=== PATIENT | female | born 1935 | race Caucasian/White ===

== ENCOUNTER → 2017-06-29 | Outpatient (CLI) | payer MEDICARE, BC, OTHER, SELFPAY | PROVIDERS: Family Provider Family Medicine; Visit Provider Family Medicine | DX: M54.2 Cervicalgia (principal) | CPT/HCPCS: 72050 ==

== ENCOUNTER 2017-06-30 12:55 | Outpatient (RCR) | payer MEDICARE, BC, SELFPAY | END 2017-07-01 | LOC: PT 12:55 | PROVIDERS: PCP Family Medicine; Visit Provider Family Medicine | DX: M54.2 Cervicalgia (principal); S23.9XXD Sprain of unspecified parts of thorax, subsequent encounter | CPT/HCPCS: G8978; G8979; G8980; 97010; 97012; 97014; 97162; G0283 ==

== ENCOUNTER 2017-08-16 09:00 | Outpatient (RCR) | payer MEDICARE, BC, OTHER, SELFPAY | END 2017-08-16 09:01 | disposition home or self-care (01) | LOC: PT 09:00 | PROVIDERS: Family Provider Family Medicine; PCP Family Medicine; Visit Provider Family Medicine | DX: M54.5 Low back pain (principal) | CPT/HCPCS: 97010; 97012; 97014; 97140; G0283 ==

== ENCOUNTER → 2018-08-16 15:26 | Outpatient (CLI) | payer MEDICARE, BC, SELFPAY ==
--- NOTE | 2018-08-16 15:37 | XR_ITS ---
XR knee LT 3V HISTORY: Left knee pain and swelling ITS.REASON: LT KNEE PAIN/SWELLING ORDERING PHYSICIAN: [place] PATIENT AGE: 82 years COMPARISON: None FINDINGS: There are moderate osteoarthritic changes of the medial compartment with decrease in the joint space, osteophyte formation, and osteosclerosis. Mild osteoarthritic changes are present at the lateral compartment and patellofemoral joint. No acute fracture or dislocation is evident. No lytic or blastic change. IMPRESSION: Moderate osteoarthritis of the left knee
== END ==
PROVIDERS: PCP Internal Medicine; Visit Provider Internal Medicine
DX: M25.562 Pain in left knee (principal); M25.462 Effusion, left knee
CPT/HCPCS: 73562

== ENCOUNTER → 2018-08-30 14:36 | Outpatient (CLI) | payer MEDICARE, BC, SELFPAY ==
--- NOTE | 2018-08-30 14:43 | XR_ITS ---
EXAM: XR lumbar spine 2-3V HISTORY: Low back pain, bulging disc ITS.REASON: ap lateral standing ORDERING PHYSICIAN: Yadira Moore MD PATIENT AGE: 82 years COMPARISON: None FINDINGS: Standing AP and lateral views of lumbar spine are obtained. Multilevel degenerative disc disease is present from L2 to S1 with mild lumbar scoliosis convex left in the upper lumbar spine. No fracture or malalignment. IMPRESSION: Scoliosis with degenerative disc disease
== END ==
PROVIDERS: PCP Internal Medicine; Visit Provider Orthopaedic Surgery
DX: M54.9 Dorsalgia, unspecified (principal)
CPT/HCPCS: 72100

== ENCOUNTER → 2018-09-11 14:49 | Outpatient (POV) | payer MEDICARE, BC, SELFPAY ==
[2018-09-11 14:59] VITALS: BP 166/87; PULSE 84; RESP 18; O2SAT 98
--- NOTE | 2018-09-12 13:49 | HMH.PMCON ---
Assessment and Plan (1) Degenerative disc disease Current visit: Yes Status: Chronic Qualifiers: Spinal region: lumbar Qualified Code(s): M51.36 - Other intervertebral disc degeneration, lumbar region Category: Medical (2) Lumbar radiculopathy Current visit: Yes Status: Chronic Category: Medical Code(s): M54.16 - Radiculopathy, lumbar region - Assessment and plan all Dx Assessment and Plan for all problems:: Schedule L4-L5 lumbar epidural steroid injection for the patient. Patient has had this in the past with up to 2 years relief. She is interested in pursuing another one. I will follow-up with her after injection and reassess her symptoms at that time. Dr. Gonzalez has reviewed this note and agrees with this plan of care. This note was dictated using voice recognition software and may contain errors or omissions HPI - Data of Consult Consult date: 09/11/18 Requesting Physician: Jayla Washington APRN Primary Care Provider: Bon [place] - Consult Narrative Reason for consult: Back pain History of present illness: Ms. Pride is a 82 year old female who presents today for consultation in regards to her low back. Patient has patient is a pleasant 82-year-old white female who presents today for consultation in regards to her low back pain. Patient states that increased activity increases her pain while gabapentin decreases it. She has numbness and tingling in her left leg. Patient's done physical therapy in the past with minimal relief she is continuing a home stretching therapy. She rates her pain a 6 out of 10. She is currently doing a home stretching program. She is currently on anti-inflammatories. This is beneficial for her. Patient has had epidural injections in the past with extremely good relief. She would like to repeat these. Patient does have imaging showing multilevel degenerative disc disease CC: Jayla Washington APRN [facility] History I have reviewed the patient's past medical history: Yes Medical History: Reports:: Hyperlipidemia *Have you ever received a pneumonia vaccine?: No *Have you received a flu vaccine this season?: Yes Other Medical History: Reports: Arthritis Other Surgeries: Yes: Appendectomy, Hysterectomy-Total, Tubal Ligation Amputation: No Fractures: No - *Social History Smoking Status: Never smoker Alcohol Intake: never Substance Use Type: denies use *Occupational Status:: retired Housing: house Household Members: family *Travel in the last 8 weeks: None - Psychiatric History Expresses thoughts of harming self/others: None Suicide Plan Description: No Plan Family Hx:: Cancer Review of Systems - Review of Systems ROS General: no recent weight change, no fever, no sleep disturbances Respiratory: no cough, no shortness of air, no recurring pulmonary infections Cardiovascular/Peripheral Vascular: No chest pain, No palpitations, no edema, no shortness of breath. Gastrointestinal: no incontinence, normal bowel movements reported Genitourinary: no incontinence Musculoskeletal: Back pain, left leg pain Psychiatric: normal mood/ affect Neurological: [denies weakness in extremities], [denies balance issues] Meds Home Medications Medication Instructions Recorded Confirmed Type gabapentin 100 mg capsule 200 mg PO QHS cap 09/11/17 08/30/18 History alendronate 35 mg tablet 35 mg PO QWEEK 08/30/18 08/30/18 History celecoxib 200 mg capsule 200 mg PO DAILY 08/30/18 08/30/18 History coenzyme Q 10 10 mg capsule 10 mg PO TID 08/30/18 08/30/18 History donepezil 5 mg tablet 5 mg PO DAILY 08/30/18 08/30/18 History hydrochlorothiazide 12.5 mg capsule 12.5 mg PO DAILY 08/30/18 08/30/18 History sertraline 25 mg tablet 25 mg PO DAILY 08/30/18 08/30/18 History vitamin B complex tablet 1 tab PO DAILY 08/30/18 08/30/18 History Allergies Allergy/AdvReac Type Severity Reaction Status Date / Time No Known Allergies Allergy Verified 08/30/18 13:34
--- NOTE | 2018-09-12 13:55 | P.CONS_ITS ---
Assessment and Plan (1) Degenerative disc disease Current visit: Yes Status: Chronic Qualifiers: Spinal region: lumbar Qualified Code(s): M51.36 - Other intervertebral disc degeneration, lumbar region Category: Medical (2) Lumbar radiculopathy Current visit: Yes Status: Chronic Category: Medical Code(s): M54.16 - Radiculopathy, lumbar region - Assessment and plan all Dx Assessment and Plan for all problems:: Schedule L4-L5 lumbar epidural steroid injection for the patient. Patient has had this in the past with up to 2 years relief. She is interested in pursuing another one. I will follow-up with her after injection and reassess her symptoms at that time. Dr. Gonzalez has reviewed this note and agrees with this plan of care. This note was dictated using voice recognition software and may contain errors or omissions HPI - Data of Consult Consult date: 09/11/18 Requesting Physician: Jayla Washington APRN Primary Care Provider: [place] - Consult Narrative Reason for consult: Back pain History of present illness: Ms. Pride is a 82 year old female who presents today for consultation in regards to her low back. Patient has patient is a pleasant 82-year-old white female who presents today for consultation in regards to her low back pain. Patient states that increased activity increases her pain while gabapentin decreases it. She has numbness and tingling in her left leg. Patient's done physical therapy in the past with minimal relief she is continuing a home stretching therapy. She rates her pain a 6 out of 10. She is currently doing a home stretching program. She is currently on anti-inflammatories. This is beneficial for her. Patient has had epidural injections in the past with extremely good relief. She would like to repeat these. Patient does have imaging showing multilevel degenerative disc disease CC: Jayla Washington APRN [facility] History I have reviewed the patient's past medical history: Yes Medical History: Reports:: Hyperlipidemia *Have you ever received a pneumonia vaccine?: No *Have you received a flu vaccine this season?: Yes Other Medical History: Reports: Arthritis Other Surgeries: Yes: Appendectomy, Hysterectomy-Total, Tubal Ligation Amputation: No Fractures: No - *Social History Smoking Status: Never smoker Alcohol Intake: never Substance Use Type: denies use *Occupational Status:: retired Housing: house Household Members: family *Travel in the last 8 weeks: None - Psychiatric History Expresses thoughts of harming self/others: None Suicide Plan Description: No Plan Family Hx:: Cancer Review of Systems - Review of Systems ROS General: no recent weight change, no fever, no sleep disturbances Respiratory: no cough, no shortness of air, no recurring pulmonary infections Cardiovascular/Peripheral Vascular: No chest pain, No palpitations, no edema, no shortness of breath. Gastrointestinal: no incontinence, normal bowel movements reported Genitourinary: no incontinence Musculoskeletal: Back pain, left leg pain Psychiatric: normal mood/ affect Neurological: [denies weakness in extremities], [denies balance issues] Meds Home Medications Medication Instructions Recorded Confirmed Type gabapentin 100 mg capsule 200 mg PO QHS cap 09/11/17 08/30/18 History alendronate 35 mg tablet 35 mg PO QWEEK 08/30/18 08/30/18 History celecoxib 200 mg capsule 200 mg PO DAILY 08/30/18 08/30/18 Histo
== END ==
PROVIDERS: PCP Internal Medicine; Visit Provider Clinical Nurse Specialist Family Health
DX: M51.16 Intervertebral disc disorders with radiculopathy, lumbar region (principal)
CPT/HCPCS: 99202

== ENCOUNTER → 2018-10-16 13:06 | Outpatient (POV) | payer MEDICARE, BC, SELFPAY ==
[2018-10-16 13:54] VITALS: BP 129/90; PULSE 103; RESP 18; O2SAT 98; BMI 32.1
--- NOTE | 2018-10-17 08:04 | HMH.PAINSOAP ---
[facility] Pain Management SOAP Note Subjective:: Patient is a pleasant 82-year-old white female who presents today for follow-up after her lumbar epidural steroid injection. Patient states she is doing wonderful rating her pain a 1 out of 10. Patient is done extremely well with this. Patient would like to follow-up on an as-needed basis. ROS General: no recent weight change, no fever, no sleep disturbances Respiratory: no cough, no shortness of air, no recurring pulmonary infections Cardiovascular/Peripheral Vascular: No chest pain, No palpitations, no edema, no shortness of breath. Gastrointestinal: no incontinence, normal bowel movements reported Genitourinary: no incontinence Musculoskeletal: Back pain, leg pain Psychiatric: normal mood/ affect Neurological: [denies weakness in extremities], [denies balance issues] Objective:: Physical Exam General: Alert and oriented x3, no acute distress, pleasant and cooperative, [on room air] Lungs: Resps E/U, Symmetrical chest expansion, Eyes: PERRL Musculoskeletal: Flexion and extension of lumbar spine somewhat guarded secondary to pain, deep tendon reflexes normal, strength in upper and lower extremities [5/5], [abnormal gait noted] Neurological: speech clear, mission assessment specialist equal, no gross sensory deficits Assessment:: Degenerative disc disease lumbar spine with lumbar radiculopathy Plan:: We will follow-up with the patient on an as-needed basis. She is been a call us if she would like to repeat her L4-L5 epidural given the efficacy it may be beneficial in the future. She is not on any anticoagulation therapy. She continues a home stretching program. Dr. Gonzalez has reviewed this note and agrees with this plan of care. This note was dictated using voice recognition software and may contain errors or omissions
== END ==
PROVIDERS: PCP Internal Medicine; Visit Provider Clinical Nurse Specialist Family Health
DX: M51.16 Intervertebral disc disorders with radiculopathy, lumbar region (principal)
CPT/HCPCS: 99212

== ENCOUNTER → 2019-01-16 10:01 | Outpatient (POV) | payer MEDICARE, BC, SELFPAY ==
[2019-01-16 10:42] VITALS: BP 133/61; PULSE 69; RESP 18; O2SAT 98; BMI 29.2
--- NOTE | 2019-01-16 11:37 | HMH.PAINSOAP ---
[facility] Pain Management SOAP Note Subjective:: Patient is a pleasant 82-year-old white female who presents today for follow-up. She is being treated for low back pain with radiation to her lower legs. The patient had a lumbar epidural steroid injection at L4 and L5. And she says that she did get 80% relief with this and the pain did return approximately 1 week ago. He does say that she had pain relief for approximately 2 months with the injection. She says that she would like another injection. She is continuing NSAIDs at home along with home stretching program. Patient is not on any anticoagulation therapy. Review of Systems General: No recent weight changes, no fever, no sleep disturbances Respiratory: No cough, no shortness of air, no recurring pulmonary infections Cardiovascular/peripheral vascular: No chest pain, no palpitations, no edema, no shortness of breath Gastrointestinal: No new onset incontinence, normal bowel movements reported Genitourinary: No new onset incontinence Musculoskeletal: Back pain Psychiatric: Normal mood/affect Neurological: [Denies weakness in extremities], [denies balance issues] Objective:: Physical exam General: Alert and oriented x3, no acute distress, pleasant and cooperative, [on room air] Lungs: Respirations even and unlabored, symmetrical chest expansion Eyes: PERRL Musculoskeletal: Flexion and extension of lumbar spine somewhat guarded secondary to pain, deep tendon reflexes normal, strength in upper and lower extremities [5/5], slightly antalgic gait noted Neurological: Speech clear, barrel stave inspector equal, no gross sensory deficit Assessment:: Degenerative disc disease lumbar spine with lumbar radiculopathy Plan:: We will schedule the patient for a lumbar epidural steroid injection at L4 and L5. Patient is not on any anticoagulation therapy she will continue anti-inflammatories and home stretching program. We will follow-up with her after her procedure to reassess her symptoms at that time. She is been instructed to call the office if she has any concerns prior to her next appointment. Dr. Gonzalez has reviewed this note and agrees with this plan of care. This note was dictated using voice recognition software and make contain errors or omissions.
--- NOTE | 2019-01-16 11:40 | P.CONS_ITS ---
[facility] Pain Management SOAP Note Subjective:: Patient is a pleasant 82-year-old white female who presents today for follow-up. She is being treated for low back pain with radiation to her lower legs. The patient had a lumbar epidural steroid injection at L4 and L5. And she says that she did get 80% relief with this and the pain did return approximately 1 week ago. He does say that she had pain relief for approximately 2 months with the injection. She says that she would like another injection. She is continuing NSAIDs at home along with home stretching program. Patient is not on any anticoagulation therapy. Review of Systems General: No recent weight changes, no fever, no sleep disturbances Respiratory: No cough, no shortness of air, no recurring pulmonary infections Cardiovascular/peripheral vascular: No chest pain, no palpitations, no edema, no shortness of breath Gastrointestinal: No new onset incontinence, normal bowel movements reported Genitourinary: No new onset incontinence Musculoskeletal: Back pain Psychiatric: Normal mood/affect Neurological: [Denies weakness in extremities], [denies balance issues] Objective:: Physical exam General: Alert and oriented x3, no acute distress, pleasant and cooperative, [on room air] Lungs: Respirations even and unlabored, symmetrical chest expansion Eyes: PERRL Musculoskeletal: Flexion and extension of lumbar spine somewhat guarded secondary to pain, deep tendon reflexes normal, strength in upper and lower extremities [5/5], slightly antalgic gait noted Neurological: Speech clear, uniform maker equal, no gross sensory deficit Assessment:: Degenerative disc disease lumbar spine with lumbar radiculopathy Plan:: We will schedule the patient for a lumbar epidural steroid injection at L4 and L5. Patient is not on any anticoagulation therapy she will continue anti- inflammatories and home stretching program. We will follow-up with her after her procedure to reassess her symptoms at that time. She is been instructed to call the office if she has any concerns prior to her next appointment. Dr. Gonzalez has reviewed this note and agrees with this plan of care. This note was dictated using voice recognition software and make contain errors or omissions.
== END ==
PROVIDERS: PCP Internal Medicine; Visit Provider Clinical Nurse Specialist Family Health
DX: M51.16 Intervertebral disc disorders with radiculopathy, lumbar region (principal)
CPT/HCPCS: 99212

== ENCOUNTER → 2019-02-02 09:39 | Outpatient (CLI) | payer MEDICARE, BC, SELFPAY ==
--- NOTE | 2019-02-02 09:46 | XR_ITS ---
XR chest 2V HISTORY: Hypertension ITS.REASON: HTN, SYSTOLIC HEART MURMUR ORDERING PHYSICIAN: Bon [place] PATIENT AGE: 83 years COMPARISON: AP supine chest on backboard 03/20/2017 FINDINGS: The cardiomediastinal silhouette and pulmonary vascularity are within normal limits. The lungs are clear without infiltrates, suspicious nodules, or pleural effusions. No acute bony abnormalities. IMPRESSION: Negative chest, no acute finding
== END ==
PROVIDERS: PCP Internal Medicine; Visit Provider Internal Medicine
DX: Z01.818 Encounter for other preprocedural examination (principal)
CPT/HCPCS: 71046; 93005

== ENCOUNTER → 2019-02-05 10:21 | Outpatient (CLI) | payer MEDICARE, BC, SELFPAY ==
--- NOTE | 2019-02-05 | CA_ITS ---
PROCEDURE: 2-D M-mode and color Doppler study INDICATIONS FOR THE TEST: Chest pain COPD Heart MurmurX Tobacco Smoking Palpitations Fatigue Syncope Edema HypertensionXDiabetes Mellitus Rheumatic Fever SOBXDOE Obesity HyperlipidemiaX Family History HD Additional History PATIENT INFORMATION HEIGHT: 63 WEIGHT:160 GENDER: Female B/P:140/70 2-D/M-MODE INTERPRETATION: 2-D MEASUREMENTS OBSERVED VALUES IN CMS Right Ventricular Dimension (RVDd) 2.1 Interventricular Septum (Thickness)(IVsd) .8 Left Ventricular Internal Dimensions(LVIDd) 5.5 Left Ventricular Posterior Wall (Thickness)(LVPWd) 1.2 Aortic Root 3.6 Aortic Cusp Separation 1.6 Left Atrial Dimensions (LAD) 3.1 2D 1. Left atrium is mildly enlarged, left ventricle is normal size, mild concentric left ventricular hypertrophy, visually estimated ejection fraction 55% with no regional wall motion abnormality. 2. The right atrium and right ventricle are normal size and contractility. 3. The aortic valve is thickened and calcified leaflet continue to display mobility. 4. The mitral valve has dense mitral annular calcification, which extends and both anterior and posterior mitral leaflet. 5. The tricuspid valve is grossly normal. 6. The pulmonic valve is poorly visualized. 7. No significant pericardial effusion noted. DOPPLER INTERROGATION: Doppler interrogation of the aortic, mitral and tricuspid valvular presence of mild aortic, mild mitral and tricuspid regurgitation, calculated right ventricular systolic pressure is 45 mmHg consistent with moderate pulmonary hypertension, grade 1 diastolic dysfunction seen with tissue Doppler evidence of raised left atrial pressure, inferior vena cava is normal size with normal inspiratory collapse. CONCLUSION: 1. Mildly enlarged left atrium, normal left ventricular size, mild concentric left ventricular hypertrophy, visually estimated ejection fraction 55% with no regional wall motion abnormality, grade 1 diastolic dysfunction seen with tissue Doppler evidence of raised left atrial pressure. 2. Thickened and calcified aortic valve without Doppler evidence of aortic stenosis, there is mild aortic insufficiency. 3. Mild mitral and tricuspid regurgitation, calculated right ventricular systolic pressure is 45 mmHg consistent with moderate pulmonary hypertension, inferior vena cava is normal size with normal inspiratory collapse. 4. No significant pericardial effusion noted.
== END ==
PROVIDERS: PCP Internal Medicine; Visit Provider Internal Medicine
DX: R00.2 Palpitations (principal); R06.09 Other forms of dyspnea; R01.1 Cardiac murmur, unspecified
CPT/HCPCS: 93306

== ENCOUNTER → 2019-02-26 09:48 | Outpatient (POV) | payer MEDICARE, BC, SELFPAY ==
[2019-02-26 09:51] VITALS: BP 146/67; PULSE 68; RESP 18; O2SAT 98; BMI 28.3
--- NOTE | 2019-02-26 10:01 | HMH.PAINSOAP ---
[facility] Pain Management SOAP Note Subjective:: Patient is a pleasant 83-year-old white female who we are treating for low back pain with lumbar radiculopathy. Patient is status post a second epidural steroid injection. She states that she got 80% relief of her pain after this. Patient is having some left knee pain as well. Patient would like to repeat her epidural steroid injection prior to traveling the end of March beginning of April. She is not on any anticoagulation therapy. She is continuing a home stretching program and staying as active as possible. Given the efficacy of this in the past I believe it would be beneficial for her. ROS General: no recent weight change, no fever, no sleep disturbances Respiratory: no cough, no shortness of air, no recurring pulmonary infections Cardiovascular/Peripheral Vascular: No chest pain, No palpitations, no edema, no shortness of breath. Gastrointestinal: no incontinence, normal bowel movements reported Genitourinary: no incontinence Musculoskeletal: Back pain, leg pain Psychiatric: normal mood/ affect Neurological: [denies weakness in extremities], [denies balance issues] Objective:: Physical Exam General: Alert and oriented x3, no acute distress, pleasant and cooperative, [on room air] Lungs: Resps E/U, Symmetrical chest expansion, Eyes: PERRL Musculoskeletal: Flexion and extension of lumbar spine somewhat guarded secondary to pain, deep tendon reflexes normal, strength in upper and lower extremities [5/5], [abnormal gait noted] Neurological: speech clear, hydrogenation operator equal, no gross sensory deficits Assessment:: Degenerative disc disease lumbar spine with lumbar radiculopathy Plan:: We will schedule repeat L4L5 epidural steroid injection for the patient given the efficacy in the past I believe it would be beneficial. Patient's been instructed to call the office if she has any issues prior to her next appointment. She may also benefit from Voltaren gel for her knee. Dr. Gonzalez has reviewed this note and agrees with this plan of care. This note was dictated using voice recognition software and may contain errors or omissions Pain Management Hx Components *Have you ever received a pneumonia vaccine?: Yes *Have you received a flu vaccine this season?: Yes - *Social History *Occupational Status:: other *Travel in the last 8 weeks: None
== END ==
PROVIDERS: PCP Internal Medicine; Visit Provider Clinical Nurse Specialist Family Health
DX: M51.16 Intervertebral disc disorders with radiculopathy, lumbar region (principal)
CPT/HCPCS: 99212

== ENCOUNTER → 2019-03-14 06:40 | Outpatient (CLI) | payer MEDICARE, BC, SELFPAY ==
--- NOTE | 2019-03-14 | CA_ITS ---
APPROVED REPORT Exam: Pharmacologic Technologist: Tiana Corona, Ht: 5 ft 3 in Wt: 160 lbs BSA: 1.76 m2 HR: 59 bpm BP: 152/68 mmHg Rhythm: NSR,LBBB Indications: Shortness of Breath, Pulmonary Hypertension Medical History Medical History: SOA,PULMONARY HTN Medications: Gabapentin,,,,, Coenzyme,,,,, HCTZ,,,,, ClonAZEPAM,,,,, Celecoxib,,,,, Sertraline,,,,, Potassium,,,,, Stress Test Details Test: LEXISCAN HR Resting HR: 67 bpm Max Heart Rate (APMHR): 136 bpm Max HR Achieved: 107 bpm Target HR (85% APMHR): 115 bpm % of APMHR: 78 Recovery HR: 82 bpm BP Resting BP: 152.0/68.0 mmHg Max BP: 152.0/69.0 mmHg Recovery BP: 137.0/66.0 mmHg ECG Resting ECG: NORMAL SINUS WITH LBBB Clinical Exercise duration: 04:02 min Highest Stage Achieved: Stress ECG Conclusion DURING LEXISCAN PATIENT HAD SOA,MALAISE,CHEST AND BACK PAIN. AMINOPHYLLINE 75 MG SLOW IV PUSH GIVEN. SYMPTOMS: MALAISE,SOA,CHEST PRESSURE/HEAVINESS AND BACK PAIN. OCCASIONAL PAC. FREQUENT PVC'S WITH PERIODS OF V.BIGEMINY. ONE VENTRICULAR COUPLET. EXAGGERATION OF BASELINE ABNORMALITIES. FREQUENT ECTOPY WITH LEXISCAN STRESS. NON-DIAGNOSTIC EKG'S. MYOVIEW IMAGES REPORTED SEPARATELY. Electronically signed by : Devin Pepe, 03/15/2019 16:45:04
== END ==
PROVIDERS: PCP Internal Medicine; Visit Provider Internal Medicine Cardiovascular Disease
DX: R06.02 Shortness of breath (principal); R07.9 Chest pain, unspecified; I27.20 Pulmonary hypertension, unspecified
CPT/HCPCS: 78452; 93017; A9502; J2785

== ENCOUNTER → 2019-03-14 06:42 | Outpatient (CLI) | payer SELFPAY ==
--- NOTE | 2019-03-14 06:52 | CT_ITS ---
PROCEDURE: CT HEART W CALCIUM SCORE CLINICAL HISTORY: sob, chest pain, fam Hx COMPARISON: [facility] CT THORACIC SPINE W/O CONTRAST from 03/20/2017 TECHNIQUE: Axial images obtained with sagittal and coronal reformats. All CT scans at the facility use one or more dose reduction, viz: automated exposure control, ma/kV adjustment per patient size (including targeted exams where dose is matched to indication, i.e. head), or iterative reconstruction technique. FINDINGS: Coronary artery calcium score is 320 a indicating moderate plaque burden and high cardiovascular disease risk. There is calcified granuloma in the left lower lobe. There are mild atelectatic changes in the right middle lobe and the bilateral lower lobes. In the right lower lobe a meeting on image number 17 there is questionable nodule versus partial volume averaging artifact from a vessel with motion artifact. This area measures 13 mm IMPRESSION: Moderate plaque burden with high cardiovascular disease risk Possible right lower lobe nodule versus partial volume averaging artifact from motion. Chest CT may be of further value. Dictated by: Bernardino Bass MD 03/15/2019 04:32 Electronically signed by Bernardino Bass MD in [place] 03/15/2019 04:32
--- NOTE | 2019-03-14 06:52 | NM_ITS ---
APPROVED REPORT Exam: Nuclear Stress Test Indication: soa.pul htn Patient Location: Outpatient Stress Tech: Tiana Corona [place] Tech:Sol Walton CLYDE RT(R)(N) Ht: 5 ft 3 in Wt: 160 lbs BSA: 1.76 m2 HR: 59 bpm BP: 152/68 mmHg BMI: 28.3 History: soa.pul htn Procedure: Patient received a 0.4 mg of intravenous Lexiscan, resting heart rate 59 bpm, resting blood pressure 152/68 mmHg, with Lexiscan maximum heart rate achived was 89 bpm which is Less than 85 % of the maximum predicted heart rate and blood pressure was 136/106 mmHg. With Lexiscan patient complained of chest pressure. Electrocardiogram Resting electrocardiogram shows sinus rhythm left bundle branch block, with Lexiscan there is less than 1.[address] segment depression noted from the baseline EKG. Frequent premature ventricular complexes were present throughout the study. The EKG portion of the Lexiscan Myoview is nondiagnostic. Cardiac Stress and Resting SPECT Images: Cardiac Stress and Resting SPECT images were obtained using technetium 99m Myoview 31.5 mCi stress and 10.64 mCi at rest. Gated SPECT with analysis of segmental wall motion and calculation of ejection fraction also done. Cardiac stress and resting SPECT images show mild fixed defect septally with normal contractility and the gated SPECT is likely secondary to left bundle branch block, no reversible ischemia seen. Computer derived ejection fraction is over 65% with no regional wall motion abnormality, right ventricle is normal size and contractility. Conclusion: 1. The EKG portion of the Lexiscan Myoview is nondiagnostic. 2. No scintigraphic evidence of reversible ischemia seen, computer derived ejection fraction is over 65% with no regional wall motion abnormality, right ventricle is normal size and contractility. 3. Normal Lexiscan Myoview study. Electronically signed by : Devin Pepe, 03/15/2019 15:28:25
--- NOTE | 2019-03-14 10:47 | HMH.ITSHM ---
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 [] cellcoxib gabapentin sertralive
== END ==
PROVIDERS: PCP Internal Medicine; Visit Provider Internal Medicine Cardiovascular Disease
DX: R07.9 Chest pain, unspecified (principal); I27.20 Pulmonary hypertension, unspecified; R06.02 Shortness of breath
CPT/HCPCS: 75571; 78452; A9502; J2785

== ENCOUNTER → 2019-03-22 09:08 | Outpatient (CLI) | payer MEDICARE, BC, SELFPAY ==
[2019-03-22 10:59] LABS: Anion Gap 10.6 mEq/L (5-15); Blood Urea Nitrogen 16 mg/dL (7-18); Calcium 9.7 mg/dL (8.5-10.1); Carbon Dioxide 30 mmol/L (21.0-32.0); Chloride 104 mmol/L (98-107); Estimated Glomerular Filt Rate 68 ml/min (>60); GFR (African American) 83 ML/MIN (>60); Glucose 86 mg/dL (74-106); Sodium 140 mmol/L (136-145)
[2019-03-22 11:05] LABS: Potassium 4.6 mmoL/L (3.5-5.1)
== END ==
PROVIDERS: Visit Provider Internal Medicine Cardiovascular Disease
DX: R06.02 Shortness of breath (principal); I27.20 Pulmonary hypertension, unspecified; R07.9 Chest pain, unspecified
CPT/HCPCS: 36415; 80048; 83880

== ENCOUNTER → 2019-04-13 08:29 | Outpatient (CLI) | payer MEDICARE, BC, SELFPAY ==
[2019-04-13 08:59] LABS: Basophils # 0.1 K/mm3 (0-0.2); Basophils % 1.7 % (0.1-2.0); Eosinophils # 0.2 K/mm3 (0.0-0.4); Hematocrit 35.7 % (37.0-47.0); Hemoglobin 11.4 g/dL (12.2-16.2); Lymphocytes # 1.4 K/mm3 (0.7-4.5); Lymphocytes % 24.7 % (10-50); Mean Corpuscular HGB Conc 31.9 g/dL (31.8-35.4); Mean Corpuscular Hemoglobin 30.7 pg (27.0-31.2); Mean Corpuscular Volume 96.1 fl (81-99); Mean Platelet Volume 7.4 fl (7.4-10.4); Monocytes # 0.5 K/mm3 (0.1-1.0); Monocytes % 8.4 % (1.7-9.3); Neutrophils # 3.3 K/mm3 (1.8-7.8); Neutrophils % 61.1 % (37.0-80.0); Platelet Count 297 K/mm3 (142-424); Red Blood Count 3.72 M/mm3 (4.20-5.40); Red Cell Distribution Width 14.1 % (11.5-17.5); White Blood Count 5.5 K/mm3 (4.8-10.8)
[2019-04-13 09:12] LABS: Anion Gap 12.4 mEq/L (5-15); Blood Urea Nitrogen 20 mg/dL (7-18); Calcium 8.5 mg/dL (8.5-10.1); Carbon Dioxide 27 mmol/L (21.0-32.0); Chloride 105 mmol/L (98-107); Creatinine,Serum 0.82 mg/dL (0.55-1.02); Estimated Glomerular Filt Rate 66 ml/min (>60); GFR (African American) 80 ML/MIN (>60); Glucose 89 mg/dL (74-106); Potassium 4.4 mmoL/L (3.5-5.1); Sodium 140 mmol/L (136-145)
== END ==
PROVIDERS: Visit Provider Internal Medicine
DX: Z95.5 Presence of coronary angioplasty implant and graft (principal); I25.10 Atherosclerotic heart disease of native coronary artery without angina pectoris; E78.2 Mixed hyperlipidemia
CPT/HCPCS: 36415; 80048; 85025

== ENCOUNTER 2019-04-24 08:06 | Outpatient (RCR) | payer MEDICARE, BC, SELFPAY | END 2019-04-24 08:10 | disposition home or self-care (01) | LOC: PT 08:06 | PROVIDERS: Visit Provider Internal Medicine Cardiovascular Disease | DX: I25.10 Atherosclerotic heart disease of native coronary artery without angina pectoris (principal); I27.20 Pulmonary hypertension, unspecified | CPT/HCPCS: 93798 ==

== ENCOUNTER → 2019-05-28 15:45 | Outpatient (CLI) | payer MEDICARE, BC, SELFPAY ==
--- NOTE | 2019-05-28 15:57 | XR_ITS ---
PROCEDURE: XR CHEST 2V CLINICAL HISTORY: COUGH,SPUTUM,SOA Cough, heart disease COMPARISON: CXR1 CHEST-PORTABLE from 03/20/2017 FINDINGS: The cardiomediastinal silhouette and pulmonary vascularity are within normal limits. The lungs are clear without infiltrates, suspicious nodules, or pleural effusions. No acute bony abnormalities. IMPRESSION: No acute findings. Dictated by: Bernardino Bass MD 05/28/2019 16:09 Electronically signed by Bernardino Bass MD in [place] 05/28/2019 16:09
[2019-05-28 15:58] LABS: Basophils # 0.1 K/mm3 (0-0.2); Basophils % 1.5 % (0.1-2.0); Eosinophils # 0.4 K/mm3 (0.0-0.4); Eosinophils % 5.6 % (0.1-12.0); Hematocrit 34.5 % (37.0-47.0); Hemoglobin 11.3 g/dL (12.2-16.2); Lymphocytes # 1.6 K/mm3 (0.7-4.5); Mean Corpuscular HGB Conc 32.8 g/dL (31.8-35.4); Mean Corpuscular Hemoglobin 31.9 pg (27.0-31.2); Mean Corpuscular Volume 97.3 fl (81-99); Mean Platelet Volume 8.3 fl (7.4-10.4); Monocytes # 0.7 K/mm3 (0.1-1.0); Monocytes % 9.2 % (1.7-9.3); Neutrophils # 4.3 K/mm3 (1.8-7.8); Neutrophils % 60.6 % (37.0-80.0); Platelet Count 310 K/mm3 (142-424); Red Blood Count 3.54 M/mm3 (4.20-5.40); Red Cell Distribution Width 13.7 % (11.5-17.5); White Blood Count 7.1 K/mm3 (4.8-10.8)
[2019-05-28 16:06] LABS: Anion Gap 11.7 mEq/L (5-15); Blood Urea Nitrogen 21 mg/dL (7-18); Calcium 9.2 mg/dL (8.5-10.1); Carbon Dioxide 25 mmol/L (21.0-32.0); Chloride 104 mmol/L (98-107); Creatinine,Serum 1.18 mg/dL (0.55-1.02); Estimated Glomerular Filt Rate 44 ml/min (>60); GFR (African American) 53 ML/MIN (>60); Glucose 129 mg/dL (74-106); Potassium 4.7 mmoL/L (3.5-5.1); Sodium 136 mmol/L (136-145)
== END ==
PROVIDERS: Visit Provider Internal Medicine
DX: R06.02 Shortness of breath (principal); R05 Cough; R09.89 Other specified symptoms and signs involving the circulatory and respiratory systems
CPT/HCPCS: 36415; 71046; 80048; 83880; 85025

== ENCOUNTER → 2019-05-29 08:08 | Outpatient (CLI) | payer MEDICARE, BC, SELFPAY ==
[2019-05-29 09:03] LABS: Alanine Aminotransferase 23 U/L (12-78); Albumin Level 3.7 gm/dL (3.4-5.0); Alkaline Phosphatase 89 U/L (46-116); Aspartate Amino Transferase 23 U/L (15-37); Bilirubin,Direct 0.1 mg/dL (0.0-0.2); Bilirubin,Indirect 0.5 mg/dL (0.0-0.9); Bilirubin,Total 0.6 mg/dL (0.2-1.0); Chol/HDL Ratio 1.7 (1-3.5); Cholesterol 154 mg/dL (140-200); HDL Cholesterol 92 mg/dL (29-89); LDL Cholesterol 48 mg/dL (0-130); Total Protein,Serum 6.9 gm/dL (6.4-8.2); Triglycerides 68 mg/dL (30-200); VLDL Cholesterol 14 mg/dL (0-40)
== END ==
PROVIDERS: Visit Provider Internal Medicine Cardiovascular Disease
DX: E78.5 Hyperlipidemia, unspecified (principal); I25.10 Atherosclerotic heart disease of native coronary artery without angina pectoris
CPT/HCPCS: 36415; 80061; 80076

== ENCOUNTER 2019-06-07 11:46 | Observation (INO) ==
--- NOTE | 2019-06-07 13:55 | History & Physical Report ---
*Admission Date: 06/07/19 *Chief complaint: afib, weakness *History of present illness: Ms. Pride is an 83-year-old female with history of coronary artery disease, status post heart cath and stent placement 3 months ago. She presented to cardiology clinic today with complaint of 3 weeks of dizziness, shortness of breath, and chest discomfort. On Interview, she reports feeling more dyspneic with exertion than anything. States she had a normal stress test but abnormal calcium score on CT, this led to her diagnostic and therapeutic heart cath. Denies any previous history of A. fib or abnormal heart rhythms. Upon presentation she was found to have A. fib with RVR. Patient was admitted under medicine service for observation and heparinization overnight. Plan to monitor on telemetry and consider MYKEL and cardioversion in the morning pending clinical response to ángel blockade medication treatment. Denies gladys chest pain, nausea, vomiting, syncope. Not on any beta-blockers after heart cath [facility] History I have reviewed the patient's past medical history: Yes Medical History: Reports:: Hyperlipidemia, Hypertension Denies:: Cancer, Diabetes Mellitus Type 1, Diabetes Mellitus Type 2, MRSA, Seizures *Have you ever received a pneumonia vaccine?: No *Have you received a flu vaccine this season?: No Other Medical History: Reports: Arthritis, Cataracts Other Surgeries: Yes: Appendectomy, Cardiac Catheterization, Coronary Stent, Hysterectomy-Total, Tubal Ligation Amputation: No Fractures: No - *Social History Smoking Status: Never smoker Alcohol Intake: never Alcohol Intake Frequency:: holidays/special occasions only Substance Use Type: denies use *Occupational Status:: retired Housing: house Household Members: family *Travel in the last 8 weeks: None Family Hx:: Cancer, Coronary Artery Disease Review of Systems - Review of Systems Review of systems:: pertinent systems reviewed and negative unless documented below Meds Home Medications Medication Instructions Recorded Confirmed Type alendronate 35 mg tablet 35 mg PO QWEEK 08/30/18 06/07/19 History celecoxib 200 mg capsule 200 mg PO DAILY 08/30/18 06/07/19 History donepezil 5 mg tablet 5 mg PO DAILY 08/30/18 06/07/19 History sertraline 25 mg tablet 25 mg PO DAILY 08/30/18 06/07/19 History vitamin B complex tablet 1 tab PO DAILY 08/30/18 06/07/19 History coenzyme Q10 10 mg capsule 10 mg PO DAILY cap 03/08/19 06/07/19 History gabapentin 100 mg capsule 200 mg PO BID cap 03/08/19 06/07/19 History potassium chloride ER 20 mEq 20 meq PO BID 03/08/19 06/07/19 History tablet,extended release Losartan/Hydrochlorothiazide 1 tab PO DAILY 03/23/19 06/07/19 History [Hyzaar 50-12.5 Tablet] Spironolactone [Spironolactone 25 mg PO Q OTHER DAY 03/23/19 06/07/19 History 25mg Tablet] aspirin 81 mg tablet,delayed 81 mg PO DAILY #90 tab 04/02/19 06/07/19 Rx release ticagrelor 90 mg tablet 90 mg PO BID #60 tab 04/03/19 06/07/19 Rx atorvastatin 40 mg tablet 40 mg PO DAILY #90 tab 04/16/19 06/07/19 Rx Allergies Allergy/AdvReac Type Severity Reaction Status Date / Time No Known Allergies Allergy Verified 06/07/19 10:22 Exam Vital signs and Labs for Last 24 Hours: Temp Pulse Resp BP Pulse Ox 98.0 F 85 17 125/83 100 06/07/19 12:36 06/07/19 12:36 06/07/19 12:36 06/07/19 12:36 06/07/19 12:36 Laboratory Results - last 24 hr 06/07/19 13:00: APTT 24.5 I & O for Last 24 hours: Intake & Output 06/04/19 06/05/19 06/06/19 06/07/19 23:59 23:59 23:59 23:59 Weight 74.531 kg - Constitutional no acute distress - *Routine HEENT Exam Head: Present: normocephalic Eye: Present: EOMI, PERRL ENT: Present: mucous membranes moist - *Routine Neck Exam Present: supple. Absent: lymphadenopathy - *Routine Respiratory Exam Present: CTA bilaterally - *Routine Cardiovascular Exam Present: Normal S1, irregularly irregular. Absent: murmur - *Routine Abdominal Exam Present: soft, normoactive bowel sounds. Absent: tenderness - *Routine Extremities Exam Present: edema (trace). Absent: cyanosis, clubbing - *Routine Skin Exam Present: warm. Absent: rash - *Routine Neurological Exam Present: alert, oriented X3 Assessment and Plan (1) Atrial fibrillation with RVR Current visit: No Status: Acute Category: Medical Code(s): I48.91 - Unspecified atrial fibrillation (2) SOB (shortness of breath) Current visit: No Status: Acute Category: Medical Code(s): R06.02 - Shortness of breath (3) CAD (coronary artery disease) Current visit: No Status: Chronic Qualifiers: Coronary Disease-Associated Artery/Lesion type: [place] artery [place] vs. transplanted heart: [place] heart Associated angina: without angina Qualified Code(s): I25.10 - Atherosclerotic heart disease of [place] coronary artery without angina pectoris Category: Medical Code(s): I25.10 - Atherosclerotic heart disease of [place] coronary artery without angina pectoris - Assessment and plan all Dx Assessment and Plan for all problems:: Admitted to medicine for further management of her A. fib with RVR. Monitor on telemetry overnight in the ICU. Initiated Cardizem drip. Heparin drip initiated. Pending response to Cardizem, anticipate MYKEL and possible cardioversion in the morning. Cardiology consulted, appreciate recommendations.
[2019-06-07 14:39] LABS: Basophils # 0.1 K/mm3 (0-0.2); Basophils % 0.6 % (0.1-2.0); Eosinophils # 0.3 K/mm3 (0.0-0.4); Eosinophils % 2.7 % (0.1-12.0); Hematocrit 34.5 % (37.0-47.0); Hemoglobin 10.9 g/dL (12.2-16.2); Lymphocytes # 1.6 K/mm3 (0.7-4.5); Lymphocytes % 13.4 % (10-50); Mean Corpuscular HGB Conc 31.7 g/dL (31.8-35.4); Mean Corpuscular Volume 98.6 fl (81-99); Mean Platelet Volume 7.8 fl (7.4-10.4); Monocytes # 0.8 K/mm3 (0.1-1.0); Monocytes % 6.2 % (1.7-9.3); Neutrophils # 9.4 K/mm3 (1.8-7.8); Neutrophils % 77.1 % (37.0-80.0); Platelet Count 291 K/mm3 (142-424); Red Cell Distribution Width 13.8 % (11.5-17.5); White Blood Count 12.2 K/mm3 (4.8-10.8)
--- NOTE | 2019-06-07 15:51 | Progress Note ---
Subjective Date: 06/07/19 Time: 13:00 Principal diagnosis: afib with RVR Interval history: Pt was seen in cardiology clinic today, 06.07.19. Please see office note for full cardiology consult. Pt called for appt secondary to dyspnea/chest discomfort for 3 weeks. CAD is likely stable SETH 03/2019. DAPT Brilinta and ASA feeling dizzy and off balance. soa, progressive worsening. with exertion and at rest. worse with exertion. improves with rest. chest pains and discomfort. heart is racing as well. swelling in legs states she feels like she had a knot in her throat and can't get her breath today. she does not feel well. she has no energy. BP low. Weight up 2 lbs. LDL goal is <55, no labs New onset Afib RVR today, HR is 118 in office, very short of breath today, states she can't do any ADL's because of profound symptoms. Offered admission for rate control. will set up for MYKEL with possible Cardioversion tomorrow. Pt is having symptomatic afib with RVR. Will start Cardizem and heparin drips. full labs CXR Plan: 1. Admit with Dr. Sainz Services 2. MYKEL with possible cardioversion tomorrow. 3. RTC post hospitalization Exam Vital signs and Labs for Last 24 Hours: Temp Pulse Resp BP Pulse Ox 98.0 F 74 16 100/56 L 98 06/07/19 12:36 06/07/19 15:30 06/07/19 15:30 06/07/19 15:30 06/07/19 15:30 Laboratory Results - last 24 hr 06/07/19 13:00: APTT 24.5 06/07/19 13:00: WBC 12.2 H, RBC 3.50 L, Hgb 10.9 L, Hct 34.5 L, MCV 98.6, MCH 31.3 H, MCHC 31.7 L, RDW 13.8, Plt Count 291, MPV 7.8, Neut % (Auto) 77.1, Lymph % (Auto) 13.4, [place] % (Auto) 6.2, Eos % (Auto) 2.7, Baso % (Auto) 0.6, Neut # (Auto) 9.4 H, Lymph # (Auto) 1.6, [place] # (Auto) 0.8, Eos # (Auto) 0.3, Baso # (Auto) 0.1 I & O for Last 24 hours: Intake & Output 06/05/19 06/06/19 06/07/19 06/08/19 11:59 11:59 11:59 11:59 Weight 164 lb 5 oz Progress Note: A&P (1) Atrial fibrillation with RVR Status: Acute Current Visit: No (2) SOB (shortness of breath) Status: Acute Current Visit: No (3) CAD (coronary artery disease) Status: Chronic Current Visit: No (4) HLD (hyperlipidemia) Status: Chronic Current Visit: No (5) Pulmonary HTN Status: Chronic Current Visit: No Assessment and Plan for All Diagnoses:: Plan: 1. continue home meds. 2. start cardizem gtt at 5 mg/hr for HR control. 3. start heparin gtt, pharmacy to dose. 4. cbc, bmp, liver panel, tsh, free t4, mag level 5. CXR 6. Plan for MYKEL with possible cardioversion tomorrow, 06.08.19, at noon after being heparinized. 7. the patient has been educated on the risks and benefits of MYKEL with possible cardioversion. the patient verbalizes understanding and is agreeable in proceeding with the procedure. 8. NPO after midnight. 9. further recommendations pending the patient's response to treatment.
--- NOTE | 2019-06-07 15:54 | Pharmacy Consult Notes ---
[facility] Pharmacy VTE Monitoring - Patient Demographics Admission date: 06/07/19 Report Date: 06/07/19 Time: 15:54 Allergies/Adverse Reactions: Patient Allergies No Known Allergies Allergy (Verified 06/07/19 10:22) Height: 1.6 m Weight: 74.531 kg - VTE Risk Labs: VTE Related Lab Results Hgb 10.9 g/dL (12.2-16.2) L 06/07/19 13:00 Hct 34.5 % (37.0-47.0) L 06/07/19 13:00 Plt Count 291 K/mm3 (142-424) 06/07/19 13:00 APTT 24.5 seconds (23.6-34.0) 06/07/19 13:00 VTE Score: 3 VTE Risk Level: Low Risk Clinical Trial Participant: No - Prophylaxis VTE Prophylaxis Ordered?: Yes Types of VTE Prophylaxis: TEDS Knee High, Pharmacological Pharmacologic Type: Other (BRILINTA)
[2019-06-07 16:01] LABS: Albumin Level 3.2 gm/dL (3.4-5.0); Anion Gap 18.1 mEq/L (5-15); Bilirubin,Direct 0.3 mg/dL (0.0-0.2); Bilirubin,Indirect 1.3 mg/dL (0.0-0.9); Bilirubin,Total 1.6 mg/dL (0.2-1.0); Calcium 8.7 mg/dL (8.5-10.1); Free T4 (Free Thyroxine) 1.37 ng/dl (0.76-1.46); Thyroid Stimulating Hormone 1.72 uIU/ml (0.358-3.740); Total Protein,Serum 6.5 gm/dL (6.4-8.2)
--- NOTE | 2019-06-08 07:43 | Progress Note ---
Subjective Date: 06/08/19 Time: 07:38 Principal diagnosis: afib with RVR Interval history: 83-year-old white female in bed in no acute distress. Denies any chest pain, pressure tightness overnight. States her symptoms of fatigue and weakness have improved. Heart rate is in the 60s to 70s beats per minute range. Telemetry shows continued atrial fibrillation. Patient has been on a heparin drip overnight. Exam Vital signs and Labs for Last 24 Hours: Temp Pulse Resp BP Pulse Ox 97.6 F 74 14 133/55 L 98 06/08/19 04:00 06/08/19 06:55 06/08/19 04:00 06/08/19 06:55 06/08/19 06:55 Laboratory Results - last 24 hr 06/07/19 13:00: APTT 24.5 06/07/19 13:00: WBC 12.2 H, RBC 3.50 L, Hgb 10.9 L, Hct 34.5 L, MCV 98.6, MCH 31.3 H, MCHC 31.7 L, RDW 13.8, Plt Count 291, MPV 7.8, Neut % (Auto) 77.1, Lymph % (Auto) 13.4, [place] % (Auto) 6.2, Eos % (Auto) 2.7, Baso % (Auto) 0.6, Neut # (Auto) 9.4 H, Lymph # (Auto) 1.6, [place] # (Auto) 0.8, Eos # (Auto) 0.3, Baso # (Auto) 0.1 06/07/19 13:00: Sodium 139, Potassium 4.1, Chloride 101, Carbon Dioxide 24, Anion Gap 18.1 H, BUN 22 H, Creatinine 0.88, Estimated Creat Clear 49, Estimated GFR 61, Est GFR ( Amer) 74, Glucose 90, Calcium 8.7, Magnesium 2.2, Total Bilirubin 1.6 H, Direct Bilirubin 0.3 H, Indirect Bilirubin 1.3 H, AST 19, ALT 30, Alkaline Phosphatase 73, Total Protein 6.5, Albumin 3.2 L, TSH 1.72, Free T4 1.37 06/07/19 19:24: APTT 95.8 H* D 06/08/19 02:15: APTT 69.6 H* D I & O for Last 24 hours: Intake & Output 12/03/19 12/04/19 12/05/19 12/06/19 11:59 11:59 11:59 11:59 Intake Total 667 / 667 Output Total 700 / 700 Balance -33 / -33 Weight 164 lb 5 oz - *Routine HEENT Exam Head: Present: normocephalic Eye: Present: EOMI, PERRL ENT: Present: mucous membranes moist - *Routine Respiratory Exam Present: CTA bilaterally. Absent: accessory muscle use, rales, rhonchi, wheezes - *Routine Cardiovascular Exam Present: irregularly irregular. Absent: murmur, gallop, rubs - *Routine Extremities Exam Absent: edema, calf tenderness - *Routine Neurological Exam Present: alert, oriented X3, moving all extremities Progress Note: A&P (1) Atrial fibrillation with RVR Status: Acute Current Visit: No (2) SOB (shortness of breath) Status: Acute Current Visit: No (3) CAD (coronary artery disease) Status: Chronic Current Visit: No Assessment and Plan for All Diagnoses:: 1. CAD, stable 2. Atrial fibrillation now controlled rate on low-dose diltiazem drip. Will discontinue diltiazem and start low-dose metoprolol succinate 25 mg daily. Will discuss long-term anticoagulation with Dr. PARSON. 3. Hypertension, will reduce losartan HCT 50/12.5 mg to 1/2 tablet daily 4. Plans for MYKEL/cardioversion later today. Anticipate discharge home later to day.
--- NOTE | 2019-06-08 07:57 | Discharge Summary ---
General - General Admission date:: 06/07/19 Discharge date: 06/08/19 HPI HPI: Ms. Pride is an 83-year-old female with history of coronary artery disease, status post heart cath and stent placement 3 months ago. She presented to cardiology clinic today with complaint of 3 weeks of dizziness, shortness of breath, and chest discomfort. On Interview, she reports feeling more dyspneic with exertion than anything. States she had a normal stress test but abnormal calcium score on CT, this led to her diagnostic and therapeutic heart cath. Denies any previous history of A. fib or abnormal heart rhythms. Upon presentation she was found to have A. fib with RVR. Patient was admitted under medicine service for observation and heparinization overnight. Plan to monitor on telemetry and consider MYKEL and cardioversion in the morning pending clinical response to ángel blockade medication treatment. Denies gladys chest pain, nausea, vomiting, syncope. Not on any beta-blockers after heart cath Hospital Course Hospital Course: Admitted to initiate Cardizem drip. Heparinized overnight. Patient taken for MYKEL and cardioversion today. Converted to normal sinus rhythm. Cardiology naga tionally recommended making some changes to medical management. Discontinued Brilinta, losartan/HCTZ, and aspirin. Initiated Plavix, metoprolol succinate 25 mg, Eliquis, and a PPI. Medically stable at discharge. Plan to follow-up with her PCP and cardiology in the coming weeks. Denies any nausea, vomiting, chest pain, shortness of breath. Objective Vital signs: Temp Pulse Resp BP Pulse Ox 97.6 F 74 14 133/55 L 98 06/08/19 04:00 06/08/19 06:55 06/08/19 04:00 06/08/19 06:55 06/08/19 06:55 Narrative: - Constitutional: no acute distress - *Routine HEENT Exam Head: Present: normocephalic Eye: Present: EOMI, PERRL ENT: Present: mucous membranes moist - *Routine Neck Exam Present: supple. Absent: lymphadenopathy - *Routine Respiratory Exam Present: CTA bilaterally - *Routine Cardiovascular Exam Present: Normal S1, irregularly irregular. Absent: murmur - *Routine Abdominal Exam Present: soft, normoactive bowel sounds. Absent: tenderness - *Routine Extremities Exam Present: edema (trace). Absent: cyanosis, clubbing - *Routine Skin Exam Present: warm. Absent: rash - *Routine Neurological Exam Present: alert, oriented X3 Results Labs on day of discharge: Labs from last 24 hours 06/08/19 06/07/19 06/07/19 02:15 19:24 13:00 WBC RBC Hgb Hct MCV MCH MCHC RDW Plt Count MPV Neut % (Auto) Lymph % (Auto) [place] % (Auto) Eos % (Auto) Baso % (Auto) Neut # (Auto) Lymph # (Auto) [place] # (Auto) Eos # (Auto) Baso # (Auto) APTT 69.6 H* D 95.8 H* D Sodium 139 Potassium 4.1 Chloride 101 Carbon Dioxide 24 Anion Gap 18.1 H BUN 22 H Creatinine 0.88 Estimated Creat Clear 49 Estimated GFR 61 Est GFR ( Amer) 74 Glucose 90 Calcium 8.7 Magnesium 2.2 Total Bilirubin 1.6 H Direct Bilirubin 0.3 H Indirect Bilirubin 1.3 H AST 19 ALT 30 Alkaline Phosphatase 73 Total Protein 6.5 Albumin 3.2 L TSH 1.72 Free T4 1.37 06/07/19 06/07/19 13:00 13:00 WBC 12.2 H RBC 3.50 L Hgb 10.9 L Hct 34.5 L MCV 98.6 MCH 31.3 H MCHC 31.7 L RDW 13.8 Plt Count 291 MPV 7.8 Neut % (Auto) 77.1 Lymph % (Auto) 13.4 [place] % (Auto) 6.2 Eos % (Auto) 2.7 Baso % (Auto) 0.6 Neut # (Auto) 9.4 H Lymph # (Auto) 1.6 [place] # (Auto) 0.8 Eos # (Auto) 0.3 Baso # (Auto) 0.1 APTT 24.5 Sodium Potassium Chloride Carbon Dioxide Anion Gap BUN Creatinine Estimated Creat Clear Estimated GFR Est GFR ( Amer) Glucose Calcium Magnesium Total Bilirubin Direct Bilirubin Indirect Bilirubin AST ALT Alkaline Phosphatase Total Protein Albumin TSH Free T4 DS: Diagnosis - Discharge Diagnosis (1) Atrial fibrillation with RVR Status: Resolved (2) SOB (shortness of breath) Status: Resolved (3) CAD (coronary artery disease) Status: Chronic Discharge Plan - Patient Discharge Instructions Patient Instructions: DI for Angina, DI for Atrial Fibrillation - Follow up Plan Follow up with: [place] [Staff Physician] - Devin Pepe MD [Staff Physician] - Disposition: Home, [facility] Medications: Home Medications Medication Instructions Recorded Confirmed Type alendronate 35 mg tablet 35 mg PO WEEKLY 08/30/18 06/08/19 History celecoxib 200 mg capsule 200 mg PO DAILY 08/30/18 06/07/19 History donepezil 5 mg tablet 5 mg PO HS 08/30/18 06/08/19 History sertraline 25 mg tablet 25 mg PO DAILY 08/30/18 06/07/19 History vitamin B complex tablet 1 tab PO DAILY 08/30/18 06/07/19 History coenzyme Q10 10 mg capsule 10 mg PO DAILY cap 03/08/19 06/07/19 History gabapentin 100 mg capsule 200 mg PO BID cap 03/08/19 06/07/19 History potassium chloride ER 20 mEq 20 meq PO BID 03/08/19 06/07/19 History tablet,extended release Losartan/Hydrochlorothiazide 1 tab PO DAILY 03/23/19 06/08/19 History [Hyzaar 50-12.5 Tablet] aspirin 81 mg tablet,delayed 81 mg PO DAILY #90 tab 04/02/19 06/07/19 Rx release ticagrelor 90 mg tablet 90 mg PO BID #60 tab 04/03/19 06/07/19 Rx atorvastatin 40 mg tablet 40 mg PO DAILY #90 tab 04/16/19 06/07/19 Rx Apixaban [Eliquis 5mg Tablet] 2.5 mg PO BID 30 Days #30 tab 06/08/19 Rx Clopidogrel Bisulfate [Plavix 75mg 75 mg PO DAILY 30 Days #30 tab 06/08/19 Rx Tab] Metoprolol Succinate [Toprol XL 25 mg PO DAILY 30 Days #30 06/08/19 Rx 25mg tablet] tab.er.24h Pantoprazole Sodium [Protonix 20mg 20 mg PO DAILY 30 Days #30 tab 06/08/19 Rx Tab] Prescriptions/Medication Reconciliation: New Apixaban [Eliquis 5mg Tablet] 2.5 mg PO BID 30 Days #30 tab Metoprolol Succinate [Toprol XL 25mg tablet] 25 mg PO DAILY 30 Days #30 tab.er.24h Clopidogrel Bisulfate [Plavix 75mg Tab] 75 mg PO DAILY 30 Days #30 tab Pantoprazole Sodium [Protonix 20mg Tab] 20 mg PO DAILY 30 Days #30 tab Continued celecoxib 200 mg capsule 200 mg PO DAILY donepezil 5 mg tablet 5 mg PO HS alendronate 35 mg tablet 35 mg PO WEEKLY vitamin B complex tablet 1 tab PO DAILY coenzyme Q10 10 mg capsule 10 mg PO DAILY cap gabapentin 100 mg capsule 200 mg PO BID cap potassium chloride ER 20 mEq tablet,extended release 20 meq PO BID sertraline 25 mg tablet 25 mg PO DAILY atorvastatin 40 mg tablet 40 mg PO DAILY #90 tab Discontinued aspirin 81 mg tablet,delayed release 81 mg PO DAILY #90 tab ticagrelor 90 mg tablet 90 mg PO BID #60 tab Losartan/Hydrochlorothiazide [Hyzaar 50-12.5 Tablet] 1 tab PO DAILY - Problem Reconciliation Problems Reviewed?: Yes
--- NOTE | 2019-06-08 13:33 | Pharmacy Consult Notes ---
[facility] Pharmacy Heparin Dosing - Demographic Data Admission date:: 06/07/19 Date: 06/08/19 Time: 13:31 Allergies/Adverse Reactions: Allergies Allergy/AdvReac Type Severity Reaction Status Date / Time No Known Allergies Allergy Verified 06/07/19 10:22 Height: 1.6 m Weight: 75 kg - Indication Medication therapy:: Heparin CVA?: No Bleeding problem?: No Kidney disease?: No MA?: No Desired PTT range:: 60-80 seconds - Labs Anticoagulation Lab Results:: 06/07/19 13:00 Hgb 10.9 L Hct 34.5 L Plt Count 291 - Monitoring Dose Monitor 1 Date: 06/07/19 Time: 13:00 PTT Result:: 24.5 Infusion Rate:: 18 ML/HR = 900 UNITS/HR Comment:: BASELINE PTT 4500 UNIT HEPARIN BOLUS GIVEN [id number] Dose Monitor 2 Date: 06/07/19 Time: 19:30 PTT Result:: 95.8 Infusion Rate:: 15 ML/HR Dose Monitor 3 Date: 06/08/19 Time: 02:00 PTT Result:: 69.6 Infusion Rate:: 15 ML/HR Dose Monitor 4 Date: 06/08/19 Time: 10:00 PTT Result:: 63.6 Infusion Rate:: 15 ML/HR - Core Measures Is INR > or = 2 at discharge?: No Most Recent Labs:: Laboratory Results - last 24 hr 06/07/19 13:00: APTT 24.5 06/07/19 13:00: WBC 12.2 H, RBC 3.50 L, Hgb 10.9 L, Hct 34.5 L, MCV 98.6, MCH 31.3 H, MCHC 31.7 L, RDW 13.8, Plt Count 291, MPV 7.8, Neut % (Auto) 77.1, Lymph % (Auto) 13.4, [place] % (Auto) 6.2, Eos % (Auto) 2.7, Baso % (Auto) 0.6, Neut # (Auto) 9.4 H, Lymph # (Auto) 1.6, [place] # (Auto) 0.8, Eos # (Auto) 0.3, Baso # (Auto) 0.1 06/07/19 13:00: Sodium 139, Potassium 4.1, Chloride 101, Carbon Dioxide 24, Anion Gap 18.1 H, BUN 22 H, Creatinine 0.88, Estimated Creat Clear 49, Estimated GFR 61, Est GFR ( Amer) 74, Glucose 90, Calcium 8.7, Magnesium 2.2, Total Bilirubin 1.6 H, Direct Bilirubin 0.3 H, Indirect Bilirubin 1.3 H, AST 19, ALT 30, Alkaline Phosphatase 73, Total Protein 6.5, Albumin 3.2 L, TSH 1.72, Free T4 1.37 06/07/19 19:24: APTT 95.8 H* D 06/08/19 02:15: APTT 69.6 H* D 06/08/19 09:20: APTT 63.6 H* If INR was < than 2.0 why was therapy stopped?: HEPARIN STOPPED, ELIQUIS STARTED Were Heparin and Warfarin started on the same day?: No If not, why?: ELIQUIS STARTED
--- NOTE | 2019-06-08 13:44 | Progress Note ---
[facility] Anesthesia Checklist - Patient Identification Patient Identification: Arm Band - Structural Data Admitted From: Inpatient Planned Operative Procedure/s: MYKEL/cardioversion Consent for Planned Operative Procedure(s) Verified: Yes Verified Documents: Surgical Consent, History and Physical - NPO Status Verified Time NPO: 00:00 - Additional verifications Anesthesia Reactions: No Hx Blood Transfusions: No - Airway Assessment C-Spine Mobility Assessed: Yes (mp2) TMJ Mobility Assessed: Yes Dentition: Dentures-good fit - Neurological Assessment Level of Consciousness: Awake, Alert - Anesthesia Plan Anesthesia Risk discussed: Yes Anesthesia Plan: Verified ASA Class: III Anesthesia Type: MAC [facility] History I have reviewed the patient's past medical history: Yes Medical History: Reports:: Atrial Fibrillation, Coronary Artery Disease, Gastroesophageal Reflux Disease(GERD), Hyperlipidemia, Hypertension Denies:: Cancer, Diabetes Mellitus Type 1, Diabetes Mellitus Type 2, MRSA, Seizures *Have you ever received a pneumonia vaccine?: Yes *Have you received a flu vaccine this season?: Yes Other Medical History: Reports: Arthritis, Cataracts Anesthesia experience/problems:: nac Other Surgeries: Yes: Appendectomy, Cardiac Catheterization, Coronary Stent, Hysterectomy-Total, Tubal Ligation Amputation: No Fractures: No - *Social History Educational Level: Completed GED/General Educational Development Smoking Status: Never smoker Tobacco Type: cigarettes Alcohol Intake: never Alcohol Intake Frequency:: holidays/special occasions only Substance Use Type: denies use *Occupational Status:: retired Housing: house Household Members: family *Travel in the last 8 weeks: None Family Hx:: Cancer, Coronary Artery Disease
--- NOTE | 2019-06-08 14:27 | Cardiology Report ---
APPROVED REPORT EXAM: Comprehensive 2D, Doppler, and color-flow Echocardiogram Writer: Jacinta Reeves RDCS Ht: 5 ft 3 in Wt: 160lbs BSA: 1.76 BP: 110/70 mmHg Indications: AF MYKEL Procedure After obtaining informed consent, patient underwent transesophageal echo in the ICU. Type of Sedation : Conscious Sedation Sedation was administered by Cornelio Rogers C.R.N.A. Transesophageal probe was inserted and advanced into esophagus without difficulty by Dr. Joe Ryan. The MYKEL was performed without complications. Synchronized Cardioversion attempted: Successful Synchronized Cardioversion acheived with 150 Joules after 1 attempt(s). Rhythm following Synchronized Cardioversion: Normal Sinus Rhythm Throughout the procedure, the blood pressure, pulse oximetry, cardiac rhythm, and rate were monitored. The patient tolerated the procedure without adverse effects. Recovery from conscious sedation was uneventful and vital signs were stable. Left Ventricle Left ventricle is normal size, mild concentric left ventricular hypertrophy, visually estimated ejection fraction 50%, there is abnormal septal motion. Right Ventricle Right atrium and right ventricular normal size and contractility. Atria Left atrium is moderately enlarged, left atrial appendage free of thrombus, there is good appendage flow by spectral Doppler. Right atrium is normal size. Intra-atrial septum is intact, there is patent foramen ovale with [id number] shunt, agitated saline contrast study fails to identify right to left shunt. Aortic Valve Aortic valve is thickened and calcified leaflet chordae display good mobility, there is no aortic stenosis, there is mild aortic insufficiency. Mitral Valve Mitral valve leaflets are minimally thickened, there is no mitral stenosis, there is mild mitral regurgitation. Tricuspid Valve Tricuspid valve is grossly normal, there is mild tricuspid regurgitation. Pulmonic Valve Pulmonic valve is minimally thickened and fibrosed, there is no pulmonic stenosis or pulmonic insufficiency. Great Vessels Aortic root is normal size. Ascending, arch and descending thoracic aorta there is no aneurysm or dissection, nonmobile atheromatous plaque seen in arch and descending thoracic aorta. Pericardium No significant pericardial effusion noted. Conclusion 1. Enlarged left atrium, left atrial appendage free of thrombus, there is good appendage flow by spectral Doppler. 2. Normal left ventricular size, visually estimated ejection fraction 50% with abnormal septal motion. 3. Mild aortic, mild mitral and tricuspid regurgitation. 4. Patent foramen ovale with [id number] shunt. 5. Non-mobile atheromatous plaque seen in the arch and descending thoracic aorta. 6. No significant pericardial effusion noted.
== END 2019-06-08 16:35 | disposition home or self-care (01) ==
LOC: 2ND → ICU 12:08
PROVIDERS: ADMIT Internal Medicine Adolescent Medicine; ATTEND Internal Medicine Adolescent Medicine
CPT/HCPCS: 36415; 71010; 71045; 80048; 80076; 83735; 84439; 84443; 85025; 85730; 92960; 93312; G0378

== ENCOUNTER → 2019-08-13 10:17 | Outpatient (POV) | payer MEDICARE, BC, SELFPAY ==
--- NOTE | 2019-08-13 10:45 | P.CONS_ITS ---
[facility] Pain Management SOAP Note Subjective:: This pleasant 83-year-old white female who presents today to discuss a epidural steroid injection. She had 1 several months ago and did extremely well she gets 80% relief up to 4 months with her injections. Patient's pain is now returned she rates it a 6 out of 10 mostly in her low back and down her legs. Patient is on Plavix however she does have permission to bridge with Lovenox and be off 24 hours prior to her injection. This is per her healthcare consulting manager. ROS General: no recent weight change, no fever, no sleep disturbances Respiratory: no cough, no shortness of air, no recurring pulmonary infections Cardiovascular/Peripheral Vascular: No chest pain, No palpitations, no edema, no shortness of breath. Gastrointestinal: no new onset incontinence, normal bowel movements reported Genitourinary: no new onset incontinence Musculoskeletal: Back pain, leg pain Psychiatric: normal mood/ affect Neurological: [denies new onset weakness in extremities], [denies new onset balance issues] Objective:: Physical Exam General: Alert and oriented x3, no acute distress, pleasant and cooperative, [on room air] Lungs: Resps E/U, Symmetrical chest expansion, Eyes: PERRL Musculoskeletal: Flexion and extension of lumbar spine somewhat guarded secondary to pain, deep tendon reflexes normal, strength in upper and lower extremities [5/5], [abnormal gait noted] Neurological: speech clear, works manager equal, no gross sensory deficits Assessment:: Degenerative disc disease lumbar spine with lumbar radiculopathy Plan:: We will schedule the patient for an L4-L5 lumbar epidural steroid injection given the efficacy of this in the past I do believe it would be beneficial. Patient is going to be off her Plavix and bridge with Lovenox she will be off the Lovenox 24 hours prior to the injection. Patient has been instructed to call the office if she has any issues prior to her next appointment. Dr. Gonzalez has reviewed this note and agrees with this plan of care. This note was dictated using voice recognition software and may contain errors or omissions [facility] History I have reviewed the patient's past medical history: Yes Medical History: Reports:: Atrial Fibrillation, Coronary Artery Disease, Gastroesophageal Reflux Disease(GERD), Hyperlipidemia, Hypertension Denies:: Cancer, Diabetes Mellitus Type 1, Diabetes Mellitus Type 2, MRSA, Seizures *Have you ever received a pneumonia vaccine?: Yes *Have you received a flu vaccine this season?: No Other Medical History: Reports: Arthritis, Cataracts Other Surgeries: Yes: Appendectomy, Cardiac Catheterization, Coronary Stent, Hysterectomy-Total, Tubal Ligation Amputation: No Fractures: No - *Social History Smoking Status: Never smoker Tobacco Type: cigarettes Alcohol Intake: never Alcohol Intake Frequency:: holidays/special occasions only Substance Use Type: denies use *Occupational Status:: retired Housing: house Household Members: family *Travel in the last 8 weeks: None Family Hx:: Cancer, Coronary Artery Disease
[2019-08-13 13:02] VITALS: BP 124/79; PULSE 87; RESP 18; O2SAT 99; BMI 28.3
== END ==
PROVIDERS: PCP Internal Medicine; Visit Provider Clinical Nurse Specialist Family Health
DX: M51.16 Intervertebral disc disorders with radiculopathy, lumbar region (principal)
CPT/HCPCS: 99212

== ENCOUNTER → 2019-08-31 11:20 | Outpatient (CLI) | payer MEDICARE, BC, SELFPAY ==
[2019-08-31 12:33] LABS: Alanine Aminotransferase 23 U/L (12-78); Albumin Level 3.9 g/dl (3.5-5.0); Alkaline Phosphatase 67 U/L (38-126); Anion Gap 9.8 mEq/L (5-15); Aspartate Amino Transferase 22 U/L (14-36); Bilirubin,Indirect 0.6 mg/dL (0.0-0.9); Bilirubin,Total 0.6 mg/dl (0.2-1.3); Bilirubin,Unconjugated 0.6 mg/dL (0.0-1.1); Blood Urea Nitrogen 23 mg/dl (7-17); Calcium 9.2 mg/dl (8.4-10.2); Carbon Dioxide 28 mmol/L (22.0-30.0); Chloride 104 mmol/L (98-107); Estimated Glomerular Filt Rate 53 ml/min (>60); GFR (African American) 64 ML/MIN (>60); Glucose 93 mg/dl (74-100); Potassium 4.8 mmoL/L (3.5-5.1); Sodium 137 mmol/L (136-145); Total Protein,Serum 6.3 g/dl (6.3-8.2)
[2019-08-31 12:42] LABS: NT Pro Brain Natriuretic Pep. 895 pg/mL (0-450)
== END ==
PROVIDERS: Visit Provider Internal Medicine Cardiovascular Disease
DX: E78.5 Hyperlipidemia, unspecified (principal); I11.9 Hypertensive heart disease without heart failure; I25.10 Atherosclerotic heart disease of native coronary artery without angina pectoris; I48.91 Unspecified atrial fibrillation; R06.00 Dyspnea, unspecified
CPT/HCPCS: 36415; 80048; 80076; 83880

== ENCOUNTER → 2019-09-07 09:17 | Outpatient (CLI) | payer MEDICARE, BC, SELFPAY ==
--- NOTE | 2019-09-07 09:27 | XR_ITS ---
PROCEDURE: XR KNEE LT 4V CLINICAL INDICATION: knee pain COMPARISON: No exams were available for comparison FINDINGS: There is marked joint space narrowing medially with almost bone on bone appearance with mild spurring of the medial femoral condyle and medial tibial plateau. There is minor spurring of the tibial spines. There is slight narrowing of the patellofemoral compartment with spurring of the superior border of the patella. There is no fracture or loose body seen and there is no definite effusion. IMPRESSION: Prominent degenerate change primarily involving the medial joint compartment Dictated by: Dr. Celio Lopez MD 09/07/2019 10:[address] Celio Lopez MD in [place] 09/07/2019 10:01
[2019-09-07 10:46] LABS: Chloride 104 mmol/L (98-107); Potassium 4.6 mmoL/L (3.5-5.1); Sodium 137 mmol/L (136-145)
[2019-09-07 10:49] LABS: Anion Gap 11.6 mEq/L (5-15); Blood Urea Nitrogen 15 mg/dl (7-17); Calcium 9.6 mg/dl (8.4-10.2); Carbon Dioxide 26 mmol/L (22.0-30.0); Estimated Glomerular Filt Rate 60 ml/min (>60); GFR (African American) 72 ML/MIN (>60); Glucose 94 mg/dl (74-100)
[2019-09-07 10:56] LABS: NT Pro Brain Natriuretic Pep. 353 pg/mL (0-450)
== END ==
PROVIDERS: Urology; Visit Provider Internal Medicine Cardiovascular Disease
DX: I11.9 Hypertensive heart disease without heart failure (principal); R06.02 Shortness of breath; M25.562 Pain in left knee
CPT/HCPCS: 36415; 73564; 80048; 83880

== ENCOUNTER → 2019-10-19 14:31 | Outpatient (CLI) | payer MEDICARE, BC, SELFPAY ==
--- NOTE | 2019-10-31 11:53 | PC.NURSE ---
Pt called and counseled on when to stop/start eliquis and lovenox bridge due to procedure being rescheduled to november 06 at 1230. PT v/u.
== END ==
LOC: SC.PAINP 14:32 → RT 14:37
PROVIDERS: PCP Internal Medicine; Visit Provider Internal Medicine
DX: R06.83 Snoring (principal); I10 Essential (primary) hypertension; J44.9 Chronic obstructive pulmonary disease, unspecified; G47.33 Obstructive sleep apnea (adult) (pediatric)
CPT/HCPCS: G0399

== ENCOUNTER → 2019-11-05 11:55 | Outpatient (CLI) | payer MEDICARE, BC, SELFPAY ==
[2019-11-06 08:57] LABS: Covid-19 Nasal PCR Sendout Lex NOT DETECTED
--- NOTE | 2019-11-06 09:51 | PC.NURSE ---
Notified patient of negative results. Notified SHIREEN Guillory in pain management as well.
== END ==
PROVIDERS: Visit Provider Anesthesiology
DX: Z03.818 Encounter for observation for suspected exposure to other biological agents ruled out (principal)
CPT/HCPCS: U0003

== ENCOUNTER 2019-11-07 12:20 | Day surgery (SDC) | payer MEDICARE, BC, SELFPAY ==
[2019-11-07 12:56] VITALS: BP 127/80; PULSE 50; RESP 18; TEMP 36.7; O2SAT 99; BMI 28.7
[2019-11-07 13:26] VITALS: BP 132/85; BP 140/85; PULSE 78; PULSE 88; RESP 18; O2SAT 99
--- NOTE | 2019-11-07 13:41 | HMH.PMPROC ---
- Procedure Date: 11/07/19 Time: 13:41 Anesthesiologist:: Stew Gonzalez MD Complications:: None Pre-procedure Diagnosis:: Degenerative disc disease of lumbar spine with lumbar radiculopathy symptoms Post-procedure Diagnosis:: Same Indications for Procedure:: This patient is a pleasant 83-year-old white female who we are treating for low back pain with lumbar radiculopathy symptoms she is done very well with previous lumbar epidural steroid injections her last one was back in March 2019. Her pain is now returned. She has been off of her Eliquis and Plavix. She was bridging with Lovenox. She is been off her Lovenox for 24 hours. We will do a lumbar pleural steroid injection today to help her with her pain symptoms. Procedure Details:: Lumbar epidural steroid injection under fluoroscopy Informed consent was obtained and the risk and benefits of the procedure was explained to the patient. The patient was taken to the procedure room. The patient was placed prone on the procedure table. The patient was prepped and draped in sterile fashion. C-arm fluoroscopy was used to view the lumbar spine. Skin and subcutaneous tissues were anesthetized using lidocaine. I placed an 18-gauge epidural needle and advanced into the L4-L5 interspace using fluoroscopic guidance and [id number]-go-igcdgrotns to air. After confirmation of needle placement in the epidural space with dye I injected 2 mL of lidocaine 1.5% with Depo-Medrol 80 mg. Patient tolerated the procedure well with no complications. Plan and Disposition:: We will follow-up with her in 2 weeks. Will reevaluate symptoms at that time. She can restart her blood thinners tomorrow.
[2019-11-07 13:48] VITALS: BP 134/58; PULSE 50; RESP 18; O2SAT 100
== END 2019-11-07 13:50 | disposition home or self-care (01) ==
LOC: SC.PAINP 12:21
PROVIDERS: PCP Internal Medicine; Visit Provider Anesthesiology
DX: M51.16 Intervertebral disc disorders with radiculopathy, lumbar region (principal)
CPT/HCPCS: 62323; J1040; Q9966

== ENCOUNTER → 2019-11-20 09:52 | Outpatient (POV) | payer MEDICARE, BC, SELFPAY ==
[2019-11-20 10:04] VITALS: BP 120/78; PULSE 68; RESP 18; TEMP 36.7; O2SAT 98; BMI 28.3
--- NOTE | 2019-11-20 10:27 | P.CONS_ITS ---
[facility] Pain Management SOAP Note Subjective:: Is a pleasant 84-year-old white female who we are treating for low back pain. Patient is doing much better after lumbar epidural steroid injection. Her only pain is over her left SI joint. Patient has a positive Han test Vishnu's test and SI joint compression test. She rates her pain today a 2 out of 10. Patient I discussed a left SI joint injection she would like to move forward with this. Patient is on blood thinners however she does not have to be off prior to this injection. ROS General: no recent weight change, no fever, no sleep disturbances Respiratory: no cough, no shortness of air, no recurring pulmonary infections Cardiovascular/Peripheral Vascular: No chest pain, No palpitations, no edema, no shortness of breath. Gastrointestinal: no new onset incontinence, normal bowel movements reported Genitourinary: no new onset incontinence Musculoskeletal: Left SI joint pain Psychiatric: normal mood/ affect Neurological: [denies new onset weakness in extremities], [denies new onset balance issues] Objective:: Physical Exam General: Alert and oriented x3, no acute distress, pleasant and cooperative, [on room air] Lungs: Resps E/U, Symmetrical chest expansion, Eyes: PERRL Musculoskeletal: Flexion and extension of lumbar spine somewhat guarded secondary to pain, deep tendon reflexes normal, strength in upper and lower extremities [5/5], antalgic gait noted Neurological: speech clear, clinical resource manager equal, no gross sensory deficits Assessment:: Sacroiliitis Plan:: We will schedule the patient for left SI joint injection. Patient's been instructed to call the office if she has any issues prior to her next appointment. I will follow-up with her after this reassess her symptoms at that time. Dr. Gonzalez has reviewed this note and agrees with this plan of care. This note was dictated using voice recognition software and may contain errors or omissions [facility] History I have reviewed the patient's past medical history: Yes Medical History: Reports:: Arrhythmia, Atrial Fibrillation, Coronary Artery Disease, Gastroesophageal Reflux Disease(GERD), Hyperlipidemia, Hypertension, Migraine Denies:: Cancer, Diabetes Mellitus Type 1, Diabetes Mellitus Type 2, Internal Pacemaker, MRSA, Seizures *Have you ever received a pneumonia vaccine?: Yes *Have you received a flu vaccine this season?: Yes Other Medical History: Reports: Arthritis, Cataracts. Denies: Blood Transfusion Reaction Other Surgeries: Yes: Appendectomy, Cardiac Catheterization, Coronary Stent, Hysterectomy-Total, Tubal Ligation. No: Pacemaker Amputation: No Fractures: No - *Social History Smoking Status: Never smoker Tobacco Type: cigarettes Alcohol Intake: current Alcohol Intake Frequency:: holidays/special occasions only Substance Use Type: denies use *Occupational Status:: other Housing: house Household Members: none *Travel in the last 8 weeks: None Family Hx:: Cancer, Coronary Artery Disease
== END ==
PROVIDERS: PCP Internal Medicine; Visit Provider Clinical Nurse Specialist Family Health
DX: M46.1 Sacroiliitis, not elsewhere classified (principal)
CPT/HCPCS: 99212

== ENCOUNTER → 2019-11-22 11:14 | Outpatient (CLI) | payer MEDICARE, BC, SELFPAY | PROVIDERS: PCP Internal Medicine; Visit Provider Physician Assistant | DX: R00.2 Palpitations (principal); I48.0 Paroxysmal atrial fibrillation | CPT/HCPCS: 93225; 93226 ==

== ENCOUNTER 2019-11-23 14:54 | Day surgery (SDC) | payer MEDICARE, BC, SELFPAY ==
[2019-11-23 15:09] VITALS: BP 134/63; PULSE 68; RESP 18; TEMP 36.9; O2SAT 98; BMI 27.6
--- NOTE | 2019-11-23 15:29 | HMH.PMPROC ---
- Procedure Date: 11/23/19 Time: 15:29 Anesthesiologist:: Stew Gonzalez MD Complications:: None Pre-procedure Diagnosis:: Sacroiliitis Post-procedure Diagnosis:: Same Indications for Procedure:: This patient is a pleasant 84-year-old white female who we are treating for left-sided hip pain. She is tender over her left SI joint. She has a positive left SI joint compression test. She has a positive Fady's test on left side. She is positive Han test on left side. We will do a left SI joint injection under fluoroscopy today to see if this well with her pain symptoms. Procedure Details:: Left SI joint injection under fluoroscopy Informed consent was obtained and the risks and benefits of the procedure was explained to the patient. Patient was taken to the procedure room. Patient was placed prone on the procedure table. The left hip was prepped using ChloraPrep. The skin and subcutaneous tissues were anesthetized using lidocaine. I placed a 22-gauge spinal needle into the inferior aspect of the left SI joint. Needle placement was confirmed with dye. After this we injected 5 mL bupivacaine 0.25% and Depo-Medrol 40 mg into the left SI joint. The patient tolerated the procedure well with no complication. Plan and Disposition:: We will follow-up with her in 2 weeks. Will reevaluate symptoms at that time.
[2019-11-23 15:36] VITALS: BP 155/85; PULSE 85; RESP 18; O2SAT 99
[2019-11-23 15:40] VITALS: BP 147/57; PULSE 68; RESP 20; O2SAT 98
== END 2019-11-23 15:41 | disposition home or self-care (01) ==
LOC: SC.PAINP 14:55
PROVIDERS: PCP Internal Medicine; Visit Provider Anesthesiology
DX: M46.1 Sacroiliitis, not elsewhere classified (principal); I27.20 Pulmonary hypertension, unspecified; I11.9 Hypertensive heart disease without heart failure; G43.909 Migraine, unspecified, not intractable, without status migrainosus; I25.10 Atherosclerotic heart disease of native coronary artery without angina pectoris; Z82.49 Family history of ischemic heart disease and other diseases of the circulatory system; K21.9 Gastro-esophageal reflux disease without esophagitis; E78.5 Hyperlipidemia, unspecified; I48.91 Unspecified atrial fibrillation
CPT/HCPCS: 27096; G0260; J1040; Q9966

== ENCOUNTER → 2019-11-27 11:52 | Outpatient (CLI) | payer MEDICARE, BC, SELFPAY ==
--- NOTE | 2019-11-27 | CA_ITS ---
APPROVED REPORT Exam: Pharmacologic Technologist: Tiana Corona Ht: 5 ft 3 in Wt: 156 lbs BSA: 1.74 m2 HR: 57 bpm BP: 158/87 mmHg Indications: Palpitations, Shortness of Air, Chest pain Medical History Medications: Amiodarone,,,,, Gabapentin,,,,, Coenzyme,,,,, Losartan,,,,, Pantoprazole,,,,, Atorvastatin,,,,, CloPIdogrel,,,,, SpirOnolactone,,,,, Apixaban,,,,, Potassium,,,,, DONEzepil,,,,, Stress Test Details Test: LEXISCAN HR Resting HR: 59 bpm Max Heart Rate (APMHR): 135 bpm Max HR Achieved: 106 bpm Target HR (85% APMHR): 114 bpm % of APMHR: 78 Recovery HR: 63 bpm BP Resting BP: 158.0/87.0 mmHg Max BP: 158.0/87.0 mmHg Recovery BP: 142.0/62.0 mmHg ECG Clinical Exercise duration: 04:04 min Highest Stage Achieved: Exercise capacity: 1.0 METs Stress ECG Conclusion Resting ECG: Sinus bradycardia, left bundle branch block, ST abnormalities inferiorly. Symptoms: Chest tightness and shortness of air. Also lower back pain. Malaise, mild nausea. Arrhythmias/Ectopy: Rare PAC ST-T Changes: No significant changes compared to baseline abnormalities. Conclusion: Unremarkable Lexiscan stress. Myoview images reported separately. Test Summary REST . . . . . . . Resting REST 12:23 . . 59 . 158/ 87 . . Stage 1 . . . . . . . Myoview Injected Stage 1 01:00 . . 77 . . . . Stage 2 . . . . . . . Shortness of Breath Nausea Stage 2 01:00 . . 103 . . . . Stage 3 01:00 . . 95 . 117/ 63 . . Stage 4 . . . . . . . stomach pain, back pain Stage 4 01:00 . . 86 . 134/ 55 . . Stage 4 01:04 . . 84 . 134/ 55 . Stop exercise at 04:04 RECOVERY 01:00 . . 80 . 130/ 56 . . RECOVERY 02:00 . . 83 . 130/ 56 . . RECOVERY . . . . . . . chest tightness RECOVERY 03:00 . . 74 . 122/ 54 . . RECOVERY 04:00 . . 69 . 124/ 54 . . RECOVERY 05:00 . . 64 . 124/ 54 . . RECOVERY 06:00 . . 63 . 140/ 58 . . RECOVERY 07:00 . . 64 . 140/ 58 . . RECOVERY 08:00 . . 62 . 142/ 62 . . RECOVERY 09:00 . . 71 . 142/ 62 . . RECOVERY 09:25 . . 69 . 142/ 62 . . Electronically signed by : Devin Pepe, 11/27/2019 19:53:10
--- NOTE | 2019-11-27 11:56 | NM_ITS ---
APPROVED REPORT Exam: Nuclear Stress Test Indication: Chest pain, SOB, Palpitations, Fatigue, AFIB, High cholesterol, Family history, CAD Patient Location: Outpatient Stress Tech: Tiana Corona HI Tech:Loyda Connor, ARRT, RT (R)(N) Ht: 5 ft 3 in Wt: 156 lbs Bra Size: 34D HR: 57 bpm BP: 1258/87 mmHg BSA: 1.74 m2 BMI: 27.6 History: Chest pain, SOB, Palpitations, Fatigue, AFIB, High cholesterol, Family history, CAD Procedure: Patient received a 0.4 mg of intravenous Lexiscan, resting heart rate 57 bpm, resting blood pressure 158/87 mmHg, with Lexiscan maximum heart rate achived was 100 bpm which is Less than 85 % of the maximum predicted heart rate and blood pressure was 117/63 mmHg. Electrocardiogram Resting electrocardiogram showed sinus rhythm intraventricular conduction delay nonspecific ST-T changes, with Lexiscan there is less than 1.[address] segment depression noted from the baseline EKG. The EKG portion of the Lexiscan Myoview is nondiagnostic. Cardiac Stress and Resting SPECT Images: Cardiac Stress and Resting SPECT images were obtained using technetium 99m Myoview 32.8 mCi stress and 10.07 mCi at rest. Gated SPECT for analysis of segmental wall motion and calculation of the ejection fraction also done. Cardiac stress and resting SPECT images show mild fixed defect in the septal area with normal contracted gated SPECT is likely secondary to soft tissue attenuation, no reversible ischemia seen. Computer derived ejection fraction is over 65% with no regional wall motion abnormality, right ventricle is normal size and contractility. Conclusion: 1. The EKG portion of the Lexiscan Myoview is nondiagnostic. 2. No scintigraphic evidence of reversible ischemia seen, fixed defect in the septal area likely secondary to soft tissue attenuation, computer derived ejection fraction is over 65% with no regional wall motion abnormality, right ventricle is normal size and contractility. 3. Likely normal Lexiscan Myoview study. Electronically signed by : Devin Pepe, 11/27/2019 19:55:47
--- NOTE | 2019-11-27 13:44 | HMH.ITSHM ---
Current Home Medications as stated by this patient Gillian Pride or retail representative. []VITAMIN B SPIRONOLACTONE SERTRALINE POTASSIUM PANTOPRAZOLE LOSARTAN GABAPENTIN DONEPEZIL COENZYME CELECOXIB METOPROLOL CLOPIDOGREL ATORVASTATIN APIXABAN AMIODARONE
== END ==
PROVIDERS: PCP Internal Medicine; Visit Provider Physician Assistant
DX: I25.10 Atherosclerotic heart disease of native coronary artery without angina pectoris (principal); R07.9 Chest pain, unspecified
CPT/HCPCS: 78452; 93017; A9502; J2785

== ENCOUNTER → 2019-12-06 12:02 | Outpatient (CLI) | payer MEDICARE, BC, SELFPAY ==
--- NOTE | 2019-12-06 12:12 | XR_ITS ---
PROCEDURE: XR CHEST 2V CLINICAL HISTORY: on amio Amiodarone check, heart disease COMPARISON: CXR1 CHEST-PORTABLE from 03/20/2017 CT HEART W CALCIUM SCORE from 03/14/2019 XR CHEST 2V from 05/28/2019 XR CHEST PORTABLE from 06/07/2019 FINDINGS: Heart size is upper limits of normal. There is increased density in the lower pericardiac region which may be related to pericardial fat pad having a similar appearance dating back to 05/28/2019. There is some thickening in the right minor fissure laterally. The remaining lungs are clear. Coronary artery calcifications and/or stents noted. No lobar consolidation or collapse. No acute bony abnormalities. IMPRESSION: No change with no acute finding. No evidence of amiodarone lung toxicity Dictated by: Bernardino Bass MD 12/06/2019 14:31 Electronically signed by Bernardino Bass MD in [place] 12/06/2019 14:31
== END ==
PROVIDERS: PCP Internal Medicine; Visit Provider Internal Medicine Cardiovascular Disease
DX: E78.5 Hyperlipidemia, unspecified (principal); I11.9 Hypertensive heart disease without heart failure; I25.10 Atherosclerotic heart disease of native coronary artery without angina pectoris; I27.20 Pulmonary hypertension, unspecified; I48.91 Unspecified atrial fibrillation; Z79.899 Other long term (current) drug therapy
CPT/HCPCS: 71046

== ENCOUNTER → 2019-12-17 13:53 | Outpatient (POV) | payer MEDICARE, BC, SELFPAY ==
[2019-12-17 14:31] VITALS: BP 122/69; PULSE 52; RESP 18; O2SAT 98; BMI 28.3
--- NOTE | 2019-12-17 15:18 | P.CONS_ITS ---
[facility] Pain Management SOAP Note Subjective:: Patient is a pleasant 84-year-old white female who presents today for follow-up after left SI joint injection. She reports over 50% relief rating her pain a 5 out of 10 however now she is having pain in bilateral SI joints. We discussed repeating 1 more injection bilateral SI joint to see if this helps. She has a positive Han test, SI joint compression test and Fady's test bilaterally. She is done well with injections in the past. ROS General: no recent weight change, no fever, no sleep disturbances Respiratory: no cough, no shortness of air, no recurring pulmonary infections Cardiovascular/Peripheral Vascular: No chest pain, No palpitations, no edema, no shortness of breath. Gastrointestinal: no new onset incontinence, normal bowel movements reported Genitourinary: no new onset incontinence Musculoskeletal: SI joint pain Psychiatric: normal mood/ affect Neurological: [denies new onset weakness in extremities], [denies new onset balance issues] Objective:: Physical Exam General: Alert and oriented x3, no acute distress, pleasant and cooperative, [on room air] Lungs: Resps E/U, Symmetrical chest expansion, Eyes: PERRL Musculoskeletal: Flexion and extension of lumbar spine somewhat guarded secondary to pain, deep tendon reflexes normal, strength in upper and lower extremities [5/5], [abnormal gait noted] Neurological: speech clear, poultry processing supervisor equal, no gross sensory deficits Assessment:: Sacroiliitis Plan:: We will schedule bilateral SI joint injections for the patient. I will follow- up with her after this reassess her symptoms at that time she has been instructed to call the office if she has any issues prior to her next appointment. Dr. Gonzalez has reviewed this note and agrees with this plan of care. This note was dictated using voice recognition software and may contain errors or omissions [facility] History I have reviewed the patient's past medical history: Yes Medical History: Reports:: Arrhythmia, Atrial Fibrillation, Coronary Artery Disease, Gastroesophageal Reflux Disease(GERD), Hyperlipidemia, Hypertension, Migraine Denies:: Cancer, Diabetes Mellitus Type 1, Diabetes Mellitus Type 2, Internal Pacemaker, MRSA, Seizures *Have you ever received a pneumonia vaccine?: Yes *Have you received a flu vaccine this season?: Yes Other Medical History: Reports: Arthritis, Cataracts. Denies: Blood Transfusion Reaction Other Surgeries: Yes: Appendectomy, Cardiac Catheterization, Coronary Stent, Hysterectomy-Total, Tubal Ligation. No: Pacemaker Amputation: No Fractures: No - *Social History Smoking Status: Never smoker Tobacco Type: cigarettes Alcohol Intake: never Alcohol Intake Frequency:: holidays/special occasions only Substance Use Type: denies use *Occupational Status:: other Housing: house Household Members: none *Travel in the last 8 weeks: None Family Hx:: Cancer, Coronary Artery Disease
== END ==
PROVIDERS: PCP Internal Medicine; Visit Provider Clinical Nurse Specialist Family Health
DX: M46.1 Sacroiliitis, not elsewhere classified (principal)
CPT/HCPCS: 99212

== ENCOUNTER → 2019-12-28 12:57 | Day surgery (SDC) | payer MEDICARE, BC, SELFPAY ==
[2019-12-28 13:37] VITALS: BP 128/58; PULSE 52; RESP 18; TEMP 36.5; O2SAT 99; BMI 28.7
[2019-12-28 14:17] VITALS: BP 132/87; PULSE 85; RESP 18; O2SAT 98
[2019-12-28 14:18] VITALS: BP 132/88; PULSE 85; RESP 18; O2SAT 98
--- NOTE | 2019-12-28 14:19 | HMH.PMPROC ---
- Procedure Date: 12/28/19 Time: 14:19 Anesthesiologist:: Stew Gonzalez MD Complications:: None Pre-procedure Diagnosis:: Sacroiliitis Post-procedure Diagnosis:: Same Indications for Procedure:: This patient is a pleasant 84-year-old white female who we are treating for SI joint pain. She is done well after previous left SI joint injection. Now she is having pain over both SI joints. She is tender over both SI joints. She has a positive Fady test bilaterally. She has a positive Han test bilaterally. She has a positive SI joint compression test bilaterally. We will do bilateral SI joint injections under fluoroscopy today to help her with her pain symptoms. Procedure Details:: B/L SI joint injection under fluoroscopy Informed consent was obtained and the risks and benefits of the procedure was explained to the patient. The patient was taken to the procedure room and placed prone on the procedure table. The patient was prepped using ChloraPrep. The skin and subcutaneous tissues overlying the SI joints were anesthetized using lidocaine. I placed a 22-gauge needle first in the left SI joint and second in the right SI joint. Needle placement was confirmed with dye. After this we injected 5 mL bupivacaine 0.25% and Depo-Medrol 40 mg into each SI joint. Patient tolerated the procedure well with no complication. Plan and Disposition:: We will follow-up with her in 2 weeks. Will reevaluate her symptoms at that time.
[2019-12-28 14:25] VITALS: BP 139/55; PULSE 49; RESP 18; O2SAT 99
== END ==
PROVIDERS: PCP Internal Medicine; Visit Provider Anesthesiology
DX: M46.1 Sacroiliitis, not elsewhere classified (principal); I11.9 Hypertensive heart disease without heart failure; E78.5 Hyperlipidemia, unspecified; Z87.442 Personal history of urinary calculi; Z95.818 Presence of other cardiac implants and grafts; Z90.710 Acquired absence of both cervix and uterus; Z80.9 Family history of malignant neoplasm, unspecified; Z83.438 Family history of other disorder of lipoprotein metabolism and other lipidemia; Z82.49 Family history of ischemic heart disease and other diseases of the circulatory system; Z82.3 Family history of stroke; Z79.899 Other long term (current) drug therapy; I25.10 Atherosclerotic heart disease of native coronary artery without angina pectoris
CPT/HCPCS: 27096; G0260; J1030; Q9966

== ENCOUNTER → 2020-01-17 13:50 | Outpatient (POV) | payer MEDICARE, BC, SELFPAY ==
[2020-01-17 14:17] VITALS: BP 135/85; PULSE 85; RESP 18; TEMP 36.8; O2SAT 98; BMI 28.4
--- NOTE | 2020-01-17 14:57 | HMH.PAINSOAP ---
[facility] Pain Management SOAP Note Subjective:: Patient is a pleasant 84-year-old white female who presents today for follow-up after lateral SI joint injections. Patient says that she is continuing to have low back pain that is worse into her left hip. She is also complaining of neck pain that is radiating into her bilateral upper extremities. Patient says her pain is chronic, as she has had this for greater than 5 years. She does report to have a history of degenerative disc disease in her cervical spine along with bone spurs in her neck. Patient says that she would like to proceed with imaging before undergoing any further injective therapy. She does rate her pain a 4 out of 10 today. Review of Systems General: No recent weight changes, no fever, no sleep disturbances Respiratory: No cough, no shortness of air, no recurring pulmonary infections Cardiovascular/peripheral vascular: No chest pain, no palpitations, no edema, no shortness of breath Gastrointestinal: No new onset incontinence, normal bowel movements reported Genitourinary: No new onset incontinence Musculoskeletal: Neck pain, bilateral upper extremity pain, low back pain, with left hip pain Psychiatric: Normal mood/affect Neurological: [Denies weakness in extremities], [denies balance issues] Objective:: Physical exam General: Alert and oriented x3, no acute distress, pleasant and cooperative, [on room air] Lungs: Respirations even and unlabored, symmetrical chest expansion Eyes: PERRL Musculoskeletal: Flexion and extension of cervical and lumbar spine somewhat guarded secondary to pain, deep tendon reflexes normal, strength in upper and lower extremities [5/5], [abnormal gait noted] Neurological: Speech clear, network firewall engineer equal, no gross sensory deficit Assessment:: Neck pain with cervical radiculopathy symptoms, low back pain with lumbar radiculopathy symptoms Plan:: We will proceed with imaging for the patient before proceeding with any further injective therapy. We will get a cervical and lumbar MRI along with a left hip MRI. Patient has requested imaging of all 3 areas. We will see her back in the clinic after her MRI to discuss a further plan of care. She has been instructed to contact the clinic if she has any concerns before next appointment. The patient and I specifically discussed risk factors for COVID19. These risks include, but are not limited to age greater than 60, heart or lung disease, diabetes, immunosuppression, and travel. We also discussed NSAIDs may worsen COVID19 infection or symptoms. Patient should not use NSAIDs to treat COVID19 signs or symptoms. Patient was also informed that any type of corticosteroid of any form (oral or injection) will decrease the patient's immune system response and may increase the likelihood of COVID19 infection [address] symptoms[address] Dr. Gonzalez has reviewed this note and agrees with this plan of care. This note was dictated using voice recognition software and make contain errors or omissions. [facility] History I have reviewed the patient's past medical history: Yes Medical History: Reports:: Arrhythmia, Atrial Fibrillation, Coronary Artery Disease, Gastroesophageal Reflux Disease(GERD), Hyperlipidemia, Hypertension, Migraine Denies:: Cancer, Diabetes Mellitus Type 1, Diabetes Mellitus Type 2, Internal Pacemaker, MRSA, Seizures *Have you ever received a pneumonia vaccine?: Yes *Have you received a flu vaccine this season?: Yes Other Medical History: Reports: Arthritis, Cataracts. Denies: Blood Transfusion Reaction Other Surgeries: Yes: Appendectomy, Cardiac Catheterization, Coronary Stent, Hysterectomy-Total, Tubal Ligation. No: Pacemaker Amputation: No Fractures: No - *Social History Smoking Status: Never smoker Tobacco Type: cigarettes Alcohol Intake: current Alcohol Intake Frequency:: holidays/special occasions only Substance Use Type: denies use *Occupational Status:: other Housing: house Household Members: family *T
== END ==
PROVIDERS: PCP Internal Medicine; Visit Provider Clinical Nurse Specialist Family Health
DX: M54.2 Cervicalgia (principal); M54.12 Radiculopathy, cervical region; M54.5 Low back pain; M54.16 Radiculopathy, lumbar region
CPT/HCPCS: 99212

== ENCOUNTER → 2020-01-24 15:26 | Outpatient (CLI) | payer MEDICARE, BC, SELFPAY ==
--- NOTE | 2020-01-24 15:34 | MR_ITS ---
PROCEDURE: MR HIP LT WO CON CLINICAL INDICATION: HIP PAIN Hip popping, PT states she fells like hip dislocates, pain when walking. Symptoms [id number]. COMPARISON: [facility] XR lumbar spine 2-3V from 08/30/2018 XR PAIN MGT INJ from 12/28/2019 TECHNIQUE: Routine multiplanar multi echo sequences are performed without gadolinium enhancement. FINDINGS: No fracture or dislocation is evident. No lytic or blastic change. No significant osteoarthritic changes. No bone marrow edema no significant effusion. No abnormal fluid collections or soft tissue masses. There is some asymmetric increased T2 signal along the greater trochanter on the left which may be seen with trochanteric bursitis. No evidence of avascular necrosis of the femoral head. There are few small T1 hypointensities of the femoral heads and may be due to incidental small bone islands. There are degenerative changes noted in the lower lumbar spine incompletely imaged IMPRESSION: 1. Increased T2 signal superficial to the left greater trochanter suggesting trochanteric bursitis 2. Otherwise negative MRI of left hip 3. Degenerative changes lower lumbar spine incompletely imaged Dictated by: Bernardino Bass MD 01/25/2020 13:21 Electronically signed by Bernardino Bass MD in [place] 01/25/2020 13:21
== END ==
PROVIDERS: PCP Internal Medicine; Visit Provider Clinical Nurse Specialist Family Health
DX: M25.559 Pain in unspecified hip (principal)
CPT/HCPCS: 73721

== ENCOUNTER → 2020-01-25 13:30 | Outpatient (CLI) | payer MEDICARE, BC, SELFPAY ==
--- NOTE | 2020-01-25 13:40 | MR_ITS ---
PROCEDURE: MR CERVICAL SPINE WO CON CLINICAL INDICATION: NECK AND BACK PAIN NECK PAIN THAT RADIATES BETWEEN SHOULDERS. HEADACHE. PRIOR CT 10/30/2018 COMPARISON: SPCERVWO CT cervical spine wo con from 10/30/2018 TECHNIQUE: Standard multiplanar multiecho sequences are performed without contrast. 3-D MIP and myelographic images are also rendered and reviewed FINDINGS: The craniocervical junction has an unremarkable appearance. There is straightening/mild reversal of cervical lordosis. There is 3 mm anterolisthesis of C2 on C3. Mild left-sided uncovertebral hypertrophy at C2-C3. C3-C4: Degenerative disc disease with bulging disc with endplate osteophytes with moderate right lateral recess and foraminal narrowing. Borderline canal stenosis. C4-C5: Degenerate disc disease with bulging disc and endplate osteophytes with narrowing of the canal at 10 mm. There is minimal effacement of the anterior aspect of the cord. There is moderate left lateral recess and foraminal narrowing and moderate to severe right lateral recess and foraminal narrowing. This is from uncovertebral hypertrophy/disc osteophyte complexes. C5-C6: Degenerate disc disease with bulging disc and uncovertebral hypertrophy with moderate bilateral lateral recess and foraminal narrowing. There is narrowing of the canal at 10 mm. C6-C7: Degenerate disc disease with mild bulging disc. C7-T1: Mild degenerative disc disease. No extruded herniated disc. IMPRESSION: Abnormal MRI of the cervical spine with multilevel cervical spondylosis with degenerative disc disease with endplate osteophytes/disc osteophyte complexes with canal stenosis and lateral recess and foraminal narrowing. Please see above for detailed description at each level. Dictated by: Bernardino Bass MD 01/26/2020 11:23 Electronically signed by Bernardino Bass MD in [place] 01/26/2020 11:23
--- NOTE | 2020-01-25 13:40 | MR_ITS ---
PROCEDURE: MR LUMBAR SPINE WO CON CLINICAL INDICATION: NECK AND BACK PAIN LBP WITH LT HIP PAIN. LT LEG PAIN, NUMBNESS, AND TINGLING. [id number]. PRIOR 08-30-18 COMPARISON: [facility] XR lumbar spine 2-3V from 08/30/2018 TECHNIQUE: Standard multiplanar multiecho sequences are performed without contrast. 3-D MIP and myelographic images are also rendered and reviewed FINDINGS: There is normal alignment. The spinal cord ends at the L1 level. There is mild lumbar scoliosis convex left. 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 T12-L1: Unremarkable. L1-L2: Degenerative disc disease with bulging disc. L2-L3: Degenerate disc disease with bulging disc with mild to moderate right foraminal and mild left foraminal narrowing. L3-L4: Degenerate disc disease with bulging disc. There is a small right paracentral disc herniation with superior extrusion. This does impinge upon the right L4 nerve root. There is severe right lateral recess and foraminal narrowing. The extruded portion of the disc measures approximately 13 mm in length. Facet ligamentum hypertrophy of present at this level as well contributing to lateral recess narrowing. There is mild left lateral recess and foraminal narrowing as well. L4-5: Degenerate disc disease with bulging disc along with moderate facet and ligamentum hypertrophy. There is moderate bilateral lateral recess narrowing slightly greater on the left with severe left-sided foraminal narrowing and mild right foraminal narrowing. L5-S1: Degenerative disc disease with bulging disc with facet ligamentum hypertrophy with moderate to severe bilateral foraminal narrowing. There is mild bulging disc at this level. Incidental note is made of small bilateral renal cysts IMPRESSION: 1. L2-L3: Degenerate disc disease with bulging disc with mild to moderate right foraminal and mild left foraminal narrowing. 2. L3-L4: Degenerate disc disease with bulging disc. There is a small right paracentral disc herniation with superior extrusion. This does impinge upon the right L4 nerve root. There is severe right lateral recess and foraminal narrowing. The extruded portion of the disc measures approximately 13 mm in length. Facet ligamentum hypertrophy of present at this level as well contributing to lateral recess narrowing. There is mild left lateral recess and foraminal narrowing as well. 3. L4-5: Degenerate disc disease with bulging disc along with moderate facet and ligamentum hypertrophy. There is moderate bilateral lateral recess narrowing slightly greater on the left with severe left-sided foraminal narrowing and mild right foraminal narrowing. 4. L5-S1: Degenerative disc disease with bulging disc with facet ligamentum hypertrophy with moderate to severe bilateral foraminal narrowing. There is mild bulging disc at this level. Dictated by: Bernardino Bass MD 01/26/2020 11:31 Electronically signed by Bernardino Bass MD in [place] 01/26/2020 11:31
== END ==
PROVIDERS: PCP Internal Medicine; Visit Provider Clinical Nurse Specialist Family Health
DX: M54.2 Cervicalgia (principal); M54.5 Low back pain
CPT/HCPCS: 72141; 72148; 76376

== ENCOUNTER → 2020-02-04 11:58 | Outpatient (POV) | payer MEDICARE, BC, SELFPAY ==
[2020-02-04 12:39] VITALS: BP 118/89; PULSE 85; RESP 18; TEMP 36.4; O2SAT 98; BMI 28.7
--- NOTE | 2020-02-04 12:57 | HMH.PAINSOAP ---
[facility] Pain Management SOAP Note Subjective:: Patient is a pleasant 84-year-old white female who presents today for follow-up after recent MRI. Patient has had some injections with no success. Patient does have a noted impingement in her lower spine. She also has ligamentum flavum hypertrophy. She is uninterested in seeing a surgeon at her age she states she would like to manage her pain as much as possible in this location. Patient's pain is only when she standing and walking. She has to lean forward to get relief. When she sitting she is having no pain. But when she is walking it is an 8 out of 10. Patient also states that she has weakness in her legs walking. ROS General: no recent weight change, no fever, no sleep disturbances Respiratory: no cough, no shortness of air, no recurring pulmonary infections Cardiovascular/Peripheral Vascular: No chest pain, No palpitations, no edema, no shortness of breath. Gastrointestinal: no new onset incontinence, normal bowel movements reported Genitourinary: no new onset incontinence Musculoskeletal: Back pain, leg pain Psychiatric: normal mood/ affect Neurological: [denies new onset weakness in extremities], [denies new onset balance issues] Objective:: Physical Exam General: Alert and oriented x3, no acute distress, pleasant and cooperative, [on room air] Lungs: Resps E/U, Symmetrical chest expansion, Eyes: PERRL Musculoskeletal: Flexion and extension of lumbar spine somewhat guarded secondary to pain, deep tendon reflexes normal, strength in upper and lower extremities [5/5], [abnormal gait noted] Neurological: speech clear, licensed optical dispenser equal, no gross sensory deficits Assessment:: Degenerative disc disease lumbar spine lumbar radiculopathy, ligamentum flavum hypertrophy, spinal stenosis with neurogenic claudication Plan:: We will set the patient up for an L4-L5 lumbar epidural/epidurogram to see if she is a potential minimally invasive lumbar decompression candidate. Patient rates her pain today at 3 out of 10 however when she standing and walking is an 8 out of 10. She is on blood thinners and will need to bridge with Lovenox prior to her epidurogram. I did give her information in regards to the minimally invasive lumbar decompression procedure. Dr. Gonzalez has reviewed this note and agrees with this plan of care. This note was dictated using voice recognition software and may contain errors or omissions [facility] History I have reviewed the patient's past medical history: Yes Medical History: Reports:: Arrhythmia, Atrial Fibrillation, Coronary Artery Disease, Gastroesophageal Reflux Disease(GERD), Hyperlipidemia, Hypertension, Migraine Denies:: Cancer, Diabetes Mellitus Type 1, Diabetes Mellitus Type 2, Internal Pacemaker, MRSA, Seizures *Have you ever received a pneumonia vaccine?: Yes *Have you received a flu vaccine this season?: Yes Other Medical History: Reports: Arthritis, Cataracts. Denies: Blood Transfusion Reaction Other Surgeries: Yes: Appendectomy, Cardiac Catheterization, Coronary Stent, Hysterectomy-Total, Tubal Ligation. No: Pacemaker Amputation: No Fractures: No - *Social History Smoking Status: Never smoker Tobacco Type: cigarettes Alcohol Intake: current Alcohol Intake Frequency:: holidays/special occasions only Substance Use Type: denies use *Occupational Status:: other Housing: house Household Members: family *Travel in the last 8 weeks: None Family Hx:: Cancer, Coronary Artery Disease, Heart Attack, Hyperlipidemia, Hypertension, Stroke
== END ==
PROVIDERS: PCP Internal Medicine; Visit Provider Clinical Nurse Specialist Family Health
DX: M51.36 Other intervertebral disc degeneration, lumbar region (principal); M46.00 Spinal enthesopathy, site unspecified; M48.062 Spinal stenosis, lumbar region with neurogenic claudication
CPT/HCPCS: 99212

== ENCOUNTER 2020-02-29 15:15 | Day surgery (SDC) | payer MEDICARE, BC, SELFPAY ==
[2020-02-29 15:28] VITALS: BP 127/46; PULSE 50; RESP 20; TEMP 36.1; O2SAT 100; BMI 28.7
[2020-02-29 15:33] VITALS: BP 157/84; PULSE 50; RESP 18; O2SAT 98
[2020-02-29 15:34] VITALS: BP 174/55; PULSE 55; RESP 18; O2SAT 98
--- NOTE | 2020-02-29 15:48 | HMH.PMPROC ---
- Procedure Date: 02/29/20 Time: 15:48 Anesthesiologist:: Stew Gonzalez MD Complications:: None Pre-procedure Diagnosis:: Degenerative disc disease of lumbar spine with lumbar radiculopathy symptoms and spinal stenosis with neurogenic claudication symptoms Post-procedure Diagnosis:: Same Indications for Procedure:: This patient is a pleasant 84-year-old white female who we are treating for low back pain with lumbar radiculopathy symptoms. Pain is worse with walking or standing. She can only walk 100 yards and can only stand for 5 minutes. She has significant pain on her left side. Will do lumbar epidural steroid injection with epidurogram today to assess levels of stenosis and candidacy for minimally invasive lumbar decompression. Procedure Details:: Lumbar epidural steroid injection under fluoroscopy Informed consent was obtained and the risk and benefits of the procedure was explained to the patient. The patient was taken to the procedure room. The patient was placed prone on the procedure table. The patient was prepped and draped in sterile fashion. C-arm fluoroscopy was used to view the lumbar spine. Skin and subcutaneous tissues were anesthetized using lidocaine. I placed an 18-gauge epidural needle and advanced into the L4-L5 interspace using fluoroscopic guidance and [id number] to air. After confirmation of needle placement in the epidural space with dye I injected 2 mL of lidocaine 1.5% with Depo-Medrol 80 mg. Patient tolerated the procedure well with no complications. Plan and Disposition:: Based on epidurogram she has significant stenosis at L3-L4 and L4-L5 bilaterally. We will seek approval and plan on minimally invasive lumbar decompression of L3-4 and L4-L5 bilaterally..
[2020-02-29 15:52] VITALS: BP 165/64; PULSE 50; RESP 20; O2SAT 96
== END 2020-02-29 15:53 | disposition home or self-care (01) ==
LOC: SC.PAINP 15:16
PROVIDERS: PCP Internal Medicine; Visit Provider Anesthesiology
DX: M51.16 Intervertebral disc disorders with radiculopathy, lumbar region (principal); M48.062 Spinal stenosis, lumbar region with neurogenic claudication; K21.9 Gastro-esophageal reflux disease without esophagitis; I48.91 Unspecified atrial fibrillation; I11.9 Hypertensive heart disease without heart failure; E78.5 Hyperlipidemia, unspecified; I25.10 Atherosclerotic heart disease of native coronary artery without angina pectoris; I27.20 Pulmonary hypertension, unspecified; Z79.899 Other long term (current) drug therapy; Z95.818 Presence of other cardiac implants and grafts; Z90.710 Acquired absence of both cervix and uterus
CPT/HCPCS: 62323; J1040; Q9966

== ENCOUNTER → 2020-03-19 17:49 | Outpatient (CLI) | payer MEDICARE, BC, SELFPAY ==
[2020-03-19 18:05] LABS: Basophils # 0.1 K/mm3 (0-0.2); Basophils % 1.7 % (0.1-2.0); Eosinophils # 0.3 K/mm3 (0.0-0.4); Eosinophils % 4.2 % (0.1-12.0); Hematocrit 37.2 % (37.0-47.0); Hemoglobin 12.1 g/dL (12.2-16.2); Lymphocytes # 1.8 K/mm3 (0.7-4.5); Lymphocytes % 29.9 % (10-50); Mean Corpuscular HGB Conc 32.5 g/dL (31.8-35.4); Mean Corpuscular Hemoglobin 32.8 pg (27.0-31.2); Mean Corpuscular Volume 100.9 fl (81-99); Mean Platelet Volume 8.4 fl (7.4-10.4); Monocytes # 0.6 K/mm3 (0.1-1.0); Monocytes % 10.3 % (1.7-9.3); Neutrophils # 3.2 K/mm3 (1.8-7.8); Platelet Count 235 K/mm3 (142-424); Red Blood Count 3.69 M/mm3 (4.20-5.40); Red Cell Distribution Width 12.9 % (11.5-17.5)
[2020-03-19 18:43] LABS: Blood Urea Nitrogen 16 mg/dl (7-17); Carbon Dioxide 28 mmol/L (22.0-30.0); Chloride 100 mmol/L (98-107); Estimated Glomerular Filt Rate 47 ml/min (>60); GFR (African American) 57 ML/MIN (>60)
[2020-03-19 18:52] LABS: Coronavirus 19 IgG Antibody Negative (Negative); Coronavirus 19 IgM Antibody Negative (Negative)
[2020-03-19 19:15] LABS: Sodium 137 mmol/L (136-145)
[2020-03-19 19:18] LABS: Calcium 9.4 mg/dl (8.4-10.2); Glucose 94 mg/dl (74-100)
== END ==
PROVIDERS: Visit Provider Anesthesiology
DX: Z01.818 Encounter for other preprocedural examination (principal); M48.062 Spinal stenosis, lumbar region with neurogenic claudication
CPT/HCPCS: 36415; 80048; 85025; 86328

== ENCOUNTER 2020-03-21 07:34 | Day surgery (SDC) | payer MEDICARE, BC, SELFPAY ==
[2020-03-19 12:14] VITALS: BMI 27.6
[2020-03-21 08:10] VITALS: BP 103/75; PULSE 57; RESP 18; TEMP 36.1; O2SAT 98
--- NOTE | 2020-03-21 10:36 | P.PN_ITS ---
[facility] Anesthesia Checklist - Structural Data Admitted From: Home Planned Operative Procedure/s: mild Consent for Planned Operative Procedure(s) Verified: Yes - Additional verifications Anesthesia Reactions: No Hx Blood Transfusions: No Blood Transfusion Reaction: No - Airway Assessment C-Spine Mobility Assessed: Yes TMJ Mobility Assessed: Yes Dentition: Dentures-good fit - Neurological Assessment Level of Consciousness: Awake, Alert, Appropriate - Anesthesia Plan Anesthesia Risk discussed: Yes Anesthesia Plan: Verified ASA Class: III Anesthesia Type: MAC [facility] History I have reviewed the patient's past medical history: Yes Medical History: Reports:: Arrhythmia, Atrial Fibrillation, Coronary Artery Disease, Depression, Gastroesophageal Reflux Disease(GERD), Hyperlipidemia, Hypertension, Migraine Denies:: Cancer, Diabetes Mellitus Type 1, Diabetes Mellitus Type 2, Internal Pacemaker, MRSA, Seizures *Have you ever received a pneumonia vaccine?: Yes *Have you received a flu vaccine this season?: No Other Medical History: Reports: Arthritis, Cataracts. Denies: Blood Transfusion Reaction Anesthesia experience/problems:: none Laterality Cases: Bilateral: Cataract Other Surgeries: Yes: Appendectomy, Cardiac Catheterization, Coronary Stent, Hysterectomy-Total, Tubal Ligation, Other (cataracts). No: Pacemaker Amputation: No Fractures: No - *Social History Last grade of school completed: GED Smoking Status: Never smoker Tobacco Type: cigarettes Alcohol Intake: never Alcohol Intake Frequency:: holidays/special occasions only Substance Use Type: denies use *Occupational Status:: retired Housing: house Household Members: family *Travel in the last 8 weeks: None - Psychiatric History Pschychiatric History:: Reports:: Depression Family Hx:: Cancer, Coronary Artery Disease, Heart Attack, Hyperlipidemia, Hypertension, Stroke
[2020-03-21 11:15] VITALS: BP 147/63; PULSE 70; RESP 16; TEMP 36.6; O2SAT 99
[2020-03-21 11:30] VITALS: BP 155/70; PULSE 59; RESP 16; TEMP 36.6; O2SAT 98
--- NOTE | 2020-03-21 11:30 | HMH.PMPROC ---
- Procedure Date: 03/21/20 Time: 11:30 Anesthesiologist:: Stew Gonzalez MD Complications:: None Pre-procedure Diagnosis:: Degenerative disc disease of lumbar spine with lumbar radiculopathy symptoms and spinal stenosis with neurogenic claudication symptoms Post-procedure Diagnosis:: Same Indications for Procedure:: This patient is a pleasant 84-year-old white female who we are treating for low back pain with lumbar radiculopathy symptoms. Pain is worse with walking or standing. She can only walk 100 yards and can only stand for 5 minutes. Most of her pain is on the left side. Based on her MRI and epidurogram she does have significant stenosis at L3-L4 and L4-L5. We will do bilateral minimally invasive lumbar decompression of L3-4 and L4-5 today. Procedure Details:: Informed consent was obtained and the risk and benefits of the procedure was explained to the patient. The patient was taken to the operating room and placed prone on the procedure table. The patient was prepped and draped in sterile fashion. C-arm fluoroscopy was used to view the lumbar spine. The skin and subcutaneous tissues were anesthetized using lidocaine. A epidural needle was inserted and advanced into the L3-L4 interspace. After confirmation of needle placement in the epidural space, dye was injected in a contralateral oblique view. There was an epidurogram seen at L3-L4 and L4-L5. Significant stenosis was seen at L3-L4 and L4-L5. The skin and subcutaneous tissues again were anesthetized using lidocaine. An incision was made and a access trocar was inserted and advanced to contact at the superior aspect of the L4 lamina on the left side. And a contralateral oblique view the side was viewed. Using a bone rongeur and tissue sculptor we debulked bone from the L3-L4 and L4-L5 interspace on the left side. We then used the tissue sculptor to debulk ligament at the L3-L4 and L4-L5 interspace on the left side. We then moved over to the right side and debulked bone and ligament from L3-L4 and L4-L5 on the right side. There is opening of the stenosis at L3-L4 and L4-L5 bilaterally. The access trocar was removed. A total of 3 mL's of dye was used. There is good spread of dye above and below this level as well. We injected 80 mg Depo-Medrol through the epidural needle. The epidural needle was removed and dressings were placed. This encounter for exam is for normal comparison and control in a clinical research program Patient was taken to recovery in stable condition. Patient was discharged home neurologically intact and with good relief of pain symptoms. Plan and disposition: We will follow-up with this patient in 2 weeks. Will reevaluate symptoms at that time. Plan and Disposition:: We will follow-up with her in 2 weeks. Will reevaluate her symptoms at that time.
[2020-03-21 11:45] VITALS: BP 131/88; PULSE 57; RESP 16; TEMP 36.6; O2SAT 98
[2020-03-21 12:00] VITALS: BP 133/87; PULSE 56; RESP 16; TEMP 36.6; O2SAT 99
== END 2020-03-21 12:00 | disposition home or self-care (01) ==
PROVIDERS: PCP Internal Medicine; Visit Provider Anesthesiology
PROC: (CPT 0275T; principal; 2020-03-21 09:00)
DX: M48.062 Spinal stenosis, lumbar region with neurogenic claudication (principal); M51.16 Intervertebral disc disorders with radiculopathy, lumbar region; Z00.6 Encounter for examination for normal comparison and control in clinical research program; E78.5 Hyperlipidemia, unspecified; I10 Essential (primary) hypertension; K21.9 Gastro-esophageal reflux disease without esophagitis; I25.10 Atherosclerotic heart disease of native coronary artery without angina pectoris; I48.91 Unspecified atrial fibrillation; I49.9 Cardiac arrhythmia, unspecified; F32.9 Major depressive disorder, single episode, unspecified; G43.909 Migraine, unspecified, not intractable, without status migrainosus; Z90.49 Acquired absence of other specified parts of digestive tract
CPT/HCPCS: 0275T; 96374; C1889; J1040; J3370

== ENCOUNTER → 2020-04-14 10:10 | Outpatient (POV) | payer MEDICARE, BC, SELFPAY ==
[2020-04-14 10:21] VITALS: BP 132/74; PULSE 74; RESP 18; TEMP 36.8; O2SAT 98; BMI 28.7
--- NOTE | 2020-04-14 10:51 | P.CONS_ITS ---
[facility] Pain Management SOAP Note Subjective:: Patient is a pleasant 84-year-old white female who presents today for follow-up after a minimally invasive lumbar decompression. Patient has 90% relief of her symptomology. She rates her pain a 1 out of 10 however she states this is due to a knee pain that she has been having for quite some time. She is following with Ortho in regards to her knee. Patient would like to start addressing her neck. Patient states that she can walk 150 yards and stand for up to 10 minutes. Patient overall doing quite well. Patient is on anticoagulation therapy. ROS General: no recent weight change, no fever, no sleep disturbances Respiratory: no cough, no shortness of air, no recurring pulmonary infections Cardiovascular/Peripheral Vascular: No chest pain, No palpitations, no edema, no shortness of breath. Gastrointestinal: no new onset incontinence, normal bowel movements reported Genitourinary: no new onset incontinence Musculoskeletal: Neck pain, occipital neuralgia Psychiatric: normal mood/ affect Neurological: [denies new onset weakness in extremities], [denies new onset balance issues] Objective:: Physical Exam General: Alert and oriented x3, no acute distress, pleasant and cooperative, [on room air] Lungs: Resps E/U, Symmetrical chest expansion, Eyes: PERRL Musculoskeletal: Flexion and extension of cervical spine somewhat guarded secondary to pain, deep tendon reflexes normal, strength in upper and lower extremities [5/5], [abnormal gait noted] extreme point tenderness over the right occiput Neurological: speech clear, 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 I will follow-up with her after this reassess her symptoms at that time overall the patient is doing well. Patient's been instructed to call the office if she has any issues prior to her next appointment. Dr. Gonzalez has reviewed this note and agrees with this plan of care. This note was dictated using voice recognition software and may contain errors or omissions [facility] History I have reviewed the patient's past medical history: Yes Medical History: Reports:: Arrhythmia, Atrial Fibrillation, Coronary Artery Disease, Depression, Gastroesophageal Reflux Disease(GERD), Hyperlipidemia, Hypertension, Migraine Denies:: Cancer, Diabetes Mellitus Type 1, Diabetes Mellitus Type 2, Internal Pacemaker, MRSA, Seizures *Have you ever received a pneumonia vaccine?: Yes *Have you received a flu vaccine this season?: Yes Other Medical History: Reports: Arthritis, Cataracts. Denies: Blood Transfusion Reaction Other Surgeries: Yes: Appendectomy, Cardiac Catheterization, Coronary Stent, Hysterectomy-Total, Tubal Ligation, Other. No: Pacemaker Amputation: No Fractures: No - *Social History Smoking Status: Never smoker Tobacco Type: cigarettes Alcohol Intake: never Alcohol Intake Frequency:: holidays/special occasions only Substance Use Type: denies use *Occupational Status:: other Housing: house Household Members: family *Travel in the last 8 weeks: None - Psychiatric History Pschychiatric History:: Reports:: Depression Family Hx:: Cancer, Coronary Artery Disease, Heart Attack, Hyperlipidemia, Hypertension, Stroke
== END ==
PROVIDERS: PCP Internal Medicine; Visit Provider Clinical Nurse Specialist Family Health
DX: M25.562 Pain in left knee (principal); M54.81 Occipital neuralgia; M48.062 Spinal stenosis, lumbar region with neurogenic claudication
CPT/HCPCS: 99212

== ENCOUNTER → 2020-04-21 10:17 | Outpatient (CLI) | payer MEDICARE, BC, SELFPAY | PROVIDERS: PCP Internal Medicine; Visit Provider Urology | DX: I11.9 Hypertensive heart disease without heart failure (principal); I27.20 Pulmonary hypertension, unspecified; I48.0 Paroxysmal atrial fibrillation; K21.9 Gastro-esophageal reflux disease without esophagitis; R06.02 Shortness of breath; R07.89 Other chest pain; R93.1 Abnormal findings on diagnostic imaging of heart and coronary circulation; Z79.899 Other long term (current) drug therapy | CPT/HCPCS: 93270 ==

== ENCOUNTER 2020-04-25 16:31 | Emergency (ER) | payer MEDICARE, BC, SELFPAY ==
--- NOTE | 2020-04-25 17:43 | XR_ITS ---
PROCEDURE: XR TIBIA FIBULA RT 2V CLINICAL INDICATION: FALL Posttraumatic pain and bruising COMPARISON: CR XR KNEE LT 3V from 04/25/2020 FINDINGS: There are mild osteoarthritic changes involving all 3 compartments of the knee greatest at the medial compartment and patellofemoral joint. Bony spurring is present about the knee. Small calcific densities are present in the pretibial region consistent with phleboliths. The mid distal aspect of the tibia and fibula have an unremarkable appearance. Other findings:None. IMPRESSION: Osteoarthritic changes of the knee otherwise negative with no acute finding Dictated by: Bernardino Bass MD 04/25/2020 21:21 Bernardino Bass MD in [place] 04/25/2020 21:21
[2020-04-25 17:45] VITALS: BP 135/75; PULSE 64; RESP 18; TEMP 36.7; O2SAT 97; BMI 27.8
--- NOTE | 2020-04-25 18:21 | HMH.EDUTC ---
[facility] Disposition Clinical Impression: Hematoma Right leg injury Qualifiers: Encounter type: initial encounter Qualified Code(s): S89.91XA - Unspecified injury of right lower leg, initial encounter Cellulitis Qualifiers: Site of cellulitis: extremity Site of cellulitis of extremity: lower extremity Laterality: right Qualified Code(s): L03.115 - Cellulitis of right lower limb Disposition: Home, Self-Care Condition on Discharge: Good Instructions: DI for Cellulitis -- Adult Additional Instructions: Keep foot elevated, warm compresses. Take antibiotics as prescribed. Return to [facility] or ER if pain worsens or redness, bleeding, etc Prescriptions: cephALEXin [Keflex 500mg Cap] 500 mg PO Q6H 10 Days #40 cap Transmission Status: Pending to [facility] #[id number] Referrals: [place] [Primary Care Provider] - Time of Disposition: 18:25 Medical Decision Making - Rene Inquiry Pt receiving controlled substance: No Vital Signs: 04/25/20 17:45 Temperature 98.1 F Temperature Source Oral Pulse Rate [Right Brachial] 64 Respiratory Rate 18 Blood Pressure [Right Arm] 135/75 Blood Pressure Mean [Right Arm] 95 Blood Pressure Source [Right Arm] Automatic Cuff Blood Pressure Position [Right Arm] Sitting 02 Sat by Pulse Oximetry 97 Oxygen Delivery Method Room Air Orders (Tests/Meds): ORDERS Category Date Time Status XR knee LT 3V Stat Exams 04/25/20 17:43 Taken XR tibia fibula RT 2V Stat Exams 04/25/20 17:43 Taken - Radiology Data #1 Image(s): Knee, Tib/Fib Image Reviewed: Yes I reviewed the patient's radiology image Preliminary Findings: No Fracture Seen [facility] HPI - General Stated complaint: ao fell 1019 injury to L leg Time Seen by Provider: 04/25/20 18:21 Mode of Arrival: Ambulatory Source of Information: Patient Limitations: No Limitations Description of Symptoms (Recalled from Triage Doc. by RN): PATIENT STATES SHE ROLLED OUT OF BED WHILE REACHING FOR PHONE ON TUESDAY; C/O BRUISING TO BLE AND SWELLING/REDNESS TO LLE HEENT Symptoms (Recalled from RN notes): No Resp Symptoms (Recalled from RN notes): No Skin Symptoms (Recalled from RN notes): No MS Symptoms (Recalled from RN notes): Yes Functional Status (Recalled from RN notes): WNL - History of Present Illness Provider Complaint: Rolled out of bed 4 days ago reaching for phone. Pain and bruising to right lower leg. She is on Plavix and Eliquis. Onset (ago): day(s) (4) Location: right, lower extremity Radiation: non-radiation Relieving factors: none Exacerbating factors: none Associated symptoms: denies other symptoms Treatments prior to arrival: none - Related Data Home Medications Medication Instructions Recorded Confirmed celecoxib 200 mg capsule 200 mg PO DAILY 08/30/18 03/19/20 donepezil 5 mg tablet 5 mg PO HS 08/30/18 03/19/20 sertraline 25 mg tablet 25 mg PO DAILY 08/30/18 03/19/20 vitamin B complex 1 tab PO DAILY 08/30/18 03/19/20 potassium chloride 20 mEq 20 meq PO BID 03/08/19 03/19/20 tablet,extended release Amiodarone HCl 200 mg PO DAILY 11/07/19 03/19/20 Apixaban [Eliquis] 2.5 mg PO BID 11/07/19 03/19/20 Atorvastatin Calcium [Lipitor 40mg 40 mg PO DAILY 11/07/19 03/19/20 Tab] Clopidogrel Bisulfate [Plavix 75mg 75 mg PO DAILY 11/07/19 03/19/20 Tab] Metoprolol Succinate 25 mg PO DAILY 11/07/19 03/19/20 gabapentin 300 mg capsule 300 mg PO BID cap 11/07/19 03/19/20 pantoprazole 40 mg tablet,delayed 1 mg PO DAILY 11/07/19 03/19/20 release coenzyme Q10 10 mg capsule 100 mg PO DAILY cap 11/09/19 03/19/20 alendronate 35 mg tablet 35 mg PO QWEEK 02/14/20 03/19/20 spironolactone 25 mg tablet 25 mg PO DAILY tab 04/21/20 Previous Rx's Medication Instructions Recorded losartan 50 mg-hydrochlorothiazide 1 tab PO DAILY #90 tab 02/04/20 12.5 mg tablet cephALEXin [Keflex 500mg Cap] 500 mg PO Q6H 10 Days #40 cap 04/25/20 Allergies Allergy/AdvReac Type Severity Reaction Statu
[2020-04-25 18:28] VITALS: BP 135/75; PULSE 64; RESP 18; TEMP 36.7; O2SAT 97
== END 2020-04-25 18:30 | disposition home or self-care (01) ==
PROVIDERS: Emergency Provider Physician Assistant; PCP Internal Medicine
DX: S89.91XA Unspecified injury of right lower leg, initial encounter (principal); W06.XXXA Fall from bed, initial encounter; Y92.013 Bedroom of single-family (private) house as the place of occurrence of the external cause; L03.115 Cellulitis of right lower limb; I25.10 Atherosclerotic heart disease of native coronary artery without angina pectoris; I48.20 Chronic atrial fibrillation, unspecified; F33.1 Major depressive disorder, recurrent, moderate; K21.9 Gastro-esophageal reflux disease without esophagitis; E78.5 Hyperlipidemia, unspecified; I10 Essential (primary) hypertension; G43.709 Chronic migraine without aura, not intractable, without status migrainosus; Z79.899 Other long term (current) drug therapy
CPT/HCPCS: G0463; 73562; 73590; 99201

== ENCOUNTER → 2020-05-15 11:56 | Outpatient (CLI) | payer MEDICARE, BC, SELFPAY ==
--- NOTE | 2020-05-15 12:00 | XR_ITS ---
PROCEDURE: XR CHEST 2V CLINICAL HISTORY: on amiodarone heart disease, COMPARISON: CR XR CHEST 2V from 05/28/2019 CR XR CHEST PORTABLE from 06/07/2019 DX XR CHEST 2V from 12/06/2019 FINDINGS: The cardiomediastinal silhouette and pulmonary vascularity are within normal limits. Patchy density is present in the right midlung laterally and may be due to an area scarring or pleural thickening. Right hemidiaphragm is slightly elevated. The remaining lungs are clear. Lumbar scoliosis convex left IMPRESSION: No change with no acute finding. Overall, the findings are not compatible with amiodarone lung toxicity. Dictated by: Bernardino Bass MD 05/15/2020 14:37 Bernardino Bass MD in [place] 05/15/2020 14:37
== END ==
PROVIDERS: PCP Internal Medicine; Visit Provider Internal Medicine Cardiovascular Disease
DX: Z79.899 Other long term (current) drug therapy (principal)
CPT/HCPCS: 71046

== ENCOUNTER → 2020-05-15 12:21 | Outpatient (CLI) | payer MEDICARE, BC, SELFPAY ==
[2020-05-15 13:56] LABS: Alanine Aminotransferase 21 U/L (12-78); Albumin Level 3.9 g/dl (3.5-5.0); Alkaline Phosphatase 71 U/L (38-126); Aspartate Amino Transferase 31 U/L (14-36); Total Protein,Serum 6.5 g/dl (6.3-8.2)
[2020-05-15 14:11] LABS: Free Thyroxine Index 4.1 ug/dL (5.93-13.13); T4 (Thyroxine) 11.8 ug/dl (5.53-11.0); Triiodothryronine (T3) Uptake 35 % (23.5-40.5)
[2020-05-15 14:25] LABS: Thyroid Stimulating Hormone 3.97 uIU/mL (0.465-4.68)
== END ==
PROVIDERS: Visit Provider Internal Medicine Cardiovascular Disease
DX: I11.9 Hypertensive heart disease without heart failure (principal); I27.20 Pulmonary hypertension, unspecified; I48.0 Paroxysmal atrial fibrillation; K21.9 Gastro-esophageal reflux disease without esophagitis; R06.02 Shortness of breath; R07.89 Other chest pain; R93.1 Abnormal findings on diagnostic imaging of heart and coronary circulation; Z79.899 Other long term (current) drug therapy
CPT/HCPCS: 36415; 71046; 80076; 84436; 84443; 84479

== ENCOUNTER 2020-10-03 11:24 | Inpatient (IN) | payer MEDICARE, BC, SELFPAY ==
[2020-10-03] VITALS (34 sets, daily range): BP systolic 94–171; BP diastolic 37–108; PULSE 32–60; RESP 12–20; TEMP 36.3–36.7; O2SAT 93–100; BMI 25.8; BMI 28.5
--- NOTE | 2020-10-03 11:20 | ECG_ITS ---
APPROVED REPORT Exam: Resting ECG HR:33 bpm ECG Measurements Heart Rate 33 AXES QRSd 144 QRS -39 QT 512 T 65 QTc 378 Conclusion Atrial fibrillation with slow ventricular response Left axis deviation Left bundle branch block Abnormal ECG Electronically signed by : Cornelio Red, 10/04/2020 07:41:42
--- NOTE | 2020-10-03 11:31 | XR_ITS ---
PROCEDURE: XR CHEST PORTABLE CLINICAL HISTORY: cough COMPARISON: CR XR CHEST PORTABLE from 06/07/2019 DX XR CHEST 2V from 12/06/2019 CR XR CHEST 2V from 05/15/2020 FINDINGS: The cardiomediastinal silhouette and pulmonary vascularity are within normal limits. The lungs are clear without infiltrates, suspicious nodules, or pleural effusions. Vascular calcification is noted. Degenerative changes of the visualized thoracic spine. IMPRESSION: No acute focal consolidation or pleural effusions. Dictated by: Annamaria Van 10/03/2020 12:14 Annamaria Van in [place] 10/03/2020 12:14
[2020-10-03 11:40] LABS: Basophils # 0.1 K/mm3 (0-0.2); Eosinophils # 0.3 K/mm3 (0.0-0.4); Eosinophils % 3.8 % (0.1-12.0); Hematocrit 36.2 % (37.0-47.0); Hemoglobin 12.1 g/dL (12.2-16.2); Lymphocytes # 2.4 K/mm3 (0.7-4.5); Lymphocytes % 33.7 % (10-50); Mean Corpuscular HGB Conc 33.4 g/dL (31.8-35.4); Mean Corpuscular Hemoglobin 30.5 pg (27.0-31.2); Mean Corpuscular Volume 91.5 fl (81-99); Mean Platelet Volume 7.9 fl (7.4-10.4); Monocytes # 0.7 K/mm3 (0.1-1.0); Monocytes % 9.3 % (1.7-9.3); Neutrophils # 3.6 K/mm3 (1.8-7.8); Neutrophils % 51.2 % (37.0-80.0); Platelet Count 247 K/mm3 (142-424); Red Blood Count 3.96 M/mm3 (4.20-5.40); Red Cell Distribution Width 13.3 % (11.5-17.5); White Blood Count 7.1 K/mm3 (4.8-10.8)
[2020-10-03 11:48] LABS: Chloride 105 mmol/L (98-107); Sodium 134 mmol/L (136-145)
--- NOTE | 2020-10-03 11:48 | HMH.EDARPALP ---
ED Disposition Clinical Impression: Atrial fibrillation with slow ventricular response, Dilated cardiomyopathy, Symptomatic bradycardia Disposition: Admitted As Inpatient Condition on Discharge: Serious Referrals: PCP,No [Primary Care Provider] - - Critical Care Critical Care Time: Yes Attestation: On 10/03/20, the high probability of a clinically significant, sudden or life threatening deterioration of the following system(s) required my full and direct attention, intervention and personal management. The time I documented below is in addition to time spent performing reported procedures but includes the following listed in this critical care notation. Total Critical Care Time: 30 Vital system(s) involved:: Circulatory Failure My critical care processes included: Assessment & monitoring of V/S, Initial and Re-exams, Data Review/Interpretation, Coordinating Care, Medication Orders and management Medical Decision Making - Medical Records Medical records reviewed: Yes: I reviewed the patient's medical records. - Rene Inquiry Pt receiving controlled substance: No Vital Signs: 10/03/20 11:25 10/03/20 11:35 10/03/20 11:45 Pulse Rate 54 L 52 L Pulse Rate [Left Radial] 32 L Respiratory Rate 18 13 12 Blood Pressure 124/57 L 140/59 L Blood Pressure [Right Arm] 129/37 L Blood Pressure Mean Blood Pressure Mean [Right Arm] 67 Blood Pressure Source [Right Arm] Automatic Cuff Blood Pressure Position [Right Arm] Sitting 02 Sat by Pulse Oximetry 99 95 97 Oxygen Delivery Method Room Air 10/03/20 11:55 10/03/20 12:00 10/03/20 12:15 Pulse Rate 51 L 48 L 44 L Pulse Rate [Left Radial] Respiratory Rate 15 16 15 Blood Pressure 140/59 L 133/58 L 133/59 L Blood Pressure [Right Arm] Blood Pressure Mean 86 83 78 Blood Pressure Mean [Right Arm] Blood Pressure Source [Right Arm] Blood Pressure Position [Right Arm] 02 Sat by Pulse Oximetry 96 95 98 Oxygen Delivery Method 10/03/20 12:30 10/03/20 12:46 Pulse Rate 53 L 48 L Pulse Rate [Left Radial] Respiratory Rate Blood Pressure 133/59 L 156/76 H Blood Pressure [Right Arm] Blood Pressure Mean 88 87 Blood Pressure Mean [Right Arm] Blood Pressure Source [Right Arm] Blood Pressure Position [Right Arm] 02 Sat by Pulse Oximetry 100 100 Oxygen Delivery Method - Lab Data Lab Results 10/03/20 11:30: WBC 7.1, RBC 3.96 L, Hgb 12.1 L, Hct 36.2 L, MCV 91.5, MCH 30.5, MCHC 33.4, RDW 13.3, Plt Count 247, MPV 7.9, Neut % (Auto) 51.2, Lymph % (Auto) 33.7, [place] % (Auto) 9.3, Eos % (Auto) 3.8, Baso % (Auto) 2.0, Neut # (Auto) 3.6, Lymph # (Auto) 2.4, [place] # (Auto) 0.7, Eos # (Auto) 0.3, Baso # (Auto) 0.1 10/03/20 11:30: PT 11.9, INR 1.01, APTT 27.6 10/03/20 11:30: Sodium 134 L, Potassium 5.4 H, Chloride 105, Carbon Dioxide 22, Anion Gap 12.4, BUN 22 H, Creatinine 1.60 H, Estimated Creat Clear 27, Estimated GFR 31 L, Est GFR ( Amer) 37 L, Glucose 89, Calcium 9.4, Total Bilirubin 1.3, AST 46 H, ALT 30, Alkaline Phosphatase 59, Troponin I < 0.01, NT-Pro-B Natriuret Pep 355, Total Protein 7.0, Albumin 4.3, Globulin 2.7, Albumin/Globulin Ratio 1.6, TSH 6.12 H Result diagrams: 10/03/20 11:30 10/03/20 11:30 Orders (Tests/Meds): ED MEDICATIONS Generic Name Dose Route Start Last Admin Trade Name Freq PRN Reason Stop Dose Admin Dopamine HCl/Dextrose 250 mls @ 6.209 mls/hr 10/03/20 13:00 Dopamine 400mg/250ml D5w IV 11/02/20 12:59 .Q24H TEMO Protocol 2.5 MCG/KG/MIN Discontinued Medications Generic Name Dose Route Start Last Admin Trade Name Freq PRN Reason Stop Dose Admin Atropine Sulfate 0.5 mg 10/03/20 11:52 10/03/20 11:54 Atropine 1mg/10ml Syringe (Crash Cart) IV 10/03/20 11:53 0.5 mg ONCE ONE Administration Atropine Sulfate 0.5 mg 10/03/20 12:18 10/03/20 12:19 Atropine 1mg/10ml Syringe (Crash Cart) IV 10/03/20 12:19 0.5 mg ONCE ONE Administration ORDERS Category Date Ti
[2020-10-03 11:49] LABS: Potassium 5.4 mmoL/L (3.5-5.1)
[2020-10-03 11:51] LABS: Alanine Aminotransferase 30 U/L (12-78); Albumin Level 4.3 g/dl (3.5-5.0); Albumin/Globulin Ratio 1.6 (1.1-1.8); Alkaline Phosphatase 59 U/L (38-126); Anion Gap 12.4 mEq/L (5-15); Aspartate Amino Transferase 46 U/L (14-36); Bilirubin,Total 1.3 mg/dl (0.2-1.3); Blood Urea Nitrogen 22 mg/dl (7-17); Carbon Dioxide 22 mmol/L (22.0-30.0); Creatinine Clearance Estimated 27 mL/min (50-200); Estimated Glomerular Filt Rate 31 ml/min (>60); GFR (African American) 37 ML/MIN (>60); Globulin 2.7 g/dL (1.3-3.2)
[2020-10-03 11:52] LABS: Calcium 9.4 mg/dl (8.4-10.2); Glucose 89 mg/dl (74-100)
[2020-10-03 11:53] LABS: Activated Partial Thrombo Time 27.6 seconds (22.8-30.6); INR 1.01 (0.9-1.1); Prothrombin Time 11.9 seconds (10.1-12.5)
[2020-10-03 12:01] LABS: NT Pro Brain Natriuretic Pep. 355 pg/mL (0-450)
[2020-10-03 12:09] LABS: Troponin I < 0.01 ng/ml (0.00-0.034)
[2020-10-03 12:22] LABS: Thyroid Stimulating Hormone 6.12 uIU/mL (0.465-4.68)
--- NOTE | 2020-10-03 13:45 | HMH.CNCARD ---
History of Present Illness Consult date: 10/03/20 Requesting physician: Cornelio Smith Chief complaint: Near syncope, marked bradycardia Additional Medical History:: 1. Coronary artery disease A. Left heart catheterization, 03/2019, SETH to LAD, EF 65%, LVEDP of 25 mmHg ANGIOGRAPHIC RESULTS The left main artery Normal The left anterior descending artery Gives rise to a first septal cow puncher and then has a concentric 70 to 80% stenosis followed by an additional 40 to 50% concentric stenosis. The first diagonal artery has mild [id number] plaque. Distal to the first diagonal artery is an additional concentric 40 to 50% stenosis along a tortuous bend The circumflex artery Is a nondominant yet still large vessel and has proximal 30 to 40% [id number] stenosis. A large ramus intermedius originates off the left main artery and has mild 10 to 20% plaque The right coronary artery Is a dominant vessel and has mid vessel 20 to 30% stenosis The ALMEIDA ventriculogram reveals Normal 65% The left ventricular end-diastolic pressure 25 mmHg IMPRESSION Severe proximal LAD disease as described above Successful stenting to proximal LAD severe disease reduced to 0% with one drug-eluting stent Normal ejection fraction Moderately elevated LVEDP PLAN 1. Dual antiplatelet therapy 2. Avoidance of tobacco products 3. Cardiac rehabilitation 4. Standard therapy for ischemic heart disease 5. Treatment of diastolic dysfunction Electronically signed by : Eliseo Zepeda, 04/02/2019 11:38:51 B. Emily Thompson, 11/2019, no ischemia with EF 65%. 2. Paroxysmal atrial fibrillation A. MYKEL and cardioversion, 06/2019, left atrial enlargement, EF 50% with abnormal septal motion, patent foramen ovale with [id number] shunt, mild AR, MR and TR. Successful cardioversion to sinus rhythm B. Amiodarone and eliquis therapy, since at least 2018 due to CHADS-VASC score of at least 4 (age, female, HTN) 3. Hypertension 4. Hyperlipidemia 5. GERD 6. History of migraine headaches 7. History of depression History of present illness: This is a 84-year-old female presented to the emergency department with a near syncopal episode. The patient was actually at routine clinic appointment with orthopedic surgery for her knee. She was waiting to see the physician when she started getting very lightheaded. The patient felt like she was going to pass out. They did check her heart rate and it was found to be significantly low. They did call a rapid response on the patient. Patient was transferred to the ER for further evaluation. Patient states that she has a longstanding history of atrial fibrillation. She states that frequently her heart rate does run low. The patient did not actually pass out today she just felt very lightheaded. She denies any chest pain or shortness of breath. No abdominal pain or vomiting. No diarrhea. No bleeding. Denies any fevers or chills. On reevaluation, the patient continues to have episodes of bradycardia. She does respond to atropine, however this is transient in nature. Cardiology was notified. I do believe the patient will require pacemaker placement. We did patient the patient on dopamine drip for inotropic support. Patient will be admitted to the hospital for further evaluation and treatment. The above per Dr. Ballesteros Patient confirms the above account. She denies any syncope, but does relate a similar near syncopal episode in March of last year. She is on amiodarone, Eliquis and metoprolol for history of atrial fibrillation. EKG in the ER shows what appears to be an idioventricular escape rhythm. During my exam the patient's telemetry exhibited sinus bradycardia in the 50s beats per minute range. She denied any chest pain, pressure or tightness. Her last dose of Eliquis was this morning. Echocardiogram is pending to confirm prior ejection fraction in the nor
[2020-10-03 14:04] LABS: Adenovirus,PCR Not Detected (NotDetected); Bordetella Pertussis Not Detected (NotDetected); Chlamydophila Pneumoniae, PCR Not Detected (NotDetected); Coronavirus 19, PCR Not Detected (NotDetected); Coronavirus 229E Not Detected (NotDetected); Coronavirus NL63 Not Detected (NotDetected); Coronavirus OC43 Not Detected (NotDetected); Coronovirus HKU1,PCR Not Detected (NotDetected); Human Metapneumovirus Not Detected (NotDetected); Influenza A, PCR Not Detected (NotDetected); Influenza AH1, 2009 Not Detected (NotDetected); Influenza AH1, PCR Not Detected (NotDetected); Influenza AH3,PCR Not Detected (NotDetected); Influenza B, PCR Not Detected (NotDetected); Mycoplasma Pneumoniae, PCR Not Detected (NotDetected); Parainfluenza 1, PCR Not Detected (NotDetected); Parainfluenza 2, PCR Not Detected (NotDetected); Parainfluenza 3, PCR Not Detected (NotDetected); Parainfluenza 4, PCR Not Detected (NotDetected); Respiratory Syncytial Virus Not Detected (NotDetected); Rhinovirus/Enterovirus Not Detected (NotDetected)
--- NOTE | 2020-10-03 14:27 | PC.NURSE ---
Per cardiology pacemaker is planned for Tuesday due to pt being on blood thinners. Pt will continue dopamine drip until then. Pt is aware. Will continue to monitor.
[2020-10-03 15:37] LABS: Troponin I < 0.01 ng/ml (0.00-0.034)
--- NOTE | 2020-10-03 15:54 | HMH.PHAVTE ---
[facility] Pharmacy VTE Monitoring - Patient Demographics Admission date: 10/03/20 Report Date: 10/03/20 Time: 15:54 Allergies/Adverse Reactions: Patient Allergies No Known Allergies Allergy (Verified 10/03/20 10:58) Height: 1.6 m Weight: 66.224 kg Patient Problems: Current Active Problems (Last Updated 08/10/19 @ 11:26 by Divine Rowe RN) Atrial fibrillation with slow ventricular response (Acute) Dilated cardiomyopathy (Acute) Symptomatic bradycardia (Acute) History of placement of stent in LAD coronary artery (Acute) Mild chronic anemia (Acute) Hyperkalemia (Acute) Hyponatremia (Acute) CKD (chronic kidney disease) stage 3, GFR 30-59 ml/min (Acute) On amiodarone therapy (Chronic) HHD (hypertensive heart disease) (Chronic) HLD (hyperlipidemia) (Chronic) CAD (coronary artery disease) (Chronic) - VTE Risk Labs: VTE Related Lab Results Hgb 12.1 g/dL (12.2-16.2) L 10/03/20 11:30 Hct 36.2 % (37.0-47.0) L 10/03/20 11:30 Plt Count 247 K/mm3 (142-424) 10/03/20 11:30 PT 11.9 seconds (10.1-12.5) 10/03/20 11:30 INR 1.01 (0.9-1.1) 10/03/20 11:30 APTT 27.6 seconds (22.8-30.6) 10/03/20 11:30 BUN 22 mg/dl (7-17) H 10/03/20 11:30 Creatinine 1.60 mg/dl (0.52-1.04) H 10/03/20 11:30 Estimated Creat Clear 27 mL/min (50-200) 10/03/20 11:30 - Prophylaxis VTE Prophylaxis Ordered?: Yes Types of VTE Prophylaxis: TEDS Knee High, Pharmacological Location of Applied Device: Bilateral Lower Extremeties Pharmacologic Type: Enoxaparin
--- NOTE | 2020-10-03 17:00 | HMH.HP ---
*Admission Date: 10/03/20 *Chief complaint: near syncope *History of present illness: This is a 84-year-old female presented to the emergency department with a near syncopal episode. The patient was actually at routine clinic appointment with orthopedic surgery for her knee. She was waiting to see the physician when she started getting very lightheaded. The patient felt like she was going to pass out. They did check her heart rate and it was found to be significantly low. They did call a rapid response on the patient. Patient was transferred to the ER for further evaluation. Patient states that she has a longstanding history of atrial fibrillation. She states that frequently her heart rate does run low. The patient did not actually pass out today she just felt very lightheaded. She denies any chest pain or shortness of breath. No abdominal pain or vomiting. No diarrhea. No bleeding. Denies any fevers or chills. On reevaluation, the patient continues to have episodes of bradycardia. She does respond to atropine, however this is transient in nature. Cardiology was notified. I do believe the patient will require pacemaker placement. We did patient the patient on dopamine drip for inotropic support. Patient will be admitted to the hospital for further evaluation and treatment. The above per Dr. Ballesteros Patient confirms the above account. She denies any syncope, but does relate a similar near syncopal episode in March of last year. She is on amiodarone, Eliquis and metoprolol for history of atrial fibrillation. EKG in the ER shows what appears to be an idioventricular escape rhythm. During my exam the patient's telemetry exhibited sinus bradycardia in the 50s beats per minute range. She denied any chest pain, pressure or tightness. Her last dose of Eliquis was this morning. Echocardiogram is pending to confirm prior ejection fraction in the normal range. Discussion with the patient and Dr. Zepeda regarding treatment options which include dopamine drip to maintain patient's heart rate above 50 while we allow time for the Eliquis to get out of her system prior to proceeding with pacemaker to reduce risks of complications.. If however patient does not respond well to the dopamine drip we will have to proceed with pacemaker insertion possibly tonight or tomorrow. Patient is aware of the plan and agrees to proceed. The above was taken from ER and cardiology consultation note. This was reviewed and confirmed with the patient [facility] History I have reviewed the patient's past medical history: Yes Medical History: Reports:: Arrhythmia, Atrial Fibrillation, Coronary Artery Disease, Depression, Gastroesophageal Reflux Disease(GERD), Hyperlipidemia, Hypertension, Migraine Denies:: Cancer, Diabetes Mellitus Type 1, Diabetes Mellitus Type 2, Internal Pacemaker, MRSA, Seizures *Have you ever received a pneumonia vaccine?: Yes *Have you received a flu vaccine this season?: Yes Other Medical History: Reports: Arthritis, Cataracts. Denies: Blood Transfusion Reaction Other Surgeries: Yes: No Previous Surgery, Appendectomy, Cardiac Catheterization, Colonoscopy, Coronary Stent, Hysterectomy-Total, Tubal Ligation, Other. No: Pacemaker Amputation: No Fractures: No - *Social History Last grade of school completed: GED Smoking Status: Never smoker Tobacco Type: cigarettes Alcohol Intake: never Alcohol Intake Frequency:: holidays/special occasions only Substance Use Type: denies use *Occupational Status:: retired Housing: house Household Members: family *Travel in the last 8 weeks: None - Psychiatric History Pschychiatric History:: Reports:: Depression Family Hx:: Cancer, Diabetes, Heart Attack Review of Systems - Constitutional Denies anorexia, Denies body ache(s), Denies fever(s) - Eyes Reports blurry vision - ENT Reports poor balance - *Cardiovascular Reports shortness of breath, Reports shortness of breath with activity, Denies chest pain,
[2020-10-03 18:15] LABS: Troponin I < 0.01 ng/ml (0.00-0.034)
--- NOTE | 2020-10-03 18:45 | PC.NURSE ---
Dopamine gtt titrated from 6 ML/HR(2.19MCG) to 10 ML/HR(3.65MCG) at this time.
[2020-10-04] VITALS (18 sets, daily range): BP systolic 89–171; BP diastolic 45–76; PULSE 49–67; RESP 16–20; TEMP 36.4–36.6; O2SAT 92–100; BMI 29.1
--- NOTE | 2020-10-04 04:17 | PC.NURSE ---
2230 heart rate maintaining 48 to 49 dopamine increased to 4 mcq.
--- NOTE | 2020-10-04 04:17 | PC.NURSE ---
0000 heart rate continues to maintain 49, dopamine increased to 5mcq. patient has been asymptomatic this shift, systolic bp has sustained greater than 130.
--- NOTE | 2020-10-04 04:19 | PC.NURSE ---
patient has remained on 5 mcq of dopamine, heart rate has sustained greater than 50 since last increase. patient has also remained asymptomatic.
[2020-10-04 05:33] LABS: Basophils # 0.1 K/mm3 (0-0.2); Basophils % 0.8 % (0.1-2.0); Eosinophils # 0.2 K/mm3 (0.0-0.4); Eosinophils % 1.8 % (0.1-12.0); Hematocrit 39.7 % (37.0-47.0); Hemoglobin 12.7 g/dL (12.2-16.2); Lymphocytes # 1.7 K/mm3 (0.7-4.5); Lymphocytes % 16.8 % (10-50); Mean Corpuscular HGB Conc 31.9 g/dL (31.8-35.4); Mean Corpuscular Hemoglobin 29.5 pg (27.0-31.2); Mean Corpuscular Volume 92.2 fl (81-99); Mean Platelet Volume 7.4 fl (7.4-10.4); Monocytes # 0.7 K/mm3 (0.1-1.0); Monocytes % 7.6 % (1.7-9.3); Neutrophils # 7.2 K/mm3 (1.8-7.8); Platelet Count 254 K/mm3 (142-424); Red Cell Distribution Width 12.9 % (11.5-17.5); White Blood Count 9.8 K/mm3 (4.8-10.8)
[2020-10-04 05:42] LABS: Chloride 103 mmol/L (98-107)
[2020-10-04 05:43] LABS: Potassium 4.8 mmoL/L (3.5-5.1); Sodium 136 mmol/L (136-145)
[2020-10-04 05:45] LABS: Alanine Aminotransferase 30 U/L (12-78); Albumin Level 4.6 g/dl (3.5-5.0); Albumin/Globulin Ratio 1.6 (1.1-1.8); Alkaline Phosphatase 58 U/L (38-126); Anion Gap 12.8 mEq/L (5-15); Aspartate Amino Transferase 41 U/L (14-36); Bilirubin,Total 1.2 mg/dl (0.2-1.3); Blood Urea Nitrogen 18 mg/dl (7-17); Calcium 9.5 mg/dl (8.4-10.2); Carbon Dioxide 25 mmol/L (22.0-30.0); Creatinine Clearance Estimated 44 mL/min (50-200); Estimated Glomerular Filt Rate 47 ml/min (>60); GFR (African American) 57 ML/MIN (>60); Globulin 2.8 g/dL (1.3-3.2); Glucose 118 mg/dl (74-100); Total Protein,Serum 7.4 g/dl (6.3-8.2)
--- NOTE | 2020-10-04 08:19 | HMH.ACPN2 ---
Internal Medicine - PN: Subj *Date: 10/04/20 *Time: 08:19 Interval history: Patient remained stable overnight. She did ambulate with assistance. No presyncope, chest pain, dyspnea on exertion Exam Vital signs and Labs for Last 24 Hours: Temp Pulse Resp BP Pulse Ox 97.5 F L 50 L 16 140/69 94 L 10/04/20 07:46 10/04/20 04:00 10/04/20 02:00 10/04/20 02:00 10/04/20 02:00 Laboratory Results - last 24 hr 10/03/20 11:30: WBC 7.1, RBC 3.96 L, Hgb 12.1 L, Hct 36.2 L, MCV 91.5, MCH 30.5, MCHC 33.4, RDW 13.3, Plt Count 247, MPV 7.9, Neut % (Auto) 51.2, Lymph % (Auto) 33.7, [place] % (Auto) 9.3, Eos % (Auto) 3.8, Baso % (Auto) 2.0, Neut # (Auto) 3.6, Lymph # (Auto) 2.4, [place] # (Auto) 0.7, Eos # (Auto) 0.3, Baso # (Auto) 0.1 10/03/20 11:30: PT 11.9, INR 1.01, APTT 27.6 10/03/20 11:30: Sodium 134 L, Potassium 5.4 H, Chloride 105, Carbon Dioxide 22, Anion Gap 12.4, BUN 22 H, Creatinine 1.60 H, Estimated Creat Clear 27, Estimated GFR 31 L, Est GFR ( Amer) 37 L, Glucose 89, Calcium 9.4, Total Bilirubin 1.3, AST 46 H, ALT 30, Alkaline Phosphatase 59, Troponin I < 0.01, NT-Pro-B Natriuret Pep 355, Total Protein 7.0, Albumin 4.3, Globulin 2.7, Albumin/Globulin Ratio 1.6, TSH 6.12 H 10/03/20 13:57: Chlamy pneumoniae PCR Not detected, Adenovirus (PCR) Not detected, B. pertussis DNA (PCR) Not detected, Coronavirus OC43 (PCR) Not detected, Coronavirus HKU1 (PCR) Not detected, Coronavirus 229E (PCR) Not detected, SARS-CoV-2 (PCR) Not detected, Coronavirus NL63 (PCR) Not detected, Human Metapneumovir PCR Not detected, Influenza A (H1) PCR Not detected, Influ A (H1N1/09) PCR Not detected, Influenza A (H3) PCR Not detected, Influenza Type A (PCR) Not detected, Influenza Type B (PCR) Not detected, M. pneumoniae (PCR) Not detected, Parainfluenza 1 (PCR) Not detected, Parainfluenza 2 (PCR) Not detected, Parainfluenza 3 (PCR) Not detected, Parainfluenza 4 (PCR) Not detected, RSV (PCR) Not detected, Entero/Rhino (PCR) Not detected 10/03/20 15:05: Troponin I < 0.01 10/03/20 17:36: Troponin I < 0.01 10/04/20 05:20: WBC 9.8 D, RBC 4.30, Hgb 12.7, Hct 39.7, MCV 92.2, MCH 29.5, MCHC 31.9, RDW 12.9, Plt Count 254, MPV 7.4, Neut % (Auto) 73.0, Lymph % (Auto) 16.8, [place] % (Auto) 7.6, Eos % (Auto) 1.8, Baso % (Auto) 0.8, Neut # (Auto) 7.2, Lymph # (Auto) 1.7, [place] # (Auto) 0.7, Eos # (Auto) 0.2, Baso # (Auto) 0.1 10/04/20 05:20: Sodium 136, Potassium 4.8, Chloride 103, Carbon Dioxide 25, Anion Gap 12.8, BUN 18 H, Creatinine 1.10 H D, Estimated Creat Clear 44, Estimated GFR 47 L, Est GFR ( Amer) 57 L D, Glucose 118 H D, Calcium 9.5, Total Bilirubin 1.2, AST 41 H, ALT 30, Alkaline Phosphatase 58, Total Protein 7.4, Albumin 4.6, Globulin 2.8, Albumin/Globulin Ratio 1.6 I & O for Last 24 hours: Intake & Output 10/01/20 10/02/20 10/03/20 10/04/20 11:59 11:59 11:59 11:59 Intake Total 1989 Balance 1990 / 1990 Weight 146 lb 164 lb 5 oz Narrative: Patient looks comfortable in bed. No respiratory distress. Lungs are clear. Heart has a regular rate and rhythm with systolic murmur heard at the right second intercostal space. Assessment and Plan (1) Atrial fibrillation with slow ventricular response Status: Acute Category: Medical Code(s): I48.91 - Unspecified atrial fibrillation (2) Symptomatic bradycardia Status: Acute Category: Medical Code(s): R00.1 - Bradycardia, unspecified (3) CAD (coronary artery disease) Status: Chronic Qualifiers: Coronary Disease-Associated Artery/Lesion type: [place] artery [place] vs. transplanted heart: [place] heart Associated angina: with stable angina Qualified Code(s): I25.118 - Atherosclerotic heart disease of [place] coronary artery with other forms of angina pectoris Category: Medical Code(s): I25.10 - Atherosclerotic heart disease of [place] coronary artery without angina pectoris (4) HHD (hypertensive heart disease) Status: Chronic Qualifiers: Heart failure pre
[2020-10-04 08:58] LABS: Free T4 (Free Thyroxine) 1.82 ng/dl (0.78-2.19)
--- NOTE | 2020-10-04 10:56 | P.CONPHA_ITS ---
[facility] Pharmacy VTE Monitoring - Patient Demographics Admission date: 10/03/20 Report Date: 10/04/20 Time: 10:56 Allergies/Adverse Reactions: Patient Allergies No Known Allergies Allergy (Verified 10/03/20 10:58) Height: 1.6 m Weight: 74.531 kg Patient Problems: Current Active Problems (Last Updated 08/10/19 @ 11:26 by Divine Rowe RN) Atrial fibrillation with slow ventricular response (Acute) Dilated cardiomyopathy (Acute) Symptomatic bradycardia (Acute) History of placement of stent in LAD coronary artery (Acute) Mild chronic anemia (Acute) Hyperkalemia (Acute) Hyponatremia (Acute) CKD (chronic kidney disease) stage 3, GFR 30-59 ml/min (Acute) On amiodarone therapy (Chronic) HHD (hypertensive heart disease) (Chronic) HLD (hyperlipidemia) (Chronic) CAD (coronary artery disease) (Chronic) - VTE Risk Labs: VTE Related Lab Results Hgb 12.7 g/dL (12.2-16.2) 10/04/20 05:20 Hct 39.7 % (37.0-47.0) 10/04/20 05:20 Plt Count 254 K/mm3 (142-424) 10/04/20 05:20 PT 11.9 seconds (10.1-12.5) 10/03/20 11:30 INR 1.01 (0.9-1.1) 10/03/20 11:30 APTT 27.6 seconds (22.8-30.6) 10/03/20 11:30 BUN 18 mg/dl (7-17) H 10/04/20 05:20 Creatinine 1.10 mg/dl (0.52-1.04) H D 10/04/20 05:20 Estimated Creat Clear 44 mL/min (50-200) 10/04/20 05:20 Was VTE Risk Assessment Performed: Yes VTE Score: 2 VTE Risk Level: Very Low Risk - Prophylaxis VTE Prophylaxis Ordered?: Yes Types of VTE Prophylaxis: TEDS Knee High, Pharmacological Location of Applied Device: Bilateral Lower Extremeties Pharmacologic Type: Enoxaparin
--- NOTE | 2020-10-04 11:58 | HMH.PHAINT ---
HOME MEDICATIONS RECONCILED FROM RX FILL HISTORY AND PATIENT INTERVIEW.
--- NOTE | 2020-10-04 16:33 | PC.NURSE ---
Pt has been pleasant this shift. Pt has remained on dopamine gtt @ 5mcq this shift. HR has remained between 50-53 bpm majority of this shift, and at times has dropped to 47-49 but quickly comes back up within seconds. Pt has been NSR this shift. Pt has tolerated RA appropriately w/ o2 sats > 93%. Pt has c/o nausea x1 this shift, PRN antiemetic administered per SEP w/ favorable results. Pt continues to get OOB w/ walker and standby assist. No other acute changes or complaints at this time.
--- NOTE | 2020-10-04 22:26 | PC.NURSE ---
Pt is currently resting on (R) lateral side. No complaints stated. Dopamine gtt infusing @ 5 mcg/kg/min. VSS. Will continue to monitor.
--- NOTE | 2020-10-04 23:10 | PC.NURSE ---
Pt got up to [facility] and became tachycardic and c/o soa. HR was noted to be 102. Dopamine gtt titrated. Dopamine is currently infusing @ 3 mcg/kg/min. Will continue to monitor.
--- NOTE | 2020-10-04 23:22 | PC.NURSE ---
Automatic cuff reading was low. Obtained a manual BP on the patient. Readjusted the cuff.
[2020-10-05] VITALS (22 sets, daily range): BP systolic 102–172; BP diastolic 35–100; PULSE 53–70; RESP 14–18; TEMP 36.6–36.8; O2SAT 92–95; BMI 29.2
--- NOTE | 2020-10-05 00:21 | PC.NURSE ---
Dopamine gtt increased to 5 mcg/kg/min
--- NOTE | 2020-10-05 08:19 | P.PN_ITS ---
Internal Medicine - PN: Subj *Date: 10/05/20 *Time: 08:19 Interval history: No acute events overnight. Patient did require up titration of her dopamine drip due to some bradycardia and hypotension. She feels well this morning although admits she did not sleep very well. Exam Vital signs and Labs for Last 24 Hours: Temp Pulse Resp BP Pulse Ox 98.1 F 60 18 120/56 L 93 L 10/05/20 07:52 10/05/20 06:00 10/05/20 04:00 10/05/20 06:00 10/05/20 06:00 Laboratory Results - last 24 hr 10/04/20 05:20: Free T4 1.82 I & O for Last 24 hours: Intake & Output 10/02/20 10/03/20 10/04/20 10/05/20 11:59 11:59 11:59 11:59 Intake Total 1989 1377 / 1377 Balance 1989 1377 / 1377 Weight 146 lb 164 lb 5 oz 165 lb 5 oz - Constitutional no acute distress - *Routine Respiratory Exam Present: CTA bilaterally - *Routine Cardiovascular Exam Present: murmur, irregular rhythm - *Routine Abdominal Exam Present: soft, normoactive bowel sounds. Absent: tenderness Assessment and Plan (1) Atrial fibrillation with slow ventricular response Status: Acute Category: Medical Code(s): I48.91 - Unspecified atrial fibrillation (2) Symptomatic bradycardia Status: Acute Category: Medical Code(s): R00.1 - Bradycardia, unspecified (3) CAD (coronary artery disease) Status: Chronic Qualifiers: Coronary Disease-Associated Artery/Lesion type: [place] artery [place] vs. transplanted heart: [place] heart Associated angina: with stable angina Qualified Code(s): I25.118 - Atherosclerotic heart disease of [place] coronary artery with other forms of angina pectoris Category: Medical Code(s): I25.10 - Atherosclerotic heart disease of [place] coronary artery without angina pectoris (4) HHD (hypertensive heart disease) Status: Chronic Qualifiers: Heart failure presence: without heart failure Qualified Code(s): I11.9 - Hypertensive heart disease without heart failure Category: Medical Code(s): I11.9 - Hypertensive heart disease without heart failure (5) HLD (hyperlipidemia) Status: Chronic Qualifiers: Hyperlipidemia type: mixed hyperlipidemia Qualified Code(s): E78.2 - Mixed hyperlipidemia Category: Medical Code(s): E78.5 - Hyperlipidemia, unspecified (6) On amiodarone therapy Status: Chronic Category: Medical Code(s): Z79.899 - Other supervisor intermediates (current) drug therapy (7) History of placement of stent in LAD coronary artery Status: Acute Category: Medical Code(s): Z95.5 - Presence of coronary angioplasty implant and graft (8) Mild chronic anemia Status: Acute Category: Medical Code(s): D64.9 - Anemia, unspecified (9) Hyperkalemia Status: Acute Category: Medical Code(s): E87.5 - Hyperkalemia (10) Hyponatremia Status: Acute Category: Medical Code(s): E87.1 - Hypo-osmolality and hyponatremia (11) CKD (chronic kidney disease) stage 3, GFR 30-59 ml/min Status: Acute Category: Medical Code(s): N18.30 - Chronic kidney disease, stage 3 unspecified - Assessment and plan all Dx Assessment and Plan for all problems:: 1. Patient will be n.p.o. after midnight in anticipation of pacemaker implantation
--- NOTE | 2020-10-05 18:08 | PC.NURSE ---
No acute changes. Pt remains on 5 mg/kg/min Dopamin IV, HR in 50-60's. Sinus rhythm on tely. Remains on room air. Lungs CTA. Abdomen soft, non-tender w/ active BS. C/o nausea and chronic back pain this shift, treated w/ IV zofran and morphine. Pt did verbalized relief. Ambulates w/ use of rolling walker and standby assistance, she did c/o dizziness this AM. She was educated on that when she gets up from bed to sit on side of bed for a minute or so before standing up abruptly and walking. Pt states dizziness has improved since then. Was assisted w/ shower and linens changed. Family have been to visit throughout day. She is currently sitting up using her laptop in bed. Call donis w/in reach.
[2020-10-06] VITALS (30 sets, daily range): BP systolic 79–157; BP diastolic 41–78; PULSE 60–97; RESP 14–18; TEMP 36.4–36.8; O2SAT 92–98; BMI 29.6
--- NOTE | 2020-10-06 | IR_ITS ---
APPROVED REPORT Patient Location: Inpatient Lab Aide: CLYDE Cruz RT (R) PROCEDURES 1. Pocket formation for Permanent Pacemaker Placement. 2. Placement of an atrial sensing and pacing coil into the right atrial appendage. 3. Placement of a ventricular sensing and pacing coil in the right ventricular apex. 4. Permanent Pacemaker Placement. INDICATION Sinus Bradycardia, Paroxysmal Atrial Tachy Informed consent was obtained prior to the procedure. COMPLICATIONS None Estimated Blood Loss: Less than 10 mls TECHNIQUE 1% Lidocaine with epinephrine used to anesthetized the left anterior aspect of the chest. Scalpel was used to make the initial cutaneous incision while electrocautery was used to dissect down tinto the fascia. The fascia was lifted off the pectoralis muscle and digitally manipulated creating a pocket for the pacemaker. The patient was then placed in Trendelenburg position and the subclavian vein was accessed twice via the Selinger technique, there are two wires in the vein. A 6 [place] sheath was placed under fluoroscopic guidance into the subclavian vein over one of the wires while keeping the other wire in place within the subclavian vein. The dilator was removed from the sheath. Using fluoroscopic guidance, the ventricular lead was placed into the right ventricular apex, screwed and secured into place. Electronic interrogation proved acceptable thresholds and voltage within the lead. Using 3-0 silk, the ventricular lead was then secured into place. Lead was secured to the facia using the 3-0 silk. Following this, the sheath was pealed away. An additional 6 [place] fresh sheath and dilator was placed over the existing wire. Using fluoroscopic guidance, the atrial lead was the placed into the right atrial appendage and screwed and secured in place. Electrical interrogation demonstrated acceptable thresholds and voltage number. The atrial lead was then secured into place using 3-0 silk. 1 gram of Ancef was used to flush the pocket. Following the pacemaker generator being secured to the fascia and in place, Monocryl was used to close the subcutaneous layers while diandra were used to close the cutaneous layer. A pressure dressing was placed and the patient was transferred to the postop holding area in stable condition for postoperative care. INTERROGATION Generator Model number: [address], L311 Generator Serial number: [id number] Atrial lead model number: INGEVITY+ 45cm, 7840 Atrial lead serial number: [id number] P-wave: 2.5mV Impedence: 565ohms Threshold: 1.0V@0.4ms Right Ventricular lead model number: SAMMIEITY+ 52cm, 7841 Right Ventricular lead serial number: [id number] R-wave: 20.0mV Impedence: 850ohms Threshold: 20.0mV@0.4ms Pacing Parameters: Mode: DDDR RYTHMIQ: AAIR with VVI Backup Base/Max Track: 60/130 ppm No diaphragmatic stimulation at 10 volts. IMPRESSION 1. Successful pocket formation for Permanent Pacemaker Placement. 2. Successful placement of an atrial sensing and pacing coil into the right atrial appendage. 3. Successful placement of a ventricular sensing and pacing coil in the right ventricular apex. 4. Successful permanent Pacemaker Placement. PLAN 1. Follow up office visit, Post op wound care Electronically signed by : Eliseo Zepeda, 10/08/2020 12:00:03
--- NOTE | 2020-10-06 05:06 | PC.NURSE ---
Pt has slept at intervals this shift. C/O nausea early in shift. Medicated per sep. Pt [place] [facility]. Has tolerated poorly. Pt tends to become symptomatic when up ambulating. Pt also noted to belch often afterwards. VSS. Pt remains on Dopamine gtt @ 5 mcg/kg/min. Pt is currently NPO for possible pacemaker placement. No other concerns at this time.
[2020-10-06 06:24] LABS: Basophils # 0.1 K/mm3 (0-0.2); Basophils % 1.6 % (0.1-2.0); Eosinophils # 0.2 K/mm3 (0.0-0.4); Eosinophils % 3.2 % (0.1-12.0); Hematocrit 34.2 % (37.0-47.0); Hemoglobin 11.1 g/dL (12.2-16.2); Lymphocytes # 1.7 K/mm3 (0.7-4.5); Lymphocytes % 23.2 % (10-50); Mean Corpuscular HGB Conc 32.5 g/dL (31.8-35.4); Mean Corpuscular Hemoglobin 29.7 pg (27.0-31.2); Mean Corpuscular Volume 91.4 fl (81-99); Mean Platelet Volume 7.9 fl (7.4-10.4); Monocytes # 0.7 K/mm3 (0.1-1.0); Monocytes % 9.3 % (1.7-9.3); Neutrophils # 4.5 K/mm3 (1.8-7.8); Neutrophils % 62.8 % (37.0-80.0); Platelet Count 222 K/mm3 (142-424); Red Blood Count 3.75 M/mm3 (4.20-5.40); Red Cell Distribution Width 12.8 % (11.5-17.5); White Blood Count 7.2 K/mm3 (4.8-10.8)
[2020-10-06 06:38] LABS: Chloride 102 mmol/L (98-107); Sodium 133 mmol/L (136-145)
[2020-10-06 06:39] LABS: Potassium 4.6 mmoL/L (3.5-5.1)
[2020-10-06 06:42] LABS: Anion Gap 10.6 mEq/L (5-15); Blood Urea Nitrogen 22 mg/dl (7-17); Calcium 9.1 mg/dl (8.4-10.2); Carbon Dioxide 25 mmol/L (22.0-30.0); Creatinine Clearance Estimated 35 mL/min (50-200); Estimated Glomerular Filt Rate 36 ml/min (>60); GFR (African American) 43 ML/MIN (>60); Glucose 108 mg/dl (74-100)
--- NOTE | 2020-10-06 07:35 | HMH.ACPN2 ---
Internal Medicine - PN: Subj *Date: 10/06/20 *Time: 07:35 Interval history: Patient had some nausea overnight. Current pulse rate is in the 70s Exam Vital signs and Labs for Last 24 Hours: Temp Pulse Resp BP Pulse Ox 97.9 F 66 16 127/57 L 92 L 10/06/20 04:02 10/06/20 07:00 10/06/20 07:00 10/06/20 07:00 10/06/20 07:00 Laboratory Results - last 24 hr 10/06/20 05:51: WBC 7.2 D, RBC 3.75 L, Hgb 11.1 L, Hct 34.2 L, MCV 91.4, MCH 29.7, MCHC 32.5, RDW 12.8, Plt Count 222, MPV 7.9, Neut % (Auto) 62.8, Lymph % (Auto) 23.2, [place] % (Auto) 9.3, Eos % (Auto) 3.2, Baso % (Auto) 1.6, Neut # (Auto) 4.5, Lymph # (Auto) 1.7, [place] # (Auto) 0.7, Eos # (Auto) 0.2, Baso # (Auto) 0.1 10/06/20 05:51: Sodium 133 L, Potassium 4.6, Chloride 102, Carbon Dioxide 25, Anion Gap 10.6, BUN 22 H, Creatinine 1.40 H D, Estimated Creat Clear 35, Estimated GFR 36 L, Est GFR ( Amer) 43 L D, Glucose 108 H, Calcium 9.1 I & O for Last 24 hours: Intake & Output 10/03/20 10/04/20 10/05/20 10/06/20 11:59 11:59 11:59 11:59 Intake Total 1989 1377 / 1377 526 / 526 Output Total 1000 / 1000 Balance 1989 1377 / 1377 -474 / -474 Weight 146 lb 164 lb 5 oz 165 lb 5 oz 167 lb 2 oz Narrative: Patient is in no distress. Lungs are clear. Heart rate is irregular. Abdomen is soft. Assessment and Plan (1) Atrial fibrillation with slow ventricular response Status: Acute Category: Medical Code(s): I48.91 - Unspecified atrial fibrillation (2) Symptomatic bradycardia Status: Acute Category: Medical Code(s): R00.1 - Bradycardia, unspecified (3) CAD (coronary artery disease) Status: Chronic Qualifiers: Coronary Disease-Associated Artery/Lesion type: [place] artery [place] vs. transplanted heart: [place] heart Associated angina: with stable angina Qualified Code(s): I25.118 - Atherosclerotic heart disease of [place] coronary artery with other forms of angina pectoris Category: Medical Code(s): I25.10 - Atherosclerotic heart disease of [place] coronary artery without angina pectoris (4) HHD (hypertensive heart disease) Status: Chronic Qualifiers: Heart failure presence: without heart failure Qualified Code(s): I11.9 - Hypertensive heart disease without heart failure Category: Medical Code(s): I11.9 - Hypertensive heart disease without heart failure (5) HLD (hyperlipidemia) Status: Chronic Qualifiers: Hyperlipidemia type: mixed hyperlipidemia Qualified Code(s): E78.2 - Mixed hyperlipidemia Category: Medical Code(s): E78.5 - Hyperlipidemia, unspecified (6) On amiodarone therapy Status: Chronic Category: Medical Code(s): Z79.899 - Other bed bug exterminator (current) drug therapy (7) History of placement of stent in LAD coronary artery Status: Acute Category: Medical Code(s): Z95.5 - Presence of coronary angioplasty implant and graft (8) Mild chronic anemia Status: Acute Category: Medical Code(s): D64.9 - Anemia, unspecified (9) Hyperkalemia Status: Acute Category: Medical Code(s): E87.5 - Hyperkalemia (10) Hyponatremia Status: Acute Category: Medical Code(s): E87.1 - Hypo-osmolality and hyponatremia (11) CKD (chronic kidney disease) stage 3, GFR 30-59 ml/min Status: Acute Category: Medical Code(s): N18.30 - Chronic kidney disease, stage 3 unspecified - Assessment and plan all Dx Assessment and Plan for all problems:: 1. Pacemaker implantation today
--- NOTE | 2020-10-06 09:59 | HMH.PNCARD ---
Subjective Date: 10/06/20 Time: 09:45 Principal diagnosis: Symptomatic bradycardia, atrial fibrillation Interval history: This is an 84-year-old female who presented to the emergency department with a near syncopal episode. She started to get really lightheaded and felt as if she were going to pass out. They checked her heart rate and it was found to be significantly low. A rapid response was called on the patient and she was transferred to the emergency department here at [facility]. She does have a longstanding history of atrial fibrillation and frequently her heart rate does run low. Do to her episodes of bradycardia the patient has been set up for permanent pacemaker placement. At this time she has remained on dopamine for heart rate support until permanent pacemaker could be placed. This morning she states that she feels pretty well. She denies any chest pain or pressure. She denies any shortness of breath or edema. She denies any fever, chills, nausea, vomiting, diarrhea, PND or orthopnea today. She states that she was getting a little sick with the dopamine yesterday and they decreased the dose and she has felt much better since that time. Her Eliquis has been stopped in preparation for permanent pacemaker placement. Exam Vital signs and Labs for Last 24 Hours: Temp Pulse Resp BP Pulse Ox 98.0 F 66 16 127/57 L 92 L 10/06/20 08:00 10/06/20 07:00 10/06/20 07:00 10/06/20 07:00 10/06/20 07:00 Laboratory Results - last 24 hr 10/06/20 05:51: WBC 7.2 D, RBC 3.75 L, Hgb 11.1 L, Hct 34.2 L, MCV 91.4, MCH 29.7, MCHC 32.5, RDW 12.8, Plt Count 222, MPV 7.9, Neut % (Auto) 62.8, Lymph % (Auto) 23.2, [place] % (Auto) 9.3, Eos % (Auto) 3.2, Baso % (Auto) 1.6, Neut # (Auto) 4.5, Lymph # (Auto) 1.7, [place] # (Auto) 0.7, Eos # (Auto) 0.2, Baso # (Auto) 0.1 10/06/20 05:51: Sodium 133 L, Potassium 4.6, Chloride 102, Carbon Dioxide 25, Anion Gap 10.6, BUN 22 H, Creatinine 1.40 H D, Estimated Creat Clear 35, Estimated GFR 36 L, Est GFR ( Amer) 43 L D, Glucose 108 H, Calcium 9.1 I & O for Last 24 hours: Intake & Output 10/03/20 10/04/20 10/05/20 10/06/20 23:59 23:59 23:59 23:59 Intake Total 307 / 307 2580 / 2580 1006 / 1006 0 / 0 Output Total 750 / 750 250 / 250 Balance 307 / 307 2580 / 2580 256 / 256 -250 / -250 Weight 161 lb 3 oz 164 lb 5 oz 165 lb 5 oz 167 lb 2 oz Narrative: Telemetry strip shows sinus rhythm with a rate of 60. - Constitutional no acute distress, average body habitus - *Routine HEENT Exam Head: Present: normocephalic, atraumatic Eye: Present: EOMI, PERRL ENT: Present: mucous membranes moist - *Routine Neck Exam Present: supple, normal carotid upstroke. Absent: full ROM, JVD, carotid bruit, lymphadenopathy - *Routine Respiratory Exam Present: CTA bilaterally - *Routine Cardiovascular Exam Present: RRR, Normal S1, Normal S2. Absent: murmur - *Routine Abdominal Exam Present: soft, normoactive bowel sounds. Absent: tenderness, distended, rebound - *Routine Extremities Exam Present: full ROM, pulses intact, normal capillary refill. Absent: cyanosis, clubbing, edema - *Routine Skin Exam Present: intact, warm. Absent: erythema, rash - *Routine Neurological Exam Present: alert, oriented X3, CN II-XII intact. Absent: sensory deficit, motor deficit - Routine Psychiatric Exam Present: normal affect, normal thought process Progress Note: A&P (1) Atrial fibrillation with slow ventricular response Status: Acute (2) Symptomatic bradycardia Status: Acute (3) CAD (coronary artery disease) Status: Chronic (4) HHD (hypertensive heart disease) Status: Chronic (5) HLD (hyperlipidemia) Status: Chronic (6) On amiodarone therapy Status: Chronic (7) History of placement of stent in LAD coronary artery Status: Acute (8) Mild chronic anemia Status: Acute (9) Hyponatremia Status: Acute (10) CKD (chronic kidney disease) stage 3,
--- NOTE | 2020-10-06 15:58 | P.PN_ITS ---
[facility] Anesthesia Checklist - Patient Identification Patient Identification: Arm Band - Structural Data Admitted From: Inpatient Planned Operative Procedure/s: Dual Chamber Pacemaker Consent for Planned Operative Procedure(s) Verified: Yes Verified Documents: Surgical Consent, History and Physical - NPO Status Verified Time NPO: 00:00 - Additional verifications Anesthesia Reactions: No Hx Blood Transfusions: No Blood Transfusion Reaction: No - Airway Assessment C-Spine Mobility Assessed: Yes (mp2) TMJ Mobility Assessed: Yes Dentition: Poor Dentition - Neurological Assessment Level of Consciousness: Awake, Alert - Anesthesia Plan Anesthesia Risk discussed: Yes Anesthesia Plan: Verified ASA Class: III Anesthesia Type: MAC [facility] History I have reviewed the patient's past medical history: Yes Medical History: Reports:: Arrhythmia, Atrial Fibrillation, Coronary Artery Disease, Depression, Gastroesophageal Reflux Disease(GERD), Hyperlipidemia, Hypertension, Migraine Denies:: Cancer, Diabetes Mellitus Type 1, Diabetes Mellitus Type 2, Internal Pacemaker, MRSA, Seizures *Have you ever received a pneumonia vaccine?: Yes *Have you received a flu vaccine this season?: Yes Other Medical History: Reports: Arthritis, Cataracts. Denies: Blood Transfusion Reaction Anesthesia experience/problems:: nac Other Surgeries: Yes: Appendectomy, Cardiac Catheterization, Colonoscopy, Coronary Stent, Hysterectomy-Total, Tubal Ligation, Other. No: Pacemaker Amputation: No Fractures: No - *Social History Last grade of school completed: GED Smoking Status: Never smoker Tobacco Type: cigarettes Alcohol Intake: never Alcohol Intake Frequency:: holidays/special occasions only Substance Use Type: denies use *Occupational Status:: retired Housing: house Household Members: family *Travel in the last 8 weeks: None - Psychiatric History Pschychiatric History:: Reports:: Depression Family Hx:: Cancer, Diabetes, Heart Attack
--- NOTE | 2020-10-06 16:22 | XR_ITS ---
PROCEDURE: XR CHEST PORTABLE CLINICAL HISTORY: lead placement Post pacemaker placement COMPARISON: DX XR CHEST 2V from 12/06/2019 CR XR CHEST 2V from 05/15/2020 CR XR CHEST PORTABLE from 10/03/2020 FINDINGS: Bipolar pacemaker is present from left subclavian approach with 1 lead overlying the region of the right atrium and 1 lead overlying the region of the right ventricle. There is no evidence of pneumothorax. Skin clips are present in the left upper chest. Right diaphragm is elevated as before. Minimal scarring noted in the right midlung. No acute bony abnormalities. IMPRESSION: Status post pacemaker placement as described above with no evidence immediate complications radiographically Dictated by: Bernardino Bass MD 10/06/2020 16:37 Bernardino Bass MD in [place] 10/06/2020 16:37
--- NOTE | 2020-10-06 17:34 | PC.NURSE ---
PT IS SITTING UP IN BED EATING DINNER AT THIS TIME. TOLERATED PROCEDURE WELL. PT REQUESTED PAIN MEDICATION SOON SHE ARRIVED BACK TO THE FOR KNEE DISCOMFORT. DRESSING SITE TO THE LT CHEST IS C/D/I. ALERT AND ORIENTED X4. LUNG SOUNDS CLEAR. ABDOMEN SOFT/NON TENDER WITH ACTIVE BOWEL SOUNDS. VSS. PCP STATED PT COULD BE TRANSFERRED OUT OF STEP DOWN. WILL CONTINUE TO MONITOR.
[2020-10-07] VITALS: BP 100/60; PULSE 70; RESP 16; TEMP 36.8; O2SAT 98
[2020-10-07 03:23] VITALS: BP 100/70; PULSE 83; RESP 16; TEMP 36.8; O2SAT 98
[2020-10-07 04:00] VITALS: PULSE 70
--- NOTE | 2020-10-07 04:07 | PC.NURSE ---
A&OX4. PT TOLERATING RA WELL T/O SHIFT. PT UP TO BATHROOM INDEPENDENTLY THIS SHIFT. PACEMAKER SITE CDI. PT INSTRUCTED NOT TO RAISE ARM ON THAT SIDE. PT STATES THAT THIS IS SOMEWHAT SORE AT TIMES, AND HAS ALSO C/O CHRONIC PAIN IN HER HIP AND KNEE. PAIN TREATED WITH PRN MEDICATION PER SEP. ON REASSESSMENT PT RESTING IN BED WITH EYES CLOSED. NO OTHER C/O THUS FAR. VSS WILL CONTINUE TO MONITOR.
[2020-10-07 05:58] VITALS: BMI 29.0
--- NOTE | 2020-10-07 07:30 | HMH.DCSUM ---
General - General Admission date:: 10/03/20 Discharge date: 10/07/20 HPI HPI: This is a 84-year-old female presented to the emergency department with a near syncopal episode. The patient was actually at routine clinic appointment with orthopedic surgery for her knee. She was waiting to see the physician when she started getting very lightheaded. The patient felt like she was going to pass out. They did check her heart rate and it was found to be significantly low. They did call a rapid response on the patient. Patient was transferred to the ER for further evaluation. Patient states that she has a longstanding history of atrial fibrillation. She states that frequently her heart rate does run low. The patient did not actually pass out today she just felt very lightheaded. She denies any chest pain or shortness of breath. No abdominal pain or vomiting. No diarrhea. No bleeding. Denies any fevers or chills. On reevaluation, the patient continues to have episodes of bradycardia. She does respond to atropine, however this is transient in nature. Cardiology was notified. I do believe the patient will require pacemaker placement. We did patient the patient on dopamine drip for inotropic support. Patient will be admitted to the hospital for further evaluation and treatment. The above per Dr. Ballesteros Patient confirms the above account. She denies any syncope, but does relate a similar near syncopal episode in March of last year. She is on amiodarone, Eliquis and metoprolol for history of atrial fibrillation. EKG in the ER shows what appears to be an idioventricular escape rhythm. During my exam the patient's telemetry exhibited sinus bradycardia in the 50s beats per minute range. She denied any chest pain, pressure or tightness. Her last dose of Eliquis was this morning. Echocardiogram is pending to confirm prior ejection fraction in the normal range. Discussion with the patient and Dr. Zepeda regarding treatment options which include dopamine drip to maintain patient's heart rate above 50 while we allow time for the Eliquis to get out of her system prior to proceeding with pacemaker to reduce risks of complications.. If however patient does not respond well to the dopamine drip we will have to proceed with pacemaker insertion possibly tonight or tomorrow. Patient is aware of the plan and agrees to proceed. The above was taken from ER and cardiology consultation note. This was reviewed and confirmed with the patient Hospital Course Hospital Course: Patient was admitted on a dopamine drip due to her bradycardia. Dopamine was titrated to maintain pulse greater than 50. On October 06 patient underwent pacemaker implantation by Dr. Zepeda. Post procedurally patient did well and had no complications. Patient was discharged home on October 07. Objective Vital signs: Temp Pulse Resp BP Pulse Ox 98.2 F 70 16 100/70 L 98 10/07/20 03:23 10/07/20 04:00 10/07/20 03:23 10/07/20 03:23 10/07/20 03:23 no acute distress - *Routine Respiratory Exam Present: CTA bilaterally - *Routine Cardiovascular Exam Present: RRR - *Routine Abdominal Exam Present: soft, normoactive bowel sounds. Absent: tenderness DS: Diagnosis - Discharge Diagnosis (1) Atrial fibrillation with slow ventricular response Status: Acute (2) Symptomatic bradycardia Status: Acute (3) CAD (coronary artery disease) Status: Chronic (4) HHD (hypertensive heart disease) Status: Chronic (5) HLD (hyperlipidemia) Status: Chronic (6) On amiodarone therapy Status: Chronic (7) History of placement of stent in LAD coronary artery Status: Acute (8) Mild chronic anemia Status: Acute (9) Hyponatremia Status: Acute (10) CKD (chronic kidney disease) stage 3, GFR 30-59 ml/min Status: Acute Discharge Plan - Patient Discharge Instructions ACTIVITY: Continue current activity DIET: continue same d
[2020-10-07 08:00] VITALS: BP 105/46; PULSE 80; PULSE 81; RESP 18; TEMP 36.8; O2SAT 94
--- NOTE | 2020-10-07 08:23 | HMH.PNCARD ---
Subjective Date: 10/07/20 Time: 08:00 Principal diagnosis: Symptomatic bradycardia, atrial fibrillation Interval history: This is an 84 year old female who is status post permanent pacemaker placement for symptomatic bradycardia. She tolerated this procedure well and has no signs of infection at site. Site is clean and healing well. Reviewed LUE restrictions with the patient. Dopamine has been stopped and HR has remained stable. Long standing history of atrial fibrillation. Today she denies any pain at the pacemaker site. Denies chest pain or pressure. She denies shortness of breath or edema. She denies fever, chills, N/V/D, PND or orthopnea. Will resume home medications at this time. Exam Vital signs and Labs for Last 24 Hours: Temp Pulse Resp BP Pulse Ox 98.2 F 81 18 105/46 L 94 L 10/07/20 08:00 10/07/20 08:00 10/07/20 08:00 10/07/20 08:00 10/07/20 08:00 I & O for Last 24 hours: Intake & Output 10/04/20 10/05/20 10/06/20 10/07/20 23:59 23:59 23:59 23:59 Intake Total 2580 / 2580 1006 / 1006 0 / 0 240 / 240 Output Total 750 / 750 250 / 250 Balance 2580 / 2580 256 / 256 -250 / -250 240 / 240 Weight 164 lb 5 oz 165 lb 5 oz 167 lb 2 oz 164 lb 1 oz Narrative: Telemetry strip shows v-pacing with a rate of 74. - Constitutional no acute distress, average body habitus - *Routine HEENT Exam Head: Present: normocephalic, atraumatic Eye: Present: EOMI, PERRL ENT: Present: mucous membranes moist - *Routine Neck Exam Present: supple, full ROM, normal carotid upstroke. Absent: JVD, carotid bruit, lymphadenopathy - *Routine Respiratory Exam Present: CTA bilaterally - *Routine Cardiovascular Exam Present: RRR, Normal S1, Normal S2, murmur Comments: pacemaker site to L chest wall is healing well. 9 diandra intact and no signs of infection. - *Routine Abdominal Exam Present: soft, normoactive bowel sounds. Absent: tenderness, distended - *Routine Extremities Exam Present: full ROM, pulses intact, normal capillary refill. Absent: cyanosis, clubbing, edema - *Routine Skin Exam Present: intact, warm. Absent: erythema, rash - *Routine Neurological Exam Present: alert, oriented X3, CN II-XII intact. Absent: sensory deficit, motor deficit - Routine Psychiatric Exam Present: normal affect, normal thought process Progress Note: A&P (1) Symptomatic bradycardia Status: Acute (2) Atrial fibrillation with slow ventricular response Status: Acute (3) CAD (coronary artery disease) Status: Chronic (4) HHD (hypertensive heart disease) Status: Chronic (5) HLD (hyperlipidemia) Status: Chronic (6) On amiodarone therapy Status: Chronic (7) History of placement of stent in LAD coronary artery Status: Acute (8) Mild chronic anemia Status: Acute (9) Hyponatremia Status: Acute (10) CKD (chronic kidney disease) stage 3, GFR 30-59 ml/min Status: Acute Assessment and Plan for All Diagnoses:: Plan: 1. The patient was admitted to the hospital with a near syncopal episode. She was found to be bradycardic with slow ventricular response versus idioventricular escape rhythm. Patient was set up for PPM placement yesterday due to symptomatic bradycardia. she tolerated the procedure well. 2. PPM site to L chest wall is healing well. no signs of infection. 9 diandra intact. no bleeding noted. slight purple bruising noted to the site. dressing changed. 3. Dopamine has been stopped. HR is stable today. 4. Continue anti-arrhythmics with Toprol and amiodarone. 5. Long standing history of atrial fibrillation. Rate is controlled. Will restart Eliquis for anticoagulation at this time. 6. Official echocardiogram report shows EF 50-55% with mild AI. 7. Coronary artery disease is stable. Denies chest pain or pressure. No plans for invasive left cardiac catheterization at this time. 8. Her blood pressure is well controlled. 9. Her LDL goal is less than 55. 10. She has chronic
[2020-10-07 09:56] LABS: Chol/HDL Ratio 1.7 (1-3.5); Cholesterol 147 mg/dl (140-200); HDL Cholesterol 88 mg/dl (40-60); Triglycerides 64 mg/dl (30-150); VLDL Cholesterol 13 mg/dL (0-40)
[2020-10-07 10:07] LABS: Direct LDL Cholesterol 41.96 mg/dL (100-129)
== END 2020-10-07 10:17 | disposition home or self-care (01) | DRG 243 ==
LOC: ER 13:03 → 2ND 15:22
PROVIDERS: Internal Medicine; Nurse Practitioner Family; Admitting Provider Family Medicine; Emergency Provider Emergency Medicine; PCP Internal Medicine; Visit Provider Family Medicine
PROC: 0JH606Z Insertion of Pacemaker, Dual Chamber into Chest Subcutaneous Tissue and Fascia, Open Approach (ICD-10-PCS; principal; 2020-10-06 10:00)
DX: I49.5 Sick sinus syndrome; E87.1 Hypo-osmolality and hyponatremia; I48.20 Chronic atrial fibrillation, unspecified; I42.0 Dilated cardiomyopathy; F32.9 Major depressive disorder, single episode, unspecified; K21.9 Gastro-esophageal reflux disease without esophagitis; G43.909 Migraine, unspecified, not intractable, without status migrainosus; Z79.01 Long term (current) use of anticoagulants; I25.119 Atherosclerotic heart disease of native coronary artery with unspecified angina pectoris; E87.5 Hyperkalemia; E78.2 Mixed hyperlipidemia; Z95.5 Presence of coronary angioplasty implant and graft; N18.30 Chronic kidney disease, stage 3 unspecified; I12.9 Hypertensive chronic kidney disease with stage 1 through stage 4 chronic kidney disease, or unspecified chronic kidney disease
CPT/HCPCS: 33208; 36415; 71045; 80048; 80053; 80061; 83880; 84439; 84443; 84484; 85025; 85610; 85730; 87581; 87633; 87798; 93005; 93306; 96365; 96367; 99284; C1785; C1898; J2405

== ENCOUNTER → 2020-10-20 09:48 | Outpatient (POV) | payer MEDICARE, BC, SELFPAY ==
[2020-10-20 10:00] VITALS: BP 128/85; PULSE 77; RESP 18; O2SAT 98; BMI 29.0
--- NOTE | 2020-10-20 10:16 | P.CONS_ITS ---
[facility] Pain Management SOAP Note Subjective:: Patient is a pleasant 84-year-old white female who presents today for follow-up. Patient recently had a pacemaker placed. Patient is being seen by Dr. Crowley for knee pain. She states that she was receiving steroid injections however they were no longer beneficial. She states that they were discussing surgical intervention however during this discussion she had a cardiac episode which resulted in emergency placement of pacemaker. Patient still interested in surgery. Patient states that when she called Dr. Crowley's office that she was redirected down to our office. I discussed with her that the injections that we would provide would be the same as the steroid injection she received prior. She states that these are not beneficial. Patient would like to follow-up with Ortho to see if she is a candidate for surgical intervention at this time. ROS General: no recent weight change, no fever, no sleep disturbances Respiratory: no cough, no shortness of air, no recurring pulmonary infections Cardiovascular/Peripheral Vascular: No chest pain, No palpitations, no edema, no shortness of breath. Gastrointestinal: no new onset incontinence, normal bowel movements reported Genitourinary: no new onset incontinence Musculoskeletal: Left knee pain Psychiatric: normal mood/ affect Neurological: [denies new onset weakness in extremities], [denies new onset balance issues] Objective:: Physical Exam General: Alert and oriented x3, no acute distress, pleasant and cooperative, [on room air] Lungs: Resps E/U, Symmetrical chest expansion, Eyes: PERRL Musculoskeletal: Flexion and extension of lumbar spine somewhat guarded secondary to pain, deep tendon reflexes normal, strength in upper and lower extremities [5/5], [abnormal gait noted] Neurological: speech clear, rabies inspector equal, no gross sensory deficits Assessment:: Left knee pain, left knee osteoarthritis Plan:: We will call Dr. Crowley's office and get the patient an appointment for a continuation of the discussion about surgical intervention. She has been instructed to call our office after this visit. Dr. Gonzalez has reviewed this note and agrees with this plan of care. This note was dictated using voice recognition software and may contain errors or omissions [facility] History I have reviewed the patient's past medical history: Yes Medical History: Reports:: Arrhythmia, Atrial Fibrillation, Coronary Artery Disease, Depression, Gastroesophageal Reflux Disease(GERD), Hyperlipidemia, Hypertension, Internal Pacemaker, Migraine Denies:: Cancer, Diabetes Mellitus Type 1, Diabetes Mellitus Type 2, MRSA, Seizures *Have you ever received a pneumonia vaccine?: Yes *Have you received a flu vaccine this season?: Yes Other Medical History: Reports: Arthritis, Cataracts. Denies: Blood Transfusion Reaction Other Surgeries: Yes: No Previous Surgery, Appendectomy, Cardiac Catheterization, Colonoscopy, Coronary Stent, Hysterectomy-Total, Pacemaker, Tubal Ligation, Other Amputation: No Fractures: No - *Social History Smoking Status: Never smoker Tobacco Type: cigarettes Alcohol Intake: never Alcohol Intake Frequency:: holidays/special occasions only Substance Use Type: denies use *Occupational Status:: other Housing: house Household Members: family *Travel in the last 8 weeks: None - Psychiatric History Pschychiatric History:: Reports:: Depression Family Hx:: Cancer, Diabetes, Heart Attack
== END ==
PROVIDERS: PCP Internal Medicine; Visit Provider Clinical Nurse Specialist Family Health
DX: M17.12 Unilateral primary osteoarthritis, left knee (principal)
CPT/HCPCS: 99202; G0463

== ENCOUNTER → 2020-11-03 10:22 | Outpatient (CLI) | payer MEDICARE, BC, SELFPAY ==
--- NOTE | 2020-11-03 10:27 | XR_ITS ---
PROCEDURE: XR KNEE LT 4V CLINICAL INDICATION: Left knee pain COMPARISON: CR [id number] XR knee LT 3V from 08/16/2018 CR XR KNEE LT 4V from 09/07/2019 CR XR KNEE LT 3V from 04/25/2020 FINDINGS: No fracture or dislocation. No lytic or blastic change. There is normal mineralization. There is severe osteoarthritic change of the medial compartment with sclerosis and flattening involving the medial femoral condyle and medial tibial plateau. There is loss of joint space at the medial compartment. There are mild osteoarthritic changes of the patellofemoral joint and lateral compartment with suggestion of a small loose body projecting over the lateral compartment measuring approximately 3 mm. There is lateral translation of the tibia by approximately 6 mm. Small knee joint effusion noted.. Other findings:None. IMPRESSION: Severe osteoarthritic change medial compartment. The joint space appears more narrowed on today's exam compared to 09/07/2019. Mild osteoarthritis lateral compartment and patellofemoral joint with knee joint effusion is suspected small loose body overlying the lateral compartment Dictated by: Bernardino Bass MD 11/03/2020 11:21 Bernardino Bass MD in [place] 11/03/2020 11:21
== END ==
PROVIDERS: PCP Internal Medicine; Visit Provider Orthopaedic Surgery
DX: M25.562 Pain in left knee (principal)
CPT/HCPCS: 73564

== ENCOUNTER → 2020-12-05 16:08 | Outpatient (CLI) | payer MEDICARE, BC, SELFPAY ==
[2020-12-05 16:13] LABS: Microscopic, Urine URINE MICROSCOPIC (MICROSCOPIC)
[2020-12-05 16:54] LABS: Basophils # 0.1 K/mm3 (0-0.2); Basophils % 1.3 % (0.1-2.0); Eosinophils # 0.3 K/mm3 (0.0-0.4); Eosinophils % 4.5 % (0.1-12.0); Hematocrit 33.1 % (37.0-47.0); Hemoglobin 10.9 g/dL (12.2-16.2); Lymphocytes # 1.6 K/mm3 (0.7-4.5); Lymphocytes % 29.4 % (10-50); Mean Corpuscular HGB Conc 33.1 g/dL (31.8-35.4); Mean Corpuscular Volume 93.8 fl (81-99); Mean Platelet Volume 8.1 fl (7.4-10.4); Monocytes # 0.6 K/mm3 (0.1-1.0); Monocytes % 10.4 % (1.7-9.3); Neutrophils % 54.5 % (37.0-80.0); Platelet Count 219 K/mm3 (142-424); Red Blood Count 3.53 M/mm3 (4.20-5.40); Red Cell Distribution Width 13.9 % (11.5-17.5); White Blood Count 5.6 K/mm3 (4.8-10.8)
[2020-12-05 17:09] LABS: Appearance,Urine CLEAR (Clear); Bilirubin,Urine Negative (Negative); Blood, Urine 1+ (Negative); Color,Urine YELLOW (Yellow); Glucose,Urine (UA) Negative (Negative); Ketones,Urine Negative (Negative); Leukocyte Esterase,Urine 1+ (Negative); Nitrate,Urine Negative (Negative); Protein,Urine Negative (Negative); Urobilinogen,Urine 0.2 EU/dl (0.2)
[2020-12-05 17:26] LABS: Chloride 102 mmol/L (98-107); Potassium 4.7 mmoL/L (3.5-5.1); Sodium 136 mmol/L (136-145)
[2020-12-05 17:29] LABS: Alanine Aminotransferase 18 U/L (12-78); Albumin Level 4.1 g/dl (3.5-5.0); Albumin/Globulin Ratio 1.6 (1.1-1.8); Alkaline Phosphatase 77 U/L (38-126); Anion Gap 15.7 mEq/L (5-15); Aspartate Amino Transferase 29 U/L (14-36); Bilirubin,Total 0.6 mg/dl (0.2-1.3); Blood Urea Nitrogen 21 mg/dl (7-17); Calcium 8.9 mg/dl (8.4-10.2); Carbon Dioxide 23 mmol/L (22.0-30.0); Estimated Glomerular Filt Rate 47 ml/min (>60); GFR (African American) 57 ML/MIN (>60); Globulin 2.5 g/dL (1.3-3.2); Glucose 81 mg/dl (74-100); Total Protein,Serum 6.6 g/dl (6.3-8.2)
== END ==
PROVIDERS: Visit Provider Orthopaedic Surgery
DX: Z01.818 Encounter for other preprocedural examination (principal); Z20.822 Contact with and (suspected) exposure to COVID-19; R82.90 Unspecified abnormal findings in urine
CPT/HCPCS: 36415; 80053; 81001; 85025; 86850; 87086; U0003

== ENCOUNTER 2020-12-08 11:16 | Observation (INO) | payer MEDICARE, BC, SELFPAY ==
[2020-12-02 13:38] VITALS: BMI 28.7
[2020-12-08] VITALS (17 sets, daily range): BP systolic 99–157; BP diastolic 53–86; PULSE 59–66; RESP 16–20; TEMP 6.1–43; O2SAT 96–100; BMI 31.4
--- NOTE | 2020-12-08 11:31 | P.PN_ITS ---
[facility] Anesthesia Checklist - Patient Identification Patient Identification: Arm Band - Structural Data Admitted From: Home Planned Operative Procedure/s: Left TKA Consent for Planned Operative Procedure(s) Verified: Yes Verified Documents: Surgical Consent, History and Physical, Cardiac Clearance - NPO Status Verified Time NPO: 00:00 - Additional verifications Anesthesia Reactions: No Hx Blood Transfusions: No Blood Transfusion Reaction: No - Airway Assessment C-Spine Mobility Assessed: Yes (mp2) TMJ Mobility Assessed: Yes Dentition: Dentures-good fit - Neurological Assessment Level of Consciousness: Awake, Alert - Anesthesia Plan Anesthesia Risk discussed: Yes Anesthesia Plan: Verified ASA Class: III Anesthesia Type: MAC w/Spinal (Risks/benefits of SAB vs GA discussed at length with pt and Dr. Van. Decision made by all parties to procede with SAB/MAC. Pt Verbalized understanding of plan of care) [facility] History I have reviewed the patient's past medical history: Yes Medical History: Reports:: Arrhythmia, Atrial Fibrillation, Coronary Artery Disease, Depression, Gastroesophageal Reflux Disease(GERD), Hyperlipidemia, Hypertension, Internal Pacemaker, Migraine Denies:: Cancer, Diabetes Mellitus Type 1, Diabetes Mellitus Type 2, MRSA, Seizures *Have you ever received a pneumonia vaccine?: Yes *Have you received a flu vaccine this season?: Yes Other Medical History: Reports: Arthritis, Cataracts. Denies: Blood Transfusion Reaction Anesthesia experience/problems:: nac Laterality Cases: Bilateral: Cataract Other Surgeries: Yes: Appendectomy, Cardiac Catheterization, Colonoscopy, Coronary Stent, Hysterectomy-Total, Pacemaker, Tubal Ligation, Other Amputation: No Fractures: No - *Social History Smoking Status: Never smoker Tobacco Type: cigarettes Alcohol Intake: never Alcohol Intake Frequency:: holidays/special occasions only Substance Use Type: denies use *Occupational Status:: other Housing: house Household Members: family *Travel in the last 8 weeks: None - Psychiatric History Pschychiatric History:: Reports:: Depression Family Hx:: Cancer, Diabetes, Heart Attack
--- NOTE | 2020-12-08 15:31 | SUR.OPER ---
1525 family updated regarding procedure
--- NOTE | 2020-12-08 16:06 | P.PN_ITS ---
[facility] Anesthesia Record Part I Intake, IV Amount: 800 Estimated blood loss (mL): 50 Urine output (mL): 1,000 Blood Pressure: 102/55 SaO2: 99 Pulse Rate: 66 Respiratory Rate: 16 Temperature: 97.4 F Patient is:: Awake Stable to PACU at:: 16:04
--- NOTE | 2020-12-08 16:11 | XR_ITS ---
PROCEDURE: XR KNEE LT 2V CLINICAL INDICATION: postop Follow-up surgery COMPARISON: CR [id number] XR knee LT 3V from 08/16/2018 CR XR KNEE LT 4V from 09/07/2019 CR XR KNEE LT 3V from 04/25/2020 CR XR KNEE LT 4V from 11/03/2020 FINDINGS: Status post total knee replacement. There is good alignment. Postsurgical intra-articular and subcutaneous gas noted. Small air-fluid levels present at the knee joint anteriorly Other findings:None. IMPRESSION: Good alignment status post total knee replacement Dictated by: Bernardino Bass MD 12/08/2020 17:00 Bernardino Bass MD in [place] 12/08/2020 17:00
--- NOTE | 2020-12-08 16:30 | HMH.OPNOTE ---
Date of procedure: 12/08/20 Pre-op Diagnosis:: Advanced degenerative arthritis, left knee Post-op Diagnosis:: Same Procedure performed:: Cemented total knee arthroplasty, left Surgeon:: Terrance Van MD Complex Director(s):: Nena Walker ORTHOTIC ASSISTANT:: Ildefonso Rodriguez Anesthesia: spinal Estimated blood loss (mL): 50 Clinical Note:: Patient is an 85-year-old female with end-stage tricompartmental osteoarthritis and [id number] changes over the medial compartment with a progressive varus deformity and flexion contracture of her left knee presented with unremitting severe pain not relieved by conservative management. The arthritic process and pain are advanced to the point that it is becoming a hazard for the patient with risk of falling and injuring herself. A total knee arthroplasty is indicated to relieve the pain, improve function, reduce the risk of falls and improve quality of life. Please refer to my office note for full details. Operative findings:: As noted on the preoperative evaluation, the knee joint has a 5 degrees of fixed varus deformity. As seen on the x-rays, the medial and patellofemoral compartments are showing advanced degenerative changes with [id number] appearance. The menisci and cruciate ligaments are significantly degenerate. There is osteophyte formation over all 3 compartments. Bone quality is good. Operative note:: On the day of the surgery the patient and her daughter will admit in the preoperative area. I have again reviewed the clinical and x-ray findings and discussed the diagnosis, natural history and management options in detail including both nonsurgical and surgical. Patient has advanced degenerative arthritis of the left knee and has failed to respond satisfactorily to appropriate conservative management so far and has opted for a total knee arthroplasty. The left knee joint is stiff and painful, and is limiting mobility, ADLs and quality of life. Also the knee gives out and patient is at risk of falls resulting in fractures. I have again discussed the details of the procedure, risks and benefits and alternatives in detail. The complications discussed include but are not limited to infection, injury to nerves and blood vessels including injury to popliteal artery, injury to tendons and ligaments, DVT and PE, fat embolism, intraoperative fracture, limb length inequality, patella fracture, patellofemoral instability, patellar clunk syndrome, quadriceps and patellar tendon rupture, implant failure, component loosening, periprosthetic femur and tibia fractures, stiffness /arthrofibrosis, limp, incomplete relief of pain, incomplete functional recovery, likely need for further surgery in future including revision and anesthetic complications including heart attack, stroke and even . We also discussed about the likely need for blood transfusion and transfusion reactions. We discussed how any of these events can be devastating. We have discussed nonsurgical alternatives as well. Patient understands and wishes to proceed with a left total knee arthroplasty as planned and I believe that he is fully informed as to the risks, benefits, and alternatives including nonsurgical alternatives. We also discussed the postoperative course including the rehab and physical therapy required. A physical examination was performed and documented. Patient understood the risks, agreed to proceed with surgery, signed the consent form and no guarantees or assurances were given or implied. The limb was appropriately marked and initialed by me. The patient was then brought to the operating room and a spinal anesthesia was administered by the gas singer. The patient was then positioned supine on the operating table. All the bony prominences were appropriately padded. A well-padded tourniquet cuff was placed high over the upper thigh. The left knee was then prepped with isopropyl alcohol followed by chlorhexidine and draped in the usual sterile fashion. Prior
--- NOTE | 2020-12-08 16:36 | PC.NURSE ---
Urinary catheter emptied of 400ml teddy colored urine
--- NOTE | 2020-12-08 18:30 | PC.NURSE ---
Pt's daughter said she will bring pt's home meds this evening for pharmacy to label in the morning.
[2020-12-08 23:13] LABS: Microscopic,Cath URINE MICROSCOPIC (MICROSCOPIC)
[2020-12-08 23:17] LABS: Appearance,Urine/Cath CLEAR (Clear); Bilirubin,Cath Negative (Negative); Blood, Urine/Cath Negative (Negative); Color,Urine/Cath YELLOW (Yellow); Glucose,Urine/Cath (UA) Negative (Negative); Ketones,Urine/Cath Negative (Negative); Leukocyte Esterase,Cath Negative (Negative); Nitrate,Cath Negative (Negative); PH,Urine/Cath 6.5 (5.0-8.5); Protein,Urine/Cath Negative (Negative); Specific Gravity, Urine/Cath <= 1.005 (1.005-1.030); Urobilinogen,Cath 0.2 EU/dl (0.2)
[2020-12-08 23:22] LABS: Bacteria,Urine/Cath TRACE /lpf
[2020-12-09] VITALS (7 sets, daily range): BP systolic 111–131; BP diastolic 56–68; PULSE 60–67; RESP 16–17; TEMP 36.4–37.4; O2SAT 95–99; BMI 31.5
--- NOTE | 2020-12-09 06:06 | PC.NURSE ---
Patient has had uncontrolled pain this shift with pain medication administered and repositioning. Provider called and received v.o. for one time dose of Toradol. Continued to assess patient pain level and administer pain medication per MAR. Call light within reach, bed at lowest level, no s/s of acute distress noted; will continue to monitor.
[2020-12-09 07:08] LABS: Basophils # 0.1 K/mm3 (0-0.2); Basophils % 0.7 % (0.1-2.0); Eosinophils # 0.1 K/mm3 (0.0-0.4); Eosinophils % 0.5 % (0.1-12.0); Hemoglobin 9.7 g/dL (12.2-16.2); Lymphocytes # 0.7 K/mm3 (0.7-4.5); Lymphocytes % 7.9 % (10-50); Mean Corpuscular HGB Conc 33.6 g/dL (31.8-35.4); Mean Corpuscular Hemoglobin 31.5 pg (27.0-31.2); Mean Platelet Volume 7.5 fl (7.4-10.4); Monocytes # 0.8 K/mm3 (0.1-1.0); Neutrophils # 7.8 K/mm3 (1.8-7.8); Neutrophils % 82.9 % (37.0-80.0); Platelet Count 183 K/mm3 (142-424); Red Blood Count 3.09 M/mm3 (4.20-5.40); Red Cell Distribution Width 13.7 % (11.5-17.5); White Blood Count 9.4 K/mm3 (4.8-10.8)
[2020-12-09 07:12] LABS: Chloride 99 mmol/L (98-107); Potassium 4.1 mmoL/L (3.5-5.1); Sodium 131 mmol/L (136-145)
[2020-12-09 07:15] LABS: Blood Urea Nitrogen 12 mg/dl (7-17); Calcium 8.1 mg/dl (8.4-10.2); Carbon Dioxide 27 mmol/L (22.0-30.0); Creatinine Clearance Estimated 52 mL/min (50-200); Estimated Glomerular Filt Rate 59 ml/min (>60); GFR (African American) 72 ML/MIN (>60); Glucose 117 mg/dl (74-100)
--- NOTE | 2020-12-09 07:58 | P.PN_ITS ---
[facility] Anesthesia Record Part II Discharge Time: 16:34 Destination: Medical Surgical Department PACU nurse assessment reviewed?: Yes Patient Condition:: Good Anesthesia Complications:: None Swallowing reflex intact?: Yes Cyanosis?: No Blood Pressure: 118/64 Pulse Rate: 60 Temperature: 97.6 F Mental Status: Alert & Oriented Pain level:: 0 Nausea and/or vomitting:: None Intake, IV Amount: 0
--- NOTE | 2020-12-09 08:07 | PC.NURSE ---
Report received from steel roller rn
--- NOTE | 2020-12-09 09:08 | HMH.CONS ---
*Reason for consult:: Left knee replacement *History of present illness: This 85-year-old white female underwent left knee replacement. Dr. Van has asked that I consult on her. I am familiar with this patient, having seen her in past. Currently she is a patient of Dr. Bon Dove. She has experienced some nausea this morning otherwise she is stable. She has had a past history of ulcer disease but states that her gastrointestinal status has been stable as of late. Since I have seen her she has had some cardiac issues. She got a stent over a year ago. She had a pacemaker placed about 9 weeks ago. Both of these were under the purview of Dr. Zepeda. She has a history of hyperlipidemia, depression, osteoporosis and the GI issues as I have mentioned. [facility] History Medical History: Reports:: Arrhythmia, Atrial Fibrillation, Cardiomyopathy, Coronary Artery Disease, Depression, Gastroesophageal Reflux Disease(GERD), Hyperlipidemia, Hypertension, Internal Pacemaker, Migraine Denies:: Cancer, Diabetes Mellitus Type 1, Diabetes Mellitus Type 2, MRSA, Seizures *Have you ever received a pneumonia vaccine?: Yes *Have you received a flu vaccine this season?: Yes Other Medical History: Reports: Arthritis, Cataracts. Denies: Blood Transfusion Reaction Anesthesia experience/problems:: nac Laterality Cases: Bilateral: Cataract Other Surgeries: Yes: Appendectomy, Cardiac Catheterization, Colonoscopy, Coronary Stent, Hysterectomy-Total, Pacemaker, Tubal Ligation, Other Amputation: No Fractures: No - *Social History Smoking Status: Never smoker Alcohol Intake: never Alcohol Intake Frequency:: holidays/special occasions only Substance Use Type: denies use *Occupational Status:: retired Housing: house Household Members: family *Travel in the last 8 weeks: None - Psychiatric History Pschychiatric History:: Reports:: Depression Family Hx:: Cancer, Heart Attack, Hypertension Review of Systems - Constitutional Denies body ache(s), Denies chills, Denies weight loss - Eyes Denies change in vision - ENT Denies dizziness - *Cardiovascular Denies chest pain - *Respiratory Denies chest congestion, Denies cough - *Gastrointestinal Denies abdominal pain, Denies change in bowel habits - *Genitourinary Denies difficulty urinating (Currently with Giordano catheter in place.) - *Musculoskeletal Reports joint pain - Integumentary/Breasts Denies bleeding lesions, Denies changing lesions - *Neurologic Denies abnormal speech, Denies frequent falls - Psychiatric Reports depression (History of, with treatment) Meds Home Medications Medication Instructions Recorded Confirmed Type celecoxib 200 mg capsule 200 mg PO DAILY 08/30/18 12/08/20 History donepezil 5 mg tablet 5 mg PO HS 08/30/18 12/08/20 History vitamin B complex 1 tab PO DAILY 08/30/18 12/08/20 History potassium chloride 20 mEq 20 meq PO BID 03/08/19 12/08/20 History tablet,extended release Apixaban [Eliquis] 2.5 mg PO BID 11/07/19 12/08/20 History Clopidogrel Bisulfate [Plavix 75mg 75 mg PO DAILY 11/07/19 12/08/20 History Tab] gabapentin 300 mg capsule 300 mg PO BID cap 11/07/19 12/08/20 History coenzyme Q10 10 mg capsule 100 mg PO DAILY cap 11/09/19 12/08/20 History Atorvastatin Calcium [Lipitor 40mg 40 mg PO DAILY 10/03/20 12/08/20 History Tab] Losartan/Hydrochlorothiazide 1 tab PO DAILY 10/03/20 12/08/20 History [Losartan-Hctz 50-12.5 mg Tab] Metoprolol Succinate [Metoprolol 25 mg PO DAILY 10/03/20 12/08/20 History Succinate 25mg Tablet*] Spironolactone [Spironolactone 25 mg PO DAILY 10/03/20 12/08/20 History 25mg Tablet] Amiodarone HCl [Cordarone 200mg 200 mg PO DAILY 10/04/20 12/08/20 History tablet] Pantoprazole Sodium [Protonix 40mg 40 mg PO HS 10/04/20 12/08/20 History tablet] Sertraline HCl [Zoloft] 25 mg PO DAILY 10/04/20 12/08/20 History chlorhexidine gluconate 4 % 1 applic TOPICAL Q5M 5 Days #473 ml 11/24/20 12/08/20
--- NOTE | 2020-12-09 09:11 | P.CONPHA_ITS ---
[facility] Pharmacy VTE Monitoring - Patient Demographics Admission date: 12/08/20 Report Date: 12/09/20 Time: 09:11 Allergies/Adverse Reactions: Patient Allergies No Known Allergies Allergy (Verified 12/02/20 13:45) Height: 1.6 m Weight: 80.796 kg - VTE Risk Labs: VTE Related Lab Results Hgb 9.7 g/dL (12.2-16.2) L 12/09/20 06:10 Hct 29.0 % (37.0-47.0) L 12/09/20 06:10 Plt Count 183 K/mm3 (142-424) 12/09/20 06:10 BUN 12 mg/dl (7-17) 12/09/20 06:10 Creatinine 0.90 mg/dl (0.52-1.04) 12/09/20 06:10 Estimated Creat Clear 52 mL/min (50-200) 12/09/20 06:10 VTE Score: 5 VTE Risk Level: Low Risk - Prophylaxis VTE Prophylaxis Ordered?: Yes Types of VTE Prophylaxis: IPCS Thigh High, Pharmacological Location of Applied Device: Bilateral Lower Extremeties Pharmacologic Type: Other (ELIQUIS)
--- NOTE | 2020-12-09 09:29 | HMH.OTEV ---
OT Inpatient Evaluation Rehab OT IP Evaluation Start: 12/08/20 16:21 Freq: ONCE Status: Complete Protocol: [facility]09/20 09[facility] (Rec: 12/09/20 09:28 [facility] [id number]) Rehab OT IP Assessment Subjective History Pt oriented x 3 on arrival. Pt agreeable to engage in therapy evaluation. Pt was admitted on 12/08/20 following a left cemented total knee arthroplasty. Pt has a past medical history of Arrythmia, A-fib, Cardiomyopathy, CAD, depreesion, GERD, hyperlipidemia, HTN, and Internal pacemaker. Pt reports prior to surgery she lived at home. Her daughter and grandson live with her. However, she was completely independent with all ADLS and IADLs. Pt did use a walker during ambulation due to pain at left knee. Subjective I did it all before. Objective Patient Orientation Person,Place,Birthday Upper Extremity Gross ROM WFL Bed Mobility bed mobility-scooting,bed mobility - supine/sit,bed mobility - rolling Assist Level Minimal x 1 (25% assist) Transfer Training Sit/Stand Transfer Assist Level Minimal x 1 (25% assist) Chair Transfer Ability Minimal x 1 (25% assist) Chair Transfer Technique Sit to/from Ambulatory Chair Transfer Assistive Devices Rolling Walker Rehab OT IP prob,goals,plan Problems Date of Evaluation: 12/09/20 OT IP Problems Bed Mobility,Transfers,Gait, Balance,Self care,Safety Rehab Potential Rehab Potential Good Equipment Needs Assistive Devices Rolling / Wheeled Walker Plan OT intervention Plan Bed Mobility,Transfers,Gait, Balance,Self care,Safety, Therapeutic Exercise OT Plan Frequency BID Duration LOS Discharge Goals Bed Mobility Ability Standby Assistance Sit to Stand Chair Transfer Ability Contact Guard/Hand Hold Chair Transfer Ability Contact Guard/Hand Hold Chair Transfer Technique Sit to/from Ambulatory Chair Transfer Assistive Devices Rolling Walker Lower Body Dressing Ability Assistance X1 Upper Body Dressing Ability
--- NOTE | 2020-12-09 09:37 | SW/DCPLANNER ---
Addendum entered by Coby Hagan 12/11/20 09:43: Lourdes with [facility] called and stated they would not be able to service this patient due to low staff. Patient information/order has been faxed to [facility] called and stated they will begin services today or tomorrow for this patient. Addendum entered by Coby [place] 12/10/20 14:43: Germania with [facility] has confirmed that BSC will be delivered to patients home today. Addendum entered by Coby [place] 12/10/20 14:05: Patient information/order has been faxed to [facility] for a bedside commode. Patient already has a rolling walker at home. Patient information will also be faxed to Lourdes at [facility]. I will follow up with Carmen once patient information/order is reviewed. Patient will discharge home today. Original Note: I spoke with this patient and patients daughter this morning regarding discharge plans. Patient stated that she resides at home alone and her daughter is currently in from [place]. Patient stated that her plan is to discharge to [facility] for therapy. I explained to this patient the need for a qualifying stay in order for Medicare to cover expense. I explained that placement is an option under private pay: patient was quick to state this is not an option. I further explained qualifying stay to patient and daughter. I informed patient/daughter of discharge plans: placement under private pay or home with home health services. Patient stated that she would speak with family prior to making any decisions. Discharge date is unknown at this time. I will also follow up with Dr Van.
--- NOTE | 2020-12-09 09:40 | HMH.PTEV ---
Physical Therapy Evaluation Rehab PT IP Evaluation Start: 12/08/20 16:21 Freq: ONCE Status: Active Protocol: Document 12/09/20 09:00 DREW (Rec: 12/09/20 09:40 PHORNE [id number]) Subjective/History History History [address] [facility] for L TKA. She reports she is independent with all mobility at baseline and has limited assistance at home with 2-3 steps to enter the home. Subjective Subjective Pt reports pain in the L knee. I had a really rough night last night. Some N/V with sitting upright this date. Rehab PT IP Eval Objective Appearance Patient Behavior Appropriate Patient Orientation Person,Place,Time Difficulty following instructions none Speech Pattern Clear Ambulation Patient Able to Ambulate Yes Ambulation Observation IP General Gait Pattern Observation Antalgic Gait,Decrease Stride Lngth (R),Decrease Stride Lngth (L) Ambulation Distance (feet) 15 Ambulation Assistive Device Rolling Walker Ambulation Ability Minimal x 1 (25% assist) Balance Ability to Arise Able, uses arms to help Sitting Balance Steady, safe Standing Balance Steady, wide stance Dynamic Sitting Balance Ability Good Dynamic Standing Balance Ability Fair Transfers Bed Transfer Ability Minimal x 1 (25% assist) Chair Transfer Ability Minimal x 1 (25% assist) Sit to Stand Bed Transfer Ability Minimal x 1 (25% assist) Sit to Stand Chair Transfer Ability Minimal x 1 (25% assist) Rehab PT IP prob,goals,plan Problems Date of Evaluation: 12/09/20 PT IP Problems Bed Mobility,Transfers,Gait, Self care Rehab Potential Rehab Potential Good Plan PT Intervention Plan Bed Mobility,Transfers,Gait, Self care,Therapeutic Exercise PT Plan Frequency BID Duration LOS Discharge Goals Bed Transfer Ability Contact Guard/Hand Hold Sit to Stand Chair Transfer Ability Contact Guard/Hand Hold Ambulation Assistive Device Rolling Walker Ambulation Distance (feet) 40 Discharge Plan PT Discharge Plan Pt is most appropriate for rehab placement at this time. G -code Required No Eval Complexity Eval Charge Codes 16573 - Moderate Complexity PHYSICIAN CERTIFICATION: I certify the specified therapy services fo
--- NOTE | 2020-12-09 10:57 | HMH.PHAINT ---
MEDICATION RECONCILIATION COMPLETED ON PATIENT USING EXTERNAL FILL HISTORY FROM PHARMACY. -ROSA STANTON, JORDAND
--- NOTE | 2020-12-09 20:06 | HMH.HP ---
*Admission Date: 12/08/20 *Chief complaint: Osteoarthritis left knee *History of present illness: Patient is an 85 year old female admitted to hospital after an uneventful left total knee arthroplasty on 12/08/2020. She has had chronic left knee pain for several years which has failed to respond satisfactorily to nonsurgical management including NSAIDs, physical therapy and multiple intra-articular steroid injections. Following evaluation in the office, patient elected to proceed with a total knee arthroplasty. X-rays of her knee joint showed fairly advanced degenerative changes predominantly in the medial and patellofemoral compartments. Patient states that weightbearing, walking, bending, standing and sitting for too long periods aggravates her pain. She rates her pain a 1 out of 10 at rest and a 8 out of 10 at its worse. She has history of chronic hip and back pain which is managed by Dr Gonzalez. She reports intermittent knee swelling and sensation of knee giving out. No history of any systemic symptoms like fevers, chills or rigors. No history of any local redness or increased warmth. She walks with a walker for mobilization. Patient says she is finding it difficult to walk without support. She says she is finding it difficult with activities of daily living because of her knee pain. She also reports night pain and sleep disturbance because of the knee pain on a daily basis. No history of any distal tingling or numbness. She is a non smoker. Her medical history includes Arrhythmia, Atrial Fibrillation, Coronary Artery Disease, Depression, Gastroesophageal Reflux Disease(GERD), Hyperlipidemia, Hypertension, Internal Pacemaker and Migraine. She has a pacemaker implanted and her field radio technician is Dr Zepeda. Total knee arthroplasty is indicated to reduce the risk of falls, improve her pain and mobility and quality of life. The surgical and nonsurgical alternatives were discussed in detail with the patient as well as the risks and benefits of the surgery. [facility] History I have reviewed the patient's past medical history: Yes Medical History: Reports:: Arrhythmia, Atrial Fibrillation, Cardiomyopathy, Coronary Artery Disease, Depression, Gastroesophageal Reflux Disease(GERD), Hyperlipidemia, Hypertension, Internal Pacemaker, Migraine Denies:: Cancer, Diabetes Mellitus Type 1, Diabetes Mellitus Type 2, MRSA, Seizures *Have you ever received a pneumonia vaccine?: Yes *Have you received a flu vaccine this season?: Yes Other Medical History: Reports: Arthritis, Cataracts. Denies: Blood Transfusion Reaction Anesthesia experience/problems:: nac Laterality Cases: Bilateral: Cataract Other Surgeries: Yes: No Previous Surgery, Appendectomy, Cardiac Catheterization, Colonoscopy, Coronary Stent, Hysterectomy-Total, Pacemaker, Tubal Ligation, Other Amputation: No Fractures: No - *Social History Smoking Status: Never smoker Tobacco Type: cigarettes Alcohol Intake: never Alcohol Intake Frequency:: holidays/special occasions only Substance Use Type: denies use *Occupational Status:: retired Housing: house Household Members: family *Travel in the last 8 weeks: None - Psychiatric History Pschychiatric History:: Reports:: Depression Family Hx:: Cancer, Heart Attack, Hypertension Review of Systems - Review of Systems Review of systems:: pertinent systems reviewed and negative unless documented below - Constitutional Denies chills, Denies fever(s) - Eyes Denies change in vision - ENT Denies abnormal hearing - *Cardiovascular Denies chest pain, Denies shortness of breath - *Respiratory Denies chest congestion, Denies cough - *Gastrointestinal Denies abdominal pain, Denies change in bowel habits - *Musculoskeletal Reports abnormal walking, Reports joint pain, Reports joint swelling, Reports limited joint movement - *Neurologic Reports abnormal walking, Denies abnormal speech, Denies dizziness, Denies frequent falls, Denies tingling/numbness/burning sens
--- NOTE | 2020-12-09 20:22 | PC.NURSE ---
Pt has rested well this shift. Pt was up to the chair most of the day. Pt has only required pain meds x2 this shift w/ favorable results. Pt did experience some N/V this shift while transferring to her chair, PRN zofran administered. No further c/o N/V this shift. Pt has used IS at times this shift, IS @ best 1000cc's. Daughter has remained at bedside. No other acute changes or complaints at this time.
--- NOTE | 2020-12-09 20:26 | HMH.ORTHPN ---
Subjective Date: 12/09/20 Time: 12:45 Principal diagnosis: Status post total knee arthroplasty, left Interval history: Patient is status post left total knee arthroplasty post op day #1. Patient is sitting out in the chair. Patient says she is doing well now but had a rough night because of pain. She says the pain medication is helping control the pain well. No history of any nausea or vomiting. No history of any cough, chest pain, shortness of breath or palpitations. Patient says she is eating and drinking well. She started mobilization with physical therapy this morning. Her daughter is in the room by her bedside. PN: Obj Ex Vital signs: Temp Pulse Resp BP Pulse Ox 98.2 F 67 17 111/56 L 98 12/09/20 15:51 12/09/20 15:51 12/09/20 15:51 12/09/20 15:51 12/09/20 15:51 Narrative: Laboratory Results - last 24 hr 12/08/20 12:28: Urine Color Yellow, Urine Appearance Clear, Urine pH 6.5, Ur Specific [place] <= 1.005, Urine Protein Negative, Urine Glucose (UA) Negative, Urine Ketones Negative, Urine Blood Negative, Urine Nitrate Negative, Urine Bilirubin Negative, Urine Urobilinogen 0.2, Ur Leukocyte Esterase Negative, Urine RBC 3-5, Urine WBC 3-5, Ur Squamous Epith Cells 3-5, Urine Bacteria Trace 12/09/20 06:10: WBC 9.4, RBC 3.09 L, Hgb 9.7 L, Hct 29.0 L, MCV 94.0, MCH 31.5 H, MCHC 33.6, RDW 13.7, Plt Count 183, MPV 7.5, Neut % (Auto) 82.9 H, Lymph % (Auto) 7.9 L, [place] % (Auto) 8.0, Eos % (Auto) 0.5, Baso % (Auto) 0.7, Neut # (Auto) 7.8, Lymph # (Auto) 0.7, [place] # (Auto) 0.8, Eos # (Auto) 0.1, Baso # (Auto) 0.1 12/09/20 06:10: Sodium 131 L, Potassium 4.1, Chloride 99, Carbon Dioxide 27, Anion Gap 5.0, BUN 12, Creatinine 0.90, Estimated Creat Clear 52, Estimated GFR 59, Est GFR ( Amer) 72, Glucose 117 H, Calcium 8.1 L Intake & Output 12/07/20 12/08/20 12/09/20 12/10/20 11:59 11:59 11:59 11:59 Intake Total 1760 / 1760 840 / 840 Output Total 2500 / 2500 300 / 300 Balance -740 / -740 540 / 540 Weight 178 lb 2 oz Exam General appearance: alert, active, awake, no acute distress Cardiovascular: regular rate & rhythm, normal peripheral pulses Respiratory: No respiratory distress noted, speaks in full sentences ABD: soft and non tender Neuro: alert, awake, oriented x 3 Psych Appropriate mood and affect for the situation On examination of the lower extremities the limb lengths are equal. On examination of the left knee the dressings are clean, dry and intact. Calf is soft and compressible. Distal pulses are 1+. Capillary refill is brisk. She has diffuse swelling of the left foot and ankle. She is actively moving the ankle, foot and the toes. - Urinary Catheter Management Giordano Cath placed during this visit: no Progress Note: A&P (1) Status post left knee replacement Status: Acute (2) Cardiac pacemaker in situ Status: Acute (3) History of placement of stent in LAD coronary artery Status: Acute (4) CAD (coronary artery disease) Status: Chronic (5) HHD (hypertensive heart disease) Status: Chronic (6) HLD (hyperlipidemia) Status: Chronic (7) Lumbar radiculopathy Status: Chronic Assessment and Plan for All Diagnoses:: I have reviewed the clinical findings and progress with the patient. Patient is seen by physical therapy and recommend continuation of standard postoperative rehab for the total knee replacement. Use knee immobilizer when weightbearing and walking until she regains full quadriceps control and is able to actively straight leg raise. Continue DVT prophylaxis. Discontinue IV fluids and DC urinary catheter. Care management looking into discharge planning. Continue medical management as per Dr. Tobar.
[2020-12-10] VITALS: BP 116/63; PULSE 73; RESP 16; TEMP 37; O2SAT 99
[2020-12-10 05:00] VITALS: BP 108/55; PULSE 82; RESP 16; TEMP 36.8; O2SAT 93
[2020-12-10 08:00] VITALS: BP 119/52; PULSE 82; RESP 18; TEMP 37.1; O2SAT 99
--- NOTE | 2020-12-10 09:11 | P.PN_ITS ---
Internal Medicine - PN: Subj *Date: 12/10/20 *Time: 09:11 Interval history: FAMILY MEDICINE CONSULT: She is tired this morning and declined physical therapy. She is in no acute distress. She has a slight cough. Vital signs are stable. Exam Vital signs and Labs for Last 24 Hours: Temp Pulse Resp BP Pulse Ox 98.8 F 82 18 119/52 L 99 12/10/20 08:00 12/10/20 08:00 12/10/20 08:00 12/10/20 08:00 12/10/20 08:00 Laboratory Results - last 24 hr 12/09/20 06:10: Anion Gap 5.0 I & O for Last 24 hours: Intake & Output 12/07/20 12/08/20 12/09/20 12/10/20 11:59 11:59 11:59 11:59 Intake Total 1760 / 1760 1200 / 1200 Output Total 2500 / 2500 300 / 300 Balance -740 / -740 900 / 900 Weight 178 lb 2 oz - Constitutional no acute distress - *Routine Neck Exam Absent: JVD - *Routine Respiratory Exam Present: CTA bilaterally - *Routine Cardiovascular Exam Present: bradycardia - *Routine Abdominal Exam Present: soft. Absent: tenderness - *Routine Extremities Exam Present: edema (Some bilateral edema. Left greater than right. Circulation intact.) - *Routine Neurological Exam Present: oriented X3 Assessment and Plan (1) Status post left knee replacement Status: Acute Category: Surgical Code(s): Z96.652 - Presence of left artificial knee joint (2) Cardiac pacemaker in situ Status: Acute Category: Medical Code(s): Z95.0 - Presence of cardiac pacemaker (3) History of placement of stent in LAD coronary artery Status: Acute Category: Medical Code(s): Z95.5 - Presence of coronary angioplasty implant and graft (4) CAD (coronary artery disease) Status: Chronic Qualifiers: Coronary Disease-Associated Artery/Lesion type: [place] artery [place] vs. transplanted heart: [place]stone heart Associated angina: without angina Qualified Code(s): I25.10 - Atherosclerotic heart disease of [place] coronary artery without angina pectoris Category: Medical Code(s): I25.10 - Atherosclerotic heart disease of [place] coronary artery without angina pectoris (5) HHD (hypertensive heart disease) Status: Chronic Qualifiers: Heart failure presence: without heart failure Qualified Code(s): I11.9 - Hypertensive heart disease without heart failure Category: Medical Code(s): I11.9 - Hypertensive heart disease without heart failure (6) HLD (hyperlipidemia) Status: Chronic Qualifiers: Hyperlipidemia type: mixed hyperlipidemia Qualified Code(s): E78.2 - Mixed hyperlipidemia Category: Medical Code(s): E78.5 - Hyperlipidemia, unspecified (7) Lumbar radiculopathy Status: Chronic Category: Medical Code(s): M54.16 - Radiculopathy, lumbar region - Assessment and plan all Dx Assessment and Plan for all problems:: Continue present regimen. She will have physical therapy this afternoon.
[2020-12-10 09:54] LABS: Basophils % 0.2 % (0.1-2.0); Eosinophils # 0.1 K/mm3 (0.0-0.4); Eosinophils % 0.8 % (0.1-12.0); Hematocrit 28.7 % (37.0-47.0); Hemoglobin 9.4 g/dL (12.2-16.2); Lymphocytes # 0.5 K/mm3 (0.7-4.5); Lymphocytes % 6.6 % (10-50); Mean Corpuscular HGB Conc 32.8 g/dL (31.8-35.4); Mean Corpuscular Hemoglobin 30.8 pg (27.0-31.2); Mean Corpuscular Volume 93.9 fl (81-99); Monocytes # 0.6 K/mm3 (0.1-1.0); Monocytes % 7.6 % (1.7-9.3); Neutrophils # 6.9 K/mm3 (1.8-7.8); Neutrophils % 84.7 % (37.0-80.0); Platelet Count 178 K/mm3 (142-424); Red Blood Count 3.06 M/mm3 (4.20-5.40); Red Cell Distribution Width 13.8 % (11.5-17.5); White Blood Count 8.2 K/mm3 (4.8-10.8)
--- NOTE | 2020-12-10 13:28 | P.PN_ITS ---
Subjective Date: 12/10/20 Time: 12:30 Principal diagnosis: Status post total knee arthroplasty, left Interval history: Patient is status post left total knee arthroplasty post op day #2. Patient is sitting out in the chair. Patient says she is doing well now but says she was not feeling great this morning because she could not get enough sleep. She says she declined physical therapy in the morning and slept for a while and is feeling better now. She says the pain medication is helping control the pain. No history of any distal tingling or numbness. She reports some nausea but no vomiting. Patient says she is eating and drinking well. Patient's daughter is by her bedside. PN: Obj Ex Vital signs: Temp Pulse Resp BP Pulse Ox 98.8 F 82 18 119/52 L 99 12/10/20 08:00 12/10/20 08:00 12/10/20 08:00 12/10/20 08:00 12/10/20 08:00 Narrative: Laboratory Results - last 24 hr 12/10/20 09:35: WBC 8.2, RBC 3.06 L, Hgb 9.4 L, Hct 28.7 L, MCV 93.9, MCH 30.8, MCHC 32.8, RDW 13.8, Plt Count 178, MPV 8.0, Neut % (Auto) 84.7 H, Lymph % (Auto) 6.6 L, [place] % (Auto) 7.6, Eos % (Auto) 0.8, Baso % (Auto) 0.2, Neut # (Auto) 6.9, Lymph # (Auto) 0.5 L, [place] # (Auto) 0.6, Eos # (Auto) 0.1, Baso # (Auto) 0.0 Exam General appearance: alert, active, awake, no acute distress Cardiovascular: regular rate & rhythm, normal peripheral pulses Respiratory: No respiratory distress noted, speaks in full sentences ABD: soft and non tender Neuro: alert, awake, oriented x 3 Psych Appropriate mood and affect for the situation On examination of the lower extremities the limb lengths are equal. On examination of the left knee the dressings are clean, dry and intact. I have changed the surgical dressings and the incision is looking clean and healthy. Some knee swelling noted as to be expected at this stage. No signs of erythema or discharge. Calf is soft and compressible. Distal pulses are 1+ bilaterally. Capillary refill is brisk. Distal sensation is intact to light touch throughout. She is actively moving the ankle, foot and the toes. She has not regained full quadriceps control and is barely able to lift the leg off the chair. Active knee range of motion is 5degrees to 70 degrees of flexion. - Urinary Catheter Management Giordano Cath placed during this visit: no Progress Note: A&P (1) Status post left knee replacement Status: Acute (2) Cardiac pacemaker in situ Status: Acute (3) History of placement of stent in LAD coronary artery Status: Acute (4) CAD (coronary artery disease) Status: Chronic (5) HHD (hypertensive heart disease) Status: Chronic (6) HLD (hyperlipidemia) Status: Chronic (7) Lumbar radiculopathy Status: Chronic Assessment and Plan for All Diagnoses:: I have reviewed the clinical findings and progress with the patient. I have advised her to continue physical therapy and recommend continuation of standard postoperative rehab for the total knee replacement. Use knee immobilizer when weightbearing and walking until she regains full quadriceps control and is able to actively straight leg raise. Patient was on Eliquis prior to surgery and that should suffice for DVT prophylaxis. She is being discharged home today with home health. Follow-up in my office in 2 weeks time. Continue medical management as per Dr. Tobar.
--- NOTE | 2020-12-10 13:39 | HMH.DCSUM ---
General - General Admission date:: 12/08/20 Discharge date: 12/10/20 [facility] HPI: Patient is an 85 year old female admitted to hospital after an uneventful left total knee arthroplasty on 12/08/2020. She has had chronic left knee pain for several years which has failed to respond satisfactorily to nonsurgical management including NSAIDs, physical therapy and multiple intra-articular steroid injections. Following evaluation in the office, patient elected to proceed with a total knee arthroplasty. X-rays of her knee joint showed fairly advanced degenerative changes predominantly in the medial and patellofemoral compartments. Patient states that weightbearing, walking, bending, standing and sitting for too long periods aggravates her pain. She rates her pain a 1 out of 10 at rest and a 8 out of 10 at its worse. She has history of chronic hip and back pain which is managed by Dr Gonzalez. She reports intermittent knee swelling and sensation of knee giving out. No history of any systemic symptoms like fevers, chills or rigors. No history of any local redness or increased warmth. She walks with a walker for mobilization. Patient says she is finding it difficult to walk without support. She says she is finding it difficult with activities of daily living because of her knee pain. She also reports night pain and sleep disturbance because of the knee pain on a daily basis. No history of any distal tingling or numbness. She is a non smoker. Her medical history includes Arrhythmia, Atrial Fibrillation, Coronary Artery Disease, Depression, Gastroesophageal Reflux Disease(GERD), Hyperlipidemia, Hypertension, Internal Pacemaker and Migraine. She has a pacemaker implanted and her director mission is Dr Zepeda. Total knee arthroplasty is indicated to reduce the risk of falls, improve her pain and mobility and quality of life. The surgical and nonsurgical alternatives were discussed in detail with the patient as well as the risks and benefits of the surgery. Hospital Course Hospital Course: Patient underwent an uncomplicated straightforward primary left total knee arthroplasty on 12/08/2020. Following surgery patient was admitted to hospital and progressed well without any complications. The postoperative check x-ray was satisfactory with good alignment and fixation of the components. Patient progressed rapidly with physical therapy and was able to mobilize using a walker. After 2 days of hospital stay for observation, patient was discharged to home with home health services today. At the time of discharge patient has not yet regained good quadriceps control and is not able to actively straight leg raise. Patient has minimal pain and it is well controlled with as needed oral medication. The incision is healthy and healing well. No signs of any erythema, induration or discharge noted. The neurovascular status in both lower extremities is intact. Pedal pulses 2+ bilaterally and fully sensate distally. No clinical evidence of DVT noted. Patient was cleared for discharge by physical therapy. On the day of discharge, the patient has been stable. Patient's vital signs have been stable throughout and patient is afebrile at the time of discharge. She is being discharged home with home health. Condition at discharge: improved and stable. Objective Vital signs: Temp Pulse Resp BP Pulse Ox 98.8 F 82 18 119/52 L 99 12/10/20 08:00 12/10/20 08:00 12/10/20 08:00 12/10/20 08:00 12/10/20 08:00 no acute distress - *Routine HEENT Exam Head: Present: normocephalic Eye: Present: EOMI, PERRL ENT: Present: mucous membranes moist - *Routine Neck Exam Present: supple - *Routine Respiratory Exam Present: CTA bilaterally - *Routine Cardiovascular Exam Present: RRR - *Routine Abdominal Exam Present: soft, normoactive bowel sounds. Absent: tenderness - *Routine Extremities Exam Comments: On examination of the lower extremities the limb lengths a
--- NOTE | 2020-12-10 13:50 | PC.NURSE ---
Patient will need a bedside commode due to distance to restroom in home and knee replacement surgery.
[2020-12-10 15:40] VITALS: BP 132/42; PULSE 65; RESP 16; TEMP 37.1; O2SAT 96
== END 2020-12-10 15:50 | disposition home health service (06) ==
LOC: 2ND 11:20
PROVIDERS: Family Medicine; Admitting Provider Orthopaedic Surgery; PCP Internal Medicine; Visit Provider Orthopaedic Surgery
PROC: (CPT 27447; principal; 2020-12-08 11:00)
DX: M17.12 Unilateral primary osteoarthritis, left knee (principal); I48.91 Unspecified atrial fibrillation; Z79.01 Long term (current) use of anticoagulants; I42.9 Cardiomyopathy, unspecified; I25.10 Atherosclerotic heart disease of native coronary artery without angina pectoris; K21.9 Gastro-esophageal reflux disease without esophagitis; I11.9 Hypertensive heart disease without heart failure; G43.909 Migraine, unspecified, not intractable, without status migrainosus; Z95.0 Presence of cardiac pacemaker; Z95.5 Presence of coronary angioplasty implant and graft; M54.16 Radiculopathy, lumbar region; Z79.899 Other long term (current) drug therapy
CPT/HCPCS: 27447; 36415; 73560; 80048; 81001; 85025; 86850; 96374; 97116; 97162; 97166; 97530; C1776; G0378; J2405; J2704; J3370

== ENCOUNTER → 2020-12-24 09:05 | Outpatient (CLI) | payer MEDICARE, BC, SELFPAY ==
--- NOTE | 2020-12-24 09:11 | XR_ITS ---
PROCEDURE: XR KNEE LT 2V CLINICAL INDICATION: sp LT TKA, dos 12/08/20 COMPARISON: CR XR KNEE LT 4V from 11/03/2020 FINDINGS: No the total knee arthroplasty is noted, the femoral component is in good alignment apposition to the tibial plateau component been resection of the spur of superior border of patella seen on the previous preoperative study along with the opaque plug seen undersurface of the patella IMPRESSION: Satisfactory postop appearance total knee prosthesis Dictated by: Dr. Celio Lopez MD 12/24/2020 10:01 Dr. Celio Lopez MD in [place] 12/24/2020 10:01
== END ==
PROVIDERS: PCP Internal Medicine; Visit Provider Orthopaedic Surgery
DX: Z96.652 Presence of left artificial knee joint (principal); M25.562 Pain in left knee
CPT/HCPCS: 73560

== ENCOUNTER → 2021-01-07 14:37 | Outpatient (CLI) | payer MEDICARE, BC, SELFPAY ==
--- NOTE | 2021-01-07 14:42 | XR_ITS ---
PROCEDURE: XR CHEST 2V CLINICAL HISTORY: DYSPNEA ON EXERTION, CHRONIC DIASTOLIC CHF COMPARISON: CR XR CHEST 2V from 05/15/2020 CR XR CHEST PORTABLE from 10/03/2020 CR XR CHEST PORTABLE from 10/06/2020 FINDINGS: The cardiomediastinal silhouette and pulmonary vascularity are within normal limits. Bipolar pacemaker is present from left subclavian approach with lead position tip at the right atrium and right ventricular region. There is some mild scarring or fissural thickening in the right midlung laterally. No acute bony abnormalities. IMPRESSION: Interval pacemaker insertion. No acute finding Dictated by: Bernardino Bass MD 01/07/2021 15:06 Bernardino Bass MD in [place] 01/07/2021 15:06
== END ==
PROVIDERS: PCP Internal Medicine; Visit Provider Internal Medicine
DX: R06.09 Other forms of dyspnea (principal); I50.32 Chronic diastolic (congestive) heart failure
CPT/HCPCS: 71046

== ENCOUNTER → 2021-01-14 09:25 | Outpatient (CLI) | payer MEDICARE, BC, SELFPAY ==
--- NOTE | 2021-01-14 09:35 | XR_ITS ---
PROCEDURE: XR CHEST 2V CLINICAL HISTORY: feels like ppm moved, heart disease COMPARISON: CR XR CHEST PORTABLE from 10/03/2020 CR XR CHEST PORTABLE from 10/06/2020 CR XR CHEST 2V from 01/07/2021 FINDINGS: Borderline cardiomegaly without failure. Bipolar pacemaker is present from left subclavian approach. The power pack of the pacemaker lies along the left hilar region and is slightly more inferior along the chest wall compared to the previous exam. The pacemaker does not appear twisted and the pacer wires appear intact. The lungs are clear without infiltrates, suspicious nodules, or pleural effusions. No acute bony abnormalities. IMPRESSION: Borderline cardiomegaly. Left sided subclavian placed bipolar pacemaker is present. The power pack appears slightly more inferior compared to the previous exam but does not appear twisted or tilted. Dictated by: Bernardino Bass MD 01/14/2021 09:49 Bernardino Bass MD in [place] 01/14/2021 09:49
[2021-01-14 11:07] LABS: Basophils # 0.1 K/mm3 (0-0.2); Eosinophils # 0.2 K/mm3 (0.0-0.4); Eosinophils % 1.7 % (0.1-12.0); Hematocrit 34.2 % (37.0-47.0); Hemoglobin 11.7 g/dL (12.2-16.2); Lymphocytes # 1.2 K/mm3 (0.7-4.5); Lymphocytes % 12.1 % (10-50); Mean Corpuscular HGB Conc 34.2 g/dL (31.8-35.4); Mean Corpuscular Hemoglobin 31.8 pg (27.0-31.2); Mean Corpuscular Volume 92.9 fl (81-99); Mean Platelet Volume 7.3 fl (7.4-10.4); Monocytes # 0.7 K/mm3 (0.1-1.0); Monocytes % 6.8 % (1.7-9.3); Neutrophils # 7.7 K/mm3 (1.8-7.8); Neutrophils % 78.5 % (37.0-80.0); Platelet Count 264 K/mm3 (142-424); Red Blood Count 3.68 M/mm3 (4.20-5.40); White Blood Count 9.8 K/mm3 (4.8-10.8)
[2021-01-14 11:40] LABS: Chloride 102 mmol/L (98-107); Sodium 134 mmol/L (136-145)
[2021-01-14 11:41] LABS: Potassium 5.8 mmoL/L (3.5-5.1)
[2021-01-14 11:43] LABS: Blood Urea Nitrogen 20 mg/dl (7-17); Estimated Glomerular Filt Rate 33 ml/min (>60); GFR (African American) 40 ML/MIN (>60)
[2021-01-14 11:44] LABS: Anion Gap 14.8 mEq/L (5-15); Calcium 9.8 mg/dl (8.4-10.2); Carbon Dioxide 23 mmol/L (22.0-30.0); Glucose 96 mg/dl (74-100)
== END ==
PROVIDERS: PCP Internal Medicine; Visit Provider Nurse Practitioner Family
DX: Z95.0 Presence of cardiac pacemaker (principal); I10 Essential (primary) hypertension; D64.9 Anemia, unspecified
CPT/HCPCS: 36415; 71046; 80048; 85025

== ENCOUNTER → 2021-01-19 12:29 | Outpatient (CLI) | payer MEDICARE, BC, SELFPAY ==
[2021-01-19 13:11] LABS: Anion Gap 14.2 mEq/L (5-15); Blood Urea Nitrogen 22 mg/dl (7-17); Calcium 8.7 mg/dl (8.4-10.2); Carbon Dioxide 22 mmol/L (22.0-30.0); Chloride 99 mmol/L (98-107); Estimated Glomerular Filt Rate 43 ml/min (>60); GFR (African American) 52 ML/MIN (>60); Glucose 85 mg/dl (74-100); Potassium 4.2 mmoL/L (3.5-5.1); Sodium 131 mmol/L (136-145)
== END ==
PROVIDERS: Visit Provider Urology
DX: E78.5 Hyperlipidemia, unspecified (principal); I11.9 Hypertensive heart disease without heart failure; I25.10 Atherosclerotic heart disease of native coronary artery without angina pectoris; I27.20 Pulmonary hypertension, unspecified; I48.91 Unspecified atrial fibrillation; R06.00 Dyspnea, unspecified; R20.8 Other disturbances of skin sensation; T82.128A Displacement of other cardiac electronic device, initial encounter; Z79.899 Other long term (current) drug therapy; Z95.0 Presence of cardiac pacemaker
CPT/HCPCS: 36415; 80048

== ENCOUNTER → 2021-01-26 08:34 | Outpatient (POV) | payer MEDICARE, BC, SELFPAY ==
[2021-01-26 08:41] VITALS: BP 180/75; PULSE 60; RESP 18; O2SAT 97; BMI 26.5
--- NOTE | 2021-01-26 09:42 | HMH.PAINSOAP ---
[facility] Pain Management SOAP Note Subjective:: Patient is an 85-year-old white female who presents today for follow-up. She is being treated for degenerative disc disease lumbar spine with lumbar radiculopathy symptoms. Patient is complaining of low back pain with intermittent radiation into lower extremity. She previously had severe left low back pain and left knee pain. She did undergo left knee replacement and is doing better to her left leg symptoms. Patient says her pain is worse with standing and walking and improves somewhat with sitting. Her pain is a 6 out of 10 with sitting at this time. She has tried and failed conservative therapies of physical therapy along with continued home stretching. Patient did undergo a pacemaker placement this year. She is currently on Eliquis and Plavix. She has gotten the lumbar epidural steroid injections in the past and has gotten significant relief up to 70 to 80% for 1 to 2 months. She would like to repeat proceed with a repeat lumbar epidural steroid injection at the previous site of L4-L5. Patient is planning to travel in the next 2 to 3 weeks. She understands she will need to hold her anticoagulation therapy before the injection. She is continuing with home stretching. She is unable to take anti-inflammatories due to her anticoagulation therapy. Review of Systems General: No recent weight changes, no fever, no sleep disturbances Respiratory: No cough, [no shortness of air], no recurring pulmonary infections Cardiovascular/peripheral vascular: No chest pain, no palpitations, [no edema], no shortness of breath Gastrointestinal: No new onset incontinence, normal bowel movements reported Genitourinary: No new onset incontinence Musculoskeletal: [Low back pain with radiation into lower extremities intermittently] Psychiatric: [Normal mood/affect] Neurological: [Denies weakness in extremities], [denies balance issues] Objective:: Physical exam General: Alert and oriented x3, no acute distress, pleasant and cooperative, [on room air] Lungs: Respirations even and unlabored, symmetrical chest expansion Eyes: PERRL Musculoskeletal: Flexion and extension of [] lumbar [spine] somewhat guarded secondary to pain, strength in upper and lower extremities [5/5], [antalgic gait noted] Neurological: Speech clear, [stoneworker equal], no gross sensory deficit Assessment:: Degenerative disc disease lumbar spine with lumbar radiculopathy symptoms Plan:: Patient is on Plavix and Eliquis. She does understand she will need to hold these medications prior to the injection. She has had lumbar epidural steroid injections in the past and is gotten between 70 to 80% for 1 to 2 months. We will schedule her for a repeat injection and see her back in the clinic afterwards for reevaluation of symptoms. She has been instructed to contact clinic if she has any concerns for next treatment. Possible side effects of corticosteroids have been discussed with the patient. Risks and benefits of the procedure have been explained to the patient. Patient would like to proceed with the procedure. Patient has been instructed to contact the clinic with any concerns before the next appointment. Dr. Gonzalez has reviewed this note and agrees with this plan of care. This note was dictated using voice recognition software and make contain errors or omissions. [facility] History I have reviewed the patient's past medical history: Yes Medical History: Reports:: Arrhythmia, Atrial Fibrillation, Cardiomyopathy, Coronary Artery Disease, Depression, Gastroesophageal Reflux Disease(GERD), Hyperlipidemia, Hypertension, Internal Pacemaker, Migraine Denies:: Cancer, Diabetes Mellitus Type 1, Diabetes Mellitus Type 2, MRSA, Seizures *Have you ever received a pneumonia vaccine?: Yes *Have you received a flu vaccine this season?: Yes Other Medical History: Reports: Arthritis, Cataracts. Denies: Blood Transfusion Reaction Other Surgeries: Yes: No Pr
[2021-01-26 10:16] LABS: Anion Gap 9.9 mEq/L (5-15); Blood Urea Nitrogen 11 mg/dl (7-17); Calcium 8.6 mg/dl (8.4-10.2); Carbon Dioxide 28 mmol/L (22.0-30.0); Chloride 102 mmol/L (98-107); Creatinine Clearance Estimated 43 mL/min (50-200); Estimated Glomerular Filt Rate 53 ml/min (>60); GFR (African American) 64 ML/MIN (>60); Glucose 56 mg/dl (74-100); Potassium 3.9 mmoL/L (3.5-5.1); Sodium 136 mmol/L (136-145)
--- NOTE | 2021-01-27 09:09 | PC.NURSE ---
With approval from Alexandre Landis, I spoke with patient about stopping her Plavix on 01/29/21 and her Eliquis on 02/02 prior to her scheduled procedure on 02/06/21. Patient was in agreement.
== END ==
PROVIDERS: Urology; Visit Provider Clinical Nurse Specialist Family Health
DX: E87.1 Hypo-osmolality and hyponatremia (principal); M51.16 Intervertebral disc disorders with radiculopathy, lumbar region
CPT/HCPCS: 36415; 80048; 99212; G0463

== ENCOUNTER 2021-02-06 13:32 | Day surgery (SDC) | payer MEDICARE, BC, SELFPAY ==
[2021-02-06 13:46] VITALS: BP 197/69; PULSE 59; RESP 18; TEMP 36.5; O2SAT 97; BMI 27.4
[2021-02-06 14:25] VITALS: BP 121/73; PULSE 60; RESP 18; O2SAT 95
[2021-02-06 14:29] VITALS: BP 198/87; PULSE 60; RESP 18; O2SAT 95
--- NOTE | 2021-02-06 14:43 | P.PCN_ITS ---
- Procedure Date: 02/06/21 Time: 14:43 Anesthesiologist:: Myesha Jean Baptiste MD Complications:: None Pre-procedure Diagnosis:: Degenerative disc disease lumbar spine, lumbar radiculopathy Post-procedure Diagnosis:: Same Indications for Procedure:: Is a very pleasant 85-year-old white female who presents today with chronic low back pain radiating into her left low back and left knee. She states that she recently underwent a left knee replacement and overall is doing better in regards to her left leg pain. She continues to note some pain that is worse with standing and walking and improves with sitting. She is trialed and failed conservative treatment including oral pain medication and home stretching program for greater than 6 weeks. She is currently on Eliquis and Plavix but augustine s held it for the appropriate time.. Of note she has previously undergone lumbar epidural steroid injections in the past and notes about 80% pain relief for about 1 to 2 months. For today is for the patient to undergo repeat lumbar epidural steroid injection under fluoroscopy L4-L5. Procedure Details:: Informed consent was obtained and the risk and benefits of the procedure was explained to the patient. The patient was taken to the procedure room. The patient was placed prone on the procedure table. The patient was prepped and draped in sterile fashion. C-arm fluoroscopy was used to view the lumbar spine. Skin and subcutaneous tissues were anesthetized using lidocaine. I placed an 18-gauge epidural needle and advanced into the L4-L5 interspace using fluor oscopic guidance and [id number] to air and saline. After confirmation of needle placement in the epidural space with dye I injected 1 mL of lidocaine 1.0% with Depo-Medrol 80 mg. Patient tolerated the procedure well with no complications. Plan and Disposition:: We will follow-up with this patient in 2 weeks. Will reevaluate pain symptoms at that time.
--- NOTE | 2021-02-06 15:06 | PC.NURSE ---
1500-MD at bedside, assessing patient.
--- NOTE | 2021-02-06 15:06 | PC.NURSE ---
1458-entered pt's bay to obtain post procedure vital signs. pt reports bruising and swelling to left side of her head. Upon asking, patient reported hitting her head on that glass thing (lead shield) in the procedure room when she lost her footing. pt denies falling to floor. Observed quarter sized area of edema and ecchymosis. VSS, patient alert and oriented. Ice applied the area. notified.
--- NOTE | 2021-02-06 15:15 | PC.NURSE ---
Daisy- at bedside.
[2021-02-06 15:25] VITALS: BP 151/85; PULSE 60; RESP 20; O2SAT 97
--- NOTE | 2021-02-06 15:35 | PC.NURSE ---
Addendum entered by Pastora Ardon RN 02/06/21 15:36: MD cleared pt for discharge. Original Note: 1517-pt resting in chair. continues to hold ice pack to left side of her head. this sports book writer observed area, less swelling observed. pt remains alert and oriented.
== END 2021-02-06 15:25 | disposition home or self-care (01) ==
LOC: SC.PAINP 13:33
PROVIDERS: PCP Internal Medicine; Visit Provider Anesthesiology Pain Medicine
DX: M51.16 Intervertebral disc disorders with radiculopathy, lumbar region (principal); I25.10 Atherosclerotic heart disease of native coronary artery without angina pectoris; Z95.0 Presence of cardiac pacemaker; E78.5 Hyperlipidemia, unspecified; I10 Essential (primary) hypertension; I48.91 Unspecified atrial fibrillation; K21.9 Gastro-esophageal reflux disease without esophagitis; M19.90 Unspecified osteoarthritis, unspecified site; F32.9 Major depressive disorder, single episode, unspecified; F41.9 Anxiety disorder, unspecified; Z79.899 Other long term (current) drug therapy; Z82.49 Family history of ischemic heart disease and other diseases of the circulatory system
CPT/HCPCS: 62323; J1040; Q9966

== ENCOUNTER 2021-02-23 11:04 | Emergency (ER) | payer MEDICARE, BC, SELFPAY ==
[2021-02-23 11:05] VITALS: BP 153/70; PULSE 64; RESP 14; TEMP 36.4; O2SAT 98; BMI 28.0
--- NOTE | 2021-02-23 11:21 | ECG_ITS ---
APPROVED REPORT Exam: Resting ECG HR:63 bpm ECG Measurements Heart Rate 63 AXES OK 166 P 92 QRSd 138 QRS -35 QT 496 T 83 QTc 507 Conclusion Normal sinus rhythm Left axis deviation Left ventricular hypertrophy with QRS widening and repolarization abnormality Abnormal ECG Electronically signed by : Cornelio Red MD 02/23/2021 18:01:17
--- NOTE | 2021-02-23 11:35 | XR_ITS ---
PROCEDURE: XR CHEST 2V CLINICAL HISTORY: pacemaker issues COMPARISON: CR XR CHEST PORTABLE from 10/06/2020 CR XR CHEST 2V from 01/07/2021 CR XR CHEST 2V from 01/14/2021 FINDINGS: There is a bipolar pacemaker present from left subclavian approach. Normal heart size. The lungs are clear without infiltrates, suspicious nodules, or pleural effusions. No acute bony abnormalities. IMPRESSION: No acute findings. Dictated by: Bernardino Bass MD 02/23/2021 12:28 Bernardino Bass MD in [place] 02/23/2021 12:28
--- NOTE | 2021-02-23 11:39 | PC.NURSE ---
paged cardiology for consult
--- NOTE | 2021-02-23 11:50 | HMH.EDGENADL ---
ED Disposition Clinical Impression: Pain in pacemaker pocket due to device Disposition: Home, Self-Care Condition on Discharge: Good Instructions: DI for Pacemaker Insertion Referrals: [place] [Primary Care Provider] - Eliseo Zepeda MD [Staff Physician] - - Critical Care Critical Care Time: No Attestation: On 02/23/21, the high probability of a clinically significant, sudden or life threatening deterioration of the following system(s) required my full and direct attention, intervention and personal management. The time I documented below is in addition to time spent performing reported procedures but includes the following listed in this critical care notation. Medical Decision Making - Medical Records Medical records reviewed: Yes: I reviewed the patient's medical records. - Rene Inquiry Pt receiving controlled substance: No Vital Signs: 02/23/21 11:05 Temperature 97.6 F Temperature Source Oral Pulse Rate [Right Radial] 64 Respiratory Rate 14 Blood Pressure [Right Arm] 153/70 H Blood Pressure Mean [Right Arm] 97 Blood Pressure Source [Right Arm] Automatic Cuff Blood Pressure Position [Right Arm] Sitting 02 Sat by Pulse Oximetry 98 Oxygen Delivery Method Room Air Orders (Tests/Meds): ED MEDICATIONS Discontinued Medications Generic Name Dose Route Start Last Admin Trade Name Freq PRN Reason Stop Dose Admin Hydrocodone Bitart/Acetaminophen 1 tab 02/23/21 13:14 02/23/21 13:22 Hydrocodone/Apap 5/325 Mg Tablet PO 02/23/21 13:15 1 tab ONCE ONE Administration - Radiology Data #1 Image(s): Chest Image Reviewed: Yes I reviewed the patient's radiology results, Yes I reviewed the patient's radiology image, Yes I have reviewed radiologist's interpretation Preliminary Findings: Normal/NAD, No Fracture Seen, No Infiltrates Seen - ECG Data Tracing #1 I reviewed this ECG and interpreted as documented below: Normal ventricular rate of 63 bpm, ND interval 166 ms, normal QTC. Sinus rhythm with left axis deviation ventricular pacemaker. ECG initial impression date: 02/23/21 ECG initial impression time: 11:21 - Reevaluation(s) Time: 13:26 Reevaluation #1: On reevaluation, patient is feeling better. X-ray is unremarkable. Pacer appears to be in appropriate place. We did interrogate the pacemaker and cardiology evaluate the patient. Does not appear to be any malfunction. Patient will follow with Dr. Zepeda. Given strict return precautions verbalized understanding. Medical Decision Narrative: 85-year-old female presented to the emergency department for evaluation of her pacemaker. Patient states that she is felt at stand up on that side. On evaluation appears to be in place. Work-up initiated. Cardiology notified. General Adult HPI - General Chief complaint: Dizziness Stated complaint: pacemaker Time Seen by Provider: 02/23/21 11:10 Mode of Arrival: Ambulatory Limitations: No Limitations Description of Symptoms (Recalled from ER Triage Doc. by RN): Pt advises that she had a pacemaker placed October 2020 and has since had difficulty with it moving . Pt states that when laying on her rt side this AM she felt the pace maker flip and stand straight up . Pt states that since she has c/o dizziness, lightheadedness, SOA, and feels like her heart is racing. Main complaint at this time is dizziness and pain at sight of pacemaker. - History of Present Illness HPI narrative: This is a 85-year-old female presented to the emergency department for pacemaker evaluation. Patient had one placed by Dr. Zepeda back in October. Patient states that she was rolling over in bed when she felt her pacemaker flipped onto its side. She looked down and it was tenting up on the skin. As the patient rolled back over she states that it went back into place. She is having some discomfort in the area. She did not feel any shocks or discharge. He is not having any other chest pain or
--- NOTE | 2021-02-23 12:05 | PC.NURSE ---
SPOKE WITH ROSEY IN CARDIOLOGY HE SAID CALL HIM BACK AFTER CXR
[2021-02-23 13:37] VITALS: BP 172/73; PULSE 68; RESP 20; TEMP 36.9; O2SAT 98
== END 2021-02-23 13:39 | disposition home or self-care (01) ==
PROVIDERS: Emergency Provider Emergency Medicine; PCP Internal Medicine
DX: T82.847A Pain due to cardiac prosthetic devices, implants and grafts, initial encounter (principal); R42 Dizziness and giddiness; Z95.0 Presence of cardiac pacemaker; I48.0 Paroxysmal atrial fibrillation; K21.9 Gastro-esophageal reflux disease without esophagitis; I10 Essential (primary) hypertension; E78.5 Hyperlipidemia, unspecified
CPT/HCPCS: 71046; 93005; 99282

== ENCOUNTER → 2021-03-11 09:50 | Outpatient (CLI) | payer MEDICARE, BC, SELFPAY ==
--- NOTE | 2021-03-11 09:54 | XR_ITS ---
PROCEDURE: XR KNEE LT 2V CLINICAL INDICATION: sp LT TKA, sx 12/08/20 COMPARISON: CR XR KNEE LT 3V from 04/25/2020 CR XR KNEE LT 4V from 11/03/2020 CR XR KNEE LT 2V from 12/08/2020 CR XR KNEE LT 2V from 12/24/2020 FINDINGS: Status post total knee replacement with good alignment no acute fracture or dislocation. IMPRESSION: Good alignment status post total knee replacement with no obvious complications Dictated by: Bernardino Bass MD 03/11/2021 11:57 Bernardino Bass MD in [place] 03/11/2021 11:57
== END ==
PROVIDERS: PCP Internal Medicine; Visit Provider Orthopaedic Surgery
DX: Z96.652 Presence of left artificial knee joint (principal); M25.562 Pain in left knee
CPT/HCPCS: 73560

== ENCOUNTER → 2021-03-12 13:56 | Outpatient (POV) | payer MEDICARE, BC, SELFPAY ==
[2021-03-12 14:03] VITALS: BP 156/67; PULSE 71; RESP 18; O2SAT 96; BMI 27.6
--- NOTE | 2021-03-12 14:30 | HMH.PAINSOAP ---
[facility] Pain Management SOAP Note Subjective:: Patient is an 85-year-old white female who presents today for follow-up after lumbar epidural steroid injection. She did undergo an injection at L4-L5 area. Patient says that she got no relief with the injection. Patient reports that she typically gets 3 to 4 months of relief with her epidural steroid injections. Patient did undergo a left knee replacement and is still currently undergoing physical therapy for the last 12 weeks since her replacement. Patient says that she is now having low back pain that is radiating into her right hip and right knee. Her pain is worse when she is standing, as well as when leaning forward. She says that she is unable to sweep, mop, or change the sheets on her bed due to pain when leaning forward. She also reports that after bending forward and rising to a standing position, her pain is severe. Her pain is a 9 out of 10 today. She is tender to palpation with facet loading. She has tried the epidural steroid injection along with continued home stretching and is also's continue with physical therapy. The patient is on Eliquis and Plavix. Review of Systems General: No recent weight changes, no fever, no sleep disturbances Respiratory: No cough, no shortness of air, no recurring pulmonary infections Cardiovascular/peripheral vascular: No chest pain, no palpitations, no edema, no shortness of breath Gastrointestinal: No new onset incontinence, normal bowel movements reported Genitourinary: No new onset incontinence Musculoskeletal: Low back pain worse with bending forward and rising to a standing position, right hip pain, right knee pain Psychiatric: [Normal mood/affect] Neurological: [Denies weakness in extremities], [denies balance issues] Objective:: Physical exam General: Alert and oriented x3, no acute distress, pleasant and cooperative, [on room air] Lungs: Respirations even and unlabored, symmetrical chest expansion Eyes: PERRL Musculoskeletal: Flexion and extension of lumbar [spine] somewhat guarded secondary to pain, strength in upper and lower extremities [5/5], [antalgic gait noted], positive Kemps test Neurological: Speech clear, [assistant manager pt equal], no gross sensory deficit Assessment:: 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 The patient is on Eliquis and Plavix. She does understand she will need to hold these medications prior to the injection. She has been approved to hold these medicines in the past for injective therapy. She also understands these injections are for diagnostic purposes only. She understands she may not get long-term relief with the injections. She is in agreement to proceed with injective therapy and if greater than 60% relief after 2 injections, we will proceed with RFA to these areas. We will see her back in the clinic after her injections for reevaluation of symptoms. Possible side effects of corticosteroids have been discussed with the patient. Risks and benefits of the procedure have been explained to the patient. Patient would like to proceed with the procedure. Patient has been instructed to contact the clinic with any concerns before the next appointment. Dr. Gonzalez has reviewed this note and agrees with this plan of care. This note was dictated using voice recognition software and make contain errors or omissions. [facility] History I have reviewed the patient's past medical history: Yes Medical History: Reports:: Arrhythmia, Atrial Fibrillation, Cardiomyopathy, Coronary Artery Disease, Depression, Gastroesophageal Reflux Disease(GERD), Hyperlipidemia, Hypertension, Internal Pacemaker, Migraine Denies:: Cancer, Diabetes Mellitus Type 1, Diabetes Mellitus Type 2, MRSA, Seizures *Have you ever received a pneumonia vaccine?: Yes *Have you received a flu vaccine this se
== END ==
PROVIDERS: PCP Internal Medicine; Visit Provider Clinical Nurse Specialist Family Health
DX: M51.36 Other intervertebral disc degeneration, lumbar region (principal); M47.816 Spondylosis without myelopathy or radiculopathy, lumbar region; M54.06 Panniculitis affecting regions of neck and back, lumbar region
CPT/HCPCS: 99212; G0463

== ENCOUNTER 2021-03-27 09:42 | Day surgery (SDC) | payer MEDICARE, BC, SELFPAY ==
[2021-03-27 09:57] VITALS: BP 129/65; PULSE 63; RESP 18; TEMP 36.6; O2SAT 96; BMI 27.8
[2021-03-27 10:29] VITALS: BP 190/72; PULSE 60; RESP 18; O2SAT 99
[2021-03-27 10:31] VITALS: BP 190/72; PULSE 61; RESP 18; O2SAT 98
--- NOTE | 2021-03-27 10:32 | HMH.PMPROC ---
- Procedure Date: 03/27/21 Time: 10:33 Anesthesiologist:: Stew Gonzalez MD Complications:: None Pre-procedure Diagnosis:: Degenerative disc disease of lumbar spine with lumbar spondylosis and lumbar facet arthropathy Post-procedure Diagnosis:: Same Indications for Procedure:: This patient's pleasant 85-year-old white female who we are treating for low back pain with lumbar spondylosis and lumbar facet arthropathy. She had a lumbar epidural steroid injection which did not help her. Most of her pain is in her back at her waist. We will do a lumbar medial branch block/facet joint injection of L4-5 and L5-S1 today to see if this helps with her pain symptoms. Patient has been off of her blood thinner. Procedure Details:: Lumbar medial branch block Informed consent was obtained and the risks and benefits of the procedure was explained to the patient. The back was prepped using ChloraPrep. The skin and subcutaneous tissues were anesthetized using lidocaine. I placed 22-gauge spinal needles into the facet joint/medial branches of L4-L5 and L5-S1 bilaterally. Needle placement was confirmed with dye. After this we injected 3 mL bupivacaine 0.25% and Depo-Medrol 13 mg into each facet joint/medial branch of L4-L5 and L5-S1 bilaterally. We used a total of 80 mg Depo-Medrol both levels bilaterally. The patient tolerated the procedure well with no complications. Plan and Disposition:: We will follow-up with this patient in 2 weeks. Will reevaluate her symptoms at that time. She can continue physical therapy for her knee.
[2021-03-27 10:41] VITALS: BP 146/63; PULSE 60; RESP 20; O2SAT 99
== END 2021-03-27 10:42 | disposition home or self-care (01) ==
LOC: SC.PAINP 09:43
PROVIDERS: PCP Internal Medicine; Visit Provider Anesthesiology
DX: M51.36 Other intervertebral disc degeneration, lumbar region (principal); M47.816 Spondylosis without myelopathy or radiculopathy, lumbar region; M54.06 Panniculitis affecting regions of neck and back, lumbar region; G43.909 Migraine, unspecified, not intractable, without status migrainosus; I25.10 Atherosclerotic heart disease of native coronary artery without angina pectoris; Z95.0 Presence of cardiac pacemaker; E78.5 Hyperlipidemia, unspecified; I48.91 Unspecified atrial fibrillation; I10 Essential (primary) hypertension; K21.9 Gastro-esophageal reflux disease without esophagitis; M19.90 Unspecified osteoarthritis, unspecified site; F32.9 Major depressive disorder, single episode, unspecified
CPT/HCPCS: 64493; 64494; J1040; Q9966

== ENCOUNTER → 2021-04-13 11:51 | Outpatient (POV) | payer MEDICARE, BC, SELFPAY ==
[2021-04-13 11:58] VITALS: BP 188/70; PULSE 65; RESP 18; O2SAT 97; BMI 26.9
--- NOTE | 2021-04-13 12:52 | HMH.PAINSOAP ---
[facility] Pain Management SOAP Note Subjective:: Patient is an 85-year-old white female who presents today for follow-up after medial branch block/facet joint injection at L4-L5 L5-S1. The patient reports that she got 70 to 80% relief following the injections. She has pain when she is standing and bending forward as well as turning and twisting at waist. Patient's pain is 3 out of 10 today with sitting, but does increase to a 6 or 7 out of 10 with standing and with movement. The patient would like to proceed with a #2 sun injection. She does understand if she get significant relief, we would proceed to an RFA. She has tried and failed conservative therapies of physical therapy and continued home stretching. The patient does take Celebrex, but is also noted to be taking Plavix and Eliquis according to the patient's medication report. Patient does says she takes Eliquis and Celebrex but is unsure if she is still taking Plavix. She says that she does have a pacemaker and a cardiac stent. This is prescribed by Dr. Alvarez. Review of Systems General: No recent weight changes, no fever, no sleep disturbances Respiratory: No cough, no shortness of air, no recurring pulmonary infections Cardiovascular/peripheral vascular: No chest pain, no palpitations, no edema, no shortness of breath Gastrointestinal: No new onset incontinence, normal bowel movements reported Genitourinary: No new onset incontinence Musculoskeletal: Low back pain worse with bending forward and turning and twisting at waist Psychiatric: [Normal mood/affect] Neurological: [Denies weakness in extremities], [denies balance issues] Objective:: Physical exam General: Alert and oriented x3, no acute distress, pleasant and cooperative Lungs: Respirations even and unlabored, symmetrical chest expansion Eyes: PERRL Musculoskeletal: Flexion and extension of lumbar [spine] somewhat guarded secondary to pain, [antalgic gait noted], positive Kemps test Neurological: Speech clear, no gross sensory deficit Assessment:: 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 The patient is on Eliquis. Per her medication report, she is also taking Plavix. Patient is unsure if she is continuing to take Plavix. We will contact Dr. Diaz's office to determine what medications the patient is taking. She has been advised she will need to hold both medications if currently taking these medicines. The patient is also taking Celebrex according to the report and according to the patient. I have advised the patient to contact her providers regarding anticoagulation therapy and Celebrex. We will determine what medications a patient is currently taking so that she is able to hold these medications prior to the procedure. We will see her back in the clinic after the injections for reevaluation symptoms. If she gets significant relief greater than 70%, we will proceed with RFA to the areas. Possible side effects of corticosteroids have been discussed with the patient. Risks and benefits of the procedure have been explained to the patient. Patient would like to proceed with the procedure. Patient has been instructed to contact the clinic with any concerns before the next appointment. Dr. Gonzalez has reviewed this note and agrees with this plan of care. This note was dictated using voice recognition software and make contain errors or omissions. [facility] History I have reviewed the patient's past medical history: Yes Medical History: Reports:: Arrhythmia, Atrial Fibrillation, Cardiomyopathy, Coronary Artery Disease, Depression, Gastroesophageal Reflux Disease(GERD), Hyperlipidemia, Hypertension, Internal Pacemaker, Migraine, Myocardial Infarction Denies:: Cancer, Diabetes Mellitus Type 1, Diabetes Mellitus Type 2, MRSA, Seizures *Have you ever received
== END ==
PROVIDERS: Visit Provider Clinical Nurse Specialist Family Health
DX: M51.36 Other intervertebral disc degeneration, lumbar region (principal); M47.816 Spondylosis without myelopathy or radiculopathy, lumbar region; M54.06 Panniculitis affecting regions of neck and back, lumbar region
CPT/HCPCS: 99212; G0463

== ENCOUNTER 2021-04-15 14:00 | Outpatient (RCR) | payer MEDICARE, BC, SELFPAY ==
--- NOTE | 2021-01-28 11:57 | HMH.PTOPEV ---
PT Outpatient Evaluation Rehab PT Outpatient Evaluation Start: 01/28/21 11:23 Freq: Status: Active Protocol: Document 01/28/21 11:23 ARABELLA (Rec: 01/28/21 11:56 ARABELLA [id number]) Electronically Signed By Pola Ramsey, PT 01/28/21 11:23 Outpatient Therapy Subjective History Subjective History Pt presents s/p left TKA on 12/08/20. Pt reports HHPT 'has gone very well'. Pt reports some post-op swelling, pain, and weakness, 'but it's done fine.' Pt reports some medial and lateral area jt line pain and tenderness. Pt also reports chronic issues with balance, and intermittent LBP. Chief Complaint Pain,Stiff,Swelling,Weakness Symptom Type Ache,Sharp,Dull Symptoms Relieved By Rest/Positioning,Ice Symptoms Aggravated By Standing,Physical Activity, Walking Prior Functional Limitations Housework,Standing,Walking, Stairs,Balance Current Functional Limitations Housework,Standing,Walking, Stairs,Balance Symptom Description Constant but Variable Level of pain today (0-10) 3 Pain scale - at its best (0-10) 1 Pain scale - at its worst (0-10) 7 Hip/Knee Eval Gait Observation General Gait Pattern Observation Antalgic Gait Assistive Device Assistive Devices None / NA Palpation Tenderness left Knee Palpation Finding Tenderness Knee Palpation Overall Comment 3/4 medial and lateral jt line MMT Hip Flexion Strength Grade 4- Good- Hip Abduction Strength Grade 4- Good- Hip Adduction Strength Grade 4- Good- Hip Extension Strength Grade 4- Good- Knee Extension Strength Grade 4 Good Knee Flexion Strength Grade 4 Good ROM Knee Flexion Active Range of Motion ( 3-120 degrees) Tinetti Sitting Balance Sitting Balance Steady, safe Arising from Chair Ability to Arise Able, w/o using arms Attempts to Arise Arises on 1st attempt Standing Balance Immediate Standing Balance Steady w/o support Standing Balance Narrow stance w/o support Nudged Response Staggers, catches self Standing with Eyes Closed Unsteady Turning Step Pattern Turning 360 Degrees Continuous steps Stability Turning 360 Degrees Steady Sitting Down Sitting Down Safe, steady Gait and Step Initiation of Gait No hesitancy Right Foot Step Length Does pass stance foot Right Foot Step Height Completely
--- NOTE | 2021-02-27 16:04 | HMH.RHREAS ---
Rehab Reassessment Rehab OP Re-assessment Start: 02/27/21 15:55 Freq: Status: Active Protocol: Document 02/27/21 15:55 ARABELLA (Rec: 02/27/21 16:03 KALYANICÉSARJEANETH [id number]) Electronically Signed By Pola Ramsey, PT 02/27/21 15:55 Rehab Re-assessment Subjective Subjective PT REPORTS 0-1/10 RIGHT KNEE PAIN AND 3/10 LBP ON VAS, AND FEELS 50% BETTER OVERALL SINCE I EVAL Objective Objective Notes AROM: RIGHT KNEE FLX 0-123 MMT: R HIP FLX 4/5, R HIPABD, ADD,EXT 4/5 R KNEE EXT 4+-5/5, R KNEE FLX 4+/5, R DF 5/5 TTP: R KNEE MEDIAL JT LINE 2/4 , SUNNY. LUMBAR PARA 2/4 TINETTI:WFL 28 Assessment Progress Assessment Progressing as Expected Assessment Notes IMPROVED ROM, STRENGTH, TTP Patient goals met STG'S 02/08 LTG'S 10/12 Goals Not Met LTG'S 01/11 Plan Plan PT TO CONT. W/SKILLED P.T. TO MAKE FURTHER IMPROVEMENTS IN STRENGTH, BALANCE, GAIT AND TTP TO ALLOW FOR OPTIMAL FUNCTION Frequency of Therapy 2-3X/WK Duration of therapy 2-4WKS Time and Billing Re-Eval Time 15 Re-Eval Billing Units 0 PHYSICIAN CERTIFICATION: I certify the specified therapy services for Gillian Pride are required, authorized, and reviewed every 30 days.
== END 2021-04-15 14:05 | disposition home or self-care (01) ==
LOC: PT 14:00
PROVIDERS: PCP Internal Medicine; Visit Provider Orthopaedic Surgery
DX: M25.562 Pain in left knee (principal); Z96.652 Presence of left artificial knee joint
CPT/HCPCS: 97010; 97014; 97110; 97112; 97163; 97164; 97530; G0283

== ENCOUNTER → 2021-04-25 10:18 | Outpatient (CLI) | payer MEDICARE, BC, SELFPAY ==
[2021-04-25 11:15] LABS: Basophils # 0.1 K/mm3 (0-0.2); Basophils % 1.7 % (0.1-2.0); Eosinophils # 0.3 K/mm3 (0.0-0.4); Hemoglobin 11.4 g/dL (12.2-16.2); Lymphocytes # 1.3 K/mm3 (0.7-4.5); Lymphocytes % 23.4 % (10-50); Mean Corpuscular HGB Conc 30.8 g/dL (31.8-35.4); Mean Corpuscular Hemoglobin 30.6 pg (27.0-31.2); Mean Corpuscular Volume 99.6 fl (81-99); Mean Platelet Volume 8.1 fl (7.4-10.4); Monocytes # 0.5 K/mm3 (0.1-1.0); Monocytes % 9.5 % (1.7-9.3); Neutrophils # 3.4 K/mm3 (1.8-7.8); Neutrophils % 60.4 % (37.0-80.0); Platelet Count 374 K/mm3 (142-424); Red Blood Count 3.72 M/mm3 (4.20-5.40); White Blood Count 5.6 K/mm3 (4.8-10.8)
[2021-04-25 12:10] LABS: Chloride 102 mmol/L (98-107); Potassium 3.5 mmoL/L (3.5-5.1); Sodium 139 mmol/L (136-145)
[2021-04-25 12:12] LABS: Blood Urea Nitrogen 17 mg/dl (7-17); Estimated Glomerular Filt Rate 68 ml/min (>60); GFR (African American) 82 ML/MIN (>60)
[2021-04-25 12:13] LABS: Alanine Aminotransferase 19 U/L (12-78); Albumin Level 3.5 g/dl (3.5-5.0); Alkaline Phosphatase 85 U/L (38-126); Anion Gap 12.5 mEq/L (5-15); Aspartate Amino Transferase 27 U/L (14-36); Bilirubin,Direct 0.4 mg/dl (0.0-0.4); Bilirubin,Total 0.4 mg/dl (0.2-1.3); Calcium 9.1 mg/dl (8.4-10.2); Carbon Dioxide 28 mmol/L (22.0-30.0); Glucose 143 mg/dl (74-100); Total Protein,Serum 6.1 g/dl (6.3-8.2)
[2021-04-25 12:29] LABS: Triiodothryronine (T3) Uptake 34 % (23.5-40.5)
[2021-04-25 12:30] LABS: Free Thyroxine Index 4.1 ug/dL (5.93-13.13); T4 (Thyroxine) 12.2 ug/dl (5.53-11.0)
[2021-04-25 12:43] LABS: Thyroid Stimulating Hormone 2.75 uIU/mL (0.465-4.68)
== END ==
PROVIDERS: PCP Internal Medicine; Visit Provider Internal Medicine Cardiovascular Disease
DX: Z01.812 Encounter for preprocedural laboratory examination; Z11.52 Encounter for screening for COVID-19; R06.02 Shortness of breath; I20.0 Unstable angina; I11.9 Hypertensive heart disease without heart failure; E78.2 Mixed hyperlipidemia; I27.20 Pulmonary hypertension, unspecified; I48.0 Paroxysmal atrial fibrillation; K21.9 Gastro-esophageal reflux disease without esophagitis; Z79.899 Other long term (current) drug therapy
CPT/HCPCS: 80048; 80076; 84436; 84443; 84479; 85025; C9803; U0003; U0005

== ENCOUNTER 2021-04-27 09:06 | Day surgery (SDC) | payer MEDICARE, BC, SELFPAY ==
[2021-04-27] VITALS (11 sets, daily range): BP systolic 132–188; BP diastolic 65–87; PULSE 60–67; RESP 17–20; TEMP 36.6–36.7; O2SAT 95–99; BMI 27.8
--- NOTE | 2021-04-27 | IR_ITS ---
APPROVED REPORT Patient Location: Outpatient Legal Officer: CLYDE Sotelo RT (R) PROCEDURES Left heart catheterization Left ventriculogram Selective coronary angiogram INDICATION Preoperative evaluation, Known coronary artery disease, Accelerated angina pectoris Informed consent was obtained prior to the procedure. COMPLICATIONS NONE Estimated Blood Loss: LESS THAN 10 ML TECHNIQUE One percent lidocaine used to anesthetize the right anterior aspect of the wrist. The right radial artery was accessed via the Seldinger technique. A 6 Maori sheath was placed in the right radial artery. 2.5 mg of verapamil, 800 mcg of nitroglycerin, 1mg Lidocaine and 5000 U Heparin were given through the arterial sheath. The Poppa catheter was also used to perform left heart catheterization, left ventriculogram and selective coronary angiogram. At the end of the procedure the sheath was removed good hemostasis was achieved using Traclet band, patient was transferred to the postop holding area in stable condition. ANGIOGRAPHIC RESULTS The left main artery Normal The left anterior descending artery Has proximal 10% stenosis followed by a proximal stent which is widely patent free of in-stent restenosis. There is excellent proximal distal transitioning. The mid segment then has a smooth concentric 40% stenosis The circumflex artery Large dominant with mild diffuse 10 to 20% stenoses The right coronary artery Is a large probably codominant vessel with proximal mid vessel 10 to 20% stenoses The ALMEIDA ventriculogram reveals Hyperdynamic at 85% The left ventricular end-diastolic pressure Severely elevated at 30 to 35 mmHg IMPRESSION Widely patent coronary arteries Hyperdynamic ventricle as described above Elevated LVEDP secondary to hypertensive heart disease PLAN 1. Add verapamil 240 sustained release once daily 2. Add bisoprolol 10 mg p.o. daily for severe hypertension 3. Add Lasix 20 mg daily for elevated LVEDP 4. Patient is alone acceptable risk to proceed with elective surgery 5. Patient has severe diastolic heart failure and requires aggressive management Electronically signed by : Eliseo Zepeda MD 04/27/2021 13:48:02
== END 2021-04-27 14:15 | disposition hospice, home (50) ==
LOC: CATHLAB 09:07
PROVIDERS: PCP Internal Medicine; Visit Provider Internal Medicine
DX: I25.118 Atherosclerotic heart disease of native coronary artery with other forms of angina pectoris (principal); Z79.899 Other long term (current) drug therapy; I27.20 Pulmonary hypertension, unspecified; K21.9 Gastro-esophageal reflux disease without esophagitis; I48.0 Paroxysmal atrial fibrillation; I42.9 Cardiomyopathy, unspecified; G43.909 Migraine, unspecified, not intractable, without status migrainosus; Z82.49 Family history of ischemic heart disease and other diseases of the circulatory system; I11.9 Hypertensive heart disease without heart failure; E78.2 Mixed hyperlipidemia; Z95.0 Presence of cardiac pacemaker; Z95.5 Presence of coronary angioplasty implant and graft
CPT/HCPCS: 93458; 99152; C1725; C1769; J1644; Q9967

== ENCOUNTER 2021-05-01 11:40 | Day surgery (SDC) | payer MEDICARE, BC, SELFPAY ==
[2021-05-01 11:46] VITALS: BP 167/71; PULSE 60; RESP 18; TEMP 36; O2SAT 93; BMI 26.9
[2021-05-01 12:45] VITALS: BP 135/72; PULSE 60; RESP 18; O2SAT 96
[2021-05-01 12:47] VITALS: BP 172/78; PULSE 60; RESP 18; O2SAT 96
--- NOTE | 2021-05-01 12:49 | HMH.PMPROC ---
- Procedure Date: 05/01/21 Time: 12:50 Anesthesiologist:: Stew Gonzalez MD Complications:: None Pre-procedure Diagnosis:: Degenerative disc disease of lumbar spine with lumbar facet arthropathy and lumbar spondylosis Post-procedure Diagnosis:: Same Indications for Procedure:: Patient is a pleasant 85-year-old white female who we are treating for low back pain with lumbar spondylosis and lumbar facet arthropathy. Patient did very well with previous medial branch block she was 70 to 80% better. She presents for second round of medial branch blocks today of L4-5 and L5-S1 bilaterally. Procedure Details:: Lumbar medial branch block Informed consent was obtained and the risks and benefits of the procedure was explained to the patient. The back was prepped using ChloraPrep. The skin and subcutaneous tissues were anesthetized using lidocaine. I placed 22-gauge spinal needles into the facet joint/medial branches of L4-L5 and L5-S1 bilaterally. Needle placement was confirmed with dye. After this we injected 3 mL bupivacaine 0.25% and Depo-Medrol 20 mg into each facet joint/medial branch of L4-L5 and L5-S1 bilaterally. We used a total of 80 mg Depo-Medrol for both levels bilaterally. The patient tolerated the procedure well with no complications. Plan and Disposition:: We will follow-up with this patient in 2 weeks. We will plan on RF ablation to the facet joint/medial branches of L4-5 and L5-S1 bilaterally if medial branch blocks are successful again.
[2021-05-01 13:05] VITALS: BP 155/62; PULSE 60; RESP 20; O2SAT 95
== END 2021-05-01 13:05 | disposition home health service (06) ==
LOC: SC.PAINP 11:42
PROVIDERS: PCP Internal Medicine; Visit Provider Anesthesiology
DX: M51.36 Other intervertebral disc degeneration, lumbar region (principal); M47.816 Spondylosis without myelopathy or radiculopathy, lumbar region; M54.06 Panniculitis affecting regions of neck and back, lumbar region; G43.909 Migraine, unspecified, not intractable, without status migrainosus; I25.2 Old myocardial infarction; I25.10 Atherosclerotic heart disease of native coronary artery without angina pectoris; Z95.0 Presence of cardiac pacemaker; E78.5 Hyperlipidemia, unspecified; I48.91 Unspecified atrial fibrillation; I10 Essential (primary) hypertension; K21.9 Gastro-esophageal reflux disease without esophagitis; F32.9 Major depressive disorder, single episode, unspecified
CPT/HCPCS: 64493; 64494; J1040; Q9966

== ENCOUNTER → 2021-05-04 11:08 | Outpatient (CLI) | payer MEDICARE, BC, SELFPAY ==
[2021-05-04 12:55] LABS: Chloride 98 mmol/L (98-107); Potassium 4.1 mmoL/L (3.5-5.1); Sodium 138 mmol/L (136-145)
[2021-05-04 12:58] LABS: Anion Gap 13.1 mEq/L (5-15); Blood Urea Nitrogen 21 mg/dl (7-17); Calcium 8.9 mg/dl (8.4-10.2); Carbon Dioxide 31 mmol/L (22.0-30.0); Estimated Glomerular Filt Rate 59 ml/min (>60); GFR (African American) 72 ML/MIN (>60); Glucose 85 mg/dl (74-100)
== END ==
PROVIDERS: Visit Provider Physician Assistant
DX: E78.5 Hyperlipidemia, unspecified (principal); I11.9 Hypertensive heart disease without heart failure; I25.10 Atherosclerotic heart disease of native coronary artery without angina pectoris; I48.91 Unspecified atrial fibrillation
CPT/HCPCS: 36415; 80048

== ENCOUNTER → 2021-05-21 14:49 | Outpatient (POV) | payer MEDICARE, BC, SELFPAY ==
[2021-05-21 15:08] VITALS: BP 132/72; PULSE 63; RESP 18; O2SAT 96; BMI 27.3
--- NOTE | 2021-05-21 19:05 | HMH.PAINSOAP ---
[facility] Pain Management SOAP Note Subjective:: Patient is an 85-year-old white female who presents today for follow-up after lumbar medial branch block at L4-L5 L5-S1 bilaterally. This is the patient's second round of medial branch blocks. She reports that she got approximately 90% relief with the injections. She is much more mobile since having the injections. She reports about 70 to 80% relief with the first injections. She got up to 2 weeks with 8 round of injections. The patient's pain is slowly returning. She does rate her pain a 2 out of 10 with sitting, and when bending forward or turning and twisting at waist, the patient's pain is a 7 out of 10. She is currently on Eliquis and Plavix. She has been approved to hold her anticoagulation therapy in the past. Patient has tried and failed conservative therapies of physical therapy for more than 6 weeks along with home stretching. She is unable to take anti-inflammatories due to anticoagulation use. Review of Systems General: No recent weight changes, no fever, no sleep disturbances Respiratory: No cough, no shortness of air, no recurring pulmonary infections Cardiovascular/peripheral vascular: No chest pain, no palpitations, no edema, no shortness of breath Gastrointestinal: No new onset incontinence, normal bowel movements reported Genitourinary: No new onset incontinence Musculoskeletal: Low back pain worse with standing turning, twisting at waist Psychiatric: [Normal mood/affect] Neurological: [Denies weakness in extremities], [denies balance issues] Objective:: Physical exam General: Alert and oriented x3, no acute distress, pleasant and cooperative Lungs: Respirations even and unlabored, symmetrical chest expansion Eyes: PERRL Musculoskeletal: Flexion and extension of lumbar [spine] somewhat guarded secondary to pain, [antalgic gait noted], positive Kemps test Neurological: Speech clear, no gross sensory deficit Assessment:: 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 With the initial injections she got 70 to 80% relief. With her second round of injection she got 80 to 90% relief. She got up to 2 weeks with the injections. Patient would like to proceed with an RFA. She has a little pain with sitting. The pain is made worse with movement. She does have a positive Kemps test today. The patient is on Eliquis and Plavix. She does understand she will need to hold this medication before proceeding with injections. Patient is not diabetic. We will schedule her for the RFA at L4-L5 L5-S1 bilaterally. We will see her back after the RFA for further evaluation. Risks and benefits of the procedure have been explained to the patient. Patient would like to proceed with the procedure. Patient has been instructed to contact the clinic with any concerns before the next appointment. Dr. Gonzalez has reviewed this note and agrees with this plan of care. This note was dictated using voice recognition software and make contain errors or omissions. [facility] History I have reviewed the patient's past medical history: Yes Medical History: Reports:: Arrhythmia, Atrial Fibrillation, Cardiomyopathy, Coronary Artery Disease, Depression, Gastroesophageal Reflux Disease(GERD), Hyperlipidemia, Hypertension, Internal Pacemaker, Migraine, Myocardial Infarction Denies:: Cancer, Diabetes Mellitus Type 1, Diabetes Mellitus Type 2, MRSA, Seizures *Have you ever received a pneumonia vaccine?: Yes *Have you received a flu vaccine this season?: Yes Other Medical History: Reports: Arthritis, Cataracts. Denies: Blood Transfusion Reaction Other Surgeries: Yes: No Previous Surgery, Appendectomy, Cardiac Catheterization, Colonoscopy, Coronary Stent, Hysterectomy-Total, Pacemaker, Tubal Ligation, Other (cataracts) Amputation: No Fractures: No - *Socia
== END ==
PROVIDERS: Visit Provider Clinical Nurse Specialist Family Health
DX: M51.36 Other intervertebral disc degeneration, lumbar region (principal); M54.06 Panniculitis affecting regions of neck and back, lumbar region; M47.816 Spondylosis without myelopathy or radiculopathy, lumbar region
CPT/HCPCS: 99212; G0463

== ENCOUNTER 2021-06-24 09:52 | Day surgery (SDC) | payer MEDICARE, BC, SELFPAY ==
[2021-06-24 10:05] VITALS: BP 129/63; BP 138/67; PULSE 61; PULSE 63; RESP 20; TEMP 36.1; O2SAT 96; O2SAT 97; BMI 26.2
[2021-06-24 10:24] VITALS: BP 126/59; PULSE 60; RESP 18; O2SAT 95
[2021-06-24 10:26] VITALS: PULSE 60; RESP 18; O2SAT 95
--- NOTE | 2021-06-24 10:36 | P.PCN_ITS ---
- Procedure Date: 06/24/21 Time: 10:36 Anesthesiologist:: Stew Gonzalez MD Complications:: None Pre-procedure Diagnosis:: Degenerative disc disease of lumbar spine with lumbar facet arthropathy and lumbar spondylosis Post-procedure Diagnosis:: Same Indications for Procedure:: This patient is a pleasant 85-year-old white female who we are treating for low back pain with lumbar spondylosis and lumbar facet arthropathy. She has increasing pain in the lower lumbar spine worse with extension and twisting. She has had good success with medial branch blocks with 80 to 90% relief in her symptoms for short period of time. She presents for RF ablation to the facet joints of L4-5 and L5-S1 bilaterally today. Procedure Details:: Lumbar RFA Lumbar RFA informed consent was obtained and the risk and benefits of the procedure was explained to the patient. Patient was placed prone on the procedure table. The patient was prepped and draped in sterile fashion. C-arm fluoroscopy was used to view the lumbar spine. The skin and subcutaneous tissues were anesthetized using lidocaine. I placed 20-gauge RF needles into the facet joints of L4-5 and L5-S1 bilaterally. We underwent sensory stimulation. There is good sensory stimulation at 0.8 V. We underwent motor stimulation. There is no motor stimulation at 2 V. We then anesthetized these levels with lidocaine and Depo- Medrol. I used a total of 80 mg Depo-Medrol for both levels. I then burned both levels of L4-5 and L5-S1 facet joint/medial branches bilaterally for 4 minutes at 80 ?C. Patient tolerated the procedure well with no complication. Plan and Disposition:: We will follow-up with this patient in 2 weeks. Will reevaluate her symptoms at that time.
== END 2021-06-24 11:05 | disposition home or self-care (01) ==
LOC: SC.PAINP 09:53
PROVIDERS: PCP Internal Medicine; Visit Provider Anesthesiology
DX: M51.36 Other intervertebral disc degeneration, lumbar region (principal); M47.816 Spondylosis without myelopathy or radiculopathy, lumbar region; M54.06 Panniculitis affecting regions of neck and back, lumbar region; I25.2 Old myocardial infarction; Z95.0 Presence of cardiac pacemaker; E78.5 Hyperlipidemia, unspecified; I10 Essential (primary) hypertension; I48.91 Unspecified atrial fibrillation; K21.9 Gastro-esophageal reflux disease without esophagitis; F32.A Depression, unspecified; I25.10 Atherosclerotic heart disease of native coronary artery without angina pectoris; I27.20 Pulmonary hypertension, unspecified
CPT/HCPCS: 64635; 64636; J1040

== ENCOUNTER → 2021-07-14 10:15 | Outpatient (POV) | payer MEDICARE, BC, SELFPAY ==
[2021-07-14 10:27] VITALS: BP 149/68; PULSE 60; RESP 18; O2SAT 99; BMI 27.1
--- NOTE | 2021-07-14 10:33 | HMH.PAINSOAP ---
[facility] Pain Management SOAP Note Subjective:: Patient is an 85-year-old white female who presents today for follow-up after RFA L4-L5 L5-S1 bilaterally. She reports to gotten significant relief at a 2 out of 10 at this time. She says that the pain in her lower extremities have improved immensely since the injections. She is complaining of occasional right hip pain, right knee pain and now having balance issues. She says that she feels as though her balance is off due to pain in her low back and lower extremities. She would like to proceed with repeat physical therapy. Review of Systems General: No recent weight changes, no fever, no sleep disturbances Respiratory: No cough, no shortness of air, no recurring pulmonary infections Cardiovascular/peripheral vascular: No chest pain, no palpitations, no edema, no shortness of breath Gastrointestinal: No new onset incontinence, normal bowel movements reported Genitourinary: No new onset incontinence Musculoskeletal: Intermittent right hip pain, intermittent right knee pain, intermittent low back pain, reported occasional balance issues Psychiatric: [Normal mood/affect] Neurological: Reported occasional balance issues Objective:: Physical exam General: Alert and oriented x3, no acute distress, pleasant and cooperative Lungs: Respirations even and unlabored, symmetrical chest expansion Eyes: PERRL Musculoskeletal: Flexion and extension of [] [spine] none guarded at this time Neurological: Speech clear, no gross sensory deficit Assessment:: 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 We will see her back in a month to see if she is getting relief with physical therapy. She does have improvement since her RFA with bending forward and prolonged standing. Patient has been instructed to contact the clinic with any concerns before the next appointment. Dr. Gonzalez has reviewed this note and agrees with this plan of care. This note was dictated using voice recognition software and make contain errors or omissions. [facility] History I have reviewed the patient's past medical history: Yes Medical History: Reports:: Arrhythmia, Atrial Fibrillation, Cardiomyopathy, Coronary Artery Disease, Depression, Gastroesophageal Reflux Disease(GERD), Hyperlipidemia, Hypertension, Internal Pacemaker, Migraine, Myocardial Infarction Denies:: Cancer, Diabetes Mellitus Type 1, Diabetes Mellitus Type 2, MRSA, Seizures *Have you ever received a pneumonia vaccine?: Yes *Have you received a flu vaccine this season?: Yes Other Medical History: Reports: Arthritis, Cataracts. Denies: Blood Transfusion Reaction Other Surgeries: Yes: No Previous Surgery, Appendectomy, Cardiac Catheterization, Colonoscopy, Coronary Stent, Hysterectomy-Total, Pacemaker, Tubal Ligation, Other (cataracts) Amputation: No Fractures: No - *Social History Smoking Status: Never smoker Tobacco Type: cigarettes Alcohol Intake: never Alcohol Intake Frequency:: holidays/special occasions only Substance Use Type: denies use *Occupational Status:: unemployed Housing: house Household Members: family *Travel in the last 8 weeks: None - Psychiatric History Pschychiatric History:: Reports:: Depression Family Hx:: Cancer, Heart Attack, Hypertension
== END ==
PROVIDERS: Visit Provider Clinical Nurse Specialist Family Health
DX: M51.36 Other intervertebral disc degeneration, lumbar region (principal); M47.816 Spondylosis without myelopathy or radiculopathy, lumbar region; M54.06 Panniculitis affecting regions of neck and back, lumbar region
CPT/HCPCS: 99212; G0463

== ENCOUNTER → 2021-08-13 10:43 | Outpatient (POV) | payer MEDICARE, BC, SELFPAY ==
[2021-08-13 10:59] VITALS: BP 122/67; PULSE 64; RESP 18; O2SAT 97; BMI 26.9
--- NOTE | 2021-08-15 10:37 | HMH.PAINSOAP ---
[facility] Pain Management SOAP Note Subjective:: Patient is an 85-year-old white female who presents today for follow-up. Patient has had injective therapy to lumbar and cervical spine and does not get any significant relief. Patient's pain has returned. She is having pain that is going into her bilateral lower extremities and feet as well as neck pain that is going into bilateral shoulders and arms. Pain is worse to left arm. She is on chronic oxygen. She says the pain is a 7 out of 10 today. She has discussed spinal cord stimulation versus intrathecal therapy in the past. Patient was interested in possible spinal cord stimulation, but due to having pain in neck and low back, she does feel that intrathecal therapy may be a better option for her. The patient is rating her pain a 7 out of 10. She does say that she is unable to take anti-inflammatories due to Plavix use. She has also tried intrathecal therapy. Review of Systems General: No recent weight changes, no fever, no sleep disturbances Respiratory: No cough, no shortness of air, no recurring pulmonary infections Cardiovascular/peripheral vascular: No chest pain, no palpitations, no edema, no shortness of breath Gastrointestinal: No new onset incontinence, normal bowel movements reported Genitourinary: No new onset incontinence Musculoskeletal: Neck pain, low back pain Psychiatric: [Normal mood/affect] Neurological: [Denies weakness in extremities], [denies balance issues] Objective:: Physical exam General: Alert and oriented x3, no acute distress, pleasant and cooperative Lungs: Respirations even and unlabored, symmetrical chest expansion Eyes: PERRL Musculoskeletal: Flexion and extension of cervical lumbar [spine] somewhat guarded secondary to pain, [antalgic gait noted] Neurological: Speech clear, no gross sensory deficit Assessment:: Degenerative disc disease cervical lumbar spine with cervical lumbar radiculopathy symptoms Plan:: Patient did not follow-up for psychological evaluation due to uncertainty if she wanted to proceed with a spinal cord stimulator. She does feel intrathecal therapy is a better option for her. We will schedule her once again for psychological evaluation to see if she is a candidate for intrathecal therapy. Patient is on Plavix therapy. Of note, she does use chronic oxygen. We did discuss that she would likely be a bupivacaine only intrathecal pump candidate. We will see the patient back in the clinic after her evaluation for further discussion. She is also on clonazepam and gabapentin prescribed by Dr. Romero. Patient has been instructed to contact the clinic with any concerns before the next appointment. Dr. Gonzalez has reviewed this note and agrees with this plan of care. This note was dictated using voice recognition software and make contain errors or omissions. [facility] History I have reviewed the patient's past medical history: Yes Medical History: Reports:: Arrhythmia, Atrial Fibrillation, Cardiomyopathy, Coronary Artery Disease, Depression, Gastroesophageal Reflux Disease(GERD), Hyperlipidemia, Hypertension, Internal Pacemaker, Migraine, Myocardial Infarction Denies:: Cancer, Diabetes Mellitus Type 1, Diabetes Mellitus Type 2, MRSA, Seizures *Have you ever received a pneumonia vaccine?: No *Have you received a flu vaccine this season?: Yes Other Medical History: Reports: Arthritis, Cataracts. Denies: Blood Transfusion Reaction Other Surgeries: Yes: No Previous Surgery, Appendectomy, Cardiac Catheterization, Colonoscopy, Coronary Stent, Hysterectomy-Total, Pacemaker, Tubal Ligation, Other (cataracts) Amputation: No Fractures: No - *Social History Smoking Status: Never smoker Tobacco Type: cigarettes Alcohol Intake: never Alcohol Intake Frequency:: holidays/special occasions only Substance Use Type: denies use *Occupational Status:: unemployed Housing: house Household Members: family *Travel in the last 8 weeks: None -
== END ==
PROVIDERS: Visit Provider Clinical Nurse Specialist Family Health
DX: M50.10 Cervical disc disorder with radiculopathy, unspecified cervical region (principal)
CPT/HCPCS: 99212; G0463

== ENCOUNTER → 2021-08-24 10:54 | Outpatient (CLI) | payer MEDICARE, BC, SELFPAY ==
--- NOTE | 2021-08-24 10:55 | CA_ITS ---
FINAL REPORT TECHNIQUE: Real-time imaging was performed of the extracranial carotid arteries in transverse and longitudinal planes, with color duplex evaluation of blood flow velocity. Spectral analysis was performed. The cervical vertebral arteries were also examined. CLINICAL HISTORY: right carotid bruit FINDINGS: NASCET technique is utilized for stenosis evaluation. Right carotid system (centimeters/second): ICA: 149 Vertebral artery: Antegrade ICA/CCA ratio: 2.4 Mild plaque is identified at the bifurcation. Left carotid system (centimeters/second): ICA: 121 Vertebral artery: Antegrade ICA/CCA ratio: 1.7 Mild plaque is identified at the bifurcation. IMPRESSION: 50?69 % right ICA stenosis. 30?49 % left ICA stenosis. Reviewed, Interpreted and Dictated by Pablo Melvin MD Transcribed by Ruth Green Authenticated by Pablo Melvin MD on 08/24/2021 01:15:25 PM [facility]
== END ==
PROVIDERS: PCP Internal Medicine; Visit Provider Physician Assistant
DX: R09.89 Other specified symptoms and signs involving the circulatory and respiratory systems (principal)
CPT/HCPCS: 93880

== ENCOUNTER 2021-08-27 15:00 | Outpatient (RCR) | payer MEDICARE, BC, SELFPAY ==
--- NOTE | 2021-07-17 10:58 | HMH.PTOPEV ---
PT Outpatient Evaluation Rehab PT Outpatient Evaluation Start: 07/17/21 10:40 Freq: Status: Active Protocol: Document 07/17/21 10:40 KARLENE (Rec: 07/17/21 10:58 KARLENE [id number]) Electronically Signed By Eagle Haney, PT 07/17/21 10:40 Outpatient Therapy Subjective History Subjective History Patient is an 85 year old female presenting to outpatient PT with reports of poor balance, LBP and B hip/ knee pain. Patient was previously seen in outpatient PT for L TKA starting 12/2020, followed by an episode of PT to address balance issues. She then continued to with cardiac therapy. Pace maker placement 10/2020 secondary to Afib. Other comorbidities include hx of cardiac stent x 1, cardiac cath, HTN, cataract surgery and lumbar spine surgery. Chief Complaint Pain,Stiff,Weakness,Decreased Coordination Symptom Type Ache,Dull Symptoms Relieved By Rest/Positioning Symptoms Aggravated By Standing,Bending/Stooping, Physical Activity,Walking, Lifting Prior Functional Limitations Lifting,Housework,Standing, Walking,Balance,Bending/ Stooping Current Functional Limitations Lifting,Housework,Standing, Walking,Balance,Bending/ Stooping Symptom Description Constant but Variable Level of pain today (0-10) 3 Pain scale - at its best (0-10) 3 Pain scale - at its worst (0-10) 6 Lumbopelvic Eval Posture Thoracic Spine Posture Standing Position Increased Kyphosis Lumbar Spine Posture Standing Position Decreased Lordosis Assistive device Assistive Devices Rolling / Wheeled Walker Gait Observation General Gait Pattern Observation Wide Based Gait Palapation tenderness bilateral Lumbar/Sacral Palpation Findings Tenderness Lumbar/Sacral Palpation Overall Comment B SIJ 2/4 Range of Motion Lumbar Spine Active Flexion Range of WNL Motion (degrees) Lumbar Spine Active Extension Range of 18 Motion (degrees) Left Lumbar Spine Lateral Flexion Active 18 Range of Motion (degrees) Right Lumbar Spine Lateral Flexion 16 Active Range of Motion (degrees) Lumbar Spine ROM Limitations Soft Tissue Tightness,Bony
--- NOTE | 2021-08-13 12:22 | P.CONS_ITS ---
[facility] Pain Management SOAP Note Subjective:: Patient is an 85-year-old white male who presents today for follow-up. The patient did have previous RFA L4-L5 L5-S1 bilaterally. She is now having low back pain with radiation into bilateral buttock and hips. Pain is slowly worsening with standing and walking. She is tender to palpation. She has been doing physical therapy which is given minimal relief. She does rate her pain 4 out of 10 today. Review of Systems General: No recent weight changes, no fever, no sleep disturbances Respiratory: No cough, no shortness of air, no recurring pulmonary infections Cardiovascular/peripheral vascular: No chest pain, no palpitations, no edema, no shortness of breath Gastrointestinal: No new onset incontinence, normal bowel movements reported Genitourinary: No new onset incontinence Musculoskeletal: Low back pain with radiation into bilateral extremities Psychiatric: [Normal mood/affect] Neurological: [Denies weakness in extremities], [denies balance issues] Objective:: Physical exam General: Alert and oriented x3, no acute distress, pleasant and cooperative Lungs: Respirations even and unlabored, symmetrical chest expansion Eyes: PERRL Musculoskeletal: Flexion and extension of lumbar [spine] somewhat guarded secondary to pain, [antalgic gait noted], positive Fady's test, positive Chad's test, positive distraction test, positive compression test Neurological: Speech clear, no gross sensory deficit Assessment:: 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 We will see her back in clinic afterwards for further eval. She has been instructed to contact clinic if she has any concerns for next morning. Possible side effects of corticosteroids have been discussed with the patient. Risks and benefits of the procedure have been explained to the patient. Patient would like to proceed with the procedure. Patient has been instructed to contact the clinic with any concerns before the next appointment. Dr. Gonzalez has reviewed this note and agrees with this plan of care. This note was dictated using voice recognition software and make contain errors or omissions. [facility] History I have reviewed the patient's past medical history: Yes Medical History: Reports:: Arrhythmia, Atrial Fibrillation, Cardiomyopathy, Coronary Artery Disease, Depression, Gastroesophageal Reflux Disease(GERD), Hyperlipidemia, Hypertension, Internal Pacemaker, Migraine, Myocardial Infarction Denies:: Cancer, Diabetes Mellitus Type 1, Diabetes Mellitus Type 2, MRSA, Seizures *Have you ever received a pneumonia vaccine?: No *Have you received a flu vaccine this season?: Yes Other Medical History: Reports: Arthritis, Cataracts. Denies: Blood Transfusion Reaction Other Surgeries: Yes: No Previous Surgery, Appendectomy, Cardiac Catheterization, Colonoscopy, Coronary Stent, Hysterectomy-Total, Pacemaker, Tubal Ligation, Other (cataracts) Amputation: No Fractures: No - *Social History Smoking Status: Never smoker Tobacco Type: cigarettes Alcohol Intake: never Alcohol Intake Frequency:: holidays/special occasions only Substance Use Type: denies use *Occupational Status:: unemployed Housing: house Household Members: family *Travel in the last 8 weeks: None - Psychiatric History Pschychiatric History:: Reports:: Depression Family Hx:: Cancer, Heart Attack, Hypertension
--- NOTE | 2021-08-27 15:30 | HMH.RHREAS ---
Rehab Reassessment Rehab OP Re-assessment Start: 08/27/21 15:16 Freq: Status: Active Protocol: Document 08/27/21 15:17 KARLENE (Rec: 08/27/21 15:29 KARLENE [id number]) Electronically Signed By Eagle Haney, PT 08/27/21 15:17 Rehab Re-assessment Subjective Subjective Patient reports 50% improvement since start of care. Objective Objective Notes AROM: flx WNL; ext 17; SBr 14; SBl 16; hip abd/add/ext/ER/IR 4/5 grossly MMT: hip flx 4/5 B; knee ext 4 +/5 B; knee flx 4+/5 B; dorsiflexion 4+/5 Neuro: WNL except for R L5 dermatome to the knee TTP: R SIJ 2/4 DGI: 14 Pain: 4/10 currently; 6/10 at worst Assessment Progress Assessment Progressing as Expected Assessment Notes Patient has been seen for 5 treatment visits to date. Rx has consisted of BLE stretching/strengthening, neuromuscular re-ed/ proprioceptive activities and modalities for pain relief. Objective improvements as noted above. No reports of any falls or near falls since start of care. Patient would benefit from continuing skilled PT services to progress strengthening and balance training to address functional limitations with standing/ambulatory activities , as well as saftey concerns. Patient goals met STG 2 Goals Not Met All others Revised Goals NA Plan Plan Continue with current POC. Frequency of Therapy 2x/week Duration of therapy 4 weeks Time and Billing Re-Eval Time 15 Re-Eval Billing Units 1 PHYSICIAN CERTIFICATION: I certify the specified therapy services for Gillian Pride are required, authorized, and reviewed every 30 days.
== END 2021-08-27 15:05 | disposition home or self-care (01) ==
LOC: PT 15:00
PROVIDERS: PCP Internal Medicine; Visit Provider Clinical Nurse Specialist Family Health
DX: M54.50 Low back pain, unspecified (principal); M25.552 Pain in left hip; M25.551 Pain in right hip; M25.562 Pain in left knee; M25.561 Pain in right knee
CPT/HCPCS: 97010; 97110; 97112; 97163; 97164

== ENCOUNTER 2021-09-04 09:34 | Day surgery (SDC) | payer MEDICARE, BC, SELFPAY ==
[2021-09-04 09:40] VITALS: BP 152/68; BP 157/55; PULSE 57; PULSE 60; RESP 17; RESP 18; TEMP 36.6; O2SAT 98; O2SAT 99; BMI 27.4
[2021-09-04 09:53] VITALS: BP 154/71; PULSE 60; RESP 18; O2SAT 98
--- NOTE | 2021-09-04 10:01 | HMH.PMPROC ---
- Procedure Date: 09/04/21 Time: 10:04 Anesthesiologist:: Stew Gonzalez MD Complications:: None Pre-procedure Diagnosis:: Sacroiliitis Post-procedure Diagnosis:: Same Indications for Procedure:: Patient is a pleasant 85-year-old white female who we are treating for bilateral hip pain. She is tender over both SI joints. She has a positive Fady's test bilaterally. She is positive Han test bilaterally. She is positive SI joint compression test bilaterally. We will plan on bilateral SI joint injections under fluoroscopy today. Procedure Details:: B/L SI joint injection under fluoroscopy Informed consent was obtained and the risks and benefits of the procedure was explained to the patient. The patient was taken to the procedure room and placed prone on the procedure table. The patient was prepped using ChloraPrep. The skin and subcutaneous tissues overlying the SI joints were anesthetized using lidocaine. I placed a 22-gauge needle first in the left SI joint and second in the right SI joint. Needle placement was confirmed with dye. After this we injected 5 mL bupivacaine 0.25% and Depo-Medrol 40 mg into each SI joint. Patient tolerated the procedure well with no complication. Plan and Disposition:: We will follow-up with her in 2 weeks. Will reevaluate symptoms at that time.
[2021-09-04 10:05] VITALS: BP 117/47; PULSE 71; RESP 20; O2SAT 95
== END 2021-09-04 10:14 | disposition home or self-care (01) ==
PROVIDERS: PCP Internal Medicine; Visit Provider Anesthesiology
DX: M46.1 Sacroiliitis, not elsewhere classified (principal); I48.91 Unspecified atrial fibrillation; E78.5 Hyperlipidemia, unspecified; I10 Essential (primary) hypertension; K21.9 Gastro-esophageal reflux disease without esophagitis
CPT/HCPCS: 27096; G0260; J1040; Q9966

== ENCOUNTER → 2021-10-01 09:54 | Outpatient (POV) | payer MEDICARE, BC, SELFPAY ==
[2021-10-01 10:02] VITALS: BP 104/61; PULSE 60; RESP 18; TEMP 36.3; O2SAT 95; BMI 26.2
--- NOTE | 2021-10-01 10:44 | P.CONS_ITS ---
[facility] Pain Management SOAP Note Subjective:: Patient is a pleasant 85-year-old female who presents with a for follow-up after her bilateral SI injection on September 04, 2021. We are currently managing this patient for bilateral sacroiliitis. After her procedure, patient had significant relief of about 80 to 90%. She rates her pain today as 3 out of 10. She denies any issues after procedure. She does say that she fell about 1/2 weeks ago but does not think that she broke anything. She said that she fell into her dog broke her fall. As for her injection, patient continues to have relief. For pain, she is taking gabapentin 300 mg 3 times a day that is prescribed by Dr. Mills. Rene #[id number] 90 morphine equivalent of 0. Review of Systems: General: No recent weight changes, no fever, no sleep disturbances Respiratory: No cough, no shortness of air, no recurring pulmonary infections Cardiovascular/peripheral vascular: No chest pain, no palpitations, no edema, no shortness of breath Gastrointestinal: No new onset incontinence, normal bowel movements reported Genitourinary: No new onset incontinence Musculoskeletal: Bilateral hip pain Psychiatric: [Normal mood/affect] Neurological: [Denies weakness in extremities], [denies balance issues] Objective:: Physical Exam: General: Alert and oriented x3, no acute distress, pleasant and cooperative, [on room air] Lungs: Respirations even and unlabored, symmetrical chest expansion Eyes: PERRL Musculoskeletal: Increased range of motion of bilateral hips Neurological: Speech clear, no gross sensory deficit Assessment:: Bilateral sacroiliitis Plan:: Patient continues to have relief after her bilateral SI injection. Patient denies any issues after procedure. We will follow up with the patient in 2 months to see if she needs a repeat SI injections. Patient has been instructed to contact the clinic with any concerns before the next appointment. Dr. Gonzalez has reviewed this note and agrees with this plan of care. This note was dictated using voice recognition software and make contain errors or omissions. [facility] History Medical History: Reports:: Arrhythmia, Atrial Fibrillation, Cardiomyopathy, Coronary Artery Disease, Depression, Gastroesophageal Reflux Disease(GERD), Hyperlipidemia, Hypertension, Internal Pacemaker, Migraine, Myocardial Infarction Denies:: Cancer, Diabetes Mellitus Type 1, Diabetes Mellitus Type 2, MRSA, Seizures *Have you ever received a pneumonia vaccine?: Yes *Have you received a flu vaccine this season?: Yes Other Medical History: Reports: Arthritis, Cataracts. Denies: Blood Transfusion Reaction Other Surgeries: Yes: No Previous Surgery, Appendectomy, Cardiac Catheterization, Colonoscopy, Coronary Stent, Hysterectomy-Total, Pacemaker, Tubal Ligation, Other (cataracts) Amputation: No Fractures: No - *Social History Smoking Status: Never smoker Tobacco Type: cigarettes Alcohol Intake: never Alcohol Intake Frequency:: holidays/special occasions only Substance Use Type: denies use *Occupational Status:: retired Housing: house Household Members: family *Travel in the last 8 weeks: None - Psychiatric History Pschychiatric History:: Reports:: Depression Family Hx:: No significant family history
== END ==
PROVIDERS: Visit Provider Student in an Organized Health Care Education/Training Program
DX: M46.1 Sacroiliitis, not elsewhere classified (principal)
CPT/HCPCS: 99212; G0463

== ENCOUNTER → 2021-10-13 13:31 | Outpatient (CLI) | payer MEDICARE, BC, SELFPAY ==
[2021-10-13 15:09] LABS: Basophils # 0.1 K/mm3 (0-0.2); Basophils % 2.4 % (0.1-2.0); Eosinophils # 0.2 K/mm3 (0.0-0.4); Eosinophils % 4.3 % (0.1-12.0); Hematocrit 37.6 % (37.0-47.0); Hemoglobin 12.2 g/dL (12.2-16.2); Lymphocytes # 1.5 K/mm3 (0.7-4.5); Lymphocytes % 28.5 % (10-50); Mean Corpuscular HGB Conc 32.6 g/dL (31.8-35.4); Mean Corpuscular Hemoglobin 31.5 pg (27.0-31.2); Mean Corpuscular Volume 96.6 fl (81-99); Mean Platelet Volume 8.9 fl (7.4-10.4); Monocytes # 0.5 K/mm3 (0.1-1.0); Monocytes % 8.6 % (1.7-9.3); Neutrophils % 56.3 % (37.0-80.0); Platelet Count 307 K/mm3 (142-424); Red Blood Count 3.89 M/mm3 (4.20-5.40); Red Cell Distribution Width 13.5 % (11.5-17.5); White Blood Count 5.2 K/mm3 (4.8-10.8)
[2021-10-13 15:52] LABS: Chloride 102 mmol/L (98-107); Potassium 4.3 mmoL/L (3.5-5.1); Sodium 137 mmol/L (136-145)
[2021-10-13 15:54] LABS: Blood Urea Nitrogen 18 mg/dl (7-17); Estimated Glomerular Filt Rate 53 ml/min (>60); GFR (African American) 64 ML/MIN (>60)
[2021-10-13 15:55] LABS: Alanine Aminotransferase 20 U/L (12-78); Albumin Level 3.8 g/dl (3.5-5.0); Albumin/Globulin Ratio 1.7 (1.1-1.8); Alkaline Phosphatase 67 U/L (38-126); Anion Gap 9.3 mEq/L (5-15); Aspartate Amino Transferase 31 U/L (14-36); Bilirubin,Total 0.9 mg/dl (0.2-1.3); Calcium 8.7 mg/dl (8.4-10.2); Carbon Dioxide 30 mmol/L (22.0-30.0); Cholesterol 171 mg/dl (140-200); Globulin 2.3 g/dL (1.3-3.2); Glucose 82 mg/dl (74-100); HDL Cholesterol 83 mg/dl (40-60); Total Protein,Serum 6.1 g/dl (6.3-8.2); Triglycerides 100 mg/dl (30-150); VLDL Cholesterol 20 mg/dL (0-40)
[2021-10-13 15:59] LABS: Chol/HDL Ratio 2.1 (1-3.5)
[2021-10-13 16:06] LABS: Direct LDL Cholesterol 63.36 mg/dL (100-129)
== END ==
PROVIDERS: Visit Provider Internal Medicine
DX: I25.10 Atherosclerotic heart disease of native coronary artery without angina pectoris (principal); I10 Essential (primary) hypertension; E78.5 Hyperlipidemia, unspecified
CPT/HCPCS: 80053; 80061; 85025

== ENCOUNTER 2021-12-11 10:09 | Day surgery (SDC) | payer MEDICARE, BC, SELFPAY ==
[2021-12-11 10:21] VITALS: BP 114/59; PULSE 60; RESP 18; TEMP 36.5; O2SAT 96; BMI 26.5
[2021-12-11 10:26] VITALS: BP 140/90; PULSE 60; RESP 18; O2SAT 96
--- NOTE | 2021-12-11 10:26 | P.PCN_ITS ---
- Procedure Date: 12/11/21 Time: 10:26 Anesthesiologist:: Vishnu Crespo CRNA Complications:: None Pre-procedure Diagnosis:: biLateral sacroiliitis. Post-procedure Diagnosis:: Same Indications for Procedure:: Pleasant 85-year-old female that presents to our injection clinic today for bilateral SI joint injections. She describes her pain as constant, dull, aching. She rates the pain 7/10. Patient has extreme point tenderness over the bilateral SI joints. Procedure Details:: Procedure: Bilateral sacroiliac joint injections under fluoroscopy Informed consent was obtained and the risks and benefits of the procedure were explained to the patient.~ The patient was taken to the procedure room and noninvasive monitors were placed including a noninvasive blood pressure cuff and pulse oximeter.~ The patient was placed prone on the procedure table. Both hips were cleansed using Betadine as a cleansing solution. C-arm fluoroscopy was used to view the right sacroiliac joint.~ The skin and subcutaneous tissues were anesthetized using lidocaine 1.5% and a 25-gauge needle.~ After this, a 22-gauge spinal needle was inserted under fluoroscopic guidance into the inferior aspect of the right sacroiliac joint.~ Omnipaque dye was injected and good spread was seen throughout the joint.~ After this, approximately 5 mL of bupivacaine, 0.25% and Depo-Medrol, 40 mg was incrementally injected into the right sacroiliac joint. We then moved to the left sacroiliac joint.~ The skin and subcutaneous tissues were anesthetized using lidocaine 1.5% and a 25-gauge needle.~ After this, a 22- gauge spinal needle was inserted under fluoroscopic guidance into the inferior aspect of the left sacroiliac joint.~ Omnipaque dye was injected and good spread was seen throughout the joint. After this, approximately 5 mL of bupivacaine, 0.25% and Depo-Medrol, 40 mg was incrementally injected into the left sacroiliac joint.~ The patient tolerated the procedure well with no complications. The patient was observed in the Pain Clinic and then was discharged home neurologically intact. Plan and Disposition:: Patient was discharged without incident.
[2021-12-11 10:27] VITALS: BP 175/59; PULSE 60; RESP 18; O2SAT 96
[2021-12-11 10:50] VITALS: BP 110/60; PULSE 60; RESP 20; O2SAT 97
== END 2021-12-11 10:45 | disposition home or self-care (01) ==
LOC: SC.PAINP 10:10
PROVIDERS: PCP Internal Medicine; Visit Provider Nurse Anesthetist, Certified Registered
DX: M46.1 Sacroiliitis, not elsewhere classified (principal)
CPT/HCPCS: 27096; G0260; J1040

== ENCOUNTER → 2021-12-16 13:49 | Outpatient (CLI) | payer MEDICARE, BC, SELFPAY ==
--- NOTE | 2021-12-16 13:52 | XR_ITS ---
FINAL REPORT CLINICAL HISTORY: RT hip pain FINDINGS: 2 views of the right hip and an AP pelvis were obtained. There is no acute fracture or dislocation. There are mild degenerative changes of the right hip. There is moderate and severe degenerative change in the lumbar spine. There are no soft tissue abnormalities. IMPRESSION: Mild right hip degenerative change. Reviewed, Interpreted and Dictated by Corby Acuna III, MD Transcribed by Vick Bolden Authenticated and . [facility]
--- NOTE | 2021-12-16 13:52 | XR_ITS ---
FINAL REPORT CLINICAL HISTORY: RT knee pain FINDINGS: 4 views of the right knee were obtained. There is no acute fracture or dislocation. There are moderate and severe degenerative changes. There is severe lateral compartment narrowing. There is mild valgus angulation. IMPRESSION: Moderate and severe degenerative changes worst in the lateral compartment. Reviewed, Interpreted and Dictated by Corby Acuna III, MD Transcribed by Vick Bolden Authenticated and [facility]
== END ==
PROVIDERS: PCP Internal Medicine; Visit Provider Orthopaedic Surgery
DX: M25.551 Pain in right hip; M25.561 Pain in right knee
CPT/HCPCS: 73502; 73564

== ENCOUNTER → 2022-01-18 11:59 | Outpatient (POV) | payer MEDICARE, BC, SELFPAY ==
--- NOTE | 2022-01-18 12:45 | HMH.PAINSOAP ---
[facility] Pain Management SOAP Note Subjective:: Is a pleasant 86-year-old female who presents today for follow-up. We are currently treating this patient for bilateral sacroiliitis. Patient recently had a bilateral SI injection on December 11, 2021. She states that these injections have helped give her significant relief. She states that she has had 70% improvement. Today she rates her pain a 3 out of 10. Stating that the pain is in her low back and describes it as sharp pain with movement. Patient states that she is in the process of scheduling to have her right knee placement with Dr. Van. She has to see Dr. Galvan for clearance on Tuesday. Patient does manage her pain with gabapentin 300 mg three times daily. Patient denies any problems with this medication. She states that this medication does help relieve the pain. Patient denies any new trauma or injury. Patient denies any change in the location or type of pain. Her Rene is [phone]. It has been reviewed and appropriate. Review of Systems: General: No recent weight changes, no fever, no sleep disturbances Respiratory: No cough, no shortness of air, no recurring pulmonary infections Cardiovascular/peripheral vascular: No chest pain, no palpitations, no edema, no shortness of breath Gastrointestinal: No new onset incontinence, normal bowel movements reported Genitourinary: No new onset incontinence Musculoskeletal: Low back pain, right knee pain Psychiatric: [Normal mood/affect] Neurological: [Denies weakness in extremities], [denies balance issues] Objective:: Physical Exam: General: Alert and oriented x3, no acute distress, pleasant and cooperative Lungs: Respirations even and unlabored, symmetrical chest expansion Eyes: PERRL Musculoskeletal: Flexion and extension of knee, lumbar [spine] somewhat guarded secondary to pain, [antalgic gait noted] Neurological: Speech clear, no gross sensory deficit Assessment:: Bilateral sacroiliitis, knee pain Plan:: Patient has had 70% improvement since her bilateral SI injections. She states that she is still having continued relief with these injections. We will not schedule any injections at this time. Patient will be scheduling her right knee arthroplasty with Dr. Van following cardiac clearance. Patient does feel that her low back pain is from an altered gait due to her right knee. I will order the patient a compounding cream at today's visit. Patient will return to clinic in 1 month for follow-up. Patient has been instructed to contact the clinic with any concerns before the next appointment. Dr. Gonzalez has reviewed this note and agrees with this plan of care. This note was dictated using voice recognition software and make contain errors or omissions. [facility] History I have reviewed the patient's past medical history: Yes Medical History: Reports:: Arrhythmia, Atrial Fibrillation, Cardiomyopathy, Coronary Artery Disease, Depression, Gastroesophageal Reflux Disease(GERD), Hyperlipidemia, Hypertension, Internal Pacemaker, Migraine, Myocardial Infarction Denies:: Cancer, Diabetes Mellitus Type 1, Diabetes Mellitus Type 2, MRSA, Seizures *Have you ever received a pneumonia vaccine?: Yes *Have you received a flu vaccine this season?: Yes Other Medical History: Reports: Arthritis, Cataracts. Denies: Blood Transfusion Reaction Other Surgeries: Yes: No Previous Surgery, Appendectomy, Cardiac Catheterization, Colonoscopy, Coronary Stent, Hysterectomy-Total, Pacemaker, Tubal Ligation, Other (cataracts) Amputation: No Fractures: No - *Social History Smoking Status: Never smoker Tobacco Type: cigarettes Alcohol Intake: former Alcohol Intake Frequency:: holidays/special occasions only Substance Use Type: denies use *Occupational Status:: other Housing: house Household Members: family *Travel in the last 8 weeks: Inside the [place] - Psychiatric History Pschychiatric History:: Reports:: Depression Family Hx:: Coronary Artery Disease
[2022-01-18 13:55] VITALS: BP 134/65; PULSE 63; RESP 20; TEMP 36.6; O2SAT 98; BMI 26.2
== END ==
PROVIDERS: Visit Provider Student in an Organized Health Care Education/Training Program
DX: M46.1 Sacroiliitis, not elsewhere classified (principal); M25.561 Pain in right knee
CPT/HCPCS: 99212; G0463

== ENCOUNTER → 2022-01-27 11:00 | Outpatient (CLI) | payer MEDICARE, BC, SELFPAY ==
--- NOTE | 2022-01-27 11:07 | CA_ITS ---
FINAL REPORT TECHNIQUE: Jaime scale, color and spectral doppler images of the bilateral carotid arteries were obtained. CLINICAL HISTORY: [place], Afib FINDINGS: Peak systolic velocity in the right internal carotid artery is 112 cm/sec. The internal carotid to common carotid artery ratio is 68/12.4. There is no significant carotid artery stenosis and no significant plaque formation. The right vertebral artery is normal in direction. Peak systolic velocity in the left internal carotid artery is 113 cm/sec. The internal carotid to common carotid artery ratio is 125/16. There is no significant carotid artery stenosis and no significant plaque formation. The left vertebral artery is normal in direction. IMPRESSION: No ultrasound evidence of hemodynamically significant carotid artery stenosis. Normal peak systolic velocities and normal internal to common carotid artery ratios bilaterally. Reviewed, Interpreted and Dictated by Yelena Grimm MD Transcribed by Ruth Green Authenticated and [facility]
== END ==
PROVIDERS: PCP Internal Medicine; Visit Provider Internal Medicine Cardiovascular Disease
DX: R09.89 Other specified symptoms and signs involving the circulatory and respiratory systems; I65.23 Occlusion and stenosis of bilateral carotid arteries
CPT/HCPCS: 93880

== ENCOUNTER → 2022-02-18 11:29 | Outpatient (POV) | payer MEDICARE, BC, SELFPAY ==
[2022-02-18 11:35] VITALS: BP 115/61; PULSE 59; RESP 20; BMI 26.0
--- NOTE | 2022-02-18 12:54 | HMH.PAINSOAP ---
[facility] Pain Management SOAP Note Subjective:: Patient is a pleasant 86-year-old female who presents today for follow-up. Patient is current being treated for bilateral sacroiliitis. She had bilateral SI injection on December 11, 2021 that provided 70% relief. She says that this injection has worn off and she is back to baseline. She cannot tolerate any prolonged activity such as sitting, standing, and walking. She has been having trouble getting up from a sitting position. She does not want to proceed with any injective therapy at this time. She is scheduled for a right TKA on March [address] Van. Rates pain today as 6 out of 10. She takes OTC medications for pain. Review of Systems: General: No recent weight changes, no fever, no sleep disturbances Respiratory: No cough, no shortness of air, no recurring pulmonary infections Cardiovascular/peripheral vascular: No chest pain, no palpitations, no edema, no shortness of breath Gastrointestinal: No new onset incontinence, normal bowel movements reported Genitourinary: No new onset incontinence Musculoskeletal: Bilateral hip pain Psychiatric: [Normal mood/affect] Neurological: [Denies weakness in extremities], [denies balance issues] Objective:: Physical Exam: General: Alert and oriented x3, no acute distress, pleasant and cooperative Lungs: Respirations even and unlabored, symmetrical chest expansion Eyes: PERRL Musculoskeletal: Bilateral SI are positive for KAYLEN, Chad's, [place]'s, [place]'s, compression, and distraction. Neurological: Speech clear, no gross sensory deficit Assessment:: Bilateral sacroiliitis Plan:: Patient does have positive SI exam bilaterally today. I discussed with the patient that she could benefit from injective therapy however, she wants to hold off on any injective therapy at this time. She is scheduled to get a right TKA with Dr. Van on March 10. For her pain, I did offer the patient tramadol 50 mg twice a day. Patient states that she does not want to take any more medications at this time. She will continue to manage her pain with Tylenol arthritis. Follow up in 2 months Patient has been instructed to contact the clinic with any concerns before the next appointment. Dr. Gonzalez has reviewed this note and agrees with this plan of care. This note was dictated using voice recognition software and make contain errors or omissions. [facility] History Medical History: Reports:: Arrhythmia, Atrial Fibrillation, Cardiomyopathy, Coronary Artery Disease, Depression, Gastroesophageal Reflux Disease(GERD), Hyperlipidemia, Hypertension, Internal Pacemaker, Migraine, Myocardial Infarction Denies:: Cancer, Diabetes Mellitus Type 1, Diabetes Mellitus Type 2, MRSA, Seizures *Have you ever received a pneumonia vaccine?: Yes *Have you received a flu vaccine this season?: Yes Other Medical History: Reports: Arthritis, Cataracts. Denies: Blood Transfusion Reaction Other Surgeries: Yes: No Previous Surgery, Appendectomy, Cardiac Catheterization, Colonoscopy, Coronary Stent, Hysterectomy-Total, Pacemaker, Tubal Ligation, Other (cataracts) Amputation: No Fractures: No - *Social History Smoking Status: Never smoker Tobacco Type: cigarettes Alcohol Intake: former Alcohol Intake Frequency:: holidays/special occasions only Substance Use Type: denies use *Occupational Status:: retired Housing: house Household Members: family *Travel in the last 8 weeks: None - Psychiatric History Pschychiatric History:: Reports:: Depression Family Hx:: Coronary Artery Disease
== END ==
PROVIDERS: PCP Internal Medicine; Visit Provider Student in an Organized Health Care Education/Training Program
DX: M46.1 Sacroiliitis, not elsewhere classified (principal)
CPT/HCPCS: 99212; G0463

== ENCOUNTER → 2022-03-03 10:39 | Outpatient (CLI) | payer MEDICARE, BC, SELFPAY ==
[2022-03-03 10:58] LABS: Microscopic, Urine URINE MICROSCOPIC (MICROSCOPIC)
[2022-03-03 11:13] LABS: Appearance,Urine CLEAR (Clear); Bilirubin,Urine Negative (Negative); Blood, Urine 1+ (Negative); Color,Urine YELLOW (Yellow); Glucose,Urine (UA) Negative (Negative); Ketones,Urine Negative (Negative); Leukocyte Esterase,Urine Negative (Negative); Nitrate,Urine Negative (Negative); Protein,Urine Negative (Negative); Specific Gravity, Urine 1.015 (1.005-1.030); Urobilinogen,Urine 0.2 EU/dl (0.2)
[2022-03-03 11:26] LABS: Bacteria,Urine Trace /lpf; RBC,Urine Occasional #/hpf (0-3); Squamous Epithelial Cell,Urine Occasional #/hpf (0-5); WBC,Urine Occasional #/hpf (0-3)
[2022-03-03 12:07] LABS: Basophils # 0.2 K/mm3 (0-0.2); Basophils % 2.6 % (0.1-2.0); Eosinophils # 0.4 K/mm3 (0.0-0.4); Eosinophils % 7.1 % (0.1-12.0); Hematocrit 36.2 % (37.0-47.0); Hemoglobin 11.6 g/dL (12.2-16.2); Lymphocytes # 1.7 K/mm3 (0.7-4.5); Lymphocytes % 29.4 % (10-50); Mean Corpuscular Volume 96.9 fl (81-99); Mean Platelet Volume 8.3 fl (7.4-10.4); Monocytes # 0.6 K/mm3 (0.1-1.0); Monocytes % 9.9 % (1.7-9.3); Platelet Count 279 K/mm3 (142-424); Red Blood Count 3.74 M/mm3 (4.20-5.40); Red Cell Distribution Width 13.6 % (11.5-17.5); White Blood Count 5.8 K/mm3 (4.8-10.8)
[2022-03-03 12:44] LABS: Alanine Aminotransferase 18 U/L (12-78); Albumin Level 3.7 g/dl (3.5-5.0); Albumin/Globulin Ratio 1.5 (1.1-1.8); Alkaline Phosphatase 85 U/L (38-126); Anion Gap 8.8 mEq/L (5-15); Aspartate Amino Transferase 30 U/L (14-36); Bilirubin,Total 0.8 mg/dl (0.2-1.3); Blood Urea Nitrogen 16 mg/dl (7-17); Calcium 9.2 mg/dl (8.4-10.2); Carbon Dioxide 31 mmol/L (22.0-30.0); Chloride 104 mmol/L (98-107); Estimated Glomerular Filt Rate 59 ml/min (>60); GFR (African American) 72 ML/MIN (>60); Globulin 2.4 g/dL (1.3-3.2); Glucose 89 mg/dl (74-100); Potassium 3.8 mmoL/L (3.5-5.1); Sodium 140 mmol/L (136-145); Total Protein,Serum 6.1 g/dl (6.3-8.2)
[2022-03-03 15:53] LABS: Erythrocyte Sedimentation Rate 27 mm/hr (0-30)
== END ==
PROVIDERS: PCP Internal Medicine; Visit Provider Orthopaedic Surgery
DX: Z77.22 Contact with and (suspected) exposure to environmental tobacco smoke (acute) (chronic) (principal); Z96.652 Presence of left artificial knee joint; M25.562 Pain in left knee
CPT/HCPCS: 36415; 80053; 81001; 85025; 85651; 86850

== ENCOUNTER → 2022-03-08 08:45 | Outpatient (CLI) | payer MEDICARE, BC, SELFPAY | PROVIDERS: PCP Internal Medicine; Visit Provider Orthopaedic Surgery | DX: Z01.812 Encounter for preprocedural laboratory examination (principal); Z20.822 Contact with and (suspected) exposure to COVID-19; M25.561 Pain in right knee | CPT/HCPCS: C9803; U0003; U0005 ==

== ENCOUNTER → 2022-03-09 10:05 | Outpatient (CLI) | payer MEDICARE, BC, SELFPAY ==
--- NOTE | 2022-03-09 10:20 | ECG_ITS ---
APPROVED REPORT Exam: Resting ECG HR:60 bpm ECG Measurements Heart Rate 60 AXES SD 199 P 91 QRSd 149 QRS -24 QT 447 T 29 QTc 447 Conclusion ELECTRONIC ATRIAL PACEMAKER LEFT BUNDLE BRANCH BLOCK [120+ ms QRS DURATION, 80+ ms Q/S IN V1/V2, 85+ ms R IN I/aVL/V5/V6] ABNORMAL ECG UNCONFIRMED REPORT Electronically signed by : Cornelio Red MD 03/09/2022 13:47:32
--- NOTE | 2022-03-09 10:21 | XR_ITS ---
FINAL REPORT CLINICAL HISTORY: pre op COMPARISON: 02/23/2021 FINDINGS: Two views of the chest were obtained. The heart size and pulmonary vascularity are within normal limits. Left subclavian pacer is present. The mediastinum is normal. No acute pulmonary abnormality is identified. There is no pneumothorax. The bony thorax is intact. IMPRESSION: No active cardiopulmonary disease. Reviewed, Interpreted and Dictated by Corby Acuna III, MD Transcribed by eDsirae Walsh Authenticated and [facility]
== END ==
PROVIDERS: PCP Internal Medicine; Visit Provider Orthopaedic Surgery
DX: Z01.810 Encounter for preprocedural cardiovascular examination (principal); M25.561 Pain in right knee
CPT/HCPCS: 71046; 93005

== ENCOUNTER 2022-03-10 08:38 | Observation (INO) | payer MEDICARE, BC, SELFPAY ==
[2022-03-04 15:11] VITALS: BMI 26.2
--- NOTE | 2022-03-09 13:28 | SW/DCPLANNER ---
Addendum entered by Coby Hagan 03/11/22 10:27: The plan for this patient is to discharge to [facility] today under private pay for today then change to SNF level of care tomorrow. Patient will require a COVID swab prior to discharge. Addendum entered by Coby Hagan 03/11/22 09:26: Updated patient information has been faxed to [facility]/ Charanjit Miguel. Patient has stated that if [facility] does not have any beds she would be willing to go to [facility] (not currently accepting any admissions) or [facility]. I will continue to follow up with patient/family and facilities. Patient is medically stable for discharge today per Jennifer Mendoza Original Note: I contacted this patient regarding discharge plans after surgery tomorrow. Patient stated that she prefers to discharge to [facility] level of care for rehabilitation. I have faxed patient information to Zayda clay/ Charanjit Miguel and I will follow up tomorrow after surgery. Patient is aware that patient information has been faxed to [facility] at this time.
[2022-03-10] VITALS (16 sets, daily range): BP systolic 106–137; BP diastolic 45–72; PULSE 56–67; RESP 14–18; TEMP 36.5–43; O2SAT 94–100; BMI 27.6
[2022-03-10 08:26] LABS: Coronavirus 19, PCR Not Detected (NotDetected); Influenza A, PCR Not Detected (NotDetected); Influenza B, PCR Not Detected (NotDetected)
--- NOTE | 2022-03-10 09:18 | EXP.ANES.CKL ---
[facility] PFS Medical History Acid reflux Angina, class IV Arthritis Bulging discs Cataract Chest pain Crescendo angina Elevated coronary artery calcium score Family history of heart disease History of back pain Migraine Palpitations Right carotid bruit Second hand smoke exposure SOB (shortness of breath) Surgical History History of hysterectomy History of knee replacement Family History Other Family history of cancer Lung cancer Social History Smoking Status: Never smoker second hand exposure: Yes alcohol intake: former substance use type: denies use current occupational status: retired Travel in the last 8 weeks: None household members: family housing: house current occupational exposures/hazards: No caffeine: Yes [facility] Anesthesia Checklist Patient Identification Patient Identification: Arm Band Structural Data Admitted From: Home Planned Operative Procedure/s: Right TKA Consent for Planned Operative Procedure(s) Verified: Yes Verified Documents: Surgical Consent, History and Physical and Cardiac Clearance NPO Status Verified Time NPO: 00:00 Additional verifications Anesthesia Reactions: No Hx Blood Transfusions: No Blood Transfusion Reaction: No Airway Assessment C-Spine Mobility Assessed: Yes TMJ Mobility Assessed: Yes Dentition: Good Dentition Neurological Assessment Level of Consciousness: Awake and Alert Anesthesia Plan Anesthesia Risk discussed: Yes Anesthesia Plan: Verified ASA Class: III Anesthesia Type: MAC w/Spinal
--- NOTE | 2022-03-10 09:30 | HMH.PHAINT1 ---
Pharmacy Intervention Comments: MEDICATION RECONCILIATION COMPLETED ON PATIENT USING EXTERNAL FILL HISTORY FROM PHARMACY. -ROSA STANTON, JORDAND
--- NOTE | 2022-03-10 14:02 | SUR.OPER ---
3332 Dr. Van notified of hour long tourniquet time. family given an update via Yakov Simmons RN
--- NOTE | 2022-03-10 15:03 | SUR.OPER ---
1502 family given update via Jade Landis RN
--- NOTE | 2022-03-10 15:09 | XR_ITS ---
PROCEDURE INFORMATION: Exam: XR Right Knee Exam date and time: 03/10/2022 4:34 PM Age: 86 years old Clinical indication: Screening exam; Evaluation of postoperative total right knee replacement. Exam done with portable x-ray machine. Prior surgery; Surgery date: Post-operative (0-2 days); Additional info: Post operative total knee replacement TECHNIQUE: Imaging protocol: Radiologic exam of the Right knee. Views: 3 views. COMPARISON: CR XR KNEE RT 4V 12/16/2021 1:58 PM FINDINGS: Tubes, catheters and devices: No radiographic evidence of prosthetic loosening or hardware failure. Bones/joints: Postoperative changes consistent with total knee arthroplasty. Soft tissue swelling consistent with relatively recent operative intervention. No evidence of acute osseous injury. Soft tissues: See Bones/joints finding. IMPRESSION: 1. Postoperative changes consistent with total knee arthroplasty. 2. No evidence of acute osseous injury.
--- NOTE | 2022-03-10 16:05 | EXP.OP.NOTE ---
Date of procedure: 03/15/22 Pre-op Diagnosis:: Advanced degenerative arthritis, right knee Post-op Diagnosis:: Same Procedure performed:: Uncemented total knee arthroplasty, right knee Surgeon:: Terrance Van MD Race Car Mechanic(s):: Jennifer Goncalves PA-C CUSTOMER SUPPLY COORDINATOR:: Gilbert Feeback and Other Anesthesia: regional (Adductor canal block) and spinal Estimated blood loss (mL): 20 Clinical Note:: Patient is an 86-year-old female with end-stage activity limiting tricompartmental osteoarthritis of her right knee and [id number] changes over the lateral compartment. She presented with unremitting severe pain not relieved by conservative management. The disease and pain have advanced to the point that it is becoming a hazard for the patient with risk of falling and injuring herself. A total knee arthroplasty is indicated to relieve the pain, improve function, reduce the risk of falls, and improve quality of life.? Please refer to my office note for full details. Operative findings:: As noted on the preoperative evaluation, the knee joint had a correctable valgus deformity of 10 degrees.? As seen on the x-rays, there are tricompartmental degenerative changes with the lateral and patellofemoral compartments showing more advanced changes.? The lateral meniscus and and anterior cruciate ligament are significantly degenerated.? There is extensive osteophyte formation over all 3 compartments.? Bone quality is good. Operative note:: On the day of the surgery the patient and her daughter were met in the preoperative area.? I have again reviewed the clinical and x-ray findings and discussed the diagnosis, natural history and management options in detail including both nonsurgical and surgical.? Patient has advanced degenerative arthritis of the right knee and has failed to respond satisfactorily to appropriate conservative management so far and has opted for a total knee arthroplasty.? The right knee joint is stiff and painful, and is limiting her mobility, ADLs, and quality of life.? Also, the knee gives out and patient is at risk of falls resulting in fractures.? I have again discussed the details of the procedure, risks and benefits and alternatives in detail. The complications discussed include but are not limited to infection, injury to nerves and blood vessels including injury to popliteal artery, injury to tendons and ligaments, DVT and PE, fat embolism, intraoperative fracture, limb length inequality, patella fracture, patellofemoral instability, patellar clunk syndrome, quadriceps and patellar tendon rupture, implant failure, component loosening, periprosthetic femur and tibia fractures, stiffness /arthrofibrosis, limp, incomplete relief of pain, incomplete functional recovery, likely need for further surgery in future including revision and anesthetic complications including heart attack, stroke and even .? We also discussed about the likely need for blood transfusion and transfusion reactions. We discussed how any of these events can be devastating. We have discussed nonsurgical alternatives as well. Patient understands and wishes to proceed with a right total knee arthroplasty as planned and I believe that she is fully informed as to the risks, benefits, and alternatives including nonsurgical alternatives. We also discussed the postoperative course including the rehab and physical therapy required.? A physical examination was performed and documented.? Patient understood the risks, agreed to proceed with surgery, and no guarantees or assurances were given or implied. The limb was appropriately marked and initialed by me. The patient was then brought to the operating room and a spinal anesthesia was administered by the union steward.? After completion of the procedure, patient also had an adductor canal block also performed by the union steward. The patient was then positioned supine on the operating table. All the bony prominences were appropriately padded.? A well-padded tourniquet cu
--- NOTE | 2022-03-10 16:18 | PC.NURSE ---
patient arrived to floor by bed from surgery
[2022-03-10 16:38] LABS: Microscopic,Cath URINE MICROSCOPIC (MICROSCOPIC)
[2022-03-10 16:42] LABS: Appearance,Urine/Cath CLEAR (Clear); Bilirubin,Cath Negative (Negative); Blood, Urine/Cath TRACE-L (Negative); Color,Urine/Cath YELLOW (Yellow); Glucose,Urine/Cath (UA) Negative (Negative); Ketones,Urine/Cath Negative (Negative); Leukocyte Esterase,Cath Negative (Negative); Nitrate,Cath Negative (Negative); Protein,Urine/Cath Negative (Negative); Urobilinogen,Cath 0.2 EU/dl (0.2)
[2022-03-10 17:08] LABS: RBC,Urine/Cath Occasional # /hpf (0-3); WBC,Urine/Cath Occasional #/hpf (0-3)
--- NOTE | 2022-03-10 23:15 | PC.NURSE ---
Addendum entered by Sol Law RN 03/10/22 23:24: right knee/hip Original Note: paged dr kiran regarding pts c/o worsening pain in knee, hip, and lower back after using bsc. lower back assessed and pain appears to be around spinal anesthesia site. pt reports no numbness/tingling in legs. dr kiran gave orders to control/monitor pain t/o the night and page anesthesia if pain becomes uncontrollable, and to make dr. merlos aware in the am.
[2022-03-11 04:00] VITALS: BP 107/62; PULSE 65; RESP 16; TEMP 36.8; O2SAT 97
--- NOTE | 2022-03-11 04:37 | PC.NURSE ---
medicated for pain per mar, she has slept most of this shift. gumaro and polar pack remain in place to right knee. SCD on Left leg. call light wihin reach and no needs at this time.
[2022-03-11 05:00] VITALS: BMI 27.6
[2022-03-11 06:39] LABS: Basophils # 0.1 K/mm3 (0-0.2); Basophils % 0.5 % (0.1-2.0); Eosinophils # 0.1 K/mm3 (0.0-0.4); Eosinophils % 0.5 % (0.1-12.0); Hematocrit 31.3 % (37.0-47.0); Hemoglobin 10.1 g/dL (12.2-16.2); Lymphocytes # 1.3 K/mm3 (0.7-4.5); Lymphocytes % 10.4 % (10-50); Mean Corpuscular HGB Conc 32.3 g/dL (31.8-35.4); Mean Corpuscular Hemoglobin 31.4 pg (27.0-31.2); Mean Corpuscular Volume 97.3 fl (81-99); Mean Platelet Volume 8.3 fl (7.4-10.4); Neutrophils % 80.5 % (37.0-80.0); Platelet Count 238 K/mm3 (142-424); Red Blood Count 3.22 M/mm3 (4.20-5.40); Red Cell Distribution Width 13.6 % (11.5-17.5); White Blood Count 12.5 K/mm3 (4.8-10.8)
[2022-03-11 06:59] LABS: Blood Urea Nitrogen 19 mg/dl (7-17); Calcium 8.2 mg/dl (8.4-10.2); Carbon Dioxide 29 mmol/L (22.0-30.0); Chloride 105 mmol/L (98-107); Creatinine Clearance Estimated 44 mL/min (50-200); Estimated Glomerular Filt Rate 59 ml/min (>60); GFR (African American) 72 ML/MIN (>60); Glucose 95 mg/dl (74-100); Sodium 138 mmol/L (136-145)
--- NOTE | 2022-03-11 07:39 | EXP.PHA.VTE ---
[facility] Pharmacy VTE Monitoring Patient Demographics Report Date: 03/11/22 Time: 07:39 Patient Allergies No Known Allergies Allergy (Verified 03/04/22 15:19) Height: 1.6 m Weight: 70.789 kg VTE Risk Labs: VTE Related Lab Results Hgb 10.1 g/dL (12.2-16.2) L 03/11/22 06:27 Hct 31.3 % (37.0-47.0) L 03/11/22 06:27 Plt Count 238 K/mm3 (142-424) 03/11/22 06:27 BUN 19 mg/dl (7-17) H 03/11/22 06:27 Creatinine 0.90 mg/dl (0.52-1.04) 03/11/22 06:27 Estimated Creat Clear 44 mL/min (50-200) 03/11/22 06:27 Clinical Trial Participant: No Prophylaxis VTE Prophylaxis Ordered?: Yes Types of VTE Prophylaxis: IPCS Knee High (POST OP) Location of Applied Device: Left Leg
--- NOTE | 2022-03-11 07:42 | HMH.PHAINT1 ---
Pharmacy Intervention Comments: home medication list verified using list from outpatient pharmacy
[2022-03-11 08:00] VITALS: BP 139/65; PULSE 61; RESP 17; TEMP 37; O2SAT 100
--- NOTE | 2022-03-11 08:12 | EXP.ANES.II ---
[facility] Anesthesia Record Part II Anesthesia Record Part II Discharge Time: 16:10 Destination: Medical Surgical Department PACU nurse assessment reviewed?: Yes Patient Condition:: Good Anesthesia Complications:: None Swallowing reflex intact?: Yes Cyanosis?: No Blood Pressure: 137/65 Pulse Rate: 60 Temperature: 98 F Mental Status: Alert & Oriented Pain level:: 5 Nausea and/or vomitting:: None Intake, IV Amount: 0
[2022-03-11 08:13] VITALS: BP 137/65; PULSE 60; TEMP 36.6
--- NOTE | 2022-03-11 08:14 | PC.NURSE ---
knight cath removed
--- NOTE | 2022-03-11 08:50 | EXP.HPDC ---
General Admission date:: 03/10/22 Discharge date: 03/11/22 *Admission Date: 03/10/22 *Chief complaint: s/p right total knee arthroplasty *History of present illness: Ms. Pride is an 86 year old female admitted to the inpatient service for observation following an uneventful primary right total knee arthroplasty performed by Dr. Van yesterday 03/10/2022. She has had longstanding chronic right knee pain secondary to degenerative arthritis which she reports has gradually grown worse. She localizes her pain to all around the knee with more severe pain over the anterolateral aspect. She reports that her pain is aggravated with standing, bending, and walking. She rates her pain a 3 out of 10 at rest and an 8 out of 10 at worst. She also reports chronic left hip and back pain which is managed by Dr. Gonzalez. She has tried rest, ice, NSAIDs, and physical therapy with little to no relief. She also reports significant night pain, frequent sleep disturbances, and occasional sensation of the knee giving out. She states that her knee pain is adversely affecting her quality of life and activities of daily living. At baseline she does not use any walking aids. No history of any distal tingling/numbness. She is a non-smoker and her past medical history is significant for coronary artery disease, atrial fibrillation, hyperlipidemia, and cardiomyopathy. She has a pacemaker and is on chronic anticoagulation with Eliquis and clopidogrel, her wagon driver is Dr. Zepeda. She had a primary left total knee arthroplasty performed by Dr. Van on December 2020 and states that she is done well since surgery. This morning the patient is sitting comfortably in a chair at the bedside. She reports some right knee pain as to be expected but states it is well controlled with as needed pain medication and rest. She was able to ambulate to the bedside chair with the assistance of physical therapy this morning and states that this went well. She is eating and drinking well denies any episodes of nausea or vomiting. No history of distal tingling/numbness, fevers, chills, or rigors. She denies any other symptoms or concerns at this time. [facility] Medical History Acid reflux Angina, class IV Arthritis Bulging discs Cataract Chest pain Crescendo angina Elevated coronary artery calcium score Family history of heart disease History of back pain Migraine Palpitations Right carotid bruit Second hand smoke exposure SOB (shortness of breath) Surgical History (Updated 03/11/22 @ 09:02 by JUVE Beyer) History of hysterectomy History of knee replacement Family History Other Family history of cancer Lung cancer Social History Smoking Status: Never smoker second hand exposure: Yes alcohol intake: former substance use type: denies use current occupational status: retired Travel in the last 8 weeks: None household members: family housing: house current occupational exposures/hazards: No caffeine: Yes Review of Systems Review of Systems Review of systems:: pertinent systems reviewed and negative unless documented below Constitutional Constitutional: Reports system reviewed and no additional complaints, except as documented, Denies body ache(s), Denies chills, Denies fatigue, Denies fever(s), Denies headache(s) and Denies night sweats Eyes Eyes: Reports system reviewed and no additional complaints, except as documented and Denies change in vision ENT Ears, Nose, Mouth, and Throat: Reports system reviewed and no additional complaints, except as documented, Denies dizziness, Denies dysphagia, Denies headache(s), Denies nasal congestion, Denies neck mass, Denies neck pain and Denies sore throat *Cardiovascular Cardiovascular: Reports system reviewed and no additional complaints, except as doc
--- NOTE | 2022-03-11 09:09 | HMH.OTEV ---
OT Inpatient Evaluation Rehab OT IP Evaluation Start: 03/10/22 15:48 Freq: ONCE Status: Complete Protocol: Document 03/11/22 09:01 SAGRARIO (Rec: 03/11/22 09:09 [facility] [id number]) Rehab OT IP Assessment Subjective History Pt oriented x 4 on arrival. Pt agreeable to engage in therapy evaluation. Pt was admitted on 03/10/22 following a uneventful Uncemented total knee arthroplasty on right knee. Prior to surgery patient was living in an apartment with her daughter. Pt has 3 stairs to enter her apartment. Pt claims she was independent with ADLs prior to surgery. She also reports she was independent with cooking small microwave meals. She was also able to complete cleaning. Her and her daughter were able to complete grocery shopping by going to [employer] the groceries and her grandson would come and bring the groceries inside. She used a walker at times during functional transfers. Pt was still driving. Subjective I am in about 4/10 pain. Pt resting in bed. Pt required min assist x 2 to complete bed mobility and go from supine to sitting at eob. Pt stood from eob with cga. Pt transferred from bed to chair with cga and rolling walker. Pt sat down in chair with cga. Pt was left sitting in chair with call dykes and all other needs in reach. Pt' s daughter present and supportive of therapy. Objective Patient Orientation Person,Place,Birthday,Year Upper Extremity Gross ROM WFL Bed Mobility bed mobility-scooting,bed mobility - supine/sit,bed mobility - rolling Assist Level Minimal x 2 (25% assist) Transfer Training Sit/Stand Transfer
--- NOTE | 2022-03-11 09:59 | HMH.PTEV ---
Physical Therapy Evaluation Rehab PT IP Evaluation Start: 03/10/22 15:48 Freq: ONCE Status: Active Protocol: Document 03/11/22 09:08 WILLIAMHARLEEN (Rec: 03/11/22 09:58 WILLIAMHARLEEN [id number]) Subjective/History History History This is the initial IP physical therapy evaluation for Gillian Pride, an 86 y/o female s/p R total knee arthroplasty performed on . Pt presented w/ activity limiting OA of R knee w/ pn unrelieved by conservative management. Pt has history of L TKA surgery in 2020 as well. Medical History: Arrhythmia, Atrial Fibrillation, Cardiomyopathy, Coronary Artery Disease, Depression, Gastroesophageal Reflux Disease(GERD), Hyperlipidemia, Hypertension, Internal Pacemaker, Migraine Written by EDU Aguero Subjective Subjective Pt reports she lives in one- story apartment with her 67 y/ o daughter who pt notes is unable to help out a lot. Apartment has a few steps in order to enter and uneven pavement leading to entrance. Pt was using a rollator walker prior to admission and states she has to drag it up the stairs occasionally. Prior to admission, pt reports she was IND w/ all ADLS and able to drive. Rehab PT IP Eval Objective Appearance Patient Behavior Appropriate,Cooperative Patient Orientation Person,Place,Name,Age,Year, Situation Difficulty following instructions none Speech Pattern Clear,Appropriate,Coherent Ambulation Patient Able to Ambulate Yes Ambulation Observation IP General Gait Pattern Observation Antalgic Gait,Wide Based Gait Ambulation Distance (feet) 5 Ambulation Assistive Device Rolling Walker Ambulation Ability Contact Guard/Hand Hold Balance Ability to Arise Able, uses arms to help Sitting Balance Steady, safe Standing Balance Steady, wide stance Dynamic Sitting Balance Ability Good
--- NOTE | 2022-03-11 10:20 | EXP.ANES.I ---
[facility] Anesthesia Record Part I Anesthesia Record I Intake, IV Amount: 2,000 Estimated blood loss (mL): 20 Urine output (mL): 0 Blood Products used (#): none Blood Pressure: 134/61 SaO2: 97 Pulse Rate: 60 Respiratory Rate: 20 Temperature: 97.8 F Patient is:: Drowsy and Stable Stable to PACU at:: 15:41
[2022-03-11 10:23] VITALS: BP 134/61; PULSE 60; RESP 20; TEMP 36.6; O2SAT 97
[2022-03-11 10:55] LABS: Coronavirus 19, PCR Not Detected (NotDetected); Influenza A, PCR Not Detected (NotDetected); Influenza B, PCR Not Detected (NotDetected)
[2022-03-11 11:27] VITALS: BP 133/52; PULSE 61; RESP 17; TEMP 36.4; O2SAT 100
--- NOTE | 2022-03-11 13:53 | PC.NURSE ---
report called to Ana María Lama Glasford
--- NOTE | 2022-03-12 14:16 | CARE MANAGER ---
Patient at [facility] and doing well.
== END 2022-03-11 14:54 ==
LOC: 2ND 08:38
PROVIDERS: Physician Assistant Surgical; Admitting Provider Orthopaedic Surgery; PCP Internal Medicine; Visit Provider Orthopaedic Surgery
PROC: (CPT 27447; principal; 2022-03-10 09:15)
DX: M17.11 Unilateral primary osteoarthritis, right knee (principal); Z96.652 Presence of left artificial knee joint; I48.91 Unspecified atrial fibrillation; I42.9 Cardiomyopathy, unspecified; I25.10 Atherosclerotic heart disease of native coronary artery without angina pectoris; I10 Essential (primary) hypertension; Z82.49 Family history of ischemic heart disease and other diseases of the circulatory system; Z95.0 Presence of cardiac pacemaker; Z79.01 Long term (current) use of anticoagulants; Z79.899 Other long term (current) drug therapy; Z20.822 Contact with and (suspected) exposure to COVID-19
CPT/HCPCS: 27447; G0378; 73562; 80048; 81001; 85025; 86850; 96374; 97116; 97161; 97166; 97535; C1776; C9803; J2405; J3370; U0003; U0005

== ENCOUNTER → 2022-03-18 09:25 | Outpatient (CLI) | payer MEDICARE, BC, SELFPAY ==
--- NOTE | 2022-03-18 09:31 | XR_ITS ---
FINAL REPORT CLINICAL HISTORY: right TKA COMPARISON: March 10, 2022 FINDINGS: RIGHT KNEE Three views of the right knee reveal postoperative changes from knee arthroplasty. There is no acute fracture. The alignment is normal. There is a chronic calcification adjacent to the lateral femoral condyle. There is a moderate joint effusion. No localized soft tissue abnormality is identified. IMPRESSION: Postoperative changes with a moderate joint effusion. Reviewed, Interpreted and Dictated by Corby Acuna III, MD Transcribed by Meliza Pride Authenticated and [facility]
== END ==
PROVIDERS: PCP Internal Medicine; Visit Provider Orthopaedic Surgery
DX: Z96.651 Presence of right artificial knee joint (principal); M25.561 Pain in right knee
CPT/HCPCS: 73562

== ENCOUNTER 2022-03-27 16:20 | Observation (INO) | payer MEDICARE, BC, SELFPAY ==
[2022-03-27] VITALS (12 sets, daily range): BP systolic 119–173; BP diastolic 55–77; PULSE 59–79; RESP 14–28; TEMP 36.4–37.1; O2SAT 96–100; BMI 26.2; BMI 25.7
--- NOTE | 2022-03-27 16:24 | ECG_ITS ---
APPROVED REPORT Exam: Resting ECG HR:64 bpm ECG Measurements Heart Rate 64 AXES KS 177 P 88 QRSd 140 QRS -24 QT 449 T 55 QTc 458 Conclusion SINUS RHYTHM LEFT BUNDLE BRANCH BLOCK [120+ ms QRS DURATION, 80+ ms Q/S IN V1/V2, 85+ ms R IN I/aVL/V5/V6] ABNORMAL ECG UNCONFIRMED REPORT Electronically signed by : Cornelio Red MD 04/01/2022 16:05:19
--- NOTE | 2022-03-27 16:27 | HMH.EDGENADL ---
Discharge Plan Disposition Condition: Fair Chief Complaint: Shortness of Breath/Dyspnea Prescriptions Prescriptions: No Action donepezil 5 mg tablet 5 mg PO HS clopidogrel 75 MG tablet 75 mg PO DAILY sertraline 25 MG tablet 25 mg PO DAILY pantoprazole 40 MG tablet,delayed release (DR/EC) 40 mg PO HS apixaban 2.5 MG tablet 2.5 mg PO BID gabapentin 300 MG capsule 300 mg PO BID bisoprolol fumarate 10 MG tablet 10 mg PO DAILY furosemide 20 MG tablet 20 mg PO DAILY verapamil 240 MG capsule,ext rel. pellets 24 hr 240 mg PO DAILY celecoxib 200 mg capsule 200 mg PO DAILY atorvastatin 40 mg tablet 40 mg PO HS coenzyme Q10 100 mg capsule 100 mg PO DAILY docusate sodium [Stool Softener] 60 mg/15 mL syrup 60 mg PO DAILY Qty: 480 0RF hydrocodone-acetaminophen 5-325 mg tablet 1 tab PO Q4HP PRN (Reason: Moderate To Severe Pain) Qty: 60 0RF Clinical Impressions Clinical Impression: Acute exacerbation of CHF (congestive heart failure), Chest pain Discharge ED Provider: Jed Chacon General Adult HPI General Chief complaint: Shortness of Breath/Dyspnea Stated complaint: Weaknes Time Seen by Provider: 03/27/22 16:27 Mode of Arrival: EMS History of Present Illness HPI narrative: 86-year-old female with history of coronary artery disease, pulmonary hypertension, hyperlipidemia, atrial fibrillation, chronic kidney disease, CHF on diuretic, who had recent knee surgery approximately 3 weeks ago. She presents with gradually worsening shortness of breath over the past few days, states she woke at about 3 AM and has had difficulty getting comfortable since then. She reports difficulty breathing seems to be worse when laying flat, has not noticed marked leg swelling. Denies any overt chest pain, fevers, cough, and is unable to relay if there is anything that seems to help symptoms. Related Data Home Medications Medication Instructions Recorded Confirmed donepezil 5 mg tablet 5 mg PO HS dementia 08/30/18 03/18/22 clopidogrel 75 mg tablet 75 mg PO DAILY platelet inhibitor 11/07/19 03/18/22 pantoprazole 40 mg tablet,delayed 40 mg PO HS acid reflux 10/04/20 03/18/22 release sertraline 25 mg tablet 25 mg PO DAILY Depression 10/04/20 03/18/22 apixaban 2.5 mg tablet 2.5 mg PO BID atrial fib/blood 03/27/21 03/18/22 thinner bisoprolol fumarate 10 mg tablet 10 mg PO DAILY Hypertension 06/24/21 03/18/22 furosemide 20 mg tablet 20 mg PO DAILY Fluid 06/24/21 03/18/22 gabapentin 300 mg capsule 300 mg PO BID nerve pain 06/24/21 03/18/22 verapamil 240 mg 24 hr 240 mg PO DAILY Heart disease 06/24/21 03/18/22 capsule,extended release atorvastatin 40 mg tablet 40 mg PO HS Cholesterol 03/10/22 03/18/22 celecoxib 200 mg capsule 200 mg PO DAILY arthritis pain 03/10/22 03/18/22 coenzyme Q10 100 mg capsule 100 mg PO DAILY Supplement 03/10/22 03/18/22 Previous Rx's Medication Instructions Recorded docusate sodium 60 mg/15 mL oral 60 mg (15 mL) PO DAILY #480 mL 03/11/22 syrup (Stool Softener) hydrocodone 5 mg-acetaminophen 325 1 tab PO Q4HP PRN Moderate To 03/11/22 mg tablet Severe Pain #60 tabs Allergies Allergy/AdvReac Type Severity Reaction Status Date / Time No Known Allergies Allergy Verified 03/18/22 10:55 [facility] Medical History Acid reflux Angina, class IV Arthritis Bulging discs Cataract Cellulitis Chest pain Closed head injury Cough Crescendo angina Elevated coronary artery calcium score Family history of heart disease Hematoma High ankle sprain History of back pain Hyperkalemia Hyponatremia Migraine Multiple contusions On amiodarone therapy Pacemaker displacement Pain in pacemaker pocket due to device Palpitations Right carotid bruit Right leg injury Second hand smoke exposure SOB (shortness of breath) Symptomatic bradycardia Surgical History (Reviewe
--- NOTE | 2022-03-27 16:52 | PC.NURSE ---
PT LYING IN BED, BEEN GETTING HER WARM BLANKETS CAUSE SHE IS COLD
--- NOTE | 2022-03-27 16:53 | XR_ITS ---
PROCEDURE INFORMATION: Exam: XR Chest Exam date and time: 03/27/2022 5:21 PM Age: 86 years old Clinical indication: Shortness of breath; Prior surgery; Surgery type: Stent placement & pacemaker (october 2020); Additional info: SOB TECHNIQUE: Imaging protocol: Radiologic exam of the chest. Views: 1 view. COMPARISON: CR XR CHEST 2V 03/09/2022 10:23 AM FINDINGS: Tubes, catheters and devices: Pacemaker device again demonstrated. Lungs: Unremarkable. No consolidation. Pleural spaces: Unremarkable. No pleural effusion. No pneumothorax. Heart/Mediastinum: Unremarkable. No cardiomegaly. Bones/joints: Unremarkable. IMPRESSION: No acute findings.
--- NOTE | 2022-03-27 16:55 | PC.NURSE ---
PT in room needed to use bedside commode. Obtained Urine sample
[2022-03-27 17:00] LABS: Microscopic, Urine URINE MICROSCOPIC (MICROSCOPIC)
[2022-03-27 17:11] LABS: Appearance,Urine CLEAR (Clear); Bilirubin,Urine Negative (Negative); Blood, Urine TRACE-I (Negative); Color,Urine YELLOW (Yellow); Glucose,Urine (UA) Negative (Negative); Ketones,Urine Negative (Negative); Leukocyte Esterase,Urine Negative (Negative); Nitrate,Urine Negative (Negative); Protein,Urine Negative (Negative)
[2022-03-27 17:16] LABS: Amorphous Sediment,Urine Trace /lpf
[2022-03-27 17:42] LABS: Coronavirus 19, PCR Not Detected (NotDetected); Influenza A, PCR Not Detected (NotDetected); Influenza B, PCR Not Detected (NotDetected)
[2022-03-27 17:43] LABS: Basophils # 0.1 K/mm3 (0-0.2); Basophils % 1.5 % (0.1-2.0); Eosinophils # 0.2 K/mm3 (0.0-0.4); Eosinophils % 3.2 % (0.1-12.0); Hematocrit 29.4 % (37.0-47.0); Hemoglobin 9.6 g/dL (12.2-16.2); Lymphocytes # 1.4 K/mm3 (0.7-4.5); Lymphocytes % 19.4 % (10-50); Mean Corpuscular HGB Conc 32.8 g/dL (31.8-35.4); Mean Corpuscular Hemoglobin 31.1 pg (27.0-31.2); Mean Corpuscular Volume 94.7 fl (81-99); Mean Platelet Volume 7.6 fl (7.4-10.4); Monocytes # 0.5 K/mm3 (0.1-1.0); Monocytes % 6.7 % (1.7-9.3); Neutrophils # 5.1 K/mm3 (1.8-7.8); Neutrophils % 69.2 % (37.0-80.0); Platelet Count 509 K/mm3 (142-424); Red Cell Distribution Width 14.3 % (11.5-17.5); White Blood Count 7.3 K/mm3 (4.8-10.8)
[2022-03-27 17:48] LABS: Chloride 98 mmol/L (98-107); Potassium 4.1 mmoL/L (3.5-5.1); Sodium 136 mmol/L (136-145)
[2022-03-27 17:51] LABS: Alanine Aminotransferase 18 U/L (12-78); Albumin Level 3.8 g/dl (3.5-5.0); Albumin/Globulin Ratio 1.3 (1.1-1.8); Alkaline Phosphatase 130 U/L (38-126); Anion Gap 15.1 mEq/L (5-15); Aspartate Amino Transferase 36 U/L (14-36); Bilirubin,Total 0.6 mg/dl (0.2-1.3); Blood Urea Nitrogen 9 mg/dl (7-17); Calcium 8.7 mg/dl (8.4-10.2); Carbon Dioxide 27 mmol/L (22.0-30.0); Creatinine Clearance Estimated 42 mL/min (50-200); Estimated Glomerular Filt Rate 79 ml/min (>60); GFR (African American) 96 ML/MIN (>60); Globulin 2.9 g/dL (1.3-3.2); Glucose 99 mg/dl (74-100); Total Protein,Serum 6.7 g/dl (6.3-8.2)
[2022-03-27 18:00] LABS: D-Dimer 3.54 ug/mL (0.0-0.5)
[2022-03-27 18:01] LABS: NT Pro Brain Natriuretic Pep. 1760 pg/mL (0-450)
[2022-03-27 18:06] LABS: Troponin I < 0.01 ng/ml (0.00-0.034)
--- NOTE | 2022-03-27 18:09 | CT_ITS ---
PROCEDURE INFORMATION: Exam: CTA Chest With Contrast Exam date and time: 03/27/2022 6:24 PM Age: 86 years old Clinical indication: Dyspnea and wheezing; Additional info: Elevated d-dimer, HX of knee surgery 3 weeks ago TECHNIQUE: Imaging protocol: Computed tomographic angiography of the chest with contrast. 3D rendering (Not supervised by radiologist): MIP and/or 3D reconstructed images were created by the technologist. Radiation optimization: All CT scans at this facility use at least one of these dose optimization techniques: automated exposure control; mA and/or kV adjustment per patient size (includes targeted exams where dose is matched to clinical indication); or iterative reconstruction. Contrast material: ISOVUE 370; Contrast volume: 70 ml; Contrast route: INTRAVENOUS (IV); COMPARISON: CR XR CHEST PORTABLE 03/27/2022 5:21 PM FINDINGS: Pulmonary arteries: There is suboptimal opacification of pulmonary arteries due to contrast bolus timing. There is no large or central pulmonary embolus. Evaluation of the peripheral pulmonary arteries is limited. Aorta: Regions of atherosclerotic vascular calcification involving the aortic arch. Calcified granuloma anteriorly right upper lobe, and in the left upper lobe. Lungs: Nonspecific ground-glass regions of opacification throughout both lungs. Findings may reflect changes of chronic interstitial lung disease. Pleural spaces: Unremarkable. No pneumothorax. No pleural effusion. Heart: Coronary artery calcification. Lymph nodes: Calcified mediastinal lymph nodes. Bones/joints: Unremarkable. No acute fracture. Soft tissues: Unremarkable. Other findings: Study limited secondary to motion artifact. IMPRESSION: 1. No evidence of large or central pulmonary embolus. Peripheral pulmonary arterial evaluation limited secondary to suboptimal bolus timing. 2. Evidence of prior granulomatous disease. 3. Please see above report for discussion of nonacute findings.
--- NOTE | 2022-03-27 18:19 | PC.NURSE ---
pt to RAD
--- NOTE | 2022-03-27 18:19 | ECG_ITS ---
APPROVED REPORT Exam: Resting ECG HR:63 bpm ECG Measurements Heart Rate 63 AXES TX 186 P 92 QRSd 138 QRS -22 QT 439 T 60 QTc 447 Conclusion SINUS RHYTHM INTRAVENTRICULAR CONDUCTION DELAY [130+ ms QRS DURATION] ABNORMAL ECG UNCONFIRMED REPORT Electronically signed by : Cornelio Red MD 04/01/2022 16:05:30
--- NOTE | 2022-03-27 18:25 | PC.NURSE ---
PT LYING IN BED, GOT PT A BEDSIDE COMMODE EARLIER AND HELPED HER TO IT, PT GOT NAUSEATED WHILE ON THE COMMODE ADVISED NURSE
--- NOTE | 2022-03-27 18:35 | PC.NURSE ---
pt back from RAD
--- NOTE | 2022-03-27 18:54 | PC.NURSE ---
tech help pt to bedside commode
--- NOTE | 2022-03-27 18:56 | PC.NURSE ---
HELPED PT TO BESIDE MEGAN
--- NOTE | 2022-03-27 19:18 | PC.NURSE ---
ten Rosales (on-call service pt) for ER
--- NOTE | 2022-03-27 19:21 | PC.NURSE ---
Dr. Chacon is s/w Dr. Rosales
--- NOTE | 2022-03-27 19:28 | PC.NURSE ---
called hydro station supervisor for bed assignment
--- NOTE | 2022-03-27 19:32 | PC.NURSE ---
PATIENT ADMITTED OBSERVATION TO [address] SOLIS WITH DX OF CHEST PAIN AND CHF.
[2022-03-27 20:05] LABS: Troponin I < 0.01 ng/ml (0.00-0.034)
--- NOTE | 2022-03-27 20:15 | PC.NURSE ---
Late Entry- 03/27/22 @1945. Pt was belching and requesting something for gas . Dr. Chacon ordered Mylicon 80mg chewable tab. Pt requested denture cup, gave this to pt & she placed bottom full denture and top partial in the cup.Pt's sticker placed on top lid. Pt requested that I given denture cup to her family at bedside, this RN did comply.
[2022-03-27 23:23] LABS: Troponin I < 0.01 ng/ml (0.00-0.034)
[2022-03-28] VITALS (8 sets, daily range): BP systolic 140–146; BP diastolic 55–78; PULSE 55–70; RESP 16–17; TEMP 36.5–36.9; O2SAT 94–99; BMI 25.3
--- NOTE | 2022-03-28 05:52 | PC.NURSE ---
NO ACUTE CHANGES SINCE PREVIOUS ASSESSMENT. PT HAS NOT RESTED WELL THIS SHIFT. PT HAS C/O SHORTNESS OF AIR AND GAS THIS SHIFT. PT HAD ONE EPISODE OF N/V AND WAS MEDICATED PER SEP. AFTER 80MG OF IV LASIX PT HAS HAD 4 UNMEASURED VOIDS AND 1250ML OUT SO FAR THIS SHIFT. PT HAS HAD A DRY COUGH MOST OF THE SHIFT AND IS UNABLE TO COUGH ANYTHING UP. PT STATES SHE WISHES SHE COULD JUST GET A LITTLE RELIEF. VSS. REMAINS ON ROOM AIR. CALL NIEVES WITHIN REACH. FAMILY AT BEDSIDE.
[2022-03-28 07:48] LABS: Basophils # 0.2 K/mm3 (0-0.2); Basophils % 2.2 % (0.1-2.0); Eosinophils # 0.2 K/mm3 (0.0-0.4); Eosinophils % 2.9 % (0.1-12.0); Hematocrit 31.9 % (37.0-47.0); Hemoglobin 10.5 g/dL (12.2-16.2); Lymphocytes # 1.5 K/mm3 (0.7-4.5); Lymphocytes % 20.3 % (10-50); Mean Corpuscular Hemoglobin 31.2 pg (27.0-31.2); Mean Corpuscular Volume 94.3 fl (81-99); Mean Platelet Volume 7.2 fl (7.4-10.4); Monocytes # 0.7 K/mm3 (0.1-1.0); Monocytes % 9.3 % (1.7-9.3); Neutrophils # 4.9 K/mm3 (1.8-7.8); Neutrophils % 65.4 % (37.0-80.0); Platelet Count 572 K/mm3 (142-424); Red Blood Count 3.39 M/mm3 (4.20-5.40); Red Cell Distribution Width 14.4 % (11.5-17.5); White Blood Count 7.6 K/mm3 (4.8-10.8)
[2022-03-28 07:56] LABS: Anion Gap 16.9 mEq/L (5-15); Blood Urea Nitrogen 11 mg/dl (7-17); Carbon Dioxide 29 mmol/L (22.0-30.0); Chloride 93 mmol/L (98-107); Creatinine Clearance Estimated 41 mL/min (50-200); Estimated Glomerular Filt Rate 59 ml/min (>60); GFR (African American) 72 ML/MIN (>60); Glucose 130 mg/dl (74-100); Potassium 3.9 mmoL/L (3.5-5.1); Sodium 135 mmol/L (136-145)
--- NOTE | 2022-03-28 10:08 | P.CONPHA_ITS ---
[facility] Pharmacy VTE Monitoring Patient Demographics Patient Allergies No Known Allergies Allergy (Verified 03/18/22 10:55) Height: 1.6 m Weight: 64.864 kg Current Active Problems (Updated 03/27/22 @ 22:15 by Maya Ibarra RN) Acute exacerbation of CHF (congestive heart failure) (Acute) Chest pain (Acute) VTE Risk Labs: VTE Related Lab Results Hgb 10.5 g/dL (12.2-16.2) L 03/28/22 07:39 Hct 31.9 % (37.0-47.0) L 03/28/22 07:39 Plt Count 572 K/mm3 (142-424) H 03/28/22 07:39 BUN 11 mg/dl (7-17) 03/28/22 07:39 Creatinine 0.90 mg/dl (0.52-1.04) D 03/28/22 07:39 Estimated Creat Clear 41 mL/min (50-200) 03/28/22 07:39 Was VTE Risk Assessment Performed: Yes VTE Score: 5 VTE Risk Level: Low Risk Clinical Trial Participant: No Prophylaxis VTE Prophylaxis Ordered?: Yes Types of VTE Prophylaxis: TEDS Knee High Location of Applied Device: Bilateral Lower Extremeties
--- NOTE | 2022-03-28 10:58 | EXP.HP ---
History of Present Illness *Admission Date: 03/27/22 *Reason for visit:: shortness of breath *History of present illness: 86-year-old female with history of coronary artery disease, pulmonary hypertension, hyperlipidemia, atrial fibrillation, chronic kidney disease, CHF on diuretic, who had recent knee surgery approximately 3 weeks ago.? She presents with gradually worsening shortness of breath over the past few days, states she woke at about 3 AM and has had difficulty getting comfortable since then.? She reports difficulty breathing seems to be worse when laying flat, has not noticed marked leg swelling.? Denies any overt chest pain, fevers, cough, and is unable to relay if there is anything that seems to help symptoms. (above as per ER physician) Further to the above note, the patient states she has been at [facility] for rehab following her knee surgery. She states she was actually transported from [facility] to [facility] via ambulance yesterday. She says yesterday morning she started with a cough and congestion along with chest tightness and shortness of breath. She also had leg swelling. Her BNP and D-dimer were both elevated. Her chest x-ray was normal and her CTA showed no PE. It did show chronic lung disease. She was admitted and started on Lasix. [facility] Medical History (Updated 03/28/22 @ 11:11 by JUVE Green) Acid reflux Angina, class IV Arthritis Bulging discs Cataract Cellulitis Chest pain Closed head injury Cough Crescendo angina Elevated coronary artery calcium score Family history of heart disease Hematoma High ankle sprain History of back pain History of gastroesophageal reflux (GERD) History of pacemaker Hyperkalemia Hypertension Hyponatremia Kidney stone Migraine Multiple contusions On amiodarone therapy Pacemaker displacement Pain in pacemaker pocket due to device Palpitations Right carotid bruit Right leg injury Second hand smoke exposure SOB (shortness of breath) Symptomatic bradycardia Surgical History (Updated 03/28/22 @ 11:10 by JUVE Green) H/O right heart catheterization History of coronary artery stent placement History of hysterectomy History of knee replacement Family History Family history of GERD Family history of cancer Brother Sister Family history of hypertension Family history of diabetes mellitus type II Family history of migraine headaches Family history of myocardial infarction Lung cancer Family history of hyperlipidemia Social History Smoking Status: Never smoker second hand exposure: Yes alcohol intake: never substance use type: denies use current occupational status: retired Travel in the last 8 weeks: None household members: family housing: house current occupational exposures/hazards: No caffeine: Yes Review of Systems Constitutional Constitutional: Reports fatigue, Denies fever(s), Denies headache(s) and Reports weakness Eyes Eyes: Denies blurry vision and Denies diplopia ENT Ears, Nose, Mouth, and Throat: Denies dizziness, Denies headache(s), Reports nasal congestion and Denies sore throat *Cardiovascular Cardiovascular: Reports chest pain, Reports dyspnea and Reports leg edema *Respiratory Respiratory: Reports cough and Reports dyspnea *Gastrointestinal Gastrointestinal: Denies abdominal pain, Denies diarrhea, Reports nausea and Reports vomiting *Genitourinary Genitourinary: Denies difficulty voiding and Denies dysuria *Musculoskeletal Musculoskeletal: Denies myalgias *Neurologic Neurologic: Denies dizziness, Denies headache(s) and Reports weakness Endocrine Endocrine: Reports fatigue Meds Home Medications and Allergies Home Medications Medication Instructions Recorded Confirmed Type donepezil 5 mg tablet 5 mg PO HS dementia 08/30/18 03/27/22 History clopidogrel 75 mg tablet 75 mg
--- NOTE | 2022-03-28 11:00 | P.CONPHA_ITS ---
Pharmacy Intervention Comments: MEDICATION RECONCILIATION COMPLETE USING MAR FROM [facility].
--- NOTE | 2022-03-28 11:00 | HMH.PHAINT1 ---
Pharmacy Intervention Comments: MEDICATION RECONCILIATION COMPLETE USING MAR FROM [facility].
--- NOTE | 2022-03-28 16:48 | PC.NURSE ---
pt did have an episode of n/v this morning. she was treated with prn zofran per sep with good effectiveness. she has rested well this shift. she has tolerated diet well. has not required o2 support. she has denied chest pain this shift. paced on telemetry.
[2022-03-29] VITALS: BP 110/50; PULSE 65; PULSE 70; RESP 17; TEMP 36.6; O2SAT 98
[2022-03-29 03:43] VITALS: BP 105/55; PULSE 61; RESP 18; TEMP 36.5; O2SAT 98
[2022-03-29 04:00] VITALS: PULSE 60
--- NOTE | 2022-03-29 04:06 | PC.NURSE ---
pt rested well through the night, no acute distress, respiratory: CTA bilaterally, 02 sats 98 on room air, cardiac: denies chest pain, telemetry NSR, paced/NSR w/BBB; hr 55-70, BLE edema 2+; VSS; GI/: wnl; alert and oriented x4; right knee incision with surgical tape/steri strips intact s/p right knee surgery, no drainage or hematoma noted, no other issues or concerns noted at this time.
[2022-03-29 05:00] VITALS: BMI 25.4
[2022-03-29 08:00] VITALS: BP 102/55; PULSE 68; PULSE 70; RESP 20; TEMP 36.8; O2SAT 96
--- NOTE | 2022-03-29 09:38 | EXP.PN ---
Subjective *Date: 03/29/22 *Time: 11:31 Interval history: Patient is doing well. Her daughter has just assisted her with a shower and she tolerated well. She is excited to be going to [place] today for ongoing rehab. She ambulates with help without difficulty. She is eating without problems. She denies chest pain and states her breathing is much improved. Exam Data for Last 24 hours Vital signs and Labs for Last 24 Hours: Temp Pulse Resp BP Pulse Ox 98.2 F 68 20 102/55 L 96 03/29/22 08:00 03/29/22 08:00 03/29/22 08:00 03/29/22 08:00 03/29/22 08:00 I & O for Last 24 hours: Intake & Output 03/26/22 03/27/22 03/28/22 03/29/22 11:59 11:59 11:59 11:59 Intake Total 240 / 240 900 / 900 Output Total 1800 / 1800 800 / 800 Balance -1560 / -1560 100 / 100 Weight 143 lb 143 lb 15.989 oz Constitutional Constitutional: no acute distress *Routine Respiratory Exam Respiratory: Present CTA bilaterally (Anteriorly and posteriorly) *Routine Cardiovascular Exam Cardiovascular: Present RRR *Routine Abdominal Exam Abdominal: Present soft and normoactive bowel sounds; Absent tenderness or distended *Routine Extremities Exam Extremities: Absent edema or calf tenderness *Routine Neurological Exam Neurological: Present alert and oriented X3 Assessment and Plan *Assessment and plan (1) Degenerative disc disease: Status: Chronic Qualifiers: Spinal region: lumbar Qualified Code(s): M51.36 - Other intervertebral disc degeneration, lumbar region Category: Medical (2) Pulmonary HTN: Status: Chronic Category: Medical Code(s): I27.20 - Pulmonary hypertension, unspecified (3) CAD (coronary artery disease): Status: Chronic Qualifiers: Associated angina: with other forms of angina Coronary Disease-Associated Artery/Lesion type: [place] artery [place] vs. transplanted heart: [place] heart Qualified Code(s): I25.118 - Atherosclerotic heart disease of [place] coronary artery with other forms of angina pectoris Category: Medical Code(s): I25.10 - Atherosclerotic heart disease of [place] coronary artery without angina pectoris (4) HLD (hyperlipidemia): Status: Chronic Qualifiers: Hyperlipidemia type: mixed hyperlipidemia Qualified Code(s): E78.2 - Mixed hyperlipidemia Category: Medical Code(s): E78.5 - Hyperlipidemia, unspecified (5) Atrial fibrillation: Status: Chronic Qualifiers: Atrial fibrillation type: paroxysmal Qualified Code(s): I48.0 - Paroxysmal atrial fibrillation Category: Medical Code(s): I48.91 - Unspecified atrial fibrillation (6) HHD (hypertensive heart disease): Status: Chronic Qualifiers: Heart failure presence: without heart failure Qualified Code(s): I11.9 - Hypertensive heart disease without heart failure Category: Medical Code(s): I11.9 - Hypertensive heart disease without heart failure (7) Status post total right knee replacement: Status: Chronic Category: Surgical Code(s): Z96.651 - Presence of right artificial knee joint (8) Acute exacerbation of CHF (congestive heart failure): Status: Acute Category: Medical Code(s): I50.9 - Heart failure, unspecified (9) Chest pain: Status: Acute Category: Medical Code(s): R07.9 - Chest pain, unspecified (10) CKD (chronic kidney disease) stage 3, GFR 30-59 ml/min: Status: Acute Category: Medical Code(s): N18.30 - Chronic kidney disease, stage 3 unspecified Plan Patient to go to [place] for ongoing rehab. She has a follow-up with Dr. Van on 03/31/2022 which she will keep. See discharge orders. Dr. Rosales entry - Saw patient, agree with above note.
--- NOTE | 2022-03-29 09:41 | EXP.DC.SUM ---
General Admission date:: 03/27/22 Discharge date: 03/29/22 HPI HPI HPI: 86-year-old female with history of coronary artery disease, pulmonary hypertension, hyperlipidemia, atrial fibrillation, chronic kidney disease, CHF on diuretic, who had recent knee surgery approximately 3 weeks ago.? She presents with gradually worsening shortness of breath over the past few days, states she woke at about 3 AM and has had difficulty getting comfortable since then.? She reports difficulty breathing seems to be worse when laying flat, has not noticed marked leg swelling.? Denies any overt chest pain, fevers, cough, and is unable to relay if there is anything that seems to help symptoms. (above as per ER physician) Further to the above note, the patient stated she has been at [facility] for rehab following her knee surgery. She stated she was actually transported from [facility] to [facility] via ambulance yesterday. She related that yesterday morning she started with a cough and congestion along with chest tightness and shortness of breath. She also had leg swelling. Her BNP and D-dimer were both elevated. Her chest x-ray was normal and her CTA showed no PE. It did show chronic lung disease. She was admitted and started on Lasix. Hospital Course Hospital Course Hospital Course: On admission patient was started on IV Lasix for diuresis. She did diurese quite well with resolution of her shortness of breath. A.m. of 03/29 patient was feeling quite a bit better. She was even able to take a shower. She denied chest pain and shortness of breath. She was anxious to resume her physical therapy at [facility]. See data for test results. She will be discharged for transfer to [facility]. Condition at transfer was stable and satisfactory. Meds as listed per reconciliation sheet. She will continue with physical therapy. Follow-up will be at [facility]. Exam Data for Last 24 hours Vital signs and Labs for Last 24 Hours: Temp Pulse Resp BP Pulse Ox 98.2 F 68 20 102/55 L 96 03/29/22 08:00 03/29/22 08:00 03/29/22 08:00 03/29/22 08:00 03/29/22 08:00 03/27/22 16:54:?Urine Color Yellow, Urine Appearance Clear, Urine pH 8.0, Ur Specific Sachse 1.010, Urine Protein Negative, Urine Glucose (UA) Negative, Urine Ketones Negative, Urine Blood Trace-i, Urine Nitrate Negative, Urine Bilirubin Negative, Urine Urobilinogen 1.0, Ur Leukocyte Esterase Negative, Urine RBC 3-5, Ur Squamous Epith Cells 3-5, Amorphous Sediment Trace 03/27/22 17:28:?WBC 7.3,?RBC 3.10 L,?Hgb 9.6 L,?Hct 29.4 L, MCV 94.7, MCH 31.1, MCHC 32.8, RDW 14.3,?Plt Count 509 H, MPV 7.6, Neut % (Auto) 69.2, Lymph % (Auto) 19.4, Putnam % (Auto) 6.7, Eos % (Auto) 3.2, Baso % (Auto) 1.5, Neut # (Auto) 5.1, Lymph # (Auto) 1.4, [place]nam # (Auto) 0.5, Eos # (Auto) 0.2, Baso # (Auto) 0.1 03/27/22 17:28:?Sodium 136, Potassium 4.1, Chloride 98, Carbon Dioxide 27,?Anion Gap 15.1 H, BUN 9, Creatinine 0.70, Estimated Creat Clear 42, Estimated GFR 79, Est GFR ( Amer) 96, Glucose 99, Calcium 8.7, Total Bilirubin 0.6, AST 36, ALT 18,?Alkaline Phosphatase 130 H, Troponin I < 0.01, Total Protein 6.7, Albumin 3.8, Globulin 2.9, Albumin/Globulin Ratio 1.3 03/27/22 17:28:?SARS-CoV-2 (PCR) Not detected, Influenza A Untype (PCR) Not detected, Influenza Type B (PCR) Not detected 03/27/22 17:28: D-Dimer 3.54 H 03/27/22 17:28: NT-Pro-B Natriuret Pep 1760 H 03/27/22 19:22:?Troponin I < 0.01 03/27/22 22:50:?Troponin I < 0.01 03/28/22 07:39:?WBC 7.6,?RBC 3.39 L,?Hgb 10.5 L,?Hct 31.9 L, MCV 94.3, MCH 31.2, MCHC 33.0, RDW 14.4,?Plt Count 572 H,?MPV 7.2 L, Neut % (Auto) 65.4, Lymph % (Auto) 20.3, Putnam % (Auto) 9.3, Eos % (Auto) 2.9,?Baso % (Auto) 2.2 H, Neut # (Auto) 4.9, Lymph # (Auto) 1.5, Putnam # (Auto) 0.7, Eos # (Auto) 0.2, Baso # (Auto) 0.2 03/28/22 07:39: Sodium 135 L, Potassium 3.9,?Chloride 93 L, Carbon Dioxide 29,?Anion Gap 16.9 H, BUN 11,?Creatinine 0.90? D, Estimated Creat Clear 41, Estimated
--- NOTE | 2022-03-29 10:10 | PC.NURSE ---
tried calling report to [facility]. they said they would have to call me back.
[2022-03-29 10:51] LABS: Coronavirus 19, PCR Not Detected (NotDetected); Influenza A, PCR Not Detected (NotDetected); Influenza B, PCR Not Detected (NotDetected)
== END 2022-03-29 12:15 ==
LOC: ER 19:29 → 2ND 19:45
PROVIDERS: Admitting Provider Family Medicine; Emergency Provider Emergency Medicine; PCP Internal Medicine; Visit Provider Family Medicine
DX: I13.0 Hypertensive heart and chronic kidney disease with heart failure and stage 1 through stage 4 chronic kidney disease, or unspecified chronic kidney disease (principal); I25.118 Atherosclerotic heart disease of native coronary artery with other forms of angina pectoris; I27.20 Pulmonary hypertension, unspecified; I50.9 Heart failure, unspecified; Z96.651 Presence of right artificial knee joint; I42.0 Dilated cardiomyopathy; Z95.5 Presence of coronary angioplasty implant and graft; Z95.0 Presence of cardiac pacemaker; M51.36 Other intervertebral disc degeneration, lumbar region; I48.0 Paroxysmal atrial fibrillation; Z79.899 Other long term (current) drug therapy; Z20.822 Contact with and (suspected) exposure to COVID-19
CPT/HCPCS: G0378; 36415; 71045; 71275; 80048; 80053; 81001; 83880; 84484; 85025; 85378; 93005; 99285; C9803; J2405; Q9967; U0003; U0005

== ENCOUNTER → 2022-04-01 08:54 | Outpatient (CLI) | payer MEDICARE, BC, SELFPAY ==
--- NOTE | 2022-04-01 08:57 | XR_ITS ---
FINAL REPORT CLINICAL HISTORY: right tka COMPARISON: March 18, 2022 FINDINGS: 3 views of the right knee were obtained. Arthroplasty hardware is unremarkable. Enlarging joint effusion. No acute bony abnormality. IMPRESSION: Enlarging joint effusion without hardware or bony abnormality. Reviewed, Interpreted and Dictated by Yakov Parsons MD Transcribed by Vick Bolden Authenticated and . [facility]
== END ==
PROVIDERS: PCP Internal Medicine; Visit Provider Orthopaedic Surgery
DX: Z96.651 Presence of right artificial knee joint (principal); M25.561 Pain in right knee
CPT/HCPCS: 73562

== ENCOUNTER → 2022-04-13 13:03 | Outpatient (CLI) | payer MEDICARE, BC, SELFPAY | PROVIDERS: PCP Internal Medicine; Visit Provider Internal Medicine | DX: U07.1 COVID-19 (principal) | CPT/HCPCS: C9803; U0003; U0005 ==

== ENCOUNTER → 2022-04-22 08:29 | Outpatient (CLI) | payer MEDICARE, BC, SELFPAY ==
--- NOTE | 2022-04-22 08:37 | XR_ITS ---
FINAL REPORT CLINICAL HISTORY: right TKA COMPARISON: 04/01/2022 FINDINGS: Right knee Three views were obtained. There is no acute fracture or dislocation. There are postoperative changes from right knee arthroplasty. Soft tissue calcifications are again identified. There is a joint effusion, improved since previous. IMPRESSION: Improved joint effusion. Reviewed, Interpreted and Dictated by Corby Acuna III, MD Transcribed by Desirae Walsh Authenticated and [facility]
== END ==
PROVIDERS: PCP Internal Medicine; Visit Provider Family Medicine
DX: Z96.651 Presence of right artificial knee joint (principal); M25.561 Pain in right knee
CPT/HCPCS: 73562

== ENCOUNTER 2022-04-28 09:41 | Emergency (ER) | payer MEDICARE, BC, SELFPAY ==
[2022-04-28] VITALS (12 sets, daily range): BP systolic 112–165; BP diastolic 48–78; PULSE 74–98; RESP 18; TEMP 36.9; O2SAT 96–100; BMI 25.3
--- NOTE | 2022-04-28 09:39 | XR_ITS ---
FINAL REPORT CLINICAL HISTORY: cough COMPARISON: 03/27/2022 FINDINGS: SINGLE-VIEW CHEST The heart size is normal. The mediastinum is normal. Left subclavian pacer is identified. The lungs are clear. There is no pneumothorax. IMPRESSION: No acute cardiopulmonary process. Reviewed, Interpreted and Dictated by Corby Acuna III, MD Transcribed by Desirae Walsh Authenticated and [facility]
--- NOTE | 2022-04-28 09:44 | PC.NURSE ---
XR AT BEDSIDE
--- NOTE | 2022-04-28 09:46 | HMH.EDGENADL ---
Discharge Plan Disposition Patient Disposition: Home, Self-Care Condition: Fair Prescriptions Prescriptions: New guaifenesin [Adult Tussin Chest Congestion] 100 mg/5 mL liquid 200 mg PO Q6H PRN (Reason: congestion) Qty: 473 0RF No Action donepezil 5 mg tablet 5 mg PO HS clopidogrel 75 MG tablet 75 mg PO DAILY sertraline 25 MG tablet 25 mg PO DAILY pantoprazole 40 MG tablet,delayed release (DR/EC) 40 mg PO HS apixaban 2.5 MG tablet 2.5 mg PO BID gabapentin 300 MG capsule 300 mg PO BID bisoprolol fumarate 10 MG tablet 10 mg PO DAILY Label Comments: HOLD FOR SBP<100, DBP<60 OR HR<60 Rx Instructions: HOLD FOR SBP<100, DBP<60 OR HR<60 furosemide 20 MG tablet 20 mg PO DAILY verapamil 240 MG capsule,ext rel. pellets 24 hr 240 mg PO DAILY Label Comments: HOLD FOR SBP<100, DBP<60 OR HR<60 Rx Instructions: HOLD FOR SBP<100, DBP<60 OR HR<60 acetaminophen [Tylenol] 325 mg Tablet 325 mg PO Q6HP PRN (Reason: Breakthrough Pain, Mild) triamcinolone acetonide 0.1 % Cream 1 applic TOPICAL TID Label Comments: APPLY UNTIL RASH ON BACK CLEARS Rx Instructions: APPLY UNTIL RASH ON BACK CLEARS docusate sodium 100 mg Capsule 100 mg PO DAILY hydrocodone-acetaminophen 5-325 mg tablet 1 - 2 tab PO Q4HP PRN (Reason: Moderate To Severe Pain) celecoxib 200 mg capsule 200 mg PO DAILY atorvastatin 40 mg tablet 40 mg PO HS coenzyme Q10 100 mg capsule 100 mg PO DAILY Referrals Follow up/Referrals: Bon Mills MD [Primary Care Provider] - See instructions Activity Restrictions/Add. Instructions Additional Instructions/Restrictions: You have been evaluated for cough, in the setting of recent COVID infection. You likely have inflammation after the virus. Work-up today does not show a blood clot in the lung or evidence of pneumonia. Please continue taking cough medicine at home. Follow-up with your primary care doctor in 1 to 2 days for symptom recheck. Return to the emergency department at once for any new or worsening symptoms, chest pain, difficulty breathing, other concerns Clinical Impressions Clinical Impression: Cough, COVID Instructions Patient Instructions: DI for Cough -- Adult, DI for Acute Bronchitis Discharge ED Provider: Flower,Rachel General Adult HPI General Chief complaint: Shortness of Breath/Dyspnea Stated complaint: diff breathing Time Seen by Provider: 04/28/22 09:46 Mode of Arrival: EMS Source of Information: Patient Limitations: No Limitations History of Present Illness HPI narrative: 86-year-old female presenting to the emergency department with cough and shortness of breath. Symptoms started yesterday evening. She had frequent coughing episodes. [place] very short of breath after the coughing fits. Overnight, was coughing frequently and got very little sleep. This morning she called 911. When EMS arrived her oxygen saturation was in the low 90s. They gave her a DuoNeb and administered Solu-Medrol. In route she had an episode of coughing and oxygen saturation decreased to the 70s. They placed her on CPAP and transported to the emergency department. Patient had COVID-19 2 weeks ago. Says she felt better after her illness. She suffers from CHF, taking Lasix as prescribed. Slight leg swelling. Denies fevers, chills, nausea, vomiting. No chest pain. Related Data Home Medications Medication Instructions Recorded Confirmed donepezil 5 mg tablet 5 mg PO HS dementia 08/30/18 04/22/22 clopidogrel 75 mg tablet 75 mg PO DAILY platelet inhibitor 11/07/19 04/22/22 pantoprazole 40 mg tablet,delayed 40 mg PO HS acid reflux 10/04/20 04/22/22 release sertraline 25 mg tablet 25 mg PO DAILY Depression 10/04/20 04/22/22 apixaban 2.5 mg tablet 2.5 mg PO BID atrial fib/blood 03/27/21 04/22/22 thinner bisoprolol fumarate 10 mg tablet 10 mg PO DAILY Hypertension 1
--- NOTE | 2022-04-28 09:51 | ECG_ITS ---
APPROVED REPORT Exam: Resting ECG HR:75 bpm ECG Measurements Heart Rate 75 AXES AZ 155 P 79 QRSd 137 QRS -46 QT 425 T 94 QTc 454 Conclusion SINUS RHYTHM INTRAVENTRICULAR CONDUCTION DELAY ABNORMAL ECG UNCONFIRMED REPORT Electronically signed by : Cornelio Red MD 04/29/2022 21:09:34
[2022-04-28 09:57] LABS: Basophils # 0.1 K/mm3 (0-0.2); Basophils % 1.3 % (0.1-2.0); Eosinophils # 0.3 K/mm3 (0.0-0.4); Eosinophils % 3.1 % (0.1-12.0); Hematocrit 34.4 % (37.0-47.0); Hemoglobin 11.1 g/dL (12.2-16.2); Lymphocytes # 2.7 K/mm3 (0.7-4.5); Lymphocytes % 27.6 % (10-50); Mean Corpuscular HGB Conc 32.3 g/dL (31.8-35.4); Mean Corpuscular Hemoglobin 31.2 pg (27.0-31.2); Mean Corpuscular Volume 96.6 fl (81-99); Mean Platelet Volume 7.4 fl (7.4-10.4); Monocytes # 0.6 K/mm3 (0.1-1.0); Monocytes % 6.5 % (1.7-9.3); Neutrophils % 61.6 % (37.0-80.0); Platelet Count 372 K/mm3 (142-424); Red Blood Count 3.57 M/mm3 (4.20-5.40); White Blood Count 9.8 K/mm3 (4.8-10.8)
--- NOTE | 2022-04-28 09:59 | PC.NURSE ---
notified RT of vbg order
[2022-04-28 10:04] LABS: VBG Base Excess -1.3 mmol/L (-2.4-2.3); VBG Oxygen Saturation 89.5 % (50-70); VBG PCO2 29.1 mmol/L (35-51); VBG Total CO2 22.9 mmol/L (23-27)
[2022-04-28 10:10] LABS: Alanine Aminotransferase 20 U/L (12-78); Albumin Level 3.9 g/dl (3.5-5.0); Albumin/Globulin Ratio 1.4 (1.1-1.8); Alkaline Phosphatase 122 U/L (38-126); Anion Gap 13.4 mEq/L (5-15); Aspartate Amino Transferase 38 U/L (14-36); Bilirubin,Total 1.1 mg/dl (0.2-1.3); Blood Urea Nitrogen 9 mg/dl (7-17); Calcium 8.8 mg/dl (8.4-10.2); Carbon Dioxide 25 mmol/L (22.0-30.0); Chloride 104 mmol/L (98-107); Creatinine Clearance Estimated 41 mL/min (50-200); Estimated Glomerular Filt Rate 95 ml/min (>60); GFR (African American) 114 ML/MIN (>60); Globulin 2.7 g/dL (1.3-3.2); Glucose 110 mg/dl (74-100); Potassium 3.4 mmoL/L (3.5-5.1); Sodium 139 mmol/L (136-145); Total Protein,Serum 6.6 g/dl (6.3-8.2)
[2022-04-28 10:14] LABS: D-Dimer 3.72 ug/mL (0.0-0.5)
[2022-04-28 10:23] LABS: NT Pro Brain Natriuretic Pep. 2130 pg/mL (0-450); Troponin I < 0.01 ng/ml (0.00-0.034)
--- NOTE | 2022-04-28 10:50 | PC.NURSE ---
assisted pt to restroom and back to room at this time, pt tolerated well.
--- NOTE | 2022-04-28 10:54 | CT_ITS ---
FINAL REPORT TECHNIQUE: Then section axial CT images of the chest were obtained with contrast. Three-D reformatted images were also obtained.This study was performed with techniques to keep radiation doses as low as reasonably achievable (ALARA). Individualized dose reduction techniques using automated exposure control or adjustment of mA and/or kV according to the patient''s size were employed. CLINICAL HISTORY: short of breath, elevated d-dimer COMPARISON: March 2022 FINDINGS: There is a left subclavian pacemaker. There is no evidence of pulmonary embolism. There is no evidence of thoracic aortic aneurysm or dissection. There is no evidence of mediastinal or hilar mass or adenopathy. There is a calcified granuloma in the left upper lobe. There is mild bibasilar atelectasis. Limited images of the upper abdomen re-demonstrate a small right renal cyst. IMPRESSION: 1. No evidence of pulmonary embolism. 2. No mass or localized inflammatory process. Reviewed, Interpreted and Dictated by Corby Acuna III, MD Transcribed by Vick Bolden Authenticated and [facility]
--- NOTE | 2022-04-28 10:59 | PC.NURSE ---
rad notified of CT order
--- NOTE | 2022-04-28 11:01 | PC.NURSE ---
updated pt on POC-CT of chest ordered to check for blood clots
--- NOTE | 2022-04-28 11:17 | PC.NURSE ---
rounded on patient room and patient asked if they could have a warm blanket and an ice pack for the knee was able to get both for her and she was thankful
[2022-04-28 13:16] LABS: Troponin I < 0.01 ng/ml (0.00-0.034)
== END 2022-04-28 14:35 | disposition home or self-care (01) ==
PROVIDERS: Emergency Provider Emergency Medicine; PCP Internal Medicine
DX: U07.1 COVID-19 (principal); Z79.899 Other long term (current) drug therapy; F32.A Depression, unspecified; I48.91 Unspecified atrial fibrillation; F03.90 Unspecified dementia, unspecified severity, without behavioral disturbance, psychotic disturbance, mood disturbance, and anxiety; K21.9 Gastro-esophageal reflux disease without esophagitis; M19.90 Unspecified osteoarthritis, unspecified site; I11.0 Hypertensive heart disease with heart failure; Z95.1 Presence of aortocoronary bypass graft; I50.9 Heart failure, unspecified; Z82.49 Family history of ischemic heart disease and other diseases of the circulatory system; Z83.438 Family history of other disorder of lipoprotein metabolism and other lipidemia; Z83.3 Family history of diabetes mellitus; Z80.9 Family history of malignant neoplasm, unspecified
CPT/HCPCS: 71045; 71275; 80053; 82803; 83880; 84484; 85025; 85378; 93005; 99285; Q9967

== ENCOUNTER → 2022-05-12 11:00 | Outpatient (CLI) | payer MEDICARE, BC, SELFPAY ==
--- NOTE | 2022-05-12 11:08 | ECG_ITS ---
APPROVED REPORT Exam: Resting ECG HR:106 bpm ECG Measurements Heart Rate 106 AXES TX 164 P 69 QRSd 133 QRS 76 QT 395 T -7 QTc 457 Conclusion SINUS TACHYCARDIA WITH OCCASIONAL SUPRAVENTRICULAR PREMATURE COMPLEXES INTRAVENTRICULAR CONDUCTION DELAY [130+ ms QRS DURATION] ABNORMAL ECG Electronically signed by : Bon Mills MD 06/08/2022 13:58:07
--- NOTE | 2022-05-12 12:59 | CA_ITS ---
APPROVED REPORT EXAM: Comprehensive 2D, Doppler, and color-flow Echocardiogram Hat Measurer: Amaya Nuñez, RCS, RVS Ht: 5 ft 3 in Wt: 145lbs BSA: 1.69 HR: 104 bpm BP: 147/71 mmHg Indications: afib, abn ekg, pacer, soa, htn, murmur, CAD, PHTN Echo Enhancing Agent Comments: Technically Limited due to patient extreme sensitivity to touch in PLAX imaging. Poor acoustics throughout. 2D Dimensions IVSd 0.89 cm LVEF (Visual) 67.60 % PWd 0.82 cm LA Volume 36.80 mL LVDd 4.61 cm LA Volume Index 21.80 mL/m2 (M/F) 16-34 LVDs 2.88 cm Aortic Root 2.73 cm Left Atrium 3.01 cm LVOT 2.01 cm (M/F) 1.5-2.5 M-Mode Dimensions LA Diam 3.62 cm (1.9-4.0) Ao Diam 3.09 cm (2.0-3.7) TAPSE 1.33 (<1.7) LV Diastology E Decel Time 240.00 (160-240 msec) E/A Ratio 0.72 MED E' 5.30 (< 7 cm/sec) MED A' 7.80 cm/s E'/MED E' Ratio 16.40 (>14) LAT E' 6.90 (<10 cm/sec) LAT A' 12.60 cm/s E/LAT E' Ratio 12.59 (>14) Aortic Valve LVOT Max 206.00 (70-110 cm/s) LVOT VTI 32.61 cm AoV Peak [place]den. 208.00 (50-130 cm/s) AI PHT 453.00 ms AO Peak GR. 17.20 mmHg AO Mean GR. 8.60 (<5 mmHg) AO VTI 34.57 (18-25 cm) TIA (VTI) 2.99 (2.5-4.5 cm2) Mitral Valve MV A Velocity 122.00 (40-130 cm/s) E/A Ratio 0.72 MV Decel. Time 240.00 (160-240 ms) MV Mean Gr. 3.40 (<2mmHg) MV PHT 77.00 ms Pulmonary Valve PV Peak Velocity 111.00 (50-150 cm/s) Tricuspid Valve TR P. Velocity 241.00 cm/s RAP Estimate 10.00 mmHg RVSP 33.30 mmHg Left Ventricle Left atrium is mildly enlarged, left ventricle is normal size mild concentric left ventricular hypertrophy, estimated ejection fraction 50%, there is abnormal septal motion, grade 1 diastolic dysfunction seen without tissue Doppler evidence of raise left atrial pressure. Right Ventricle Right atrium and right ventricle are normal size and contractility, pacemaker lead seen in right ventricle. Aortic Valve Aortic valve is thickened and calcified without significant aortic stenosis, there is mild aortic insufficiency. Mitral Valve Mitral valve has mitral annular calcification, leaflets are minimally thickened, there is no mitral stenosis, there is mild mitral regurgitation. Tricuspid Valve Tricuspid valve is grossly normal, there is mild tricuspid regurgitation, tricuspid regurgitation jet velocity is inadequate for calculation of the right ventricular systolic pressure. Pulmonic Valve Pulmonic valve is poorly visualized. Great Vessels Aortic root is normal size. Inferior vena cava is poorly visualized. Pericardium No significant pericardial effusion noted. Conclusion 1. Normal left ventricular size, mild concentric left ventricular hypertrophy, estimated ejection fraction 50%, there is abnormal septal motion, grade 1 diastolic dysfunction seen without tissue Doppler evidence of raise left atrial pressure. 2. Thickened and calcified aortic valve without significant aortic stenosis, there is mild aortic insufficiency. 3. Mild mitral and tricuspid regurgitation. 4. No significant pericardial effusion noted. 5. Inferior vena cava is poorly visualized. Electronically signed by : Devin Pepe MD 05/13/2022 06:28:22
== END ==
PROVIDERS: PCP Internal Medicine; Visit Provider Internal Medicine
DX: I48.0 Paroxysmal atrial fibrillation (principal); I25.10 Atherosclerotic heart disease of native coronary artery without angina pectoris; I10 Essential (primary) hypertension
CPT/HCPCS: 93005; 93306

== ENCOUNTER 2022-05-14 08:13 | Day surgery (SDC) | payer MEDICARE, BC, SELFPAY ==
[2022-05-14 08:18] VITALS: BMI 25.0
--- NOTE | 2022-05-14 08:46 | ECG_ITS ---
APPROVED REPORT Exam: Resting ECG HR:78 bpm ECG Measurements Heart Rate 78 AXES MA 144 P 57 QRSd 142 QRS -32 QT 442 T 79 QTc 475 Conclusion SINUS RHYTHM LEFT AXIS DEVIATION [QRS AXIS < -30] LEFT BUNDLE BRANCH BLOCK [120+ ms QRS DURATION, 80+ ms Q/S IN V1/V2, 85+ ms R IN I/aVL/V5/V6] ABNORMAL ECG UNCONFIRMED REPORT Electronically signed by : Cornelio Red MD 05/14/2022 19:59:32
[2022-05-14 08:47] VITALS: BP 126/70; PULSE 79; PULSE 83; RESP 18; O2SAT 99
--- NOTE | 2022-05-14 09:02 | SUR.PREOP ---
Upon arrival to computer lab aide, patient was in sinus rhythm . 12 lead EKG was obtain Dr. PARSON reviewed and canceled case.
== END 2022-05-14 09:18 | disposition home or self-care (01) ==
LOC: CATHLAB 08:14
PROVIDERS: Internal Medicine Cardiovascular Disease; PCP Internal Medicine; Visit Provider Internal Medicine
DX: I48.91 Unspecified atrial fibrillation (principal)
CPT/HCPCS: 93005

== ENCOUNTER 2022-05-20 11:04 | Emergency (ER) | payer MEDICARE, BC, SELFPAY ==
[2022-05-20] VITALS (9 sets, daily range): BP systolic 123–166; BP diastolic 54–74; PULSE 60–71; RESP 16–18; TEMP 36.3–36.5; O2SAT 97–100; BMI 25.1
--- NOTE | 2022-05-20 11:20 | XR_ITS ---
FINAL REPORT CLINICAL HISTORY: eval rectal compaction FINDINGS: A single view of the abdomen was obtained. There is a nonobstructive bowel gas pattern. There are no abnormally dilated loops of small bowel. There is a moderate amount of stool in the rectum. There is mild lumbar scoliosis convex to the left. IMPRESSION: Moderate stool in the rectum. Reviewed, Interpreted and Dictated by Pablo Melvin MD Transcribed by Vick Bolden Authenticated and [facility]
--- NOTE | 2022-05-20 11:33 | PC.NURSE ---
Radiology at bedside.
--- NOTE | 2022-05-20 12:55 | HMH.EDGENADL ---
Discharge Plan Disposition Patient Disposition: Home, Self-Care Prescriptions Prescriptions: No Action donepezil 5 mg tablet 5 mg PO HS verapamil 240 mg capsule,ext rel. pellets 24 hr 240 mg PO BID Qty: 60 5RF bisoprolol fumarate 10 mg tablet 10 mg PO BID Qty: 60 5RF clopidogrel 75 MG tablet 75 mg PO DAILY sertraline 25 MG tablet 25 mg PO DAILY pantoprazole 40 MG tablet,delayed release (DR/EC) 40 mg PO HS apixaban 2.5 MG tablet 2.5 mg PO BID gabapentin 300 MG capsule 300 mg PO BID furosemide 20 MG tablet 20 mg PO DAILY acetaminophen [Tylenol] 325 mg Tablet 325 mg PO Q6HP PRN (Reason: Breakthrough Pain, Mild) triamcinolone acetonide 0.1 % Cream 1 applic TOPICAL TID Label Comments: APPLY UNTIL RASH ON BACK CLEARS Rx Instructions: APPLY UNTIL RASH ON BACK CLEARS docusate sodium 100 mg Capsule 100 mg PO DAILY hydrocodone-acetaminophen 5-325 mg tablet 1 - 2 tab PO Q4HP PRN (Reason: Moderate To Severe Pain) celecoxib 200 mg capsule 200 mg PO DAILY atorvastatin 40 mg tablet 40 mg PO HS coenzyme Q10 100 mg capsule 100 mg PO DAILY guaifenesin [Adult Tussin Chest Congestion] 100 mg/5 mL liquid 200 mg PO Q6H PRN (Reason: congestion) Qty: 473 0RF Referrals Follow up/Referrals: Bon Mills MD [Primary Care Provider] - See instructions Activity Restrictions/Add. Instructions Additional Instructions/Restrictions: Recommend starting a bowel disimpaction. This includes putting 5 capfuls of MiraLAX liquid into a 32 ounce blue Gatorade in the morning. Take a stool softener in the morning at the same time that you start drinking the MiraLAX. When you are finished with the MiraLAX Gatorade take another dose of your stool softener. Please do this for 2 days. After that start using the MiraLAX every other day to help with constipation. Clinical Impressions Clinical Impression: Constipation Instructions Patient Instructions: DI for Constipation Discharge ED Provider: Pola Ulloa General Adult HPI General Chief complaint: PAIN Stated complaint: Severe buttocks pain Time Seen by Provider: 05/20/22 12:00 Mode of Arrival: Ambulatory Source of Information: Patient Limitations: No Limitations Description of Symptoms (Recalled from ER Triage Doc. by RN): pt states she has had rectal pain since last night around 9pm, states she feels constipated, reports last BM 05/18/2022, reports dark brown stool History of Present Illness HPI narrative: Patient is an 86-year-old female with a past medical history of atrial fibrillation, pacemaker placement, pulmonary hypertension, chronic kidney disease who presents with concern for rectal pain. She states that she started having rectal pain around 9 PM. She says that she tried to go to the bathroom but felt constipated. Her last bowel movement was on 05/18. She says that her bowel movement was normal then. She denies any abdominal pain. She says that when she felt constipated she put her finger into her rectum and felt a bone which she believes to be her tailbone so that is why she came in for evaluation today. Denies any hematochezia. Denies any rectal pain currently. No history of hemorrhoids. Related Data Home Medications Medication Instructions Recorded Confirmed donepezil 5 mg tablet 5 mg PO HS dementia 08/30/18 05/14/22 clopidogrel 75 mg tablet 75 mg PO DAILY platelet inhibitor 11/07/19 05/14/22 pantoprazole 40 mg tablet,delayed 40 mg PO HS acid reflux 10/04/20 05/14/22 release sertraline 25 mg tablet 25 mg PO DAILY Depression 10/04/20 05/14/22 apixaban 2.5 mg tablet 2.5 mg PO BID atrial fib/blood 03/27/21 05/14/22 thinner furosemide 20 mg tablet 20 mg PO DAILY Fluid 06/24/21 05/14/22 gabapentin 300 mg capsule 300 mg PO BID nerve pain 06/24/21 05/14/22 atorvastatin 40 mg tablet 40 mg PO HS Cholesterol 03/10/22 05/14/22 celecoxib 200 mg capsule
--- NOTE | 2022-05-20 12:57 | PC.NURSE ---
Assisted pt to restroom with personal walker. Gave verbal instructions on enema procedure. Verbalized understanding. Inserted enema and pt was unable to hold it. MD aware. Cleaned and assisted back to room.
== END 2022-05-20 14:43 | disposition home or self-care (01) ==
PROVIDERS: Emergency Provider Student in an Organized Health Care Education/Training Program; PCP Internal Medicine
DX: K59.00 Constipation, unspecified (principal); Z79.899 Other long term (current) drug therapy; Z79.02 Long term (current) use of antithrombotics/antiplatelets; I25.10 Atherosclerotic heart disease of native coronary artery without angina pectoris; I27.20 Pulmonary hypertension, unspecified; I48.91 Unspecified atrial fibrillation; I42.0 Dilated cardiomyopathy; F03.90 Unspecified dementia, unspecified severity, without behavioral disturbance, psychotic disturbance, mood disturbance, and anxiety; F32.A Depression, unspecified; M19.90 Unspecified osteoarthritis, unspecified site; Z95.0 Presence of cardiac pacemaker; I10 Essential (primary) hypertension; D64.9 Anemia, unspecified; G43.909 Migraine, unspecified, not intractable, without status migrainosus
CPT/HCPCS: 74018; 99283

== ENCOUNTER → 2022-06-03 08:40 | Outpatient (CLI) | payer MEDICARE, BC, SELFPAY ==
--- NOTE | 2022-06-03 08:45 | XR_ITS ---
FINAL REPORT CLINICAL HISTORY: S/p rt TKA FINDINGS: 3 views of the right knee were obtained. There is no acute fracture or dislocation. There is a total joint prosthesis. A small joint effusion is present. IMPRESSION: Total joint arthroplasty with small joint effusion. Reviewed, Interpreted and Dictated by Pablo Melvin MD Transcribed by Vick Bolden Authenticated and [facility]
== END ==
PROVIDERS: PCP Internal Medicine; Visit Provider Orthopaedic Surgery
DX: Z96.651 Presence of right artificial knee joint (principal); M25.561 Pain in right knee
CPT/HCPCS: 73562

== ENCOUNTER → 2022-06-15 15:11 | Outpatient (POV) | payer MEDICARE, BC, SELFPAY ==
[2022-06-15 15:15] VITALS: BP 123/52; PULSE 60; RESP 20; BMI 24.7
--- NOTE | 2022-06-15 15:54 | EXP.PAIN.SOA ---
[facility] Pain Management SOAP Note Subjective:: Patient is a pleasant 86-year-old female who presents today for follow-up. We are currently treating the patient for bilateral sacroiliitis. Today the patient states her pain is a 10 out of 10. Patient states this pain has been going on over the last couple of weeks where it progressively worsened. Patient states she has had prior injections and a SI RFA bilaterally that provided significant improvement of her symptoms. Patient has been on 100% pain free for almost 1 year from her last RFA. Patient denies any new trauma or injury. Patient denies any change location or type of pain that she previously experienced. Patient states she cannot tolerate prolonged walking, standing, sitting due to the pain. Patient does state this caused significant difficulty performing activities of daily living such as cooking and cleaning due to the worsening pain. Patient is prescribed gabapentin 300 mg twice a day from Dr. Bon Mills's office. Patient denies any side effects from this medication. She states this medication does help her neuropathy symptoms. Patient is also prescribed compounding cream that she states provides some additional relief. Patient does use [id number] Tylenol as needed for additional help. Her Rene is [id number]. It is been reviewed and appropriate. Review of Systems: General: No recent weight changes, no fever, no sleep disturbances Respiratory: No cough, no shortness of air, no recurring pulmonary infections Cardiovascular/peripheral vascular: No chest pain, no palpitations, no edema, no shortness of breath Gastrointestinal: No new onset incontinence, normal bowel movements reported Genitourinary: No new onset incontinence Musculoskeletal: Low back pain, bilateral leg pain Psychiatric: [Normal mood/affect] Neurological: [Denies weakness in extremities], [denies balance issues] Objective:: Physical Exam: General: Alert and oriented x3, no acute distress, pleasant and cooperative Lungs: Respirations even and unlabored, symmetrical chest expansion Eyes: PERRL Musculoskeletal: Flexion and extension of lumbar [spine] somewhat guarded secondary to pain, [antalgic gait noted] extreme point tenderness along bilateral SI's and positive bilateral Fady's, Chad's, Gaenslen's, compression and distraction exam Neurological: Speech clear, no gross sensory deficit Assessment:: Bilateral sacroiliitis Plan:: Patient is experiencing significant pain in her low back that radiates into her bilateral lower extremities. Patient has limited range of motion of her lumbar spine during today's visit along with extreme point tenderness along bilateral SI's and positive bilateral Fady's, Chad's, Gaenslen's, compression and distraction exam. Patient previously had multiple SI injections that provided significant relief and bilateral SI RFA that provided 100% relief for approximately 1 year. I have discussed with the patient that she may benefit from repeat SI RFA's. Risk and benefits were discussed with the patient. She would like to proceed forward with this plan of care. We will schedule the patient for bilateral SI RFA. Patient has been instructed to contact the clinic with any concerns before the next appointment. Dr. Gonzalez has reviewed this note and agrees with this plan of care. This note was dictated using voice recognition software and make contain errors or omissions. [facility] Disclaimer: The information contained in this section may have been updated after the patient was seen, as this information can be updated by other users. Medical History Acid reflux Angina, class IV Arthritis Atrial fibrillation with slow ventricular response Atrial flutter with rapid ventricular response Bulging discs Cardiac pacemaker in situ Cataract Cellulitis Chest pain Closed head injury Cough Crescendo angina Degenerative disc disease Elevated coronar
== END ==
PROVIDERS: PCP Internal Medicine; Visit Provider Nurse Practitioner Family
DX: M46.1 Sacroiliitis, not elsewhere classified (principal)
CPT/HCPCS: 99212; G0463

== ENCOUNTER 2022-06-22 13:01 | Day surgery (SDC) | payer MEDICARE, BC, SELFPAY ==
[2022-06-22 13:21] VITALS: BP 133/71; PULSE 60; RESP 18; TEMP 36.2; O2SAT 97; BMI 25.1
[2022-06-22 13:27] VITALS: BP 147/66; PULSE 59; RESP 18; O2SAT 97
[2022-06-22 13:29] VITALS: BP 147/66; PULSE 59; RESP 18; O2SAT 97
[2022-06-22 13:44] VITALS: BP 132/79; PULSE 61; RESP 18; O2SAT 97
--- NOTE | 2022-06-22 13:47 | EXP.PAIN.PRO ---
Procedure Date: 06/22/22 Time: 13:30 Anesthesiologist:: Vishnu Crespo CRNA Complications:: None Pre-procedure Diagnosis:: Chronic bilateral sacroiliitis Post-procedure Diagnosis:: Same. Indications for Procedure:: Patient is a pleasant 86-year-old female comes our clinic today for bilateral sacroiliac joint radiofrequency ablation. Patient had the procedure 1 year ago. She reports significant improvement up until about 2 weeks ago. She request bilateral radiofrequency ablations today. Procedure Details:: Informed consent was obtained and the risk and benefits of the procedure was explained to the patient. Patient was placed prone on the procedure table. The patient was prepped and draped in sterile fashion. C-arm fluoroscopy was used to view the sacral spine. The skin and subcutaneous tissues were anesthetized using lidocaine. I placed 2 20-gauge RF needles at the medial border of the distal sacroiliac joint on the left side. I placed 2 20-gauge RF needles in the same manner on the right sacroiliac joint. we underwent sensory stimulation. There is good sensory stimulation at 0.8 V. We underwent motor stimulation. There is no motor stimulation at 2 V. We then anesthetized these levels with lidocaine and Depo-Medrol. I used a total of 40 mg Depo-Medrol for all levels. I then burned all levels on each side for 4 minutes at 80 ?C. Patient tolerated the procedure well with no complication. Plan and Disposition:: Patient was discharged without incident.
== END 2022-06-22 13:44 | disposition home or self-care (01) ==
LOC: SC.PAINP 13:02
PROVIDERS: PCP Internal Medicine; Visit Provider Nurse Anesthetist, Certified Registered
DX: M46.1 Sacroiliitis, not elsewhere classified (principal)
CPT/HCPCS: 64625; J1040

== ENCOUNTER → 2022-07-07 14:38 | Outpatient (POV) | payer MEDICARE, BC, SELFPAY ==
[2022-07-07 15:42] VITALS: BP 107/50; PULSE 59; RESP 18; O2SAT 98; BMI 24.3
--- NOTE | 2022-07-07 15:50 | EXP.PAIN.SOA ---
[facility] Pain Management SOAP Note Subjective:: Patient is a pleasant 86-year-old female who presents today for follow-up of bilateral SI injections on 06/22/2022. We are currently treating the patient for bilateral sacroiliitis. Today the patient states she has had at least 75% improvement following these injections and feels like they are still continuing to provide additional relief. Patient states she has been able to increase her activity and range of motion with decreased pain. Patient is currently managed with gabapentin 300 mg 2 times a day from her primary care doctor. Patient denies any side effects from this medication. She states this medication does help her pain symptoms. She is also prescribed a compounding cream for additional relief. Her Rene is [id number]. Its been reviewed and appropriate. Review of Systems: General: No recent weight changes, no fever, no sleep disturbances Respiratory: No cough, no shortness of air, no recurring pulmonary infections Cardiovascular/peripheral vascular: No chest pain, no palpitations, no edema, no shortness of breath Gastrointestinal: No new onset incontinence, normal bowel movements reported Genitourinary: No new onset incontinence Musculoskeletal: Low back pain Psychiatric: [Normal mood/affect] Neurological: [Denies weakness in extremities], [denies balance issues] Objective:: Physical Exam: General: Alert and oriented x3, no acute distress, pleasant and cooperative Lungs: Respirations even and unlabored, symmetrical chest expansion Eyes: PERRL Musculoskeletal: Flexion and extension of lumbar [spine] somewhat guarded secondary to pain, [antalgic gait noted] Neurological: Speech clear, no gross sensory deficit Assessment:: Chronic bilateral sacroiliitis Plan:: Patient has had significant improvement of her pain symptoms following this injection and does not need any additional injective therapy at this time. Patient will return to clinic in 1 month for reevaluation of symptoms and follow-up. Patient has been instructed to contact the clinic with any concerns before the next appointment. Dr. Gonzalez has reviewed this note and agrees with this plan of care. This note was dictated using voice recognition software and make contain errors or omissions. [facility] Disclaimer: The information contained in this section may have been updated after the patient was seen, as this information can be updated by other users. Medical History Acid reflux Angina, class IV Arthritis Atrial fibrillation with slow ventricular response Atrial flutter with rapid ventricular response Bulging discs Cardiac pacemaker in situ Cataract Cellulitis Chest pain Closed head injury Cough Crescendo angina Degenerative disc disease Elevated coronary artery calcium score Family history of heart disease Hematoma High ankle sprain History of back pain History of gastroesophageal reflux (GERD) History of pacemaker History of placement of stent in LAD coronary artery Hyperkalemia Hypertension Hyponatremia Kidney stone Lumbar radiculopathy Migraine Mild chronic anemia Multiple contusions On amiodarone therapy Pacemaker displacement Pain in pacemaker pocket due to device Palpitations Right carotid bruit Right leg injury Second hand smoke exposure SOB (shortness of breath) Symptomatic bradycardia Surgical History H/O right heart catheterization History of coronary artery stent placement History of hysterectomy History of knee replacement Family History Brother Family history of cancer Sister Family history of cancer Other Family history of GERD Family history of diabetes mellitus type II Family history of hyperlipidemia Family history of hypertension Family history of migraine headaches Family history of myocardial infarction Lung cancer S
== END ==
PROVIDERS: PCP Internal Medicine; Visit Provider Nurse Practitioner Family
DX: M46.1 Sacroiliitis, not elsewhere classified (principal)
CPT/HCPCS: 99212; G0463

== ENCOUNTER → 2022-07-07 15:34 | Outpatient (CLI) | payer MEDICARE, BC, SELFPAY | PROVIDERS: PCP Internal Medicine; Visit Provider Nurse Practitioner Family | DX: R06.02 Shortness of breath (principal) ==

== ENCOUNTER → 2022-07-14 09:09 | Outpatient (CLI) | payer MEDICARE, BC, SELFPAY ==
[2022-07-14 09:59] LABS: Barbiturates Screen,Urine Negative ng/ml (<200)
[2022-07-14 10:00] LABS: Amphetamine/Metha Screen,Urine Negative ng/ml (<1000); Benzodiazepines Screen,Urine Negative ng/ml (<200)
[2022-07-14 10:01] LABS: Cocaine Screen,Urine Negative ng/ml (<300)
[2022-07-14 10:02] LABS: Cannabinoid Screen,Urine Negative ng/ml (<50); Methadone Screen,Urine Negative ng/ml (<300)
[2022-07-14 10:03] LABS: Opiate Screen,Urine Negative ng/ml (<300)
[2022-07-14 10:04] LABS: Phencyclidine Screen,Urine Negative ng/ml (<25)
--- NOTE | 2022-07-14 10:31 | CT_ITS ---
FINAL REPORT CLINICAL HISTORY: syncope, fell and has knot on back of head from fall FINDINGS: Axial images of the head were obtained without contrast. Coronal reformatted images were also obtained. This study was performed with techniques to keep radiation doses as low as reasonably achievable (ALARA). Individualized dose reduction techniques using automated exposure control or adjustment of mA and/or kV according to the patient's size were employed. There is generalized age-appropriate atrophy. Periventricular low-attenuation areas are seen consistent with mild chronic ischemic changes. There is no evidence of intracranial hemorrhage or mass. There is no evidence of acute infarct. There is no evidence of shift of the midline structures. No skull abnormality is seen on the bone window images. IMPRESSION: Atrophy and mild periventricular chronic ischemic changes. No acute intracranial abnormality identified. Reviewed, Interpreted and Dictated by Corby Acuna III, MD Transcribed by Meliza Pride Authenticated and [facility]
[2022-07-14 10:32] LABS: Chloride 102 mmol/L (98-107); Potassium 3.4 mmoL/L (3.5-5.1); Sodium 138 mmol/L (136-145)
[2022-07-14 10:35] LABS: Blood Urea Nitrogen 16 mg/dl (7-17); Estimated Glomerular Filt Rate 68 ml/min (>60); GFR (African American) 82 ML/MIN (>60)
[2022-07-14 10:36] LABS: Anion Gap 11.4 mEq/L (5-15); Calcium 8.7 mg/dl (8.4-10.2); Carbon Dioxide 28 mmol/L (22.0-30.0); Glucose 56 mg/dl (74-100)
[2022-07-20 16:51] LABS: Opiates Negative (Cutoff=100)
== END ==
PROVIDERS: PCP Nurse Practitioner Family; Visit Provider Nurse Practitioner
DX: I48.0 Paroxysmal atrial fibrillation (principal); R42 Dizziness and giddiness; I20.9 Angina pectoris, unspecified; R06.02 Shortness of breath; R55 Syncope and collapse; Z79.891 Long term (current) use of opiate analgesic
CPT/HCPCS: 36415; 70450; 80048; 80305; 80361; 80365; G0480

== ENCOUNTER → 2022-07-19 11:38 | Outpatient (CLI) | payer MEDICARE, BC, SELFPAY ==
--- NOTE | 2022-07-19 11:38 | NM_ITS ---
APPROVED REPORT Exam: Nuclear Stress Test Indication: CAD, 2 STENTS, HTN, HYPERLIPIDEMIA, FM HX., C.P., SOB, SYNCOPE Patient Location: Outpatient Stress Tech: Tiana Corona RI Tech:Loyda Connor, ARRT, RT (R)(N) Ht: 5 ft 3 in Wt: 138 lbs Bra Size: C HR: 60 bpm BP: 154/68 mmHg BSA: 1.65 m2 TID: 1.00 BMI: 24.4 History: CAD, 2 STENTS, HTN, HYPERLIPIDEMIA, FM HX., C.P., SOB, SYNCOPE Procedure: Patient received a 0.4 mg of intravenous Lexiscan, resting heart rate 60 bpm, resting blood pressure 154/68 mmHg, with Lexiscan maximum heart rate achived was 80 bpm which is Less than 85 % of the maximum predicted heart rate and blood pressure was 135/65 mmHg. With Lexiscan, patient denied any complaint of chest pain. Electrocardiogram Resting electrocardiogram showed likely sinus rhythm with left bundle branch block, with Lexiscan there is less than 1.[address] segment depression noted from the baseline EKG. The EKG portion of the Lexiscan is nondiagnostic. Cardiac Stress and Resting SPECT Images: Cardiac Stress and Resting SPECT images were obtained using technetium 99m Myoview 30.8 mCi stress and 9.64 mCi at rest. Gated SPECT for analysis of segmental wall motion and calculation of the ejection fraction also done. Prone images were also obtained. Cardiac stress and resting SPECT images revealed a fixed defect involving the anteroseptal wall which is likely secondary to intraventricular conduction delay, no reversible ischemia seen, computer derived ejection fraction is over 65% with no regional wall motion abnormality, right ventricle is normal size and contractility. Conclusion: 1. The EKG portion of the Lexiscan is nondiagnostic. 2. No scintigraphic evidence of reversible ischemia seen, computer derived ejection fraction over 65% with no regional wall motion abnormality, right ventricle is normal size and contractility. 3. Likely normal Lexiscan Myoview study. Electronically signed by : Dvein Pepe MD 07/19/2022 18:12:36
--- NOTE | 2022-07-19 11:43 | CA_ITS ---
FINAL REPORT TECHNIQUE: Jaime scale, color and spectral doppler images of the bilateral carotid arteries were obtained. CLINICAL HISTORY: SYNCOPE FINDINGS: The peak systolic velocity of the right common carotid artery is 57 cm/s. The peak systolic velocity of the right internal carotid artery is 117 cm/s and end diastolic velocity 30 cm/s. The ICA/CCA ratio is 2.1. No significant plaque is present. The right external carotid artery is patent. The right vertebral artery is patent with antegrade flow. The peak systolic velocity of the left common carotid artery is 57 cm/s. The peak systolic velocity of the left internal carotid artery is 95 cm/s and end diastolic velocity 18 cm/s. The ICA/CCA ratio is 1.7. No significant plaque is present. The left external carotid artery is patent.The left vertebral artery is patent with antegrade flow. IMPRESSION: Less than 50% bilateral carotid stenosis. Bilateral patent vertebral arteries with antegrade flow. If indicated, CTA or MRA could further evaluate. Reviewed, Interpreted and Dictated by Yelena Grimm MD Transcribed by Meliza Pride Authenticated and [facility]
--- NOTE | 2022-07-19 13:14 | HMH.ITSHM ---
Current Home Medications as stated by this patient Gillian Pride or customer development representative. []VERAPAMIL SERTALINE PANTOPRAZOLE HYDORCODONE GABAPENTIN FUROSEMIDE DONEPEZIL DOXUSATE COQ10 CLOPIDOGREL CELECOXIB BISOPROLOL ATORVASTATIN APIXABAN TYLENOL
--- NOTE | 2022-07-19 14:29 | CA_ITS ---
APPROVED REPORT Exam: Pharmacologic Technologist: Tiana Corona Ht: 5 ft 3 in Wt: 141 lbs BSA: 1.67 m2 HR: 60 bpm BP: 154/68 mmHg Indications: Chest pain, Syncope Medical History Medications: Gabapentin,,,,, Pantoprazole,,,,, Tylenol,,,,, CloPIdogrel,,,,, DONEPEZIL,,,,, BisOPROLOL,,,,, Celecoxib,,,,, Sertraline,,,,, DOcusate,,,,, Apixaban,,,,, Coenzyme Q10,,,,, Furosemide,,,,, Stress Test Details Test: LEXISCAN Reversal agent Aminophyline 125.0 mg, given intravenously for nausea. HR Resting HR: 60 bpm Max Heart Rate (APMHR): 133.289907 bpm Max HR Achieved: 87 bpm Target HR (85% APMHR): 113.314587 bpm % of APMHR: 65.41 Recovery HR: 60 bpm BP Resting BP: 154.0/68.0 mmHg Max BP: 154.0/68.0 mmHg Recovery BP: 128.0/57.0 mmHg ECG Clinical Reason for Termination: Completed Protocol Exercise duration: 04:02 min Highest Stage Achieved: Exercise capacity: 1.0 METs Stress ECG Conclusion Non-diagnostic lexiscan stress test. Patient received the infusion per protocol without chest pain, ST segment changes or arrhythmias. See the nuclear report for further information. Rare PVC noted. IV aminophylline given for nausea and vomiting in recovery. Test Summary REST . . . . . . . Resting REST 07:58 . . 60 . 154/ 68 . . Stage 1 . . . . . . . Myoview Injected Stage 1 01:00 . . 66 . . . . Stage 2 01:00 . . 80 . 135/ 65 . . Stage 3 01:00 . . 78 . 128/ 65 . . Stage 4 01:00 . . 82 . . . . Stage 4 01:02 . . 80 . . . Stop exercise at 04:02 RECOVERY 01:00 . . 77 . 100/ 54 . . RECOVERY 02:00 . . 75 . 100/ 54 . . RECOVERY 03:00 . . 85 . 100/ 54 . . RECOVERY 04:00 . . 62 . 100/ 54 . . RECOVERY 05:00 . . 62 . 100/ 54 . . RECOVERY 06:00 . . 60 . 100/ 54 . . RECOVERY 07:00 . . 60 . 100/ 54 . . RECOVERY 08:00 . . 60 . 128/ 57 . . RECOVERY 09:00 . . 63 . 128/ 57 . . RECOVERY 10:00 . . 60 . 128/ 57 . . RECOVERY 11:00 . . 60 . 128/ 57 . . RECOVERY 12:00 . . 61 . 128/ 57 . . RECOVERY 13:00 . . 60 . 138/ 66 . . RECOVERY 14:00 . . 60 . 138/ 66 . . RECOVERY 15:00 . . 60 . 138/ 66 . . RECOVERY 15:24 . . 60 . 138/ 66 . . Electronically signed by : Devin Pepe MD 07/19/2022 18:10:02
== END ==
PROVIDERS: PCP Nurse Practitioner Family; Visit Provider Nurse Practitioner Family
DX: I27.20 Pulmonary hypertension, unspecified; R06.02 Shortness of breath; R42 Dizziness and giddiness; R55 Syncope and collapse; R09.89 Other specified symptoms and signs involving the circulatory and respiratory systems; R07.9 Chest pain, unspecified; I20.8 Other forms of angina pectoris
CPT/HCPCS: 78452; 93017; 93880; A9502; J0280; J2785

== ENCOUNTER → 2022-08-06 13:17 | Outpatient (CLI) | payer MEDICARE, BC, SELFPAY ==
--- NOTE | 2022-08-06 13:23 | CA_ITS ---
APPROVED REPORT EXAM: Comprehensive 2D, Doppler, and color-flow Echocardiogram Business Management Associate: Lola Sandhu RVT Ht: 5 ft 3 in Wt: 145lbs BSA: 1.69 BP: 132/69 mmHg Indications: MURMUR,CAD,A-FIB,PHTN,PACER,CM,GERD,CP,EDEMA,HTN,HLD 2D Dimensions LVOT 1.91 cm (M/F) 1.5-2.5 LA Volume 30.60 mL LA Volume Index 18.11 mL/m2 (M/F) 16-34 M-Mode Dimensions RVDd 2.27 cm (0.9-2.6) LA Diam 3.41 cm (1.9-4.0) LVDd 4.08 cm (3.5-5.7) Ao Diam 2.90 cm (2.0-3.7) LVDs 2.84 cm (3.5-5.7) IVSd 0.95 cm (0.6-1.1) PWd 0.95 cm (0.6-1.1) EF (Teich) 58.30% FS 30.40% EDV (Teich) 73.40 mL TAPSE 1.75 (<1.7) ESV (Teich) 30.60 mL LV Diastology E Decel Time 310.00 (160-240 msec) MED E' 4.10 (< 7 cm/sec) E'/MED E' Ratio 28.10 (>14) LAT E' 6.30 (<10 cm/sec) E/LAT E' Ratio 18.29 (>14) Aortic Valve AI PHT 768.00 ms AO Peak GR. 9.10 mmHg Mitral Valve MV E Max Arden. 115.00 (40-130 cm/s) MV Decel. Time 310.00 (160-240 ms) MV Mean Gr. 2.90 (<2mmHg) MV PHT 91.00 ms Pulmonary Valve PV Peak Velocity 72.00 (50-150 cm/s) Tricuspid Valve TR P. Velocity 279.00 cm/s RAP Estimate 10.00 mmHg RVSP 41.20 mmHg Left Ventricle Left atrium is moderately enlarged, left ventricle is normal size, mild concentric left ventricular hypertrophy, estimated ejection fraction 55% with no regional wall motion abnormality, grade 2 diastolic dysfunction seen with tissue Doppler evidence of raise left atrial pressure. Right Ventricle Right atrium and right ventricle are normal size and contractility, pacemaker lead seen in right ventricle. Aortic Valve Aortic valve is thickened and calcified without Doppler evidence of aortic stenosis, there is mild aortic insufficiency. Mitral Valve Mitral valve has mitral annular calcification which extends in both anterior posterior mitral leaflet, there is no significant mitral stenosis, there is mild mitral regurgitation. Tricuspid Valve Tricuspid grossly normal, there is mild tricuspid regurgitation, calculated right ventricular systolic pressure is 41 mmHg. Pulmonic Valve Pulmonic valve is poorly visualized. Great Vessels Aortic root is normal size. Inferior vena cava is normal size with normal inspiratory collapse. Pericardium No significant pericardial effusion noted. Conclusion 1. Moderately enlarged left atrium, normal left ventricular size, mild concentric left ventricular hypertrophy, estimated ejection fraction 55% with no regional wall motion abnormality, grade 2 diastolic dysfunction seen with tissue Doppler evidence of raise left atrial pressure. 2. Thickened and calcified aortic valve without aortic stenosis, there is mild aortic insufficiency. 3. Mild mitral and tricuspid regurgitation, calculated right ventricular systolic pressure is 41 mmHg. 4. No significant pericardial effusion noted. 5. Inferior vena cava is normal size with normal inspiratory collapse. Electronically signed by : Devin Pepe MD 08/09/2022 08:36:14
== END ==
PROVIDERS: PCP Nurse Practitioner Family; Visit Provider Internal Medicine
DX: R01.1 Cardiac murmur, unspecified (principal)
CPT/HCPCS: 93306

== ENCOUNTER → 2022-08-09 13:10 | Outpatient (POV) | payer MEDICARE, BC, SELFPAY ==
--- NOTE | 2022-08-09 13:34 | EXP.PAIN.SOA ---
[facility] Pain Management SOAP Note Subjective:: Patient is a pleasant 86-year-old female who presents today for follow-up. We are currently treating the patient for bilateral sacroiliitis. Today she rates her pain a 2 out of 10. Patient states her pain is primarily in her neck and bilateral shoulders. Patient states she is in the process of moving and may have aggravated her symptoms or slept funny. Patient does describe this as a aching sensation that is worse with increased activity and it does limit her range of motion. Patient previously had bilateral SI RFA on 06/22/2022. Patient states she is still continuing to get relief from these injections. Patient is currently managed with gabapentin 300 mg twice a day from her primary care doctor. Patient denies any side effects from this medication. She states this medication does help her pain symptoms. She is also prescribed compounding cream that she states she has been using on her neck for additional relief. Her Rene is [id number]. Its been reviewed and appropriate. Review of Systems: General: No recent weight changes, no fever, no sleep disturbances Respiratory: No cough, no shortness of air, no recurring pulmonary infections Cardiovascular/peripheral vascular: No chest pain, no palpitations, no edema, no shortness of breath Gastrointestinal: No new onset incontinence, normal bowel movements reported Genitourinary: No new onset incontinence Musculoskeletal: Neck pain, shoulder pain Psychiatric: [Normal mood/affect] Neurological: [Denies weakness in extremities], [denies balance issues] Objective:: Physical Exam: General: Alert and oriented x3, no acute distress, pleasant and cooperative Lungs: Respirations even and unlabored, symmetrical chest expansion Eyes: PERRL Musculoskeletal: Flexion and extension of cervical [spine] somewhat guarded secondary to pain, [antalgic gait noted] extreme point tenderness at bilateral cervical paraspinous and bilateral trapezius muscles Neurological: Speech clear, no gross sensory deficit Assessment:: Bilateral sacroiliitis, myofascial pain of bilateral cervical paraspinous and bilateral trapezius muscles Plan:: Patient is experiencing significant pain in her neck and shoulders with limited range of motion. Patient did have limited range of motion of her cervical spine during today's visit along with extreme point tenderness along her bilateral cervical paraspinous and bilateral trapezius muscles. I have discussed with the patient that she may benefit from trigger point injections at these locations. Risk and benefits were discussed with the patient. She would like to proceed forward with this plan of care. We will schedule her for diagnostic trigger point injections of bilateral cervical paraspinous and bilateral trapezius muscles. Patient has been instructed to contact the clinic with any concerns before the next appointment. Dr. Gonzalez has reviewed this note and agrees with this plan of care. This note was dictated using voice recognition software and make contain errors or omissions. [facility] Disclaimer: The information contained in this section may have been updated after the patient was seen, as this information can be updated by other users. Medical History Acid reflux Angina pectoris Angina, class IV Arthritis Atrial fibrillation with slow ventricular response Atrial flutter with rapid ventricular response Bulging discs Cardiac pacemaker in situ Cataract Cellulitis Chest pain Closed head injury Cough Crescendo angina Degenerative disc disease Elevated coronary artery calcium score Family history of heart disease Hematoma High ankle sprain History of back pain History of gastroesophageal reflux (GERD) History of pacemaker History of placement of stent in LAD coronary artery Hyperkalemia Hypertension Hyponatremia Kidney stone Lumbar radiculopathy Migraine Mild chronic anemia Multiple c
[2022-08-09 13:36] VITALS: BP 122/70; PULSE 59; RESP 18; O2SAT 98; BMI 24.6
== END ==
PROVIDERS: PCP Internal Medicine; Visit Provider Nurse Practitioner Family
DX: M46.1 Sacroiliitis, not elsewhere classified (principal); M79.18 Myalgia, other site
CPT/HCPCS: 99212; G0463

== ENCOUNTER 2022-08-10 13:24 | Day surgery (SDC) | payer MEDICARE, BC, SELFPAY ==
[2022-08-10 13:44] VITALS: BP 120/60; PULSE 60; RESP 18; TEMP 36.6; O2SAT 97; BMI 24.6
[2022-08-10 14:08] VITALS: BP 156/87; PULSE 57; RESP 18; O2SAT 98
[2022-08-10 14:09] VITALS: BP 156/87; PULSE 57; RESP 18; O2SAT 98
[2022-08-10 14:13] VITALS: BP 124/67; PULSE 60; RESP 18; O2SAT 97
--- NOTE | 2022-08-10 14:21 | EXP.PAIN.PRO ---
Procedure Date: 08/10/22 Time: 14:10 Anesthesiologist:: Vishnu Crespo CRNA Complications:: None Pre-procedure Diagnosis:: Bilateral posterior cervical paraspinous myofascial pain. Bilateral trapezius muscle myofascial pain Post-procedure Diagnosis:: Same. Indications for Procedure:: This patient is a pleasant 86-year-old female comes our clinic today for trigger point injections of the bilateral posterior cervicals paraspinous muscles as well as bilateral trapezius muscles. She has pain in these areas she describes as constant, dull and aching. She rates the pain 7/10 today. Procedure Details:: Details of the procedure were explained to the patient. The patient taken the procedure room placed in the sitting position. The area of the posterior cervical spine was cleaned using chlorhexidine cleansing solution. Also, bilateral trapezius muscles were cleaned using chlorhexidine. Using a 25-gauge inch and half needle 2 separate areas of the left distal posterior cervical paraspinous muscle was injected using 2 cc of a solution containing 0.25% Marcaine +1% lidocaine and 20 mg of Depo-Medrol. The same was carried out on the right cervical posterior paraspinous muscle. The bilateral trapezius muscles were injected into separate areas using 3 cc at each site of the same solution bilaterally. Patient tolerated procedure without difficulty. There were no complications. Plan and Disposition:: Patient was discharged without incident.
== END 2022-08-10 14:13 | disposition home or self-care (01) ==
LOC: SC.PAINP 13:24
PROVIDERS: PCP Internal Medicine; Visit Provider Nurse Anesthetist, Certified Registered
DX: M79.18 Myalgia, other site (principal)
CPT/HCPCS: 20552; J1040

== ENCOUNTER → 2022-09-02 15:03 | Outpatient (POV) | payer MEDICARE, BC, SELFPAY ==
[2022-09-02 15:32] VITALS: BP 108/59; PULSE 60; RESP 18; O2SAT 98; BMI 24.3
--- NOTE | 2022-09-02 15:34 | EXP.PAIN.SOA ---
[facility] Pain Management SOAP Note Subjective:: Patient is a pleasant 86-year-old female who presents today for follow-up of trigger point injections of bilateral trapezius muscles on 08/10/2022. We are currently treating the patient for myofascial pain, bilateral sacroiliitis. Today she states that she has had at least 75% improvement following these injections and feels like they are still providing additional relief. She does rate her pain a 5 out of 10 today and states that she has recently been moving and may have aggravated her right hip. Patient does describe this as a achy sensation like a muscle was pulled that does radiate into her low back along that same side. Patient states she does notice it more with increased activity or certain range of motion movements. Patient does state it has been affecting her ability to perform activities of daily living such as simple sweeping and mopping. Patient is prescribed gabapentin 300 mg twice a day from her primary care doctor. Patient denies any side effects from this medication. She is also prescribed compounding cream that she states provides additional relief. Her Rene is [id number]. Its been reviewed and appropriate. Review of Systems: General: No recent weight changes, no fever, no sleep disturbances Respiratory: No cough, no shortness of air, no recurring pulmonary infections Cardiovascular/peripheral vascular: No chest pain, no palpitations, no edema, no shortness of breath Gastrointestinal: No new onset incontinence, normal bowel movements reported Genitourinary: No new onset incontinence Musculoskeletal: Low back pain, left hip pain Psychiatric: [Normal mood/affect] Neurological: [Denies weakness in extremities], [denies balance issues] Objective:: Physical Exam: General: Alert and oriented x3, no acute distress, pleasant and cooperative Lungs: Respirations even and unlabored, symmetrical chest expansion Eyes: PERRL Musculoskeletal: Flexion and extension of lumbar [spine] somewhat guarded secondary to pain, [antalgic gait noted] extreme point tenderness along left SI and left greater trochanteric bursa with positive left Fady's, Chad's, Gaenslen's, compression and distraction exam Neurological: Speech clear, no gross sensory deficit Assessment:: Myofascial pain, bilateral sacroiliitis, left greater trochanteric bursitis Plan:: Patient is experiencing significant pain in her low back along the left side with radiating symptoms into her left hip. Patient did have limited range of motion of her lumbar spine along with extreme point tenderness at her left SI and left greater trochanteric bursa. She did also have a positive left Fady's, Chad's, Gaenslen's, compression and distraction exam. I have discussed with the patient that she may benefit from repeat left SI injections and left bursa injection. Risk and benefits were discussed with the patient and she would like to proceed forward with this plan of care. We will schedule the patient for a left SI and left bursa injection. Patient has been instructed to contact the clinic with any concerns before the next appointment. Dr. Gonzalez has reviewed this note and agrees with this plan of care. This note was dictated using voice recognition software and make contain errors or omissions. [facility] Disclaimer: The information contained in this section may have been updated after the patient was seen, as this information can be updated by other users. Medical History Acid reflux Angina pectoris Angina, class IV Arthritis Atrial fibrillation with slow ventricular response Atrial flutter with rapid ventricular response Bulging discs Cardiac pacemaker in situ Cataract Cellulitis Chest pain Closed head injury Cough Crescendo angina Degenerative disc disease Elevated coronary artery calcium score Family history of heart disease Hematoma High ankle sprain History of back pain History of gastro
== END ==
PROVIDERS: PCP Internal Medicine; Visit Provider Nurse Practitioner Family
DX: M46.1 Sacroiliitis, not elsewhere classified (principal); M79.18 Myalgia, other site; M70.62 Trochanteric bursitis, left hip
CPT/HCPCS: 99212; G0463

== ENCOUNTER 2022-09-14 09:23 | Day surgery (SDC) | payer MEDICARE, BC, SELFPAY ==
[2022-09-14 09:54] VITALS: BP 138/66; PULSE 82; RESP 18; TEMP 36.1; O2SAT 98; BMI 25.0
[2022-09-14 10:25] VITALS: BP 148/65; PULSE 73; RESP 18; O2SAT 98
[2022-09-14 10:26] VITALS: BP 148/65; PULSE 73; RESP 18; O2SAT 98
[2022-09-14 10:30] VITALS: BP 124/68; PULSE 77; RESP 18; O2SAT 98
--- NOTE | 2022-09-14 11:12 | P.PCN_ITS ---
Procedure Date: 09/14/22 Time: 10:30 Anesthesiologist:: Vishnu Crespo CRNA Complications:: None Pre-procedure Diagnosis:: Left sacroiliitis. Left trochanteric bursitis. Post-procedure Diagnosis:: Same. Indications for Procedure:: Patient is a pleasant 86-year-old female comes our clinic today for left sacroiliac joint injection as well as left trochanteric bursa injection. Patient has extreme point tenderness over both areas upon examination. She rates her pain 7/10. Procedure Details:: Procedure: Left sacroiliac injection under fluoroscopy Informed consent was obtained and the risk and benefits of the procedure were explained to the patient.~ The patient was taken to the procedure room and noninvasive monitors were placed including noninvasive blood pressure cuff and pulse oximeter.~ The patient was placed prone on the procedure table.~ The~ left hip was cleansed using Betadine as a cleansing solution.~ C-arm fluorosocpy was used to view the left SI joint.~ The skin and subcutaneous tissues were anesthetized using Lidocaine 1.5% and a 25-gauge needle.~ After this, a 22-gauge spinal needle was inserted under fluoroscopic guidance into the inferior aspect of the left SI joint.~ Omnipaque dye was injected and a good spread was seen throughout the joint.~ After this, approximately 5 mL of bupivacaine 0.25% and Depo-Medrol 40 mg was incrementally injected into the sacroiliac joint.~ The patient tolerated the procedure well with no complications.~ The patient was observed in the Pain Clinic for a period of 30-45 minutes, then discharged home neurologically intact.~ Procedure:Left trochanteric bursa injection under fluoroscopy We then moved to the left trochanteric bursa.~ C-arm fluoroscopy was used to view the left greater trochanter.~ The skin and subcutaneous tissues overlying the left greater trochanter were anesthetized using lidocaine, 1.5% and a 25- gauge needle.~ After this, a 22-gauge spinal needle was inserted and advanced until it contacted the left greater trochanter.~ Dye was injected and good spread was seen throughout the left trochanteric bursa. After this, approximately 5 mL of bupivacaine, 0.25% and Depo-Medrol, 40 mg was incrementally injected into the left trochanteric bursa.~ The patient tolerated the procedure well with no complications. Plan and Disposition:: Patient was discharged without incident.
== END 2022-09-14 10:30 | disposition home or self-care (01) ==
PROVIDERS: PCP Internal Medicine; Visit Provider Nurse Anesthetist, Certified Registered
DX: M46.1 Sacroiliitis, not elsewhere classified (principal); M70.62 Trochanteric bursitis, left hip
CPT/HCPCS: 20610; 27096; 77002; G0260; J1040

== ENCOUNTER → 2022-11-16 11:25 | Outpatient (CLI) | payer MEDICARE, BC, SELFPAY ==
[2022-11-16 14:13] LABS: Basophils # 0.1 K/mm3 (0-0.2); Basophils % 1.4 % (0.1-2.0); Eosinophils # 0.4 K/mm3 (0.0-0.4); Eosinophils % 6.1 % (0.1-12.0); Hematocrit 41.3 % (37.0-47.0); Hemoglobin 13.4 g/dL (12.2-16.2); Lymphocytes # 1.6 K/mm3 (0.7-4.5); Lymphocytes % 23.5 % (10-50); Mean Corpuscular HGB Conc 32.5 g/dL (31.8-35.4); Mean Corpuscular Hemoglobin 31.3 pg (27.0-31.2); Mean Corpuscular Volume 96.3 fl (81-99); Mean Platelet Volume 8.7 fl (7.4-10.4); Monocytes # 0.6 K/mm3 (0.1-1.0); Monocytes % 8.7 % (1.7-9.3); Neutrophils # 4.1 K/mm3 (1.8-7.8); Neutrophils % 60.2 % (37.0-80.0); Platelet Count 274 K/mm3 (142-424); Red Blood Count 4.29 M/mm3 (4.20-5.40); Red Cell Distribution Width 12.9 % (11.5-17.5); White Blood Count 6.8 K/mm3 (4.8-10.8)
[2022-11-16 14:37] LABS: Alanine Aminotransferase 16 U/L (12-78); Albumin/Globulin Ratio 1.7 (1.1-1.8); Alkaline Phosphatase 90 U/L (38-126); Anion Gap 18.8 mEq/L (5-15); Aspartate Amino Transferase 29 U/L (14-36); Bilirubin,Total 0.9 mg/dl (0.2-1.3); Blood Urea Nitrogen 25 mg/dl (7-17); Calcium 9.2 mg/dl (8.4-10.2); Carbon Dioxide 31 mmol/L (22.0-30.0); Chloride 94 mmol/L (98-107); Chol/HDL Ratio 1.9 (1-3.5); Cholesterol 165 mg/dl (140-200); Estimated Glomerular Filt Rate 52 ml/min (>60); GFR (African American) 63 ML/MIN (>60); Globulin 2.4 g/dL (1.3-3.2); Glucose 84 mg/dl (74-100); HDL Cholesterol 89 mg/dl (40-60); Potassium 3.8 mmoL/L (3.5-5.1); Sodium 140 mmol/L (136-145); Total Protein,Serum 6.4 g/dl (6.3-8.2); Triglycerides 104 mg/dl (30-150); VLDL Cholesterol 21 mg/dL (0-40)
[2022-11-16 14:49] LABS: Direct LDL Cholesterol 70.71 mg/dL (100-129)
[2022-11-16 14:54] LABS: Free T4 (Free Thyroxine) 1.58 ng/dl (0.78-2.19)
[2022-11-16 15:08] LABS: Thyroid Stimulating Hormone 2.82 uIU/mL (0.465-4.68)
== END ==
PROVIDERS: PCP Internal Medicine; Visit Provider Internal Medicine
DX: I25.10 Atherosclerotic heart disease of native coronary artery without angina pectoris (principal); I50.32 Chronic diastolic (congestive) heart failure; I49.5 Sick sinus syndrome; E78.5 Hyperlipidemia, unspecified; R63.4 Abnormal weight loss; G47.33 Obstructive sleep apnea (adult) (pediatric)
CPT/HCPCS: 80053; 80061; 84439; 84443; 85025

== ENCOUNTER → 2022-12-06 14:59 | Outpatient (CLI) | payer MEDICARE, BC, SELFPAY ==
--- NOTE | 2022-12-06 15:08 | XR_ITS ---
FINAL REPORT CLINICAL HISTORY: FALL11/30/22 LT LATERAL CHEST PAIN, SOA, CHEST PAIN WHEN TAKING DEEP BREATH, STENT PLACEMENT 4 YRS AGO, PACEMAKER PLACED 3 YRS AGO FINDINGS: Three views of the left ribs: Three views of the left ribs do not reveal an acute fracture. An atrioventricular pacemaker is noted in the chest. No pneumothorax is seen. IMPRESSION: No acute fracture identified. Reviewed, Interpreted and Dictated by Yelena Grimm MD Transcribed by Luisa Xavier Authenticated and [facility]
--- NOTE | 2022-12-06 15:08 | XR_ITS ---
FINAL REPORT CLINICAL HISTORY: FALL11/30/22 LT LATERAL CHEST PAIN, SOA, CHEST PAIN WHEN TAKING DEEP BREATH, STENT PLACEMENT 4 YRS AGO, PACEMAKER PLACED 3 YRS AGO FINDINGS: PA and lateral views of the chest are obtained. There is no prior exam for comparison. An atrioventricular pacemaker is identified. The cardiac and mediastinal silhouettes are within normal limits. The lungs are clear. There is no pleural effusion, pneumothorax, or acute osseous abnormality. IMPRESSION: No radiographic evidence of acute cardiac or pulmonary disease. Reviewed, Interpreted and Dictated by Yelena Grimm MD Transcribed by Luisa Xavier Authenticated and . [facility]
== END ==
PROVIDERS: PCP Internal Medicine; Visit Provider Internal Medicine
DX: R07.89 Other chest pain (principal); W19.XXXA Unspecified fall, initial encounter
CPT/HCPCS: 71046; 71100

== ENCOUNTER → 2023-05-13 11:46 | Outpatient (POV) | payer MEDICARE, BC, SELFPAY ==
[2023-05-13 11:55] VITALS: BP 126/66; PULSE 60; RESP 18; O2SAT 98; BMI 23.6
--- NOTE | 2023-05-13 12:11 | EXP.PAIN.SOA ---
[facility] Pain Management SOAP Note Subjective:: This patient is a very pleasant 87-year-old female comes our clinic today for follow-up visit regarding low back pain she describes as constant, dull, aching. Patient has difficulty with flexion, extension, left and right rotation. Patient also reports some bilateral hip radicular symptoms. Her gait is normal. Patient is a very active 87-year-old. Patient reports 2 years ago she had medial branch block lumbar L4-5, L5-S1 followed by radiofrequency ablation of the same levels. She reports 2 years of significant improvement terms of her overall low back pain. Today she rates her pain 6/10. Objective:: Patient is awake alert [place] x3. In no acute distress. Flexion-extension cervical lumbar spine guarded secondary to pain. Deep tendon reflexes upper and lower extremities normal. Motor strength upper lower extremities normal. There is no gross sensory deficit. Gait is normal. Assessment:: Degenerative disc lumbar spine multilevels. Lumbar radiculopathy. Lumbar spondylosis. Multilevel lumbar facet arthropathy. Plan:: I discussed treatment options with the patient. She has failed conservative measures such as physical therapy, home exercise program, NSAIDs, Tylenol. Patient requesting medial branch blocks/facet injections lumbar L4-5, L5-S1 bilaterally. Patient also requesting subsequent radiofrequency ablation of the same levels. I think this is reasonable treatment for her. Surgery is not an option at her current age. [facility] Disclaimer: The information contained in this section may have been updated after the patient was seen, as this information can be updated by other users. Medical History Acid reflux Angina pectoris Angina, class IV Arthritis Atrial fibrillation with slow ventricular response Atrial flutter with rapid ventricular response Bulging discs Cardiac pacemaker in situ Cataract Cellulitis Chest pain Closed head injury Cough Crescendo angina Degenerative disc disease Elevated coronary artery calcium score Family history of heart disease Hematoma High ankle sprain History of back pain History of gastroesophageal reflux (GERD) History of pacemaker History of placement of stent in LAD coronary artery Hyperkalemia Hypertension Hyponatremia Kidney stone Lumbar radiculopathy Migraine Mild chronic anemia Multiple contusions On amiodarone therapy Pacemaker displacement Pain in pacemaker pocket due to device Palpitations Right carotid bruit Right leg injury Second hand smoke exposure SOB (shortness of breath) SOB (shortness of breath) Symptomatic bradycardia Syncope Surgical History H/O right heart catheterization History of coronary artery stent placement History of hysterectomy History of knee replacement Family History Brother Family history of cancer Sister Family history of cancer Other Family history of GERD Family history of diabetes mellitus type II Family history of hyperlipidemia Family history of hypertension Family history of migraine headaches Family history of myocardial infarction Lung cancer Social History Smoking Status: Never smoker second hand exposure: Yes alcohol intake: never substance use type: denies use current occupational status: retired Travel in the last 8 weeks: None household members: family housing: house current occupational exposures/hazards: No caffeine: Yes
== END ==
PROVIDERS: PCP Internal Medicine; Visit Provider Nurse Anesthetist, Certified Registered
DX: M51.16 Intervertebral disc disorders with radiculopathy, lumbar region (principal); M47.896 Other spondylosis, lumbar region
CPT/HCPCS: 99212; G0463

== ENCOUNTER → 2023-05-30 14:09 | Outpatient (CLI) | payer MEDICARE, BC, SELFPAY ==
[2023-05-30 14:38] LABS: Basophils % 0.6 % (0.1-2.0); Eosinophils # 0.1 K/mm3 (0.0-0.4); Eosinophils % 2.4 % (0.1-12.0); Hematocrit 35.2 % (37.0-47.0); Hemoglobin 11.8 g/dL (12.2-16.2); Lymphocytes # 1.3 K/mm3 (0.7-4.5); Lymphocytes % 20.7 % (10-50); Mean Corpuscular HGB Conc 33.5 g/dL (31.8-35.4); Mean Corpuscular Hemoglobin 31.3 pg (27.0-31.2); Mean Corpuscular Volume 93.5 fl (81-99); Mean Platelet Volume 8.7 fl (7.4-10.4); Monocytes # 0.4 K/mm3 (0.1-1.0); Monocytes % 7.1 % (1.7-9.3); Neutrophils # 4.2 K/mm3 (1.8-7.8); Neutrophils % 69.2 % (37.0-80.0); Platelet Count 240 K/mm3 (142-424); Red Blood Count 3.76 M/mm3 (4.20-5.40); Red Cell Distribution Width 13.7 % (11.5-17.5); White Blood Count 6.1 K/mm3 (4.8-10.8)
[2023-05-30 15:36] LABS: Alanine Aminotransferase 19 U/L (12-78); Albumin/Globulin Ratio 1.5 (1.1-1.8); Alkaline Phosphatase 70 U/L (38-126); Anion Gap 10.8 mEq/L (5-15); Aspartate Amino Transferase 30 U/L (14-36); Bilirubin,Total 0.8 mg/dl (0.2-1.3); Blood Urea Nitrogen 19 mg/dl (7-17); Calcium 8.6 mg/dl (8.4-10.2); Carbon Dioxide 30 mmol/L (22.0-30.0); Chloride 96 mmol/L (98-107); Chol/HDL Ratio 2.2 (1-3.5); Cholesterol 157 mg/dl (140-200); Estimated Glomerular Filt Rate 39 ml/min (>60); GFR (African American) 47 ML/MIN (>60); Globulin 2.6 g/dL (1.3-3.2); Glucose 82 mg/dl (74-100); HDL Cholesterol 73 mg/dl (40-60); Potassium 3.8 mmoL/L (3.5-5.1); Sodium 133 mmol/L (136-145); Total Protein,Serum 6.6 g/dl (6.3-8.2); Triglycerides 103 mg/dl (30-150); VLDL Cholesterol 21 mg/dL (0-40)
== END ==
PROVIDERS: PCP Internal Medicine; Visit Provider Internal Medicine
DX: I10 Essential (primary) hypertension (principal); I25.10 Atherosclerotic heart disease of native coronary artery without angina pectoris; I50.22 Chronic systolic (congestive) heart failure; I48.0 Paroxysmal atrial fibrillation; E78.5 Hyperlipidemia, unspecified; G47.33 Obstructive sleep apnea (adult) (pediatric); M17.12 Unilateral primary osteoarthritis, left knee
CPT/HCPCS: 80053; 80061; 85025

== ENCOUNTER → 2023-06-22 10:31 | Outpatient (POV) | payer MEDICARE, BC, SELFPAY ==
--- NOTE | 2023-06-22 11:05 | EXP.PAIN.SOA ---
[facility] Pain Management SOAP Note Subjective:: Patient is a pleasant 87-year-old female who presents today for insurance denial. We are currently treating the patient for degenerative disc disease of lumbar spine multilevels with lumbar radiculopathy symptoms, lumbar spondylosis and lumbar facet arthropathy, myofascial pain, bilateral sacroiliitis. Today she rates her pain a 9 out of 10. Patient states she continues to experience significant pain all throughout her low back and that she has been experiencing pain in her right knee due to having her right knee replaced 2 weeks ago. Patient does describe her pain as a constant aching, throbbing sensation that stays in her low back. Patient states that it is aggravated by certain movements such as bending, twisting or lifting. Patient states the pain does interfere with her ability to perform activities of daily living such as cooking and cleaning. Patient does have a significant heart history and chronic kidney disease with history of syncope and shortness of breath. Patient is unable to tolerate extensive physical therapy due to these comorbidities. Patient has tried and failed conservative treatment such as oral medication, heat and ice, topicals, at home stretching and exercising. Patient is very limited on the activity she can do related to her increasing pain. Patient has previously had a lumbar radiofrequency ablation back 2 years ago that did provide significant improvement of more than 50% lasting for over a year if not longer. Patient was previously submitted for a lumbar medial branch block however was denied by insurance. Patient is still very interested in repeating this injection because it did do so well for her symptoms. Patient denies any new falls or injuries since our last visit. Patient denies any radiating symptoms into her legs from her low back. Patient is prescribed gabapentin 300 mg twice a day from her primary care doctor. Patient denies any side effects from this medication. She is also prescribed compounding cream from our office. Her Rene has been reviewed and is appropriate. Review of Systems: General: No recent weight changes, no fever, no sleep disturbances Respiratory: No cough, no shortness of air, no recurring pulmonary infections Cardiovascular/peripheral vascular: No chest pain, no palpitations, no edema, no shortness of breath Gastrointestinal: No new onset incontinence, normal bowel movements reported Genitourinary: No new onset incontinence Musculoskeletal: Low back pain Psychiatric: [Normal mood/affect] Neurological: [Denies weakness in extremities], [denies balance issues] Objective:: Physical Exam: General: Alert and oriented x3, no acute distress, pleasant and cooperative Lungs: Respirations even and unlabored, symmetrical chest expansion Eyes: PERRL Musculoskeletal: Flexion and extension of lumbar [spine] somewhat guarded secondary to pain, [antalgic gait noted] positive Kemps test Neurological: Speech clear, no gross sensory deficit FINDINGS: There is normal alignment. The spinal cord ends at the L1 level. There is mild lumbar scoliosis convex left. 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 T12-L1: Unremarkable. L1-L2: Degenerative disc disease with bulging disc. L2-L3: Degenerate disc disease with bulging disc with mild to moderate right foraminal and mild left foraminal narrowing. L3-L4: Degenerate disc disease with bulging disc. There is a small right paracentral disc herniation with superior extrusion. This does impinge upon the right L4 nerve root. There is severe right lateral recess and foraminal narrowing. The extruded portion of the disc measures approximately 13 mm in length. Facet ligamentum hypertrophy of present at this level as well contributing to lateral recess narrowing. There is mild left lateral recess and foraminal narrowing as well. L4-5: Degenerate disc disease with bulging disc along with moderate facet and li
[2023-06-22 12:53] VITALS: BP 106/52; PULSE 60; RESP 18; O2SAT 98; BMI 23.6
== END ==
PROVIDERS: PCP Internal Medicine; Visit Provider Nurse Practitioner Family
DX: M51.16 Intervertebral disc disorders with radiculopathy, lumbar region (principal); M47.26 Other spondylosis with radiculopathy, lumbar region; M79.10 Myalgia, unspecified site; M46.1 Sacroiliitis, not elsewhere classified; M25.561 Pain in right knee
CPT/HCPCS: 99212; G0463

== ENCOUNTER 2023-07-26 09:37 | Day surgery (SDC) | payer MEDICARE, BC, SELFPAY ==
[2023-07-26 09:54] VITALS: BP 105/54; PULSE 60; RESP 16; TEMP 36.4; O2SAT 97; BMI 23.2
[2023-07-26] MEDS: BUPIVACAINE 0.25% 10ML INJ 25 MG IJ (10:06)
[2023-07-26] MEDS: methylPREDNISolone ACETATE 80MG/ML VIAL 80 MG (10:06)
[2023-07-26] MEDS: LIDOCAINE 1% 5ML PF VIAL 5 ML (10:06)
[2023-07-26 10:07] VITALS: BP 144/58; PULSE 60; RESP 18; O2SAT 96
[2023-07-26 10:10] VITALS: BP 144/58; PULSE 60; RESP 18; O2SAT 98
[2023-07-26 10:14] VITALS: BP 100/58; PULSE 60; RESP 16; O2SAT 97
--- NOTE | 2023-07-26 10:14 | P.PCN_ITS ---
Procedure Date: 07/26/23 Time: 10:10 Anesthesiologist:: Vishnu Crespo CRNA Complications:: None Pre-procedure Diagnosis:: Degenerative disc lumbar spine multilevels. Lumbar radiculopathy. Lumbar spondylosis. Multilevel lumbar facet arthropathy. Post-procedure Diagnosis:: Same Indications for Procedure:: Patient is a very pleasant 87-year-old female comes our clinic today for bilateral lumbar medial branch blocks/facet injection at the L4-5 and L5-S1 level. Patient reports low back pain that she describes as constant, dull, aching, sharp, stabbing. She rates the pain 8/10. Patient also reports pain intensifies with sitting and/or standing for any length of time. Procedure Details:: Informed consent was obtained and the risk and benefits of the procedure was explained to the patient. Patient was taken to the procedure room where noninvasive monitors were placed, including noninvasive blood pressure cuff as well as pulse oximeter. The area over the lumbar spine was cleansed using chlorhexidine as a cleansing solution. I anesthetized the skin and subcutaneous tissues with 1% Lidocaine. I placed 22-gauge spinal needles into the facet joint/ medial branches of L4-L5, and L5-S1 bilaterally. Needle placement was confirmed with fluoroscopy. After confirmation of needle placement, each site was injected with 1 mL of 1% lidocaine and 0.25 % Marcaine and 10 mg of Depo- Medrol. A total of 80 mg of depo medrol was used for bilateral medial branch blocks of L4-L5, and L5-S1 bilaterally. Patient tolerated the procedure without difficulty. There were no complications. Plan and Disposition:: Patient was discharged without incident.
== END 2023-07-26 10:14 | disposition home or self-care (01) ==
PROVIDERS: PCP Internal Medicine; Visit Provider Nurse Anesthetist, Certified Registered
DX: M47.896 Other spondylosis, lumbar region (principal); M51.16 Intervertebral disc disorders with radiculopathy, lumbar region
CPT/HCPCS: 64493; 64494; J1040

== ENCOUNTER 2023-08-30 12:35 | Outpatient (CLI) | payer MEDICARE, BC, SELFPAY ==
[2023-08-30 16:10] LABS: Basophils # 0.1 K/mm3 (0-0.2); Basophils % 0.9 % (0.1-2.0); Eosinophils # 0.1 K/mm3 (0.0-0.4); Eosinophils % 2.1 % (0.1-12.0); Hematocrit 36.3 % (37.0-47.0); Hemoglobin 11.9 g/dL (12.2-16.2); Lymphocytes # 1.6 K/mm3 (0.7-4.5); Lymphocytes % 26.1 % (10-50); Mean Corpuscular HGB Conc 32.7 g/dL (31.8-35.4); Mean Platelet Volume 8.9 fl (7.4-10.4); Monocytes # 0.6 K/mm3 (0.1-1.0); Monocytes % 9.5 % (1.7-9.3); Neutrophils # 3.7 K/mm3 (1.8-7.8); Neutrophils % 61.4 % (37.0-80.0); Platelet Count 270 K/mm3 (142-424); Red Blood Count 3.71 M/mm3 (4.20-5.40); Red Cell Distribution Width 13.6 % (11.5-17.5)
[2023-08-30 17:18] LABS: Anion Gap 10.6 mEq/L (5-15); Blood Urea Nitrogen 18 mg/dl (7-17); Calcium 9.2 mg/dl (8.4-10.2); Carbon Dioxide 30 mmol/L (22.0-30.0); Chloride 100 mmol/L (98-107); Estimated Glomerular Filt Rate 47 ml/min (>60); GFR (African American) 57 ML/MIN (>60); Potassium 3.6 mmoL/L (3.5-5.1); Sodium 137 mmol/L (136-145)
[2023-08-30 18:45] LABS: Glucose 50 mg/dl (74-100)
== END 2023-08-30 23:59 ==
PROVIDERS: PCP Internal Medicine; Visit Provider Internal Medicine
DX: I10 Essential (primary) hypertension (principal); I50.32 Chronic diastolic (congestive) heart failure; I48.0 Paroxysmal atrial fibrillation; I95.1 Orthostatic hypotension; E78.5 Hyperlipidemia, unspecified; M54.42 Lumbago with sciatica, left side; G47.33 Obstructive sleep apnea (adult) (pediatric)
CPT/HCPCS: 80048; 85025

== ENCOUNTER 2023-10-31 08:37 | Outpatient (POV) | payer MEDICARE, BC, SELFPAY ==
--- NOTE | 2023-10-31 08:54 | EXP.PAIN.SOA ---
[facility] Pain Management SOAP Note Subjective:: Patient is a pleasant 88-year-old female who presents today for follow-up after lumbar medial branch block bilaterally L4-L5 and L5-S1 on 07/26/2023. We are currently treating the patient for degenerative disc disease of lumbar spine multilevels with lumbar radiculopathy symptoms, lumbar spondylosis and lumbar facet arthropathy, myofascial pain, bilateral sacroiliitis. Today she rates her pain a 5 out of 10. Patient denies any new trauma or injury. She does state that this injection provided at least 75% relief and lasted about a month. Patient states during that time she was able to increase her activity with decreased pain symptoms and felt overall more functional. Patient does state today that she is going back towards her baseline. Patient does state in the past when she did the lumbar ablation that it did provide significant improvement lasting over a year. Patient would like to repeat this procedure in the future. Her pain continues to be a constant aching, throbbing sensation that stays in her low back. Patient states that it is aggravated by certain movements such as bending, twisting or lifting. Patient states the pain does interfere with her ability to perform activities of daily living such as cooking and cleaning. Patient does have significant comorbidities related to her heart and kidneys and is not able to do current physical therapy. Patient has tried and failed conservative treatment such as oral medication, heat and ice, topicals, at home stretching and exercising. Patient is prescribed gabapentin 300 mg twice a day from her primary care doctor. Patient denies any side effects from this medication. She is also prescribed compounding cream from our office. Her Rene has been reviewed and is appropriate. Review of Systems: General: No recent weight changes, no fever, no sleep disturbances Respiratory: No cough, no shortness of air, no recurring pulmonary infections Cardiovascular/peripheral vascular: No chest pain, no palpitations, no edema, no shortness of breath Gastrointestinal: No new onset incontinence, normal bowel movements reported Genitourinary: No new onset incontinence Musculoskeletal: Low back pain Psychiatric: [Normal mood/affect] Neurological: [Denies weakness in extremities], [denies balance issues] Objective:: Physical Exam: General: Alert and oriented x3, no acute distress, pleasant and cooperative Lungs: Respirations even and unlabored, symmetrical chest expansion Eyes: PERRL Musculoskeletal: Flexion and extension of lumbar [spine] somewhat guarded secondary to pain, [antalgic gait noted] positive Kemps test Neurological: Speech clear, no gross sensory deficit Assessment:: Degenerative disc disease of lumbar spine with lumbar facet arthropathy, lumbar spondylosis Plan:: Patient is experiencing worsening pain in her low back with limited range of motion and a positive Kemps test. Patient did have a successful lumbar medial branch block with 75% relief and lasting 1 month. I have discussed with the patient that she may benefit repeat lumbar medial branch block #2. Risk and benefits were discussed with patient and she would like to proceed forward with this plan of care. If the patient does get significant relief with her second block we will plan for a lumbar RFA at a later date. Patient will be submitted for a lumbar medial branch block bilaterally L4-L5 and L5-S1 under fluoroscopy. Patient has tried and failed conservative treatment. Patient has been instructed to contact the clinic with any concerns before the next appointment. Dr. Gonzalez has reviewed this note and agrees with this plan of care. This note was dictated using voice recognition software and make contain errors or omissions. [facility] Disclaimer: The information contained in this section may have been updated after the patient was seen, as this information can be updated by other users. Medical History SOB (shortness of breath) Angina pectoris Syncope Atrial flutter with rapid ventricular response History of pacemaker Kidney stone History of gastroesophageal reflux (GERD) Hypertension Arthritis Migraine Bulging discs History of back pain Cataract Right carotid bruit Crescendo angina Pain in pacemaker pocket due to device Pacemaker displacement Cardiac pacemaker in situ Hyponatremia Hyperkalemia Mild chronic anemia History of placement of stent in LAD coronary artery Symptomatic bradycardia Atrial fibrillation with slow ventricular response Hematoma Cellulitis Right leg injury Palpitations Chest pain On amiodarone therapy Elevated coronary artery calcium score Acid reflux Family history of heart disease Second hand smoke exposure Angina, class IV SOB (shortness of breath) High ankle sprain Closed head injury Multiple contusions Lumbar radiculopathy Degenerative disc disease Cough Surgical History History of coronary artery stent placement H/O right heart catheterization History of knee replacement History of hysterectomy Family History Brother Family history of cancer Sister Family history of cancer Other Family history of GERD Family history of diabetes mellitus type II Family history of hyperlipidemia Family history of hypertension Family history of migraine headaches Family history of myocardial infarction Lung cancer Social History Smoking Status: Never smoker second hand exposure: Yes alcohol intake: never substance use type: denies use current occupational status: retired Travel in the last 8 weeks: None household members: family housing: house current occupational exposures/hazards: No caffeine: Yes
[2023-10-31 09:13] VITALS: BP 123/56; PULSE 59; RESP 18; TEMP 36.7; O2SAT 99; BMI 22.8
== END 2023-10-31 23:59 | disposition home or self-care (01) ==
LOC: SC.PAIN 08:38
PROVIDERS: PCP Internal Medicine; Visit Provider Nurse Practitioner Family
DX: M51.36 Other intervertebral disc degeneration, lumbar region (principal); M47.816 Spondylosis without myelopathy or radiculopathy, lumbar region
CPT/HCPCS: 99212; G0463

== ENCOUNTER 2023-11-25 11:28 | Outpatient (POV) | payer MEDICARE, BC, SELFPAY ==
--- NOTE | 2023-11-25 11:40 | EXP.PAIN.SOA ---
[facility] Pain Management SOAP Note Subjective:: Patient is a pleasant 88-year-old female who presents today for insurance denial of her second lumbar medial branch block. Patient rates her pain today a 10 out of 10. Patient denies any new trauma or injury. She states she continues to have pain all across her low back. She does describe this as an aching, throbbing sensation that does interfere with her ability perform activities of daily living such as cooking and cleaning. The pain is more present with certain movements such as bending, twisting or lifting. Patient does have significant heart issues and has a pacemaker in place. Patient denies any kidney or liver issues. Patient is prescribed gabapentin from her primary care provider. She denies any side effects from this medication or the compounded cream from our office. Her Rene has been reviewed and is appropriate. Review of Systems: General: No recent weight changes, no fever, no sleep disturbances Respiratory: No cough, no shortness of air, no recurring pulmonary infections Cardiovascular/peripheral vascular: No chest pain, no palpitations, no edema, no shortness of breath Gastrointestinal: No new onset incontinence, normal bowel movements reported Genitourinary: No new onset incontinence Musculoskeletal: Low back pain Psychiatric: [Normal mood/affect] Neurological: [Denies weakness in extremities], [denies balance issues] Objective:: Physical Exam: General: Alert and oriented x3, no acute distress, pleasant and cooperative Lungs: Respirations even and unlabored, symmetrical chest expansion Eyes: PERRL Musculoskeletal: Flexion and extension of lumbar [spine] somewhat guarded secondary to pain, [antalgic gait noted] positive Kemps test Neurological: Speech clear, no gross sensory deficit FINDINGS: LUMBOSACRAL SPINE SERIES Five views of the lumbosacral spine were obtained. There is no fracture present. There is no malalignment. There are advanced hypertrophic changes of degenerative disc disease at L2-3 through L5-S1. There is significant disc space narrowing. Advanced facet sclerosis is noted. There is mild lumbar scoliosis convex to the left measuring proximally 20 degrees. IMPRESSION: Advanced hypertrophic changes without acute process. 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 I did review over the denial reason that they were requesting imaging. I will proceed forward and order an x-ray and CT without contrast of her lumbar spine. Patient is agreeable to this plan of care. Due to her chronic pain I will send in a 2-week supply of Fox 5 mg daily. Patient will return to clinic in 1 month following her imaging for reevaluation of symptoms and plan of care. Risks and benefits of the medication have been explained in detail to the patient. The patient does understand the risk of dependence on the medication when given over a prolonged period. Patient has been advised of risks of oversedation with the prescribed medication. Narcan has been offered to the paitent in the event of oversedation. Patient has been advised that a family member should also be educated regarding administration of Narcan. The patient has been advised to consult with his/her primary care provider and pharmacist regarding drug-drug interaction of medications currently prescribed. Patient has been prescribed a controlled substance after being counseled on the medication, medication safety, and possible side effects. Opioid contract was reviewed and signed by the patient, and that they have agreed to all of the terms set forth by our compliance program. Patient has been instructed to contact the clinic with any concerns before the next appointment. Dr. Gonzalez has reviewed this note and agrees with this plan of care. This note was dictated using voice recognition software and make contain errors or omissions. [facility] Disclaimer: The information contained in this section may have been updated after the patient was seen, as this information can be updated by other users. Medical History SOB (shortness of breath) Angina pectoris Syncope Atrial flutter with rapid ventricular response History of pacemaker Kidney stone History of gastroesophageal reflux (GERD) Hypertension Arthritis Migraine Bulging discs History of back pain Cataract Right carotid bruit Crescendo angina Pain in pacemaker pocket due to device Pacemaker displacement Cardiac pacemaker in situ Hyponatremia Hyperkalemia Mild chronic anemia History of placement of stent in LAD coronary artery Symptomatic bradycardia Atrial fibrillation with slow ventricular response Hematoma Cellulitis Right leg injury Palpitations Chest pain On amiodarone therapy Elevated coronary artery calcium score Acid reflux Family history of heart disease Second hand smoke exposure Angina, class IV SOB (shortness of breath) High ankle sprain Closed head injury Multiple contusions Lumbar radiculopathy Degenerative disc disease Cough Surgical History History of coronary artery stent placement H/O right heart catheterization History of knee replacement History of hysterectomy Family History Brother Family history of cancer Sister Family history of cancer Other Family history of GERD Family history of diabetes mellitus type II Family history of hyperlipidemia Family history of hypertension Family history of migraine headaches Family history of myocardial infarction Lung cancer Social History Smoking Status: Never smoker second hand exposure: Yes alcohol intake: never substance use type: denies use current occupational status: other Travel in the last 8 weeks: None household members: family housing: house current occupational exposures/hazards: No caffeine: Yes
[2023-11-25 11:45] VITALS: BP 127/55; PULSE 61; RESP 16; O2SAT 100; BMI 22.6
--- NOTE | 2023-11-25 11:56 | XR_ITS ---
FINAL REPORT CLINICAL HISTORY: LOW BACK PAIN COMPARISON: None FINDINGS: LUMBOSACRAL SPINE SERIES Five views of the lumbosacral spine were obtained. There is no fracture present. There is no malalignment. There are advanced hypertrophic changes of degenerative disc disease at L2-3 through L5-S1. There is significant disc space narrowing. Advanced facet sclerosis is noted. There is mild lumbar scoliosis convex to the left measuring proximally 20 degrees. IMPRESSION: Advanced hypertrophic changes without acute process. Reviewed, Interpreted and Dictated by Pablo Melvin MD Transcribed by Lourdes Fierro Authenticated and [facility]
== END 2023-11-25 23:59 | disposition home or self-care (01) ==
PROVIDERS: PCP Internal Medicine; Visit Provider Nurse Practitioner Family
DX: M47.896 Other spondylosis, lumbar region (principal); M51.36 Other intervertebral disc degeneration, lumbar region; G89.4 Chronic pain syndrome
CPT/HCPCS: 72110; 99212; G0463

== ENCOUNTER 2023-11-30 16:18 | Outpatient (CLI) | payer MEDICARE, BC, SELFPAY ==
[2023-11-30 17:40] LABS: Hematocrit 37.8 % (37.0-47.0)
[2023-11-30 18:17] LABS: Alanine Aminotransferase 17 U/L (12-78); Albumin Level 3.9 g/dl (3.5-5.0); Albumin/Globulin Ratio 1.6 (1.1-1.8); Alkaline Phosphatase 80 U/L (38-126); Aspartate Amino Transferase 32 U/L (14-36); Bilirubin,Total 0.9 mg/dl (0.2-1.3); Blood Urea Nitrogen 15 mg/dl (7-17); Calcium 9.5 mg/dl (8.4-10.2); Carbon Dioxide 31 mmol/L (22.0-30.0); Chloride 100 mmol/L (98-107); Cholesterol 168 mg/dl (140-200); Estimated Glomerular Filt Rate 59 ml/min (>60); GFR (African American) 71 ML/MIN (>60); Globulin 2.5 g/dL (1.3-3.2); Glucose 72 mg/dl (74-100); Sodium 139 mmol/L (136-145); Total Protein,Serum 6.4 g/dl (6.3-8.2); Triglycerides 98 mg/dl (30-150); VLDL Cholesterol 20 mg/dL (0-40)
[2023-11-30 18:27] LABS: Direct LDL Cholesterol 57.34 mg/dL (100-129)
[2023-11-30 18:32] LABS: Chol/HDL Ratio 1.6 (1-3.5); HDL Cholesterol 103 mg/dl (40-60)
[2023-11-30 19:54] LABS: Anion Gap 12.4 mEq/L (5-15); Potassium 4.4 mmoL/L (3.5-5.1)
== END 2023-11-30 23:59 | disposition home or self-care (01) ==
LOC: LAB.DROPOF 16:19
PROVIDERS: PCP Internal Medicine; Visit Provider Internal Medicine
DX: I10 Essential (primary) hypertension (principal); I48.91 Unspecified atrial fibrillation; I50.32 Chronic diastolic (congestive) heart failure; I25.10 Atherosclerotic heart disease of native coronary artery without angina pectoris; E78.5 Hyperlipidemia, unspecified; M17.12 Unilateral primary osteoarthritis, left knee; M54.42 Lumbago with sciatica, left side; G47.33 Obstructive sleep apnea (adult) (pediatric)
CPT/HCPCS: 80053; 80061; 85014

== ENCOUNTER 2023-12-13 09:33 | Outpatient (CLI) | payer MEDICARE, BC, SELFPAY ==
--- NOTE | 2023-12-13 09:37 | XR_ITS ---
FINAL REPORT CLINICAL HISTORY: Nonspecific cough COMPARISON: 12/06/2022 FINDINGS: Two views of the chest were obtained. There is a left subclavian pacer present. The heart size and pulmonary vascularity are within normal limits. The mediastinum is normal. No acute pulmonary abnormality is identified. There is no pneumothorax. The bony thorax is intact. IMPRESSION: No active cardiopulmonary disease. Reviewed, Interpreted and Dictated by Corby Acuna III, MD Transcribed by Lourdes Fierro Authenticated and [facility]
[2023-12-17 11:15] LABS: Bordetella parapertussis DNA NEGATIVE; Bordetella pertussis DNA NEGATIVE
== END 2023-12-13 23:59 | disposition home or self-care (01) ==
LOC: LAB 09:34
PROVIDERS: PCP Internal Medicine; Visit Provider Internal Medicine
DX: R05.9 Cough, unspecified (principal); R06.02 Shortness of breath
CPT/HCPCS: 71046; 87635; 87798

== ENCOUNTER 2023-12-16 11:02 | Outpatient (CLI) | payer MEDICARE, BC, SELFPAY | END 2023-12-16 23:59 | disposition home or self-care (01) | LOC: RAD 11:02 | PROVIDERS: PCP Internal Medicine; Visit Provider Nurse Practitioner Family | DX: M54.9 Dorsalgia, unspecified (principal) ==

== ENCOUNTER 2023-12-26 11:23 | Outpatient (POV) | payer MEDICARE, BC, SELFPAY ==
[2023-12-26 11:35] VITALS: BP 103/51; PULSE 59; RESP 18; TEMP 36.8; O2SAT 98; BMI 23.2
--- NOTE | 2023-12-26 12:15 | EXP.PAIN.SOA ---
[facility] Pain Management SOAP Note Subjective:: Patient is a pleasant 88-year-old female who presents today for follow-up of lumbar MRI. Today she rates her pain a 9 out of 10. She denies any new trauma or injury. She does state that she still continues to have chronic pain throughout her low back and denies any radiating symptoms into her legs today. Patient does state the pain is constant and interferes with activities of daily living such as cooking and cleaning. Patient states she can even go grocery shopping for long peers of time due to the worsening pain throughout her back. Patient does state in the past she has had a lumbar epidural RFA that did work for nearly a year and she is interested in repeating this. Patient did just have her first lumbar medial branch block back in July that did provide about 75 to 80% relief lasting a month. She does state that she would like to proceed forward with trying to get the RFA in future. Patient was tried on [place] 5 mg however states that she really did not like the way it made her feel so she discontinued Xanax. Patient has also been prescribed compounded cream and gabapentin from her PCP. Her Rene has been reviewed and is appropriate. Review of Systems: General: No recent weight changes, no fever, no sleep disturbances Respiratory: No cough, no shortness of air, no recurring pulmonary infections Cardiovascular/peripheral vascular: No chest pain, no palpitations, no edema, no shortness of breath Gastrointestinal: No new onset incontinence, normal bowel movements reported Genitourinary: No new onset incontinence Musculoskeletal: Low back pain Psychiatric: [Normal mood/affect] Neurological: [Denies weakness in extremities], [denies balance issues] Objective:: Physical Exam: General: Alert and oriented x3, no acute distress, pleasant and cooperative Lungs: Respirations even and unlabored, symmetrical chest expansion Eyes: PERRL Musculoskeletal: Flexion and extension of lumbar [spine] somewhat guarded secondary to pain, [antalgic gait noted] positive Kemps test Neurological: Speech clear, no gross sensory deficit Assessment:: 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 I have reviewed over the risk and benefits of repeat lumbar medial branch block. Patient has already had her first lumbar medial branch block earlier this year with 75 to 80% relief lasting approximately 1 month. Patient would like to proceed forward with the second block. I did also review over the risk and benefits of the lumbar RFA and that if she has significant relief we will proceed forward with in future. Patient is agreeable to this option. I have also discussed with patient in future she may benefit from pump trial if she does not get significant relief with the ablation. We will follow-up with this at future visits. Patient has tried and failed conservative therapy including continued at home exercise and stretching between injections. We will submit to insurance for her second lumbar medial branch block bilaterally L4-L5 and L5-S1 under fluoroscopy. Patient has been instructed to contact the clinic with any concerns before the next appointment. Dr. Gonzalez has reviewed this note and agrees with this plan of care. This note was dictated using voice recognition software and make contain errors or omissions. [facility] Disclaimer: The information contained in this section may have been updated after the patient was seen, as this information can be updated by other users. Medical History SOB (shortness of breath) Angina pectoris Syncope Atrial flutter with rapid ventricular response History of pacemaker Kidney stone History of gastroesophageal reflux (GERD) Hypertension Arthritis Migraine Bulging discs History of back pain Cataract Right carotid bruit Crescendo angina Pain in pacemaker pocket due to device Pacemaker displacement Cardiac pacemaker in situ Hyponatremia Hyperkalemia Mild chronic anemia History of placement of stent in LAD coronary artery Symptomatic bradycardia Atrial fibrillation with slow ventricular response Hematoma Cellulitis Right leg injury Palpitations Chest pain On amiodarone therapy Elevated coronary artery calcium score Acid reflux Family history of heart disease Second hand smoke exposure Angina, class IV SOB (shortness of breath) High ankle sprain Closed head injury Multiple contusions Lumbar radiculopathy Degenerative disc disease Cough Surgical History History of coronary artery stent placement H/O right heart catheterization History of knee replacement History of hysterectomy Family History Brother Family history of cancer Sister Family history of cancer Other Family history of GERD Family history of diabetes mellitus type II Family history of hyperlipidemia Family history of hypertension Family history of migraine headaches Family history of myocardial infarction Lung cancer Social History Smoking Status: Never smoker second hand exposure: Yes alcohol intake: never substance use type: denies use current occupational status: other Travel in the last 8 weeks: None household members: family housing: house current occupational exposures/hazards: No caffeine: Yes
== END 2023-12-26 23:59 | disposition home or self-care (01) ==
LOC: SC.PAIN 11:24
PROVIDERS: PCP Internal Medicine; Visit Provider Nurse Practitioner Family
DX: G89.4 Chronic pain syndrome (principal); M51.36 Other intervertebral disc degeneration, lumbar region; M47.816 Spondylosis without myelopathy or radiculopathy, lumbar region
CPT/HCPCS: 99212; G0463

== ENCOUNTER 2024-03-29 14:33 | Outpatient (POV) | payer MEDICARE, BC, SELFPAY ==
[2024-03-29 14:58] VITALS: BP 111/64; PULSE 62; RESP 16; O2SAT 96; BMI 23.3
--- NOTE | 2024-03-29 16:09 | A.OFFVIS_ITS ---
[facility] Disclaimer: The information contained in this section may have been updated after the patient was seen, as this information can be updated by other users. Medical History SOB (shortness of breath) Angina pectoris Syncope Atrial flutter with rapid ventricular response History of pacemaker Kidney stone History of gastroesophageal reflux (GERD) Hypertension Arthritis Migraine Bulging discs History of back pain Cataract Right carotid bruit Crescendo angina Pain in pacemaker pocket due to device Pacemaker displacement Cardiac pacemaker in situ Hyponatremia Hyperkalemia Mild chronic anemia History of placement of stent in LAD coronary artery Symptomatic bradycardia Atrial fibrillation with slow ventricular response Hematoma Cellulitis Right leg injury Palpitations Chest pain On amiodarone therapy Elevated coronary artery calcium score Acid reflux Family history of heart disease Second hand smoke exposure Angina, class IV SOB (shortness of breath) High ankle sprain Closed head injury Multiple contusions Lumbar radiculopathy Degenerative disc disease Cough Surgical History History of coronary artery stent placement H/O right heart catheterization History of knee replacement History of hysterectomy Family History Brother Family history of cancer Sister Family history of cancer Other Family history of GERD Family history of diabetes mellitus type II Family history of hyperlipidemia Family history of hypertension Family history of migraine headaches Family history of myocardial infarction Lung cancer Social History Smoking Status: Never smoker second hand exposure: Yes alcohol intake: never substance use type: denies use current occupational status: other Travel in the last 8 weeks: None household members: family housing: house current occupational exposures/hazards: No caffeine: Yes PM Subjective & Objective Subjective Subjective:: Patient is a pleasant 88-year-old female who presents today for insurance denial of her second lumbar medial branch block. Today she rates her pain a 10 out of 10. Patient states that she is having pain still throughout her low back and denies any radiating symptoms into her lower extremities as well as constant pain into her neck that does do numbness and tingling down both of her upper arms however states the left side is worse. Patient states that she constantly feels like her arms are on fire and numb. She does state the pain interferes with her ability perform activities of daily living such as cooking and cleaning. Patient does state that she is interested in injection therapy for this. She states this pain is actually worse than the overall low back pain. Patient is prescribed Watson 5 mg from our office however she states that she tries to not really take this medication unless absolutely needed. Patient does state that she has been cutting it in half and does not need any refills. Patient does however state that she did have to take 1 of these pills last night because it was so bad. Patient is prescribed compounded cream from our office as well along with gabapentin and Xanax from her PCP. Her Rene has been reviewed and is appropriate. Review of Systems: General: No recent weight changes, no fever, no sleep disturbances Respiratory: No cough, no shortness of air, no recurring pulmonary infections Cardiovascular/peripheral vascular: No chest pain, no palpitations, no edema, no shortness of breath Gastrointestinal: No new onset incontinence, normal bowel movements reported Genitourinary: No new onset incontinence Musculoskeletal: Neck pain, bilateral arm numbness tingling Psychiatric: [Normal mood/affect] Neurological: [Denies weakness in extremities], [denies balance issues] Pain at rest (0-10 scale): 10 Objective Objective:: Physical Exam: General: Alert and oriented x3, no acute distress, pleasant and cooperative Lungs: Respirations even and unlabored, symmetrical chest expansion Eyes: PERRL Musculoskeletal: Flexion and extension of cervical [spine] somewhat guarded secondary to pain, [antalgic gait noted] positive Spurling's test Neurological: Speech clear, no gross sensory deficit Has patient had previous pain injection?: No Conservative treatment options previously tried: Home exercise plan Length of treatment: Longer than 12 weeks Meds Home Medications and Allergies Home Medications ?Medication ?Instructions ?Recorded ?Confirmed ?Type pantoprazole 40 mg tablet,delayed 40 mg PO HS acid reflux 10/04/20 03/29/24 History release coenzyme Q10 100 mg capsule 100 mg PO DAILY Supplement 03/10/22 03/29/24 History acetaminophen 325 mg tablet 325 mg PO Q6HP PRN Breakthrough 03/28/22 03/29/24 History (Tylenol) Pain, Mild aspirin 81 mg tablet,delayed 81 mg PO DAILY #30 tabs 09/28/23 03/29/24 Rx release (Adult Aspirin Regimen) bisoprolol fumarate 10 mg tablet 10 mg PO DAILY 09/28/23 03/29/24 History furosemide 40 mg tablet (Lasix) 40 mg PO .three times weekly 90 09/28/23 03/29/24 Rx days #90 tabs hydrocodone 5 mg-acetaminophen 325 1 tab PO DAILY PRN Pain (Scale 12/13/23 03/29/24 History mg tablet Score 7-10) verapamil 240 mg 24 hr 240 mg PO DAILY #90 caps 01/13/24 03/29/24 Rx capsule,extended release donepezil 5 mg tablet 5 mg PO HS dementia #90 tabs 03/07/24 03/29/24 Rx gabapentin 300 mg capsule 300 mg PO BID nerve pain #60 caps 03/07/24 03/29/24 Rx celecoxib 200 mg capsule See Rx Instructions .Route 03/08/24 03/29/24 Rx .COMPLEX #90 caps sertraline 25 mg tablet See Rx Instructions .Route 03/08/24 03/29/24 Rx .COMPLEX #90 tabs atorvastatin 40 mg tablet See Rx Instructions .Route 03/09/24 03/29/24 Rx .COMPLEX #90 tabs New Prescriptions to Start Prescriptions: Allergies Allergy/AdvReac Type Severity Reaction Status Date / Time No Known Allergies Allergy Verified 03/22/24 08:55 Assessment and Plan *Assessment and plan (1) Degenerative disc disease, cervical: Status: Acute Category: Medical Code(s): M50.30 - Other cervical disc degeneration, unspecified cervical region (2) Cervical radiculopathy: Status: Acute Category: Medical Code(s): M54.12 - Radiculopathy, cervical region Plan Patient is experiencing significant pain throughout her neck with radiating numbness and tingling into her upper extremities. Patient did have limited range of motion of her cervical spine with a positive Spurling's test. I did discuss with patient that I do believe she would benefit from cervical epidural steroid injection. Risk and benefits were discussed with the patient and she would like to proceed forward with this plan of care. I did also discuss at [facility] with the patient that in future we will try and resubmit for the lumbar medial branch block as she has had these in the past with significant improvement and got over a year with her lumbar radiofrequency ablation of relief. Patient agrees with this plan of care. Patient will be scheduled for a CORBY C5-C6 under fluoroscopy. Patient has been instructed to contact the clinic with any concerns before the next appointment. Dr. Gonzalez has reviewed this note and agrees with this plan of care. This note was dictated using voice recognition software and make contain errors or omissions. All injections are used with Lidocaine or Bupivacaine and Depo Medrol.
== END 2024-03-29 23:59 | disposition home or self-care (01) ==
LOC: SC.PAIN 14:35
PROVIDERS: PCP Internal Medicine; Visit Provider Nurse Practitioner Family
DX: M50.10 Cervical disc disorder with radiculopathy, unspecified cervical region (principal); Z95.0 Presence of cardiac pacemaker; Z96.659 Presence of unspecified artificial knee joint; Z73.89 Other problems related to life management difficulty
CPT/HCPCS: 99212; G0463

== ENCOUNTER 2024-04-24 14:09 | Day surgery (SDC) | payer MEDICARE, BC, SELFPAY ==
[2024-04-24 14:31] VITALS: BP 130/53; PULSE 60; RESP 16; O2SAT 98; BMI 22.6
[2024-04-24 14:44] VITALS: BP 141/77; PULSE 60; RESP 18; O2SAT 97
[2024-04-24] MEDS: methylPREDNISolone ACETATE 80MG/ML VIAL 80 MG (14:44)
[2024-04-24 14:45] VITALS: BP 141/71; PULSE 60; RESP 18; O2SAT 97
[2024-04-24] MEDS: IOPAMIDOL-200 (41%);10ML VIAL 10 ML IV (14:52)
[2024-04-24 14:57] VITALS: BP 138/67; PULSE 59; RESP 16; O2SAT 96
--- NOTE | 2024-04-24 15:01 | P.PCN_ITS ---
Procedure Date: 04/24/24 Time: 15:00 Anesthesiologist:: Vishnu Crespo CRNA Complications:: None Pre-procedure Diagnosis:: Degenerative disc cervical spine multilevels. Cervical radiculopathy. Post-procedure Diagnosis:: Same. Indications for Procedure:: Patient is a very pleasant 88-year-old female who comes our clinic today for cervical epidural steroid injection. Patient describes posterior cervical neck pain as constant, dull, aching. She also reports bilateral arm and hand radicul opathy. She rates her pain 8/10. Procedure Details:: Procedure:Cervical epidural steroid injection Informed consent was obtained and the risks and benefits of the procedure were explained to the patient. The patient was taken to the procedure room and noninvasive monitors placed, including noninvasive blood pressure cuff and pulse oximeter. The neck was prepped using Chloraprep as a cleansing solution. The C6- C7 interspace was viewed using fluroscopy. The skin and subcutaneous tissues were anesthetized using lidocaine 1.5% and a 25-gauge needle. After this an 18- gauge Touhy epidural needle was placed into the C6-C7 interspace under fluroscopy guidance and advanced using loss of resistance to air until the epidural space was encountered. After confirmation of needle placement in the epidural space using contrast dye, a solution containing normal saline, 2 mL and Depo-Medrol 80 mg was incrementally injected into the cervical epidural space.~ The patient tolerated the procedure well with no complications. The patient was observed in the Pain Clinic and then discharged home neurologically intact. Plan and Disposition:: Patient was discharged without incident.
== END 2024-04-24 14:57 | disposition home or self-care (01) ==
LOC: SC.PAINP 14:10
PROVIDERS: PCP Internal Medicine; Visit Provider Nurse Anesthetist, Certified Registered
DX: M50.30 Other cervical disc degeneration, unspecified cervical region (principal); M54.12 Radiculopathy, cervical region
CPT/HCPCS: 62321; J1010; Q9966

== ENCOUNTER 2024-05-10 14:39 | Outpatient (POV) | payer MEDICARE, BC, SELFPAY ==
[2024-05-10 15:06] VITALS: BP 110/53; PULSE 60; RESP 16; O2SAT 96; BMI 22.3
--- NOTE | 2024-05-10 15:07 | A.OFFVIS_ITS ---
[facility] Disclaimer: The information contained in this section may have been updated after the patient was seen, as this information can be updated by other users. Medical History SOB (shortness of breath) Angina pectoris Syncope Atrial flutter with rapid ventricular response History of pacemaker Kidney stone History of gastroesophageal reflux (GERD) Hypertension Arthritis Migraine Bulging discs History of back pain Cataract Right carotid bruit Crescendo angina Pain in pacemaker pocket due to device Pacemaker displacement Cardiac pacemaker in situ Hyponatremia Hyperkalemia Mild chronic anemia History of placement of stent in LAD coronary artery Symptomatic bradycardia Atrial fibrillation with slow ventricular response Hematoma Cellulitis Right leg injury Palpitations Chest pain On amiodarone therapy Elevated coronary artery calcium score Acid reflux Family history of heart disease Second hand smoke exposure Angina, class IV SOB (shortness of breath) High ankle sprain Closed head injury Multiple contusions Lumbar radiculopathy Degenerative disc disease Cough Surgical History History of coronary artery stent placement H/O right heart catheterization History of knee replacement History of hysterectomy Family History Brother Family history of cancer Sister Family history of cancer Other Family history of GERD Family history of diabetes mellitus type II Family history of hyperlipidemia Family history of hypertension Family history of migraine headaches Family history of myocardial infarction Lung cancer Social History Smoking Status: Never smoker second hand exposure: Yes alcohol intake: never substance use type: denies use current occupational status: other Travel in the last 8 weeks: None household members: family housing: house current occupational exposures/hazards: No caffeine: Yes PM Subjective & Objective Subjective Subjective:: Patient is a pleasant 88-year-old female who presents today for follow-up of cervical epidural steroid injection of C6-C7 on 04/24/2024. She does state that she has had at least a 75% improvement there in her neck and feels like it is still helping. Patient states she really only notices more issues when she is laying down at night along the left side. She states that this pain has been much more manageable. She does however right her pain today a 10 out of 10 and states that pain is all in her low back. Patient does state that she forgot th at we have moved locations so that she has had to walk all over the hospital today and aggravated her overall back pain. Patient is asking today whether or not if we can try and proceed forward with the lumbar injections to get back to the lumbar RFA that she had in the past. Patient states this was the only thing that really seem to give her improved function and lasted over 1 year. Patient states she is miserable currently with her low back and cannot tolerate much activity whatsoever due to the chronic pain. She states that she has very little quality of life and she would just like to be able to stand up and make dinner for Thanksgiving this year. Patient states the chronic pain does interfere with her ability perform activities of daily living such as cooking and cleaning. Patient has had significant improvement with her prior lumbar medial branch blocks with her last 1 being in July that did provide 80% relief and lasted approximately a week and a half. Patient does state that it brought her pain down to about a 1 out of 10 however when she came into see our office that it was increased at the 2-week elbert due to having worsening pain in her low back and neck and then rated it a 5 out of 10. Patient has tried and failed conservative therapy including continued at home stretching exercise for longer than 12 weeks. Her Rene has been reviewed and is appropriate. Injections: 07/26/2023 lumbar medial branch block #1 L4-L5 and L5-S1 bilaterally?80% improvement lasting 1.5 weeks 09/14/2022?left SI 08/10/2022 trigger point injections 06/22/2022 SI RFA 06/24/2021 lumbar RFA bilaterally L4-L5 L5-S1?80% lasting over 1 year 05/01/2021?lumbar medial branch block #2 bilaterally L4-L5 and L5-S1?90% lasting longer than 1 month 03/07/2021 lumbar medial branch block #1 bilaterally L4-L5 and L5-S1?70-80% lasting longer than 3 weeks 02/06/2021 lumbar epidural steroid injection L4-L5 Review of Systems: General: No recent weight changes, no fever, no sleep disturbances Respiratory: No cough, no shortness of air, no recurring pulmonary infections Cardiovascular/peripheral vascular: No chest pain, no palpitations, no edema, no shortness of breath Gastrointestinal: No new onset incontinence, normal bowel movements reported Genitourinary: No new onset incontinence Musculoskeletal: Low back pain Psychiatric: [Normal mood/affect] Neurological: [Denies weakness in extremities], [denies balance issues] Pain at rest (0-10 scale): 10 Objective Objective:: Physical Exam: General: Alert and oriented x3, no acute distress, pleasant and cooperative Lungs: Respirations even and unlabored, symmetrical chest expansion Eyes: PERRL Musculoskeletal: Flexion and extension of lumbar [spine] somewhat guarded secondary to pain, [antalgic gait noted] positive Kemps test Neurological: Speech clear, no gross sensory deficit Has patient had previous pain injection?: Yes Percent improvement in pain since last injection: 75% Conservative treatment options previously tried: Home exercise plan Length of treatment: Longer than 12 weeks Meds Home Medications and Allergies Home Medications ?Medication ?Instructions ?Recorded ?Confirmed ?Type pantoprazole 40 mg tablet,delayed 40 mg PO HS acid reflux 10/04/20 05/10/24 History release coenzyme Q10 100 mg capsule 100 mg PO DAILY Supplement 03/10/22 05/10/24 History acetaminophen 325 mg tablet 325 mg PO Q6HP PRN Breakthrough 03/28/22 05/10/24 History (Tylenol) Pain, Mild aspirin 81 mg tablet,delayed 81 mg PO DAILY #30 tabs 09/28/23 05/10/24 Rx release (Adult Aspirin Regimen) bisoprolol fumarate 10 mg tablet 10 mg PO DAILY 09/28/23 05/10/24 History furosemide 40 mg tablet (Lasix) 40 mg PO .three times weekly 90 09/28/23 05/10/24 Rx days #90 tabs hydrocodone 5 mg-acetaminophen 325 1 tab PO DAILY PRN Pain (Scale 12/13/23 05/10/24 History mg tablet Score 7-10) verapamil 240 mg 24 hr 240 mg PO DAILY #90 caps 01/13/24 05/10/24 Rx capsule,extended release donepezil 5 mg tablet 5 mg PO HS dementia #90 tabs 03/07/24 05/10/24 Rx gabapentin 300 mg capsule 300 mg PO BID nerve pain #60 caps 03/07/24 05/10/24 Rx celecoxib 200 mg capsule See Rx Instructions .Route 03/08/24 05/10/24 Rx .COMPLEX #90 caps sertraline 25 mg tablet See Rx Instructions .Route 03/08/24 05/10/24 Rx .COMPLEX #90 tabs atorvastatin 40 mg tablet See Rx Instructions .Route 03/09/24 05/10/24 Rx .COMPLEX #90 tabs New Prescriptions to Start Prescriptions: Allergies Allergy/AdvReac Type Severity Reaction Status Date / Time No Known Allergies Allergy Verified 05/07/24 11:30 Assessment and Plan *Assessment and plan (1) Lumbar facet arthropathy: Status: Acute Category: Medical Code(s): M47.816 - Spondylosis without myelopathy or radiculopathy, lumbar region (2) Low back pain: Status: Acute Category: Medical Code(s): M54.50 - Low back pain, unspecified Plan Patient is experiencing significant pain throughout her low back with limited range of motion and a positive Kemps test. Patient has tried and failed conservative therapy including oral medication, heat and ice, physical therapy and continued at home stretching exercise for longer than 12 weeks. Patient was counseled that I do believe she would still benefit from the second lumbar medial branch block with the plan to proceed to the lumbar RFA. Patient agrees with this plan of care and even states that the RFA of her low back was the only thing that gave her improved function and lasted over 1 year. Patient has had significant relief with her prior lumbar medial branch blocks as stated previously. Patient has had these injections in the past with her first set of lumbar medial branch blocks providing 70 to 80% with the first lumbar MBB and 90% with her second lumbar procedure. Patient then went on to have the lumbar RFA that lasted over a year providing more than 80% relief if not more. Patient had improved function and decreased pain overall. Patient did start the process over again when the pain started back earlier this year with her first lumbar medial branch block to repeat and did get 80% improvement however it only lasted about 1.5 weeks. On the day of this procedure she did rate her pain at 8 out of 10 and by the 2-week visit she came in and rated her pain a 5 out of 10. Patient gave this rating because the pain was already returning and she does also have chronic neck pain. Patient did state while the injection was really working it had gave the 80% and that she was rating her low back pain overall a 1 out of 10. I have again reviewed over the risk and benefits of the repeat injections with the plan to move forward to the repeat RFA with the patient and she would like to proceed forward. Patient will be resubmitted for her second lumbar medial branch block bilaterally L4-L5 and L5-S1 under fluoroscopy. If she again gets significant relief again like she did in July we will proceed forward with the lumbar RFA at a later date. Patient agrees with this plan of care. I did previously discuss with the patient that there is always the option of a intrathecal pain pump trial in the future and she does state that if she does not get this injection approved she would like to get the ball rolling on the pump trial. Patient states she has very little quality of life and that she cannot do anything due to the chronic low back pain that disrupts every function of her life. Patient has been instructed to contact the clinic with any concerns before the next appointment. Dr. Gonzalez has reviewed this note and agrees with this plan of care. This note was dictated using voice recognition software and make contain errors or omissions. All injections are used with Lidocaine or Bupivacaine and Depo Medrol.
== END 2024-05-10 23:59 | disposition home or self-care (01) ==
LOC: SC.PAIN 14:40
PROVIDERS: PCP Internal Medicine; Visit Provider Nurse Practitioner Family
DX: M47.816 Spondylosis without myelopathy or radiculopathy, lumbar region (principal); M54.50 Low back pain, unspecified; Z73.89 Other problems related to life management difficulty
CPT/HCPCS: 99212; G0463

== ENCOUNTER 2024-05-21 15:01 | Outpatient (CLI) | payer MEDICARE, BC, SELFPAY ==
--- NOTE | 2024-05-21 15:07 | XR_ITS ---
FINAL REPORT CLINICAL HISTORY: pain and swelling of lateral ankle COMPARISON: None FINDINGS: LEFT ANKLE: 2 views of the left ankle were obtained. There is no acute fracture or dislocation. The mortise appears intact. The joint spaces are intact. There is soft tissue swelling noted about the ankle. IMPRESSION: Soft tissue swelling without acute bony abnormality. Reviewed, Interpreted and Dictated by Pablo Melvin MD Transcribed by Elif Stone Authenticated and [facility]
== END 2024-05-21 23:59 | disposition home or self-care (01) ==
LOC: RAD 15:03
PROVIDERS: PCP Internal Medicine; Visit Provider Internal Medicine
DX: S93.402A Sprain of unspecified ligament of left ankle, initial encounter (principal)
CPT/HCPCS: 73600

== ENCOUNTER 2024-06-12 09:50 | Day surgery (SDC) | payer MEDICARE, BC, SELFPAY ==
[2024-06-12 10:07] VITALS: BP 111/48; PULSE 69; RESP 16; TEMP 36.4; O2SAT 95; BMI 22.1
[2024-06-12 10:18] VITALS: BP 120/50; PULSE 65; RESP 18; O2SAT 98
[2024-06-12] MEDS: methylPREDNISolone ACETATE 80MG/ML VIAL 80 MG (10:18)
[2024-06-12] MEDS: BUPIVACAINE 0.25% 10ML INJ 25 MG IJ (10:18)
[2024-06-12] MEDS: LIDOCAINE 1% 5ML PF VIAL 5 ML (10:18)
[2024-06-12 10:19] VITALS: BP 120/50; PULSE 65; RESP 18; O2SAT 97
--- NOTE | 2024-06-12 10:23 | P.PCN_ITS ---
Procedure Date: 06/12/24 Time: 10:00 Anesthesiologist:: Vishnu Crespo CRNA Complications:: None Pre-procedure Diagnosis:: Degenerative disc lumbar spine multilevels. Lumbar radiculopathy. Lumbar spondylosis. Multilevel lumbar facet arthropathy Post-procedure Diagnosis:: Same. Indications for Procedure:: Patient is a pleasant 88-year-old female who comes our clinic today for ROUND TWO of lumbar medial branch blocks/facet injections at the L4-5 and L5-S1 level. Patient describes low lumbar back pain as constant, dull, aching. She reports difficulty with lumbar flexion, extension, left and right rotation. She rates her pain 10/10. Patient reports responding very well to previous injection same level. Procedure Details:: Informed consent was obtained and the risk and benefits of the procedure was explained to the patient. Patient was taken to the procedure room where noninvasive monitors were placed, including noninvasive blood pressure cuff as well as pulse oximeter. The area over the lumbar spine was cleansed using chlorh exidine as a cleansing solution. I anesthetized the skin and subcutaneous tissues with 1% Lidocaine. I placed 22-gauge spinal needles into the facet joint/ medial branches of L4-L5, and L5-S1] bilaterally. Needle placement was confirmed with fluoroscopy. After confirmation of needle placement, each site was injected with 1 mL of 1% lidocaine and 0.25 % Marcaine and 10 mg of Depo- Medrol. A total of 80 mg of depo medrol was used for bilateral medial branch blocks of L4-L5, and L5-S1] bilaterally. Patient tolerated the procedure without difficulty. There were no complications. Plan and Disposition:: Patient was discharged without incident.
[2024-06-12 10:33] VITALS: BP 105/44; PULSE 56; RESP 16; O2SAT 96
== END 2024-06-12 10:33 | disposition home or self-care (01) ==
PROVIDERS: PCP Internal Medicine; Visit Provider Nurse Anesthetist, Certified Registered
DX: M47.816 Spondylosis without myelopathy or radiculopathy, lumbar region (principal); M51.369 Other intervertebral disc degeneration, lumbar region without mention of lumbar back pain or lower extremity pain
CPT/HCPCS: 64493; 64494; J1010

== ENCOUNTER 2024-08-27 13:40 | Outpatient (POV) | payer MEDICARE, BC, SELFPAY ==
[2024-08-27 14:26] VITALS: BP 102/47; PULSE 61; O2SAT 96; BMI 21.7
--- NOTE | 2024-08-27 14:28 | A.OFFVIS_ITS ---
[facility] Disclaimer: The information contained in this section may have been updated after the patient was seen, as this information can be updated by other users. Medical History SOB (shortness of breath) Angina pectoris Syncope Atrial flutter with rapid ventricular response History of pacemaker Kidney stone History of gastroesophageal reflux (GERD) Hypertension Arthritis Migraine Bulging discs History of back pain Cataract Right carotid bruit Crescendo angina Pain in pacemaker pocket due to device Pacemaker displacement Cardiac pacemaker in situ Hyponatremia Hyperkalemia Mild chronic anemia History of placement of stent in LAD coronary artery Symptomatic bradycardia Atrial fibrillation with slow ventricular response Hematoma Cellulitis Right leg injury Palpitations Chest pain On amiodarone therapy Elevated coronary artery calcium score Acid reflux Family history of heart disease Second hand smoke exposure Angina, class IV SOB (shortness of breath) High ankle sprain Closed head injury Multiple contusions Lumbar radiculopathy Degenerative disc disease Cough Surgical History History of coronary artery stent placement H/O right heart catheterization History of knee replacement History of hysterectomy Family History Brother Family history of cancer Sister Family history of cancer Other Family history of GERD Family history of diabetes mellitus type II Family history of hyperlipidemia Family history of hypertension Family history of migraine headaches Family history of myocardial infarction Lung cancer Social History Smoking Status: Never smoker second hand exposure: Yes alcohol intake: never substance use type: denies use current occupational status: other Travel in the last 8 weeks: None household members: family housing: house current occupational exposures/hazards: No caffeine: Yes PM Subjective & Objective Subjective Subjective:: Patient is a pleasant 88-year-old female who presents today for follow-up of her second lumbar medial branch block bilaterally L4-L5 and L5-S1 on 06/12/2024. Patient does rate her pain today a 6 out of 10. She denies any new falls or injuries. Patient does state that she did have 100% relief from this injection initially and states that the pain was not as severe and not as frequent. Patient does rate that she is still getting improvement currently however rates it more along the lines of 50% now. She does also state that she is having more significant pain in and around her bilateral shoulders. She describes it as an aching, throbbing sensation that is worse with increased activity or certain movements. She states that she does even have numbness into these joints. Patient denies any prior shoulder surgery or replacement. Patient has continued conservative treatment with minimal relief. Patient does state the pain is interfering with her ability perform activities of daily living such as cooking and cleaning. Patient does state that the shoulder symptoms do seem worse than her low back currently. Patient has also previously had cervical epidurals that she states did help some with the pain in her neck and shoulders. Patient does also make mention that she feels like her balance is affected currently. She states whenever she goes to get up that it does seem to be very bothersome. She is asking for any recommendations regarding this. Her Rene has been reviewed and is appropriate. Review of Systems: General: No recent weight changes, no fever, no sleep disturbances Respiratory: No cough, no shortness of air, no recurring pulmonary infections Cardiovascular/peripheral vascular: No chest pain, no palpitations, no edema, no shortness of breath Gastrointestinal: No new onset incontinence, normal bowel movements reported Genitourinary: No new onset incontinence Musculoskeletal: Bilateral shoulder pain, leg weakness/balance problems Psychiatric: [Normal mood/affect] Neurological: [Denies weakness in extremities], [denies balance issues] Pain at rest (0-10 scale): 6 Objective Objective:: Physical Exam: General: Alert and oriented x3, no acute distress, pleasant and cooperative Lungs: Respirations even and unlabored, symmetrical chest expansion Eyes: PERRL Musculoskeletal: Flexion and extension of bilateral shoulders somewhat guarded secondary to pain, [antalgic gait noted] Neurological: Speech clear, no gross sensory deficit Has patient had previous pain injection?: Yes Percent improvement in pain since last injection: 100% Conservative treatment options previously tried: Home exercise plan Length of treatment: Longer than 12 weeks Meds Home Medications and Allergies Home Medications ?Medication ?Instructions ?Recorded ?Confirmed ?Type acetaminophen 325 mg tablet 325 mg PO Q6HP PRN Breakthrough 03/28/22 08/27/24 History (Tylenol) Pain, Mild aspirin 81 mg tablet,delayed 81 mg PO DAILY #30 tabs 09/28/23 08/27/24 Rx release (Adult Aspirin Regimen) bisoprolol fumarate 10 mg tablet 10 mg PO DAILY 09/28/23 08/27/24 History verapamil 240 mg 24 hr 240 mg PO DAILY #90 caps 01/13/24 08/27/24 Rx capsule,extended release coenzyme Q10 100 mg capsule 100 mg PO DAILY Supplement #90 caps 05/16/24 08/27/24 Rx hydrocodone 5 mg-acetaminophen 325 1 tab PO DAILY PRN Pain (Scale 05/16/24 08/27/24 Rx mg tablet Score 7-10) #30 tabs furosemide 40 mg tablet See Rx Instructions .Route 06/11/24 08/27/24 Rx .COMPLEX #90 tabs pantoprazole 40 mg tablet,delayed See Rx Instructions .Route 06/12/24 08/27/24 Rx release .COMPLEX #90 tabs donepezil 5 mg tablet 5 mg PO HS dementia #90 tabs 06/19/24 08/27/24 Rx atorvastatin 40 mg tablet See Rx Instructions .Route 08/03/24 08/27/24 Rx .COMPLEX #90 tabs celecoxib 200 mg capsule See Rx Instructions .Route 08/03/24 08/27/24 Rx .COMPLEX #90 caps sertraline 25 mg tablet See Rx Instructions .Route 08/03/24 08/27/24 Rx .COMPLEX #90 tabs gabapentin 300 mg capsule 300 mg PO BID #180 caps 08/16/24 08/27/24 Rx New Prescriptions to Start Prescriptions: Allergies Allergy/AdvReac Type Severity Reaction Status Date / Time No Known Allergies Allergy Verified 05/21/24 14:41 Assessment and Plan *Assessment and plan (1) Bilateral shoulder pain: Status: Acute Category: Medical Code(s): M25.511 - Pain in right shoulder; M25.512 - Pain in left shoulder Plan Patient is having increased pain with her bilateral shoulders with limited range of motion. I did review over risk and benefit of bilateral shoulder intra- articular injections. Patient would like to proceed forward with this plan of care. Patient has tried and failed oral medication, heat and ice, topicals, at home stretching exercise for longer than 12 weeks and between injections. I will also order the patient home health for her low back pain and weakness in her legs. Patient will be scheduled for bilateral shoulder intra-articular injections. These will be done without fluoroscopic or ultrasound guidance. Patient has been instructed to contact the clinic with any concerns before the next appointment. Dr. Gonzalez has reviewed this note and agrees with this plan of care. This note was dictated using voice recognition software and make contain errors or omissions. All injections are used with Lidocaine, Bupivacaine and Depo Medrol. Occasionally urine drug screen is needed to verify patient's compliance with our office pain contract. This is ordered based off specific treatments related to chronic pain with the potential to abuse certain medications.
== END 2024-08-27 23:59 | disposition home or self-care (01) ==
LOC: SC.PAIN 13:44
PROVIDERS: PCP Internal Medicine; Visit Provider Nurse Practitioner Family
DX: M25.511 Pain in right shoulder (principal); M25.512 Pain in left shoulder; Z73.89 Other problems related to life management difficulty; Z96.659 Presence of unspecified artificial knee joint
CPT/HCPCS: 99212; G0463

== ENCOUNTER 2024-09-14 08:20 | Outpatient (CLI) | payer MEDICARE, BC, SELFPAY ==
--- NOTE | 2024-09-14 08:27 | CA_ITS ---
FINAL REPORT TECHNIQUE: Color Doppler, duplex Doppler and cramer scale sonography of the bilateral neck arterial vasculature was performed. Velocities were measured in the carotid arteries. Stenosis evaluation based on the validated velocity criteria. CLINICAL HISTORY: DIZZINESS,HLD,CAMILLE FINDINGS: The peak systolic velocity of the right common carotid artery is 63 cm/s. The peak systolic velocity of the right internal carotid artery is 118 cm/s and end diastolic velocity 33 cm/s. The ICA/CCA ratio is 2.3. A mild to moderate amount of plaque is present. The right external carotid artery is patent. The right vertebral artery is patent with antegrade flow. The peak systolic velocity of the left common carotid artery is 77 cm/s. The peak systolic velocity of the left internal carotid artery is 142 cm/s and end diastolic velocity 26 cm/s. The ICA/CCA ratio is 2.4. A mild to moderate amount of plaque is present. The left external carotid artery is patent.The left vertebral artery is patent with antegrade flow. IMPRESSION: Less than 50% bilateral carotid stenoses. Bilateral patent vertebral arteries with antegrade flow. If indicated, CTA or MRA could further evaluate. Reviewed, Interpreted and Dictated by Pablo Melvin MD Transcribed by Desirae Walsh Authenticated and [facility]
--- NOTE | 2024-09-14 08:27 | CA_ITS ---
APPROVED REPORT EXAM: Comprehensive 2D, Doppler, and color-flow Echocardiogram Pain Coordinator: Lola Sandhu RVT Ht: 5 ft 3 in Wt: 128lbs BSA: 1.60 BP: 123/56 mmHg Indications: CP,A-FIB,SOA,PACER,ABN EKG,HLD 2D Dimensions IVSd 1.25 cm F: 0.6-1.0 LVEF (Visual) 75.90 % PWd 0.99 cm F: 0.6 - 1.0 LA Volume 38.20 mL LVDd 3.18 cm F: 3.9 - 5.3 LA Volume Index 23.88 mL/m2 (M/F) 16-34 LVDs 1.80 cm F: 2.2 - 3.5 M-Mode Dimensions LA Diam 3.17 cm (1.9-4.0) TAPSE 1.94 (<1.7) LV Diastology E Decel Time 250 (160-240 msec) E/A Ratio 1.3 Aortic Valve TIA Index 2.21 cm2/m2 AoV Peak Arden. 167.0 (50-130 cm/s) AI PHT 906.00 ms AO Peak GR. 11.20 mmHg AO Mean GR. 6.00 (<5 mmHg) AO VTI 36.3 (18-25 cm) TIA (VTI) 3.63 (2.5-4.5 cm2) Mitral Valve MV E Max Arden. 118.0 (40-130 cm/s) MV A Velocity 88.0 (40-130 cm/s) E/A Ratio 1.33 MV Mean Gr. 3.10 (<2mmHg) MV PHT 73.0 ms Pulmonary Valve PV Peak Velocity 86.0 (50-150 cm/s) Tricuspid Valve TR P. Velocity 275.00 cm/s RAP Estimate 10.00 mmHg RVSP 40.30 mmHg Left Ventricle The left ventricle is normal size. The left ventricular systolic function is low-normal. There is increased LV wall thickness. There is normal LV segmental wall motion. Diastolic function is indeterminate. LVEF is 50%. Right Ventricle The right ventricle is normal size. The right ventricular systolic function is normal. Atria Left atrium is mildly dilated. The right atrium size is normal. There is no Doppler evidence of interatrial shunt. Aortic Valve The aortic valve is mildly thickened. Mild aortic regurgitation. There is no aortic valvular stenosis. Mitral Valve Mild mitral annular calcification is present. The mitral valve leaflets are mildly thickened. No evidence of mitral valve stenosis. Mild mitral regurgitation. Tricuspid Valve The tricuspid valve leaflets are thin and pliable.Mild to moderate tricuspid regurgitation. RVSP is 30-35 mmHg. Pulmonic Valve The pulmonary valve is normal in structure. Trace pulmonic regurgitation. Great Vessels The aortic root is normal in size. IVC is normal in size and collapses >50% with inspiration. Pericardium There is no pericardial effusion. Other Information Study Quality: Fair Conclusion Low normal LV systolic function (LVEF 50%). Mild biatrial dilation. Mild to moderate TR. Mild AI, mild MR. Electronically signed by : Sofiya Morales MD 09/19/2024 01:53:28
== END 2024-09-14 23:59 | disposition home or self-care (01) ==
LOC: RT 08:21
PROVIDERS: PCP Internal Medicine; Visit Provider Physician Assistant
DX: I51.7 Cardiomegaly (principal); I34.0 Nonrheumatic mitral (valve) insufficiency; I35.1 Nonrheumatic aortic (valve) insufficiency; I36.1 Nonrheumatic tricuspid (valve) insufficiency; R42 Dizziness and giddiness; R06.02 Shortness of breath; R07.89 Other chest pain; I27.20 Pulmonary hypertension, unspecified; I48.0 Paroxysmal atrial fibrillation
CPT/HCPCS: 93306; 93880

== ENCOUNTER 2024-09-18 10:26 | Day surgery (SDC) | payer MEDICARE, BC, SELFPAY ==
[2024-09-18 10:36] VITALS: BP 116/51; PULSE 61; RESP 16; TEMP 36.4; O2SAT 100; BMI 21.4
[2024-09-18 10:40] VITALS: RESP 18
[2024-09-18] MEDS: methylPREDNISolone ACETATE 80MG/ML VIAL 80 MG (10:40)
[2024-09-18] MEDS: BUPIVACAINE 0.25% 10ML INJ 25 MG IJ (10:40)
[2024-09-18] MEDS: LIDOCAINE 1% 5ML PF VIAL 5 ML (10:40)
[2024-09-18 10:43] VITALS: BP 114/59; PULSE 60; RESP 16; O2SAT 97
--- NOTE | 2024-09-18 10:59 | EXP.PAIN.PRO ---
Procedure Date: 09/18/24 Time: 09:50 Anesthesiologist:: Vishnu Crespo CRNA Complications:: None Pre-procedure Diagnosis:: DJD bilateral shoulder. Chronic bilateral shoulder pain. Post-procedure Diagnosis:: Same. Indications for Procedure:: Patient very pleasant 88-year-old female who comes our clinic today for bilateral intra-articular shoulder injections cortisone local anesthetic. Patient describes bilateral shoulder pain as constant, dull, aching. Patient has 5/5 strength in the bilateral arm. However of limited range of motion secondary bilateral shoulder pain. Patient reports pain intensifies at night. Procedure Details:: Procedure Details: Left shoulder intra-articular injection Informed consent was obtained risk and benefits of the procedure were explained to the patient. Patient was taken to the procedure room. The Left shoulder was prepped using ChloraPrep. A 25-gauge needle was used posteriorly to inject 10 mL bupivacaine 0.25% and Depo-Medrol 40 mg. Patient tolerated procedure well with no complications. Procedure Details: Right shoulder intra-articular injection Informed consent was obtained risk and benefits of the procedure were explained to the patient. Patient was taken to the procedure room. The right shoulder was prepped using ChloraPrep. A 25-gauge needle was used posteriorly to inject 10 mL bupivacaine 0.25% and Depo-Medrol 40 mg. Patient tolerated procedure well with no complications. Plan and Disposition:: Patient was discharged without incident.
== END 2024-09-18 10:43 | disposition home or self-care (01) ==
LOC: SC.PAINP 10:28
PROVIDERS: PCP Internal Medicine; Visit Provider Nurse Anesthetist, Certified Registered
DX: M19.011 Primary osteoarthritis, right shoulder (principal); M19.012 Primary osteoarthritis, left shoulder; M25.511 Pain in right shoulder; M25.512 Pain in left shoulder; G89.29 Other chronic pain
CPT/HCPCS: 20610; J1010

== ENCOUNTER 2024-09-20 11:21 | Observation (INO) | payer MEDICARE, BC, SELFPAY ==
[2024-09-20] VITALS (31 sets, daily range): BP systolic 103–174; BP diastolic 54–91; PULSE 60–70; RESP 12–22; TEMP 36.7; O2SAT 94–100; BMI 22.6; BMI 22.7
--- NOTE | 2024-09-20 07:09 | IR_ITS ---
APPROVED REPORT Patient Location: Outpatient Recycling Attendant: Stuart Berry, RT (R) PROCEDURES Left heart catheterization Left ventriculogram Selective coronary angiogram Intravascular ultrasound to the proximal LAD Drug-eluting stent deployment to the proximal LAD INDICATION Coronary artery disease, Angiographic ambiguity, Accelerated angina pectoris, MLA in the proximal LAD of 2.2 mm??? Informed consent was obtained prior to the procedure. COMPLICATIONS NONE Estimated Blood Loss: LESS THAN 10 ML TECHNIQUE One percent lidocaine was used to anesthetize the right groin. The right femoral artery was accessed via the Seldinger technique. A 4-[place] sheath was placed in the right femoral artery. The JL-4 and JR-4 catheter was also used to perform left heart catheterization left ventriculogram and selective coronary angiogram. At the end the diagnostic angiogram therapeutic heparin was administered giving a therapeutic ACT and the 4 [place] sheath was exchanged for a 6 [place] sheath. A JL 4 guide catheter was placed in left main artery followed by Choice PT extra-support wire placed down the LAD. Intravascular ultrasound probe was advanced with significant difficulty passing through the proximal portion proximal to the previous stent. Eventually the IVUS was advanced and the MLA in the proximal LAD was 2.2 mm???. The remaining stent seem to have good stent apposition and expansion. Distally there was moderate disease which did not meet MLA criteria. Because of this a 3 mm x 18 mm [place] frontier stent was placed in the proximal LAD and deployed at 20 antonette reducing the severe to critical stenosis to 0%. CARLENE-3 flow was present before and after the procedure. At the end the procedure the apparatus was removed the groin is reprepped closure change sheath was removed initial good hemostasis was achieved using Perclose device however the stitch caught the subcutaneous tissue causing a dimpling of the epidermal layer. The site was then manipulated to break the stitch away from the subcutaneous tissue and the stitch broke causing rebleeding and the artery out of the site. Hemostasis was quickly achieved with manual pressure and due to the patient being fully anticoagulated it was decided to place a FemoStop for postoperative care and hemostasis ANGIOGRAPHIC RESULTS The left main artery Normal The left anterior descending artery Has a proximal calcified 90% stenosis by IVUS criteria followed by a stent which is widely patent with hazy mid vessel in-stent restenosis. Distally there is 40% stenosis with diffuse 40% stenosis throughout a tortuous distal LAD The circumflex artery Large and dominant gives rise to a large ramus intermedius which has proximal 30% stenoses. The circumflex artery itself is widely patent and has 20 and 30% nonflow limiting stenoses The right coronary artery Nondominant and large with diffuse 20% stenoses The ALMEIDA ventriculogram reveals Preserved at 60% The left ventricular end-diastolic pressure 20 mmHg IMPRESSION Severe disease in the proximal LAD as described above with an MLA of 2.2 mm??? Successful stenting the proximal ID severe disease reduced to 0% with 1 drug-eluting stent Preserved ejection fraction Mildly elevated LVEDP Successful placement of FemoStop to achieve hemostasis PLAN 1. Dual antiplatelet therapy 2. Patient requires admission overnight due to manual pressure and advanced age with complex stenting 3. LDL less than 55 to achieve that high intensity statin 4. Avoidance of tobacco products 5. Risk factor modification 6. Cardiac rehabilitation Electronically signed by : Eliseo Zepeda MD 09/20/2024 10:56:13
[2024-09-20 08:27] LABS: Basophils # 0.1 K/mm3 (0-0.2); Basophils % 1.6 % (0.1-2.0); Eosinophils # 0.2 K/mm3 (0.0-0.4); Hematocrit 34.4 % (37.0-47.0); Hemoglobin 11.4 g/dL (12.2-16.2); Lymphocytes % 23.5 % (10-50); Mean Corpuscular HGB Conc 33.1 g/dL (31.8-35.4); Mean Corpuscular Hemoglobin 31.4 pg (27.0-31.2); Mean Corpuscular Volume 94.8 fl (81-99); Mean Platelet Volume 9.7 fl (7.4-10.4); Monocytes # 0.7 K/mm3 (0.1-1.0); Monocytes % 8.2 % (1.7-9.3); Neutrophils # 5.5 K/mm3 (1.8-7.8); Neutrophils % 64.5 % (37.0-80.0); Platelet Count 263 K/mm3 (142-424); Red Blood Count 3.63 M/mm3 (4.20-5.40); Red Cell Distribution Width 13.4 % (11.5-17.5); White Blood Count 8.5 K/mm3 (4.8-10.8)
[2024-09-20 08:48] LABS: Anion Gap 7.7 mEq/L (5-15); Blood Urea Nitrogen 17 mg/dl (7-17); Calcium 9.3 mg/dl (8.4-10.2); Carbon Dioxide 29 mmol/L (22.0-30.0); Chloride 104 mmol/L (98-107); Creatinine Clearance Estimated 35 mL/min (50-200); Estimated Glomerular Filt Rate 59 ml/min (>60); GFR (African American) 71 ML/MIN (>60); Glucose 97 mg/dl (74-100); Potassium 3.7 mmoL/L (3.5-5.1); Sodium 137 mmol/L (136-145)
[2024-09-20] MEDS: diphenhydrAMINE 50MG/ML VIAL 50 MG IV (09:35)
[2024-09-20] MEDS: LIDOCAINE 1% 10ML MDV 20 ML IJ (09:35)
[2024-09-20] MEDS: HEPARIN 1,000 UNITS/ML 10ML VIAL (CATH LAB) 10000 UNIT IV (09:35)
[2024-09-20] MEDS: NITROGLYCERIN 800MCG/8ML SYR (CATH LAB) 800 MCG IA (09:36)
[2024-09-20] MEDS: VERAPAMIL 2.5MG/ML 2ML VIAL 2.5 MG IV (09:36)
[2024-09-20] MEDS: MIDAZOLAM HCL 1MG/ML 5ML VIAL 1 MG IV (09:41)
[2024-09-20] MEDS: 0.9 % SODIUM CHLORIDE 500 ML 25 ML IV (09:41)
[2024-09-20] MEDS: HEPARIN 1,000 UNITS/500ML NS (CATH LAB) 3000 UNIT IV (09:41)
[2024-09-20] MEDS: FENTANYL 100MCG/2ML VIAL 50 MCG IV (09:42)
--- NOTE | 2024-09-20 10:40 | SUR.PHASEII ---
fem stop applied to right groin, pumped up to 160 pressure. Pedal pulses present, no bleeding noted.
[2024-09-20] MEDS: CLOPIDOGREL 300MG TABLET 600 MG PO (10:43)
--- NOTE | 2024-09-20 10:48 | SUR.PHASEII ---
fem stop to right groin at 140 at this time.
--- NOTE | 2024-09-20 11:12 | SUR.PHASEII ---
pt at 30 mmhg at this time per Ayan Blakely RN. pulses palpable.
--- NOTE | 2024-09-20 11:20 | PC.NURSE ---
Admission from [facility], room 261. all staff notified
--- NOTE | 2024-09-20 11:33 | P.HP_ITS ---
History of Present Illness *Admission Date: 09/20/24 *Reason for visit:: Post cath, unable to Perclose *History of present illness: 88-year-old female with past medical history of cervical radiculopathy, CAD, pulmonary hypertension, CKD, dilated cardiomyopathy, and A-fib. She presented for left heart cath and left ventriculogram due to CAD and accelerated angina pectoris. Patient found to have 90% proximal calcification of LAD. Received 1 drug-eluting stent. Had mild elevation of LVEDP. Attempted Perclose that was unsuccessful, FemoStop was placed to achieve hemostasis. Due to need for FemoStop, cardiology consulted medicine for admission and further management overnight. Patient stable on room air. In no acute distress. I agreed to admit for further management. [facility] Disclaimer: The information contained in this section may have been updated after the patient was seen, as this information can be updated by other users. Medical History Carotid artery stenosis Abnormal ECG SOB (shortness of breath) Angina pectoris Syncope Atrial flutter with rapid ventricular response History of pacemaker Kidney stone History of gastroesophageal reflux (GERD) Hypertension Arthritis Migraine Bulging discs History of back pain Cataract Right carotid bruit Crescendo angina Pain in pacemaker pocket due to device Pacemaker displacement Cardiac pacemaker in situ Hyponatremia Hyperkalemia Mild chronic anemia History of placement of stent in LAD coronary artery Symptomatic bradycardia Atrial fibrillation with slow ventricular response Hematoma Cellulitis Right leg injury Palpitations Chest pain On amiodarone therapy Elevated coronary artery calcium score Acid reflux Family history of heart disease Second hand smoke exposure Angina, class IV SOB (shortness of breath) High ankle sprain Closed head injury Multiple contusions Lumbar radiculopathy Degenerative disc disease Cough Surgical History History of coronary artery stent placement H/O right heart catheterization History of knee replacement History of hysterectomy Family History Brother Family history of cancer Sister Family history of cancer Other Family history of GERD Family history of diabetes mellitus type II Family history of hyperlipidemia Family history of hypertension Family history of migraine headaches Family history of myocardial infarction Lung cancer Social History Smoking Status: Never smoker second hand exposure: Yes alcohol intake: never substance use type: denies use current occupational status: other Travel in the last 8 weeks: Inside the [place] household members: family housing: house current occupational exposures/hazards: No caffeine: Yes Have you lived/traveled outside [place] in past 30 days?: No Contact w/someone who lives/traveled outside [place] past 30 days?: No Exposure to someone with infectious disease in past 14 days?: No Do you have a fever (greater than 100.4 F or 38 C)?: No Have you tested positive for COVID-19: No Exposed to someone with COVID-19 in past 14 days?: No Do you have a sore throat?: No Do you have a cough?: No Do you have any weakness?: No Are you experiencing any nausea/vomitting?: No Do you have any diarrhea?: No Are you experiencing any unusual bleeding?: No Do you have any muscle aches/pain?: No Do you have any abdominal pain?: No Are you experiencing loss of taste or smell?: No Other Medical History Have you received the Flu Vaccine for this season: No Have you received the Pneumonia Vaccine: No Review of Systems Review of Systems Review of systems (narrative): 14 point review of systems performed, pertinent positives and negatives as per HPI Meds Home Medications and Allergies Home Medications ?Medication ?Instructions ?Recorded ?Confirmed ?Type acetaminophen 325 mg tablet 325 mg PO Q6HP PRN Breakthrough 03/28/22 09/20/24 History (Tylenol) Pain, Mild aspirin 81 mg tablet,delayed 81 mg PO DAILY #30 tabs 09/28/23 09/20/24 Rx release (Adult Aspirin Regimen) verapamil 240 mg 24 hr 240 mg PO DAILY #90 caps 01/13/24 09/20/24 Rx capsule,extended release coenzyme Q10 100 mg capsule 100 mg PO DAILY Supplement #90 caps 05/16/24 09/20/24 Rx hydrocodone 5 mg-acetaminophen 325 1 tab PO DAILY PRN Pain (Scale 05/16/24 Rx mg tablet Score 7-10) #30 tabs furosemide 40 mg tablet See Rx Instructions .Route 06/11/24 09/20/24 Rx .COMPLEX #90 tabs pantoprazole 40 mg tablet,delayed See Rx Instructions .Route 06/12/24 09/20/24 Rx release .COMPLEX #90 tabs atorvastatin 40 mg tablet See Rx Instructions .Route 08/03/24 09/20/24 Rx .COMPLEX #90 tabs celecoxib 200 mg capsule See Rx Instructions .Route 08/03/24 09/20/24 Rx .COMPLEX #90 caps sertraline 25 mg tablet See Rx Instructions .Route 08/03/24 09/20/24 Rx .COMPLEX #90 tabs gabapentin 300 mg capsule 300 mg PO BID #180 caps 08/16/24 09/20/24 Rx bisoprolol fumarate 10 mg tablet 10 mg PO DAILY #90 tabs 09/18/24 09/20/24 Rx donepezil 5 mg tablet 5 mg PO HS dementia #90 tabs 09/18/24 09/20/24 Rx clopidogrel 75 mg tablet (Plavix) 75 mg PO DAILY #30 tabs 09/20/24 Rx New Prescriptions to Start Prescriptions: clopidogrel [Plavix] Eliseo Zepeda Allergies Allergy/AdvReac Type Severity Reaction Status Date / Time No Known Allergies Allergy Verified 09/20/24 15:53 Exam Data for Last 24 hours Vital signs and Labs for Last 24 Hours: Pulse Resp BP Pulse Ox O2 Del Method 60 16 167/91 H 97 Room Air 09/20/24 11:14 09/20/24 11:14 09/20/24 11:14 09/20/24 11:14 09/20/24 11:14 Laboratory Results - last 24 hr 09/20/24 08:15: WBC 8.5, RBC 3.63 L, Hgb 11.4 L, Hct 34.4 L, MCV 94.8, MCH 31.4 H, MCHC 33.1, RDW 13.4, Plt Count 263, MPV 9.7, Neut % (Auto) 64.5, Lymph % (Auto) 23.5, [place] % (Auto) 8.2, Eos % (Auto) 2.0, Baso % (Auto) 1.6, Neut # (Auto) 5.5, Lymph # (Auto) 2.0, [place] # (Auto) 0.7, Eos # (Auto) 0.2, Baso # (Auto) 0.1, Sodium 137, Potassium 3.7, Chloride 104, Carbon Dioxide 29, Anion Gap 7.7, BUN 17, Creatinine 0.90, Estimated Creat Clear 35, Estimated GFR 59, Est GFR ( Amer) 71, Glucose 97, Calcium 9.3 I & O for Last 24 hours: Intake & Output 09/17/24 09/18/24 09/19/24 09/20/24 23:59 23:59 23:59 23:59 Weight 58.06 kg Constitutional Constitutional: no acute distress, thin, chronically ill appearing and cooperative *Routine HEENT Exam Head: Present normocephalic Eye: Present EOMI and PERRL ENT: Present mucous membranes moist *Routine Neck Exam Neck: Present supple; Absent lymphadenopathy *Routine Respiratory Exam Respiratory: Present CTA bilaterally; Absent rhonchi, wheezes or crackles *Routine Cardiovascular Exam Cardiovascular: Present RRR *Routine Abdominal Exam Abdominal: Present soft and normoactive bowel sounds; Absent tenderness *Routine Rectal Exam Rectal:: deferred *Routine Genitalia Exam Genitalia:: normal female Comment:: FemStop on right femoral artery *Routine Extremities Exam Extremities: Absent cyanosis, clubbing or edema *Routine Skin Exam Skin: Present warm; Absent rash *Routine Neurological Exam Neurological: Present alert, oriented X3 and moving all extremities; Absent altered mental status Routine Psychiatric Exam Psychiatric: Present normal affect Assessment and Plan *Assessment and plan (1) CAD (coronary artery disease): Status: Acute Qualifiers: Coronary Disease-Associated Artery/Lesion type: [place] artery [place] vs. transplanted heart: [place] heart Associated angina: with other forms of angina Qualified Code(s): I25.118 - Atherosclerotic heart disease of [place] coronary artery with other forms of angina pectoris Category: Medical Code(s): I25.10 - Atherosclerotic heart disease of [place] coronary artery without angina pectoris (2) Carotid artery stenosis: Status: Acute Qualifiers: Laterality: unspecified laterality Qualified Code(s): I65.29 - Occlusion and stenosis of unspecified carotid artery Category: Medical Code(s): I65.29 - Occlusion and stenosis of unspecified carotid artery (3) Pulmonary HTN: Status: Chronic Category: Medical Code(s): I27.20 - Pulmonary hypertension, unspecified (4) HLD (hyperlipidemia): Status: Chronic Qualifiers: Hyperlipidemia type: mixed hyperlipidemia Qualified Code(s): E78.2 - Mixed hyperlipidemia Category: Medical Code(s): E78.5 - Hyperlipidemia, unspecified (5) CKD (chronic kidney disease) stage 3, GFR 30-59 ml/min: Status: Acute Qualifiers: Chronic kidney disease stage 3 subtype: unspecified whether 3a or 3b Qualified Code(s): N18.30 - Chronic kidney disease, stage 3 unspecified Category: Medical Code(s): N18.30 - Chronic kidney disease, stage 3 unspecified (6) Dilated cardiomyopathy: Status: Chronic Category: Medical Code(s): I42.0 - Dilated cardiomyopathy Plan 88-year-old female who presented for elective heart cath. Found to have 90% stenosis of proximal LAD. Underwent successful stenting. Due to need for FemoS top, discussed case with cardiology and they requested admission for further management overnight. I agreed to admit for further care. Stable at time of admission. Problems addressed as follows: CAD Status post left heart cath with stent to the left main artery -Tolerated procedure well. Received 1 stent to left main. Discussed case with cardiology, request admission overnight. Continue DAPT therapy. Will evaluate in the morning. - Continue aspirin 81 mg daily, continue Plavix 75 mg daily. -Resume home bisoprolol 10 mg daily, Lasix 40 mg daily, verapamil 240 mg daily, Lipitor 40 mg hs -Unable to Perclose. Continue FemoStop. Will need observation overnight - White count normal 8.5, hemoglobin 11.4. Chemistry normal with BUN 17, creatinine 0.9. Sodium 137. Potassium 3.7. Repeat CBC, CMP, magnesium ordered for the morning. -Continue donepezil 5 mg nightly for memory impairment Continue Zoloft 25 mg daily for mood gabapentin 300 mg twice daily neuropathy Continue pantoprazole 40 mg nightly for GERD Full code Heparinized in Cat[facility] Generator Cardiac diet
[2024-09-20] MEDS: ONDANSETRON 4MG/2ML VIAL 4 MG IV (12:07)
[2024-09-20] MEDS: MORPHINE 2MG/ML SYRINGE 2 MG IV ×2 (12:07→14:10)
--- NOTE | 2024-09-20 12:39 | PC.NURSE ---
1230 - Attempted to remove fem stop from pt's R groin, site noted to still be oozing and manual pressure re-applied. Hematoma noted below site, pressure applied to this w/ noted improvement. Site continued to ooze and filll up a sterile 4x4. Fem stop re-applied @ 50. Ayan Chase RN spoke to Ayan Blakely RN in labor and delivery nurse to notify of findings and states to keep fem stop in place and attempt to remove again in 30 min. Palpable +1 pulses noted in BLE.
--- NOTE | 2024-09-20 14:21 | PC.NURSE ---
DR WRIGHT AT BEDSIDE
--- NOTE | 2024-09-20 14:28 | PC.NURSE ---
1400 - clinical laboratory director notified that staff attempted to remove fem stop again and pt's right fem site continues to bleed, manual pressure applied and still noted to fill sterile 4x4. clinical laboratory director staff to bedside. Manual pressure applied again by Zahira Diaz RN for about 5 min. Bleeding from site noted to have stopped. New # 20 started in [facility], labs obtained. 1421 - Dr Zepeda at bedside to assess pt. Circumference of right thigh measure and noted to be 21 inches. 1435 - Cath site reassessed. No s/s of active bleeding. Pt awake, alert resting in bed. Pt remains flat, may try sitting pt up @ 2029.
[2024-09-20 14:30] LABS: Basophils # 0.1 K/mm3 (0-0.2); Basophils % 1.4 % (0.1-2.0); Eosinophils # 0.1 K/mm3 (0.0-0.4); Hematocrit 31.8 % (37.0-47.0); Hemoglobin 10.4 g/dL (12.2-16.2); Lymphocytes # 2.1 K/mm3 (0.7-4.5); Lymphocytes % 21.3 % (10-50); Mean Corpuscular HGB Conc 32.7 g/dL (31.8-35.4); Mean Corpuscular Volume 94.6 fl (81-99); Mean Platelet Volume 10.1 fl (7.4-10.4); Monocytes # 0.8 K/mm3 (0.1-1.0); Neutrophils # 6.6 K/mm3 (1.8-7.8); Neutrophils % 67.8 % (37.0-80.0); Platelet Count 253 K/mm3 (142-424); Red Blood Count 3.36 M/mm3 (4.20-5.40); Red Cell Distribution Width 13.5 % (11.5-17.5); White Blood Count 9.7 K/mm3 (4.8-10.8)
--- NOTE | 2024-09-20 14:35 | PC.NURSE ---
1400 - yard laborer notified that staff attempted to remove fem stop again and pt's right fem site continues to bleed, manual pressure applied and still noted to fill sterile 4x4. yard laborer staff to bedside. Manual pressure applied again by Zahira Diaz RN for about 5 min. Bleeding from site noted to have stopped. New # 20 started in [facility], labs obtained. 1421 - Dr Zepeda at bedside to assess pt. Circumference of right thigh measure and noted to be 22 inches. 1435 - Cath site reassessed. No s/s of active bleeding. Pt awake, alert resting in bed. Pt remains flat, may try sitting pt up @ 2029.
[2024-09-20 14:38] LABS: Chloride 104 mmol/L (98-107); Sodium 136 mmol/L (136-145)
[2024-09-20 14:39] LABS: Potassium 4.6 mmoL/L (3.5-5.1)
[2024-09-20 14:41] LABS: Blood Urea Nitrogen 15 mg/dl (7-17); Creatinine Clearance Estimated 35 mL/min (50-200); Estimated Glomerular Filt Rate 79 ml/min (>60); GFR (African American) 95 ML/MIN (>60)
[2024-09-20 14:42] LABS: Anion Gap 9.6 mEq/L (5-15); Calcium 8.7 mg/dl (8.4-10.2); Carbon Dioxide 27 mmol/L (22.0-30.0); Glucose 111 mg/dl (74-100)
[2024-09-20] MEDS: IOPAMIDOL-370 (76%);100ML BOTTLE 100 ML IV (14:47)
[2024-09-20 14:49] LABS: CATHL Activated Clotting Time 195 SEC (74-125)
[2024-09-20 14:58] LABS: INR 1.01 (0.9-1.1); Prothrombin Time 11.3 seconds (10.1-12.5)
[2024-09-20 15:08] LABS: Activated Partial Thrombo Time 78.6 seconds (22.8-30.6)
--- NOTE | 2024-09-20 15:15 | PC.NURSE ---
notified pt primary rn that critical lab value was received. PTT 78.6
--- NOTE | 2024-09-20 17:34 | PC.NURSE ---
Dressing to R groin remains C/D/I. Circumference of right thigh remains unchanged @ 22 inches. Pt on room air. Paced @ 60 on tele. Currently resting comfortably, no needs voiced @ this time. Family remains @ bedside. Call dykes w/in reach. Bed alarm in place. Pt continues to be supine until 2029 r/t prev recurrent bleeding from cath site. Pt and family verbalized understanding. POC ongoing.
[2024-09-20 18:16] LABS: Activated Partial Thrombo Time 32.7 seconds (22.8-30.6)
[2024-09-20] MEDS: PANTOPRAZOLE 40MG TABLET 40 MG PO (21:50)
[2024-09-20] MEDS: DONEPEZIL 5MG TAB 5 MG PO (21:50)
[2024-09-20] MEDS: ATORVASTATIN 40MG TABLET 40 MG PO (21:50)
[2024-09-20] MEDS: GABAPENTIN 300MG CAPSULE 300 MG PO (21:50)
[2024-09-21] VITALS (8 sets, daily range): BP systolic 95–116; BP diastolic 47–55; PULSE 59–70; RESP 12–18; TEMP 36.7–36.9; O2SAT 96–97; BMI 21.9
[2024-09-21 06:12] LABS: Basophils # 0.1 K/mm3 (0-0.2); Basophils % 1.4 % (0.1-2.0); Eosinophils # 0.1 K/mm3 (0.0-0.4); Eosinophils % 0.8 % (0.1-12.0); Hematocrit 27.8 % (37.0-47.0); Lymphocytes # 1.6 K/mm3 (0.7-4.5); Lymphocytes % 17.7 % (10-50); Mean Corpuscular HGB Conc 33.1 g/dL (31.8-35.4); Mean Corpuscular Hemoglobin 31.4 pg (27.0-31.2); Mean Corpuscular Volume 94.9 fl (81-99); Mean Platelet Volume 10.1 fl (7.4-10.4); Monocytes % 11.3 % (1.7-9.3); Neutrophils # 6.1 K/mm3 (1.8-7.8); Neutrophils % 68.5 % (37.0-80.0); Platelet Count 222 K/mm3 (142-424); Red Blood Count 2.93 M/mm3 (4.20-5.40); Red Cell Distribution Width 13.6 % (11.5-17.5)
[2024-09-21 06:23] LABS: Hemoglobin 9.2 g/dL (12.2-16.2)
[2024-09-21 06:24] LABS: Alanine Aminotransferase 23 U/L (12-78); Albumin Level 3.5 g/dl (3.5-5.0); Albumin/Globulin Ratio 1.6 (1.1-1.8); Alkaline Phosphatase 55 U/L (38-126); Anion Gap 8.2 mEq/L (5-15); Aspartate Amino Transferase 37 U/L (14-36); Bilirubin,Total 0.8 mg/dl (0.2-1.3); Blood Urea Nitrogen 16 mg/dl (7-17); Calcium 8.5 mg/dl (8.4-10.2); Carbon Dioxide 27 mmol/L (22.0-30.0); Chloride 105 mmol/L (98-107); Creatinine Clearance Estimated 34 mL/min (50-200); Estimated Glomerular Filt Rate 68 ml/min (>60); GFR (African American) 82 ML/MIN (>60); Globulin 2.2 g/dL (1.3-3.2); Glucose 83 mg/dl (74-100); Magnesium 2.2 mg/dl (1.6-2.3); Potassium 4.2 mmoL/L (3.5-5.1); Sodium 136 mmol/L (136-145); Total Protein,Serum 5.7 g/dl (6.3-8.2)
--- NOTE | 2024-09-21 07:36 | P.DS_ITS ---
General Admission date:: 09/20/24 Discharge date: 09/21/24 HPI HPI HPI: 88-year-old female with past medical history of cervical radiculopathy, CAD, pulmonary hypertension, CKD, dilated cardiomyopathy, and A-fib. She presented for left heart cath and left ventriculogram due to CAD and accelerated angina pectoris. Patient found to have 90% proximal calcification of LAD. Received 1 drug-eluting stent. Had mild elevation of LVEDP. Attempted Perclose that was unsuccessful, FemoStop was placed to achieve hemostasis. Due to need for FemoStop, cardiology consulted medicine for admission and further management overnight. Patient stable on room air. In no acute distress. I agreed to admit for further management. Hospital Course Hospital Course Hospital Course: 88-year-old female who presented for elective heart cath. Found to have 90% stenosis of proximal LAD. Underwent successful stenting. Due to need for FemoStop, discussed case with cardiology and they requested admission for further management overnight. I agreed to admit for further care. Stable at time of admission. Bleeding stopped and FemoStop able to be removed. Doing well in the morning. Stable to discharge home with close follow-up as an outpatient. Problems addressed as follows: CAD Status post left heart cath with stent to the left main artery -Elective heart cath performed 09/20/24. Tolerated procedure well. Received 1 stent to proximal LAD, Discussed case with cardiology, request admission overnight. Continue DAPT therapy during admission. FemoStop was monitored and removed per protocol. Bleeding ceased in right femoral access site. Remained stable overnight. Had slight drop in hemoglobin. Hemoglobin acceptable however at 9.2 on morning of discharge. Will continue aspirin 81 mg daily and Plavix 75 mg daily. Continue home bisoprolol 10 mg daily, Lasix 40 mg daily, verapamil 240 mg daily, Lipitor 40 mg hs. follow-up with cardiology as an outpatient as scheduled. Continue donepezil 5 mg nightly for memory impairment Continue Zoloft 25 mg daily for mood gabapentin 300 mg twice daily neuropathy Continue pantoprazole 40 mg nightly for GERD Exam Data for Last 24 hours Vital signs and Labs for Last 24 Hours: Temp Pulse Resp BP Pulse Ox O2 Del Method O2 Flow Rate 98.4 F 60 12 116/53 L 96 Room Air 4 09/21/24 04:00 09/21/24 06:00 09/21/24 06:00 09/21/24 06:00 09/21/24 06:00 09/21/24 06:46 09/21/24 01:00 Laboratory Results - last 24 hr 09/20/24 08:15: WBC 8.5, RBC 3.63 L, Hgb 11.4 L, Hct 34.4 L, MCV 94.8, MCH 31.4 H, MCHC 33.1, RDW 13.4, Plt Count 263, MPV 9.7, Neut % (Auto) 64.5, Lymph % (Auto) 23.5, [place] % (Auto) 8.2, Eos % (Auto) 2.0, Baso % (Auto) 1.6, Neut # (Auto) 5.5, Lymph # (Auto) 2.0, [place] # (Auto) 0.7, Eos # (Auto) 0.2, Baso # (Auto) 0.1, Sodium 137, Potassium 3.7, Chloride 104, Carbon Dioxide 29, Anion Gap 7.7, BUN 17, Creatinine 0.90, Estimated Creat Clear 35, Estimated GFR 59, Est GFR ( Amer) 71, Glucose 97, Calcium 9.3 09/20/24 10:20: Activated Clotting Time 195 H* 09/20/24 14:15: WBC 9.7, RBC 3.36 L, Hgb 10.4 L, Hct 31.8 L, MCV 94.6, MCH 31.0, MCHC 32.7, RDW 13.5, Plt Count 253, MPV 10.1, Neut % (Auto) 67.8, Lymph % (Auto) 21.3, [place] % (Auto) 8.0, Eos % (Auto) 1.0, Baso % (Auto) 1.4, Neut # (Auto) 6.6, Lymph # (Auto) 2.1, [place] # (Auto) 0.8, Eos # (Auto) 0.1, Baso # (Auto) 0.1, PT 11.3, INR 1.01, APTT 78.6 H* D, Sodium 136, Potassium 4.6 D, Chloride 104, Carbon Dioxide 27, Anion Gap 9.6, BUN 15, Creatinine 0.70 D, Estimated Creat Clear 35, Estimated GFR 79, Est GFR ( Amer) 95 D, Glucose 111 H, Calcium 8.7 09/20/24 17:52: APTT 32.7 H 09/21/24 05:27: WBC 9.0, RBC 2.93 L, Hgb 9.2 L D, Hct 27.8 L, MCV 94.9, MCH 31.4 H, MCHC 33.1, RDW 13.6, Plt Count 222, MPV 10.1, Neut % (Auto) 68.5, Lymph % (Auto) 17.7, [place] % (Auto) 11.3 H, Eos % (Auto) 0.8, Baso % (Auto) 1.4, Neut # (Auto) 6.1, Lymph # (Auto) 1.6, [place] # (Auto) 1.0, Eos # (Auto) 0.1, Baso # (Auto) 0.1, Sodium 136, Potassium 4.2, Chloride 105, Carbon Dioxide 27, Anion Gap 8.2, BUN 16, Creatinine 0.80, Estimated Creat Clear 34, Estimated GFR 68, Est GFR ( Amer) 82, Glucose 83 D, Calcium 8.5, Magnesium 2.2, Total Bilirubin 0.8, AST 37 H, ALT 23, Alkaline Phosphatase 55, Total Protein 5.7 L, Albumin 3.5, Globulin 2.2, Albumin/Globulin Ratio 1.6 I & O for Last 24 hours: Intake & Output 09/18/24 09/19/24 09/20/24 09/21/24 23:59 23:59 23:59 23:59 Intake Total 120 / 120 Output Total 580 / 580 50 / 50 Balance -460 / -460 -50 / -50 Weight 58.258 kg 56.291 kg Constitutional Constitutional: no acute distress, average body habitus and cooperative *Routine HEENT Exam Head: Present normocephalic Eye: Present EOMI and PERRL ENT: Present mucous membranes moist *Routine Neck Exam Neck: Present supple; Absent lymphadenopathy *Routine Respiratory Exam Respiratory: Present CTA bilaterally; Absent respiratory distress, rhonchi or stridor *Routine Cardiovascular Exam Cardiovascular: Present RRR and murmur *Routine Abdominal Exam Abdominal: Present soft and normoactive bowel sounds; Absent tenderness *Routine Rectal Exam Patient deferred: visual exam *Routine Exam Comments: Ecchymosis in right groin, no large hematoma. No active bleeding. *Routine Extremities Exam Extremities: Absent cyanosis, clubbing or edema *Routine Skin Exam Skin: Present intact and warm; Absent rash *Routine Neurological Exam Neurological: Present alert, oriented X3 and moving all extremities; Absent altered mental status Results Data Completed and Pending Labs on day of discharge: Labs from last 24 hours 09/21/24 09/20/24 09/20/24 05:27 17:52 14:15 WBC 9.0 9.7 RBC 2.93 L 3.36 L Hgb 9.2 L D 10.4 L Hct 27.8 L 31.8 L MCV 94.9 94.6 MCH 31.4 H 31.0 MCHC 33.1 32.7 RDW 13.6 13.5 Plt Count 222 253 MPV 10.1 10.1 Neut % (Auto) 68.5 67.8 Lymph % (Auto) 17.7 21.3 [place] % (Auto) 11.3 H 8.0 Eos % (Auto) 0.8 1.0 Baso % (Auto) 1.4 1.4 Neut # (Auto) 6.1 6.6 Lymph # (Auto) 1.6 2.1 [place] # (Auto) 1.0 0.8 Eos # (Auto) 0.1 0.1 Baso # (Auto) 0.1 0.1 PT 11.3 INR 1.01 APTT 32.7 H 78.6 H* D Activated Clotting Time Sodium 136 136 Potassium 4.2 4.6 D Chloride 105 104 Carbon Dioxide 27 27 Anion Gap 8.2 9.6 BUN 16 15 Creatinine 0.80 0.70 D Estimated Creat Clear 34 35 Estimated GFR 68 79 Est GFR ( Amer) 82 95 D Glucose 83 D 111 H Calcium 8.5 8.7 Magnesium 2.2 Total Bilirubin 0.8 AST 37 H ALT 23 Alkaline Phosphatase 55 Total Protein 5.7 L Albumin 3.5 Globulin 2.2 Albumin/Globulin Ratio 1.6 09/20/24 09/20/24 10:20 08:15 WBC 8.5 RBC 3.63 L Hgb 11.4 L Hct 34.4 L MCV 94.8 MCH 31.4 H MCHC 33.1 RDW 13.4 Plt Count 263 MPV 9.7 Neut % (Auto) 64.5 Lymph % (Auto) 23.5 [place] % (Auto) 8.2 Eos % (Auto) 2.0 Baso % (Auto) 1.6 Neut # (Auto) 5.5 Lymph # (Auto) 2.0 [place] # (Auto) 0.7 Eos # (Auto) 0.2 Baso # (Auto) 0.1 PT INR APTT Activated Clotting Time 195 H* Sodium 137 Potassium 3.7 Chloride 104 Carbon Dioxide 29 Anion Gap 7.7 BUN 17 Creatinine 0.90 Estimated Creat Clear 35 Estimated GFR 59 Est GFR ( Amer) 71 Glucose 97 Calcium 9.3 Magnesium Total Bilirubin AST ALT Alkaline Phosphatase Total Protein Albumin Globulin Albumin/Globulin Ratio DS: Diagnosis Discharge Diagnosis (1) CAD (coronary artery disease): Status: Acute Code(s): I25.10 - Atherosclerotic heart disease of [place] coronary artery without angina pectoris Qualifiers: Associated angina: with other forms of angina Coronary Disease- Associated Artery/Lesion type: [place] artery [place] vs. transplanted heart: [place] heart Qualified Code(s): I25.118 - Atherosclerotic heart disease of [place] coronary artery with other forms of angina pectoris (2) Carotid artery stenosis: Status: Acute Code(s): I65.29 - Occlusion and stenosis of unspecified carotid artery Qualifiers: Laterality: unspecified laterality Qualified Code(s): I65.29 - Occlusion and stenosis of unspecified carotid artery (3) Pulmonary HTN: Status: Chronic Code(s): I27.20 - Pulmonary hypertension, unspecified (4) HLD (hyperlipidemia): Status: Chronic Code(s): E78.5 - Hyperlipidemia, unspecified Qualifiers: Hyperlipidemia type: mixed hyperlipidemia Qualified Code(s): E78.2 - Mixed hyperlipidemia (5) CKD (chronic kidney disease) stage 3, GFR 30-59 ml/min: Status: Acute Code(s): N18.30 - Chronic kidney disease, stage 3 unspecified Qualifiers: Chronic kidney disease stage 3 subtype: unspecified whether 3a or 3b Qualified Code(s): N18.30 - Chronic kidney disease, stage 3 unspecified (6) Dilated cardiomyopathy: Status: Chronic Code(s): I42.0 - Dilated cardiomyopathy Meds Home Medications and Allergies Home Medications ?Medication ?Instructions ?Recorded ?Confirmed ?Type acetaminophen 325 mg tablet 325 mg PO Q6HP PRN Breakthrough 03/28/22 09/20/24 History (Tylenol) Pain, Mild aspirin 81 mg tablet,delayed 81 mg PO DAILY #30 tabs 09/28/23 09/20/24 Rx release (Adult Aspirin Regimen) verapamil 240 mg 24 hr 240 mg PO DAILY #90 caps 01/13/24 09/20/24 Rx capsule,extended release coenzyme Q10 100 mg capsule 100 mg PO DAILY Supplement #90 caps 05/16/24 09/20/24 Rx hydrocodone 5 mg-acetaminophen 325 1 tab PO DAILY PRN Pain (Scale 05/16/24 09/20/24 Rx mg tablet Score 7-10) #30 tabs furosemide 40 mg tablet See Rx Instructions .Route 06/11/24 09/20/24 Rx .COMPLEX #90 tabs pantoprazole 40 mg tablet,delayed See Rx Instructions .Route 06/12/24 09/20/24 Rx release .COMPLEX #90 tabs atorvastatin 40 mg tablet See Rx Instructions .Route 08/03/24 09/20/24 Rx .COMPLEX #90 tabs celecoxib 200 mg capsule See Rx Instructions .Route 08/03/24 09/20/24 Rx .COMPLEX #90 caps sertraline 25 mg tablet See Rx Instructions .Route 08/03/24 09/20/24 Rx .COMPLEX #90 tabs gabapentin 300 mg capsule 300 mg PO BID #180 caps 08/16/24 09/20/24 Rx bisoprolol fumarate 10 mg tablet 10 mg PO DAILY #90 tabs 09/18/24 09/20/24 Rx donepezil 5 mg tablet 5 mg PO HS dementia #90 tabs 09/18/24 09/20/24 Rx clopidogrel 75 mg tablet (Plavix) 75 mg PO DAILY #30 tabs 09/20/24 Rx New Prescriptions to Start Prescriptions: clopidogrel [Plavix] Eliseo Zepeda Allergies Allergy/AdvReac Type Severity Reaction Status Date / Time No Known Allergies Allergy Verified 09/20/24 15:53 Discharge Plan Disposition Patient Disposition: Home, Self-Care Condition: Fair Follow up Plan Follow up with: Bon Mills MD [Primary Care Provider] - 10/04/24 11:30 am Eliseo Zepeda MD [Staff Physician] - 09/27/24 10:00 am Prescriptions/Medication Reconciliation: New clopidogrel [Plavix] 75 mg Tablet 75 mg PO DAILY Qty: 30 6RF Continued aspirin [Adult Aspirin Regimen] 81 mg tablet,delayed release (DR/EC) 81 mg PO DAILY Qty: 30 2RF verapamil 240 mg capsule,ext rel. pellets 24 hr 240 mg PO DAILY Qty: 90 3RF coenzyme Q10 100 mg capsule 100 mg PO DAILY Qty: 90 1RF furosemide 40 mg tablet See Rx Instructions .ROUTE .COMPLEX Qty: 90 3RF Dose Instruction: TAKE 1 TABLET EVERY DAY Rx Instructions: TAKE 1 TABLET EVERY DAY pantoprazole 40 mg tablet,delayed release (DR/EC) See Rx Instructions .ROUTE .COMPLEX Qty: 90 1RF Dose Instruction: TAKE 1 TABLET EVERY MORNING FOR GERD Rx Instructions: TAKE 1 TABLET EVERY MORNING FOR GERD atorvastatin 40 mg tablet See Rx Instructions .ROUTE .COMPLEX Qty: 90 1RF Dose Instruction: TAKE 1 TABLET EVERY DAY Rx Instructions: TAKE 1 TABLET EVERY DAY sertraline 25 mg tablet See Rx Instructions .ROUTE .COMPLEX Qty: 90 1RF Dose Instruction: TAKE 1 TABLET EVERY DAY Rx Instructions: TAKE 1 TABLET EVERY DAY celecoxib 200 mg capsule See Rx Instructions .ROUTE .COMPLEX Qty: 90 1RF Dose Instruction: TAKE 1 CAPSULE EVERY DAY Rx Instructions: TAKE 1 CAPSULE EVERY DAY gabapentin 300 mg capsule 300 mg PO BID Qty: 180 0RF bisoprolol fumarate 10 mg tablet 10 mg PO DAILY Qty: 90 1RF donepezil 5 mg tablet 5 mg PO HS Qty: 90 1RF acetaminophen [Tylenol] 325 mg Tablet 325 mg PO Q6HP PRN (Reason: Breakthrough Pain, Mild) hydrocodone-acetaminophen 5-325 mg tablet 1 tab PO DAILY PRN (Reason: Pain (Scale Score 7-10)) Qty: 30 0RF Other Ambulatory Orders: Basic Metabolic Panel (Routine) Timeframe: 1 Week Facility: [facility] - Location: Laboratory Ordered By: Eliseo Zepeda Complete Blood Count Auto Diff (Routine) Timeframe: 1 Week Facility: [facility] - Location: Laboratory Ordered By: Eliseo Zepeda Problem Reconciliation Problems Reviewed?: Yes Patient Discharge Instructions ACTIVITY: Continue current activity DIET: continue same diet Patient Instructions: DI for Cardiac Catheterization, DI for Surgical Site Infection, DI for Moderate Sedation, DI for Post-Surgical Bleeding Print Language: Tajik Providers Primary Care Provider: Bon [place] Admit Provider: Alexi Sainz Attending Provider: Eliseo Zepeda
[2024-09-21] MEDS: FUROSEMIDE 40 MG TABLET PO (08:08)
[2024-09-21] MEDS: VERAPAMIL SR 120MG TABLET 240 MG PO (08:08)
[2024-09-21] MEDS: BISOPROLOL 5MG TABLET 10 MG PO (08:08)
[2024-09-21] MEDS: SERTRALINE 50MG TABLET 25 MG PO (08:08)
[2024-09-21] MEDS: ASPIRIN EC 81MG TABLET 81 MG PO (08:08)
[2024-09-21] MEDS: CLOPIDOGREL 75MG TAB 75 MG PO (08:08)
[2024-09-21] MEDS: GABAPENTIN 300MG CAPSULE 300 MG PO (08:08)
--- NOTE | 2024-09-24 10:44 | SW/DCPLANNER ---
Spoke with patient on the phone. Patient stated that she is doing well. Patient stated that she is aware of her appointments and that she has not written it down on her calender. Patient stated that she was able to get her medicine from clinic pharmacy. Patient stated that she has no concerns or questions at this time. Román Gonzalez
== END 2024-09-21 11:26 | disposition home or self-care (01) ==
LOC: ICU 11:22
PROVIDERS: Physician Assistant; Admitting Provider Internal Medicine Adolescent Medicine; PCP Internal Medicine; Visit Provider Internal Medicine
DX: I25.118 Atherosclerotic heart disease of native coronary artery with other forms of angina pectoris (principal); R94.31 Abnormal electrocardiogram [ECG] [EKG]; Z95.5 Presence of coronary angioplasty implant and graft; I65.29 Occlusion and stenosis of unspecified carotid artery; I27.20 Pulmonary hypertension, unspecified; E78.5 Hyperlipidemia, unspecified; N18.30 Chronic kidney disease, stage 3 unspecified; I42.0 Dilated cardiomyopathy; Z95.0 Presence of cardiac pacemaker; I13.0 Hypertensive heart and chronic kidney disease with heart failure and stage 1 through stage 4 chronic kidney disease, or unspecified chronic kidney disease; I48.0 Paroxysmal atrial fibrillation; I50.30 Unspecified diastolic (congestive) heart failure; I77.1 Stricture of artery; Z79.82 Long term (current) use of aspirin; Z82.49 Family history of ischemic heart disease and other diseases of the circulatory system; Z79.899 Other long term (current) drug therapy; Z83.3 Family history of diabetes mellitus; Z80.1 Family history of malignant neoplasm of trachea, bronchus and lung
CPT/HCPCS: 36415; 80048; 80053; 83735; 85025; 85347; 85610; 85730; 92928; 92978; 93458; 99152; 99153; C1725; C1760; C1769; C1874; C9600; G0378; J1200; J1644; J2270; J2405; J3010; Q9967

== ENCOUNTER 2024-10-01 13:42 | Outpatient (POV) | payer MEDICARE, BC, SELFPAY ==
[2024-10-01 14:06] VITALS: BP 113/61; PULSE 60; RESP 16; O2SAT 100; BMI 21.6
--- NOTE | 2024-10-01 15:41 | A.OFFVIS_ITS ---
[facility] Disclaimer: The information contained in this section may have been updated after the patient was seen, as this information can be updated by other users. Medical History Carotid artery stenosis Abnormal ECG SOB (shortness of breath) Angina pectoris Syncope Atrial flutter with rapid ventricular response History of pacemaker Kidney stone History of gastroesophageal reflux (GERD) Hypertension Arthritis Migraine Bulging discs History of back pain Cataract Right carotid bruit Crescendo angina Pain in pacemaker pocket due to device Pacemaker displacement Cardiac pacemaker in situ Hyponatremia Hyperkalemia Mild chronic anemia History of placement of stent in LAD coronary artery Symptomatic bradycardia Atrial fibrillation with slow ventricular response Hematoma Cellulitis Right leg injury Palpitations Chest pain On amiodarone therapy Elevated coronary artery calcium score Acid reflux Family history of heart disease Second hand smoke exposure Angina, class IV SOB (shortness of breath) High ankle sprain Closed head injury Multiple contusions Lumbar radiculopathy Degenerative disc disease Cough Surgical History Status post total right knee replacement Status post left knee replacement History of coronary artery stent placement H/O right heart catheterization History of knee replacement History of hysterectomy Family History Brother Family history of cancer Sister Family history of cancer Other Family history of GERD Family history of diabetes mellitus type II Family history of hyperlipidemia Family history of hypertension Family history of migraine headaches Family history of myocardial infarction Lung cancer Social History Smoking Status: Never smoker second hand exposure: Yes alcohol intake: never substance use type: denies use current occupational status: other Travel in the last 8 weeks: None household members: family housing: house current occupational exposures/hazards: No caffeine: Yes PM Subjective & Objective Subjective Subjective:: Patient is a pleasant 88-year-old female who presents today for follow-up of bilateral intra-articular shoulder injections on 09/18/2024. She does state that she has had 60% improvement following those injections and that her shoulders are doing wonderful. Patient does rate her pain today a 6 out of 10 and states that pain is all related to her low back. Patient states an aching, throbbing sensation that is fairly constant and does interfere with her ability to perform activities of daily living such as cooking and cleaning. Patient did previously had 2 diagnostic longer than 2 months. She does state that she would like to see about additional injections for this pain as it has increased in intensity and severity. Her Rene has been reviewed and is appropriate. Review of Systems: General: No recent weight changes, no fever, no sleep disturbances Respiratory: No cough, no shortness of air, no recurring pulmonary infections Cardiovascular/peripheral vascular: No chest pain, no palpitations, no edema, no shortness of breath Gastrointestinal: No new onset incontinence, normal bowel movements reported Genitourinary: No new onset incontinence Musculoskeletal: Low back pain Psychiatric: [Normal mood/affect] Neurological: [Denies weakness in extremities], [denies balance issues] Pain at rest (0-10 scale): 6 Objective Objective:: Physical Exam: General: Alert and oriented x3, no acute distress, pleasant and cooperative Lungs: Respirations even and unlabored, symmetrical chest expansion Eyes: PERRL Musculoskeletal: Flexion and extension of lumbar [spine] somewhat guarded secondary to pain, [antalgic gait noted] positive Kemps test Neurological: Speech clear, no gross sensory deficit Has patient had previous pain injection?: Yes Percent improvement in pain since last injection: 60% Conservative treatment options previously tried: Home exercise plan Length of treatment: Longer than 12 weeks Meds Home Medications and Allergies Home Medications ?Medication ?Instructions ?Recorded ?Confirmed ?Type acetaminophen 325 mg tablet 325 mg PO Q6HP PRN Breakthrough 03/28/22 10/01/24 History (Tylenol) Pain, Mild aspirin 81 mg tablet,delayed 81 mg PO DAILY #30 tabs 09/28/23 10/01/24 Rx release (Adult Aspirin Regimen) verapamil 240 mg 24 hr 240 mg PO DAILY #90 caps 01/13/24 10/01/24 Rx capsule,extended release coenzyme Q10 100 mg capsule 100 mg PO DAILY Supplement #90 caps 05/16/24 10/01/24 Rx hydrocodone 5 mg-acetaminophen 325 1 tab PO DAILY PRN Pain (Scale 05/16/24 10/01/24 Rx mg tablet Score 7-10) #30 tabs pantoprazole 40 mg tablet,delayed See Rx Instructions .Route 06/12/24 10/01/24 Rx release .COMPLEX #90 tabs atorvastatin 40 mg tablet See Rx Instructions .Route 08/03/24 10/01/24 Rx .COMPLEX #90 tabs celecoxib 200 mg capsule See Rx Instructions .Route 08/03/24 10/01/24 Rx .COMPLEX #90 caps sertraline 25 mg tablet See Rx Instructions .Route 08/03/24 10/01/24 Rx .COMPLEX #90 tabs gabapentin 300 mg capsule 300 mg PO BID #180 caps 08/16/24 10/01/24 Rx bisoprolol fumarate 10 mg tablet 10 mg PO DAILY #90 tabs 09/18/24 10/01/24 Rx donepezil 5 mg tablet 5 mg PO HS dementia #90 tabs 09/18/24 10/01/24 Rx clopidogrel 75 mg tablet (Plavix) 75 mg PO DAILY #30 tabs 09/20/24 10/01/24 Rx furosemide 20 mg tablet 20 mg PO DAILY #30 tabs 09/28/24 10/01/24 Rx New Prescriptions to Start Prescriptions: Allergies Allergy/AdvReac Type Severity Reaction Status Date / Time No Known Allergies Allergy Verified 09/27/24 09:48 Assessment and Plan *Assessment and plan (1) Lumbar facet arthropathy: Status: Acute Category: Medical Code(s): M47.816 - Spondylosis without myelopathy or radiculopathy, lumbar region (2) Low back pain: Status: Acute Category: Medical Code(s): M54.50 - Low back pain, unspecified Plan Patient is experiencing significant pain in her low back that is worse with bending, twisting or lifting. Patient did have limited range of motion of her lumbar spine with a positive Kemps test during today's visit. I did discuss with the patient that I do believe she would benefit from a lumbar radiofrequency ablation. Risk and benefits were discussed with the patient and she would like to proceed forward with this plan of care. Patient has tried and failed conservative therapy including oral medications, heat and ice, topicals, at home stretching exercise for longer than 12 weeks. Patient has been experiencing chronic low back pain for years. Patient has had 2 successful lumbar medial branch blocks with her last 1 on June 12 providing 100% relief and lasting longer than 2 months. Patient will be scheduled for her lumbar RFA bilaterally L4-L5 and L5-S1 under fluoroscopy. This will be a thermal burn at 80 ?C. Patient has been instructed to contact the clinic with any concerns before the next appointment. Dr. Bux has reviewed this note and agrees with this plan of care. This note was dictated using voice recognition software and make contain errors or omissions. All injections are used with Lidocaine, Bupivacaine and Depo Medrol. Occasionally urine drug screen is needed to verify patient's compliance with our office pain contract. This is ordered based off specific treatments related to chronic pain with the potential to abuse certain medications.
== END 2024-10-01 23:59 | disposition home or self-care (01) ==
LOC: SC.PAIN 13:45
PROVIDERS: PCP Internal Medicine; Visit Provider Nurse Practitioner Family
DX: M47.816 Spondylosis without myelopathy or radiculopathy, lumbar region (principal); M54.50 Low back pain, unspecified; Z96.653 Presence of artificial knee joint, bilateral; Z73.89 Other problems related to life management difficulty; Z79.02 Long term (current) use of antithrombotics/antiplatelets
CPT/HCPCS: 99212; G0463